=== PATIENT | female | born 1950 | race Caucasian/White ===

== ENCOUNTER → 2019-05-25 13:28 | Outpatient (CLI) | payer MEDICARE, OTHER, SELFPAY ==
[2019-05-25 14:42] LABS: Pathologist Comment May follow
[2019-05-25 15:11] LABS: Synovial Fld Mononuclear WBC % 76.2 %; Synovial Fld Polynuclear WBC # 0.223 10^3/uL; Synovial Fld Polynuclear WBC % 23.8 %
[2019-05-25 15:40] LABS: RBC /Synovial Fluid 0.006 10^6/uL (0)
[2019-05-25 16:14] LABS: Lymph 40 %; Monocyte /Synovial Fluid 17 %; Neutrophil 12 % (0-25); Other Cell /Synovial Fluid 31 %
[2019-05-25 16:19] LABS: AUTO B FLUID DILUENT BKGD CT WBC <0.1 RBC <0.01 (W<.1,R<.01); Source / Synovial Fluid LEFT KNEE; Source- Body Fluid SYNOVIAL
[2019-05-25 16:20] LABS: Appearance /Synovial Fluid Cloudy (CLEAR); Color / Synovial Fluid Yellow (Pale Yellow); Synovial Fld Mononuclear WBC # 0.716 10^3/ul
[2019-05-25 16:22] LABS: Body Fluid QC Type(s) BF3Q,BF4Q
[2019-05-26 10:39] LABS: Pathologist Review Reviewed
== END ==
PROVIDERS: Family Provider Internal Medicine; PCP Internal Medicine; Referring Provider Specialist; Visit Provider Specialist
DX: T84.033A Mechanical loosening of internal left knee prosthetic joint, initial encounter (principal); T84.84XA Pain due to internal orthopedic prosthetic devices, implants and grafts, initial encounter
CPT/HCPCS: 87015; 87070; 87075; 87101; 87116; 87205; 87206; 89050; 89051; 89060

== ENCOUNTER 2019-10-18 06:37 | Inpatient (IN) | payer MEDICARE, OTHER, SELFPAY ==
[2019-10-05 14:57] VITALS: BP 145/75; PULSE 63; RESP 16; TEMP 36.4; O2SAT 96; BMI 45.9
--- NOTE | 2019-10-05 15:04 | SDCEKG_ITS ---
Test Reason : Blood Pressure : / mmHG Vent. Rate : 060 BPM Atrial Rate : 060 BPM P-R Int : 170 ms QRS Dur : 080 ms QT Int : 422 ms P-R-T Axes : -16 -01 040 degrees QTc Int : 422 ms Normal sinus rhythm Normal ECG Confirmed by RYAN PAULINO, GUNNAR ([id number]), editorial director SHANNA ZAPATA ([id number]) on 10/06/2019 1:17:59 PM Referred By: Yan Noel Confirmed By:TIMOTHY DAVIS MD
[2019-10-05 17:31] LABS: Absolute Neutrophil Count 5.6 X10^3/uL (2.0-7.7); Basophil# 0.04 X10^3/uL; Basophil% 0.5 % (0-1); Eosinophil# 0.26 X10^3/uL; Eosinophils% 3.2 % (0-5); Hematocrit 41.2 % (37-47); Hemoglobin 12.9 g/dL (12.0-15.0); Lymphocyte % 17.1 % (19-41); Mean Corp Hgb Conc 31.3 g/dL (32-36); Mean Corpuscular Hgb 27.9 pg (27.0-32.0); Mean Corpuscular Volume 89.2 fL (81-99); Monocyte# 0.88 X10^3/uL; Monocyte% 10.7 % (0-10); NRBC Flagged by Analyzer 0 % (0-5); Neutrophil # 5.56 X10^3/uL (2.7-7.7); Neutrophil % 67.9 % (47-70); Platelet Count 304 K/mm3 (150-450); RBC Distribution Width CV 17.2 % (11.6-14.6); RBC Distribution Width SD 55.5 fl (35.1-43.9); Red Blood Count 4.62 M/mm3 (4.2-5.4); White Blood Count 8.2 K/mm3 (4.4-11.0)
[2019-10-05 18:00] LABS: Anion Gap 6 (5-15); BUN 16 mg/dL (7-18); Calcium,Total 8.7 mg/dL (8.5-10.1); Chloride 102 mmol/L (98-107); Creatinine, Serum 0.89 mg/dL (0.55-1.02); EST Glomerular Filtration Rate 67 mL/min (>60); Est Glom Filt Rate - Afr Amer 81 mL/min (>60); Estimated Creatinine Clearance 46.52 ml/min; Glucose 89 mg/dL (74-106); Potassium 3.9 mmol/L (3.5-5.1); Sodium Level 139 mmol/L (136-145)
--- NOTE | 2019-10-06 15:38 | PCM.HP.BLA ---
History and Physical History and Physical [facility] Patient Name: Chely Neff : 1950 From: LAMONT TIM PA-C DATE OF SURGERY: 10/18/2019 SCHEDULED PROCEDURE: left revision total knee arthroplasty HISTORY OF PRESENT ILLNESS: Preoperative history and physical exam was performed on October 05, 2019. This is a 69-year-old female who is been having ongoing pain in her left total knee for over 3 years. Pain has been intermittent and aching. Patient states the pain is increased with sitting, walking, and stairs. She has difficult time with activities of daily living including heavy housework, long shopping trips and long walks. She has stumbled secondary to the knee pain. She has difficult time and feels unsafe getting down on the floor and climbing on steps or ladders. Patient has had a previous left total knee arthroplasty by Dr. Dony Franklin on June 05, 2004. Patient denied any postoperative complications. Patient was worked up by Dr. Yan Noel in which elevated lab markers on April 20, 2019 involving CRP and ESR. Patient did have aspiration and synovasure which was negative for infection on May 25, 2019. Patient has been through physical therapy and home exercises with no relief in symptoms. She has tried oral medications including Tylenol without significant relief. Patient has tried rest, ice, heat, elevation with minimal relief. After failing conservative measures and discussing treatment options with Dr. Yan Noel the patient does wish to proceed with a revision left total knee arthroplasty. Patient currently denies any chest pain, shortness of breath, fevers chills, recent infections. Patient has medical history pertinent for hypertension. Denies any recent chest pain, shortness of breath, fevers chills. We have obtain surgical clearance from Dr. Friend. REVIEW OF SYSTEMS: ROS: Const: Denies anorexia, anxiety, change in appetite, fever and weight change,hard of hearing, and vision problems. CV: Denies chest pain, heart murmur, irregular heartbeat and peripheral vascular disease. Resp: Denies asthma, cough, pneumonia, sleep apnea, SOB, tuberculosis and wheezing. GI: Reports heartburn, but denies constipation, diarrhea, nausea, bloody stools and vomiting, and difficulty swallowing. : Urinary: denies incontinence. Musculo: Denies leg swelling, trouble walking and weakness and limp. Skin: Denies Raynaud's, history of shingles and tattoo. Neuro: Denies ambulatory dysfunction, dizziness, numbness/tingling and tremor. Psych: Denies anxiety, depression, insomnia, mental illness and stress. Dariel/Lymph: Denies anemia, bleeding/bruising tendency and past transfusion. Reviewed, no changes. PAST MEDICAL HISTORY: Advance Care Plan: Other Directive, LIVING WILL Effective Date: 01/28/2016 Other Directive, POA Effective Date: 01/28/2016 PMH: Medical Problems: Arthritis, High Blood Pressure Accidents: None Surgical Hx: Tonsillectomy - 1955 [place] Tubal Ligation - 1975 [facility] Knee Replacement - 2003 [facility] Dr. Franklin BILBETTIE KNEES Appendectomy - 1975 [facility] LT Foot - (2012) DR BUSTILLOS Anesthesia Complications: None Assistive Devices: Glasses Reviewed, no changes. 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 Personal Habits: Smoking: Patient has never smoked.Cigarette Use: Former - 1 pack/day.Alcohol: Occasionally.Drug Use: Denies Use.Enjoy Exercising: Exercises 1-3 X/Week. Reviewed and updated. VITALS: Ht: 62 Wt: 252lb Wt k.307 BMI: 46.1 BP: 129/66 Pulse: 58 Resp: 32 T: 96.8 T: 36.0C ALLERGIES: Naprosyn Statin Drugs MEDICATIONS: Atenolol 25 mg 1 po qd, Multivitamins 1 PO qd, Methotrexate 2.5 mg 8 tab taken once A week, Folic Acid 1 mg 1 PO q day, Furosemide 20 mg 1 tab PO daily, Aspirin 81 mg 1 PO q day, Acetaminophen-Codeine #3 300-30 mg 1 or 2 by mouth q6hr as needed pain, Oxybutynin Chloride ER 10 mg 1 by mouth every day, Omeprazole 40 mg 1 by mouth every day, Crestor 5 mg 1 tab by mouth daily PRE-OP EXAM: General appearance:NORMAL Other: Eyes: Conjunctivae and lids: NORMAL Pupils: ERR Ears, Nose, Mouth, and Throat: NORMAL Other: Inspection of lips, teeth and gums: NORMAL Other: Neck: Examination of neck: no masses noted. Respiratory: Assessment of respiratory effort: NORMAL Other: Auscultation of lungs: clear to auscultation no wheezes, rhonchi or rales. Cardiovascular: Auscultation of heart: regular rate and rhythm, no murmurs, gallops or rubs. Exam of carotid arteries: NORMAL Other: Gastrointestinal: Exam of abdomen: soft, nontender, nondistended bowel sounds present. PHYSICAL EXAMINATION: Patient walks with an antalgic gait. Left knee is cool to touch without erythema. Previous incision is well-healed. Range of motion left knee: 0 of extension to 105 flexion. Patient has no laxity appreciated on lateral, medial, and anterior translation which reproduces pain and guarding. Sensation intact to light touch. IMAGING STUDIES: Previous x-rays of the left knee reveal lateral displacement of the patella and erosion of the patella on the distal femoral condyle. There is evidence of ostial lysis in the distal femur. Implants do not show signs of gross loosening. Previous lab work was obtained on April 20, 2019: ESR 75 and CRP 2.33 Previous aspiration and synovasure was performed on May 25, 2019 which was negative for infection IMPRESSION: 1. Painful left total knee arthroplasty 2. Hypertension PLAN: Dr. Yan Noel did discuss and review with the patient all treatment options including surgical versus nonsurgical options. Patient does wish to proceed with the above-stated procedure. Potential risks, benefits, and complications of the procedure were discussed in detail including but not limited to , infection, nerve and blood vessel damage, persistent pain, numbness, tingling, paresthesias, blood clot, pulmonary embolism, and requirement for possible further surgery. The patient expressed full understanding and has no further questions for the doctor. Patient does agree to proceed with the above-stated procedure and has signed the surgery consent form. This dictation was created using voice recognition software. Phonetic and/or grammatical errors may exist. ___ I have re-examined the patient. There are no clinical changes since date of exam. ___ See progress notes for changes. ___ Dictated on admission Date: Time: Signature:
[2019-10-18] VITALS (9 sets, daily range): BP systolic 96–147; BP diastolic 56–75; PULSE 63–75; RESP 16–71; TEMP 36.2–37.1; O2SAT 92–99; BMI 45.9
[2019-10-18] MEDS: Magnesium Sulfate 4gm/100mL 4 GM/100 ML IV.SOLN. IV (07:13)
[2019-10-18] MEDS: Scopolamine 1mg/72hr Patch 1 PATCH TRANSDERM. (07:14)
[2019-10-18] MEDS: Acetaminophen 500 MG Tablet 1000 MG PO ×3 (07:14→21:56)
[2019-10-18] MEDS: Celecoxib 200 MG Capsule 400 MG PO (07:14)
[2019-10-18 07:15] LABS: Bedside Glucose 134 mg/dL (70-110)
[2019-10-18] MEDS: Gabapentin 600 MG Tablet PO (07:22)
[2019-10-18] MEDS: Lactated Ringers 1,000 ML 100 ML IV ×2 (08:10→11:30)
--- NOTE | 2019-10-18 10:28 | RAD_ITS ---
STUDY: X-RAY - LEFT KNEE REASON FOR EXAM: Left total knee revision. TECHNIQUE: 2 view(s) of the knee. COMPARISON: None. FINDINGS: There is a left total knee revision arthroplasty without evidence of complication. There is postoperative gas in the soft tissues and overlying skin khai. RAD/Knee 1 or 2 Views IMPRESSION: Uncomplicated left total knee arthroplasty. Electronically Signed: Dung Cisneros MD at 16:02 EST Tel , Service support ,
[2019-10-18] MEDS: Cefazolin 2 GM in 0.9% Normal Saline 100 ML IV (10:58)
[2019-10-18] MEDS: dexAMETHasone 10 MG/ML Vial IV (11:05)
--- NOTE | 2019-10-18 12:55 | PCM.OPRPT ---
Report of Operation Date of Procedure: 10/18/19 Pre-Operative Diagnosis: Painful left total knee replacement, aseptic loosening Post-Operative Diagnosis: Painful left total knee replacement, aseptic loosening Surgery/Procedure Performed:: Revision left total knee replacement all 3 components Description of Surgical Findings:: Stable knee, good patella tracking melter assistant: Stanley Stephens Type of Anesthesia:: Spinal Anesthesiologist: Leroy Chi Special Medications: 2 g Ancef, 1 g TXA at incision, 1 g TXA closure, 10 mg Decadron, joint cocktail (5 mg Duramorph, 30 mL of 0.5% Ropivicaine, 1000 units of epinephrine, 30 mg of Toradol), vancomycin IV due to positive MRSA Specimen's removed: 3 separate specimens were sent to microbiology Estimated Blood Loss (mL): 75 mL Fluids Replaced: 1500 mL crystalloid Description of Procedure: Implants used: Femur: Rony triathlon size 4 TS distal femoral component for the left. Distal augments medially and laterally were 10 mm, posterior augments medially and laterally were 5 mm. 15 x 100 mm stem Tibia: Size 3 universal tibial baseplate with 50 x 15 mm stem with size C tibial cone Poly: 16mm TS Patella: 29 mm asymmetric Brief history operative indications: 69-year-old f with total knee replacement in 2003. Patient demonstrated evidence of aseptic loosening and patella maltracking. After ruling out infection we agreed to proceed with revision total knee replacement which had risks which include but not limited to blood loss, DVTs, PEs, nervous damage, infection, the risk of anesthesia. Patient demonstrate understanding was able to sign informed consent. Medical clearance was obtained. Procedure: On the date of procedure patient's L lower extremity was marked in the preoperative area. The patient was then taken back to the operating room where the patient was placed on the table in the supine position. All bony prominences were identified a well-padded. Anesthesia assumed control of the C-spine and airway and remained controlled throughout the remainder of the procedure. A tourniquet was placed on the L upper thigh and the leg was prepped in a sterile fashion. The surgeon then scrubbed at this time. Upon reentering the room L lower extremity was draped in a standard orthopedic fashion. A timeout was then called and everyone agreed upon the side, the site, the procedure to be performed, patient's identity and antibiotics given. An Esmarch bandage was used to exsanguinate the extremity and the tourniquet was placed up to 250 mmHg with the knee in flexion. A midline skin incision was made using the previous incision and extending it proximally and distally to identify normal tissue planes. Medial and lateral flaps were developed appropriate releases. The standard medial parapatellar arthrotomy was made and the patella was subluxed laterally. At this time an aggressive synovectomy was performed re-creating the medial gutter first, then the suprapatellar pouch than the lateral gutter. Once this was completed the knee was flexed up an osteotome was used to remove the tibial polyethylene. The remainder of the synovium was debrided. The standard deep MCL release was done and the patella scar pad was resected and lateral releases were performed. Next our attention was directed to the femur. Where flexible osteotomes and TPS saw were used to break up the implant cement interface. This was done both medially and laterally. After this a bone tamp was used to remove the femur component from the end of the bone. This was done with minimal bone loss. At this time attention was now directed towards the proximal tibia. Possible osteotome and TPS saw were then used to break up the proximal tibia implant interface and stacked osteotomes were used to remove the tibial implant. This was done with minimal bone loss. Our attention was then turned to the tibia where the intramedullary canal was reamed to 17 and a size C tibial cone was reamed. We then made a cleanup cut on the tibia, A drop mera was then used to verify the cut. A size 3 tibial base plate was selected. the knee was flexed and the tibial component was pinned into place and the boss reamer was used to ream the proximal medullary canal. The trial implant was impacted in its prepared position. Our attention was then turned back to the femur or the femur intramedullary canal was reamed to 17 mm using the previous implants a size 4 TCG cutting guide with a 17 x 100 mm mm stem was put into place. The medial epicondyle was used to set the joint line. With this TCG cutting guide we used a 16 mm polyethylene trial in order to help balance the gaps. Once the gaps were appropriately balanced the guide was firmly pinned into place. Distal cuts were made with 10 mm augments medially and 10 mm augment laterally. Posterior cuts were made with 5 mm augments medially and 5 mm augment laterally. Using the guide the box cut was made using a reciprocating saw. The appropriate trials were then placed on the femur and tibia. A trial polyethylene was trialed to ensure proper balancing and stability of the knee. Patella tracking, was then verified and corrected appropriately as needed. Our attention was then directed to the patella. The patella was grossly loose and removed. Patella was everted and a cleanup cut was made. Trial patella was placed. Patellar tracking was again checked and deemed appropriate. Final components were verified and opened, 6 liters of normal saline were irrigated throughout the joint under low-pressure lavage. Then the cement was mixed in a vacuum. Farman Simplex cement with tobramycin was used. The wound was copiously irrigated with normal saline. When the cement was ready cement plugs were placed in the tibial cone was placed the components were cemented into place starting with the tibia, femur. The trial poly component was placed and the knee was placed in full extension. All excess cement was removed in the process. Once the cement had cured the tracking, alignment and balance were verified and a size 16 mm TS polyethylene component was placed. Once the final components were placed a chlorhexidine lavage was used and the wound was copiously irrigated with normal saline solution and the remainder of the periarticular injection was given. The wound was closed in a layer cleaning fashion using #1 vicryl interrupted sutures for the arthrotomy, 2-0 interrupted Vicryl for the subcuticular layer and khai for final skin closure. A sterile compressive dressing was then placed. The patient was then awakened from anesthesia, transferred to the rreliance and transferred to the PACU for recovery. Post op plan DVT ppx: ASA 81mg BID, thigh high compression stockings Follow up: in office in 2 weeks for wound check PT: to start POD #0 at hospital, outpatient PT should be arranged. My physician assistant infant toddler teacher was a vital part of this case. He was important in appropriate retraction during the case, and protection of soft tissues during bony cuts. His intimate knowledge of the case and my steps aided in safe and expedient completion of the procedure as well as appropriate position of the leg during the case. He was also vital in assisting with closure under my direct supervision. - Complications No intraoperative complications - Admit VTE Documentation VTE Present on Admission: No VTE Mechan Device Prophylaxis: SCD's, Thigh High ALFONSO Hose VTE Pharm Prophylaxis ordered?: Yes
[2019-10-18] MEDS: Folic Acid 1 MG Tablet PO (15:27)
[2019-10-18] MEDS: Lactated Ringers 1,000 ML 125 ML IV (15:33)
[2019-10-18] MEDS: Ensure Surgery 237 ML LIQUID PO (17:27)
[2019-10-18] MEDS: Cefazolin 1 GM/50 ML BAG IV (18:57)
[2019-10-18] MEDS: Aspirin 81 MG TAB.CHEW PO (21:56)
[2019-10-18] MEDS: Rosuvastatin Calcium 5 MG Tablet PO (21:56)
[2019-10-18] MEDS: Senna/Docusate Sodium 1 Tablet 2 TABLET PO (21:56)
[2019-10-18] MEDS: Doxycycline 100 MG CAPSULE PO (21:56)
[2019-10-19 02:37] VITALS: BP 128/59; PULSE 67; RESP 16; TEMP 36.3; O2SAT 95
[2019-10-19] MEDS: Cefazolin 1 GM/50 ML BAG IV (02:39)
[2019-10-19] MEDS: 0.9% Saline Lock 10 ML Syringe IV ×2 (03:20→10:54)
[2019-10-19] MEDS: Acetaminophen 500 MG Tablet 1000 MG PO ×3 (05:26→21:11)
[2019-10-19 05:30] LABS: Hematocrit 35.2 % (37-47); Hemoglobin 11.1 g/dL (12.0-15.0); Mean Corp Hgb Conc 31.5 g/dL (32-36); Mean Corpuscular Hgb 28.8 pg (27.0-32.0); Mean Corpuscular Volume 91.4 fL (81-99); Mean Platelet Vol. 9.8 fl (6.2-12.0); Platelet Count 250 K/mm3 (150-450); RBC Distribution Width CV 16.4 % (11.6-14.6); RBC Distribution Width SD 54.1 fl (35.1-43.9); Red Blood Count 3.85 M/mm3 (4.2-5.4); White Blood Count 15.5 K/mm3 (4.4-11.0)
[2019-10-19 05:54] LABS: Anion Gap 5 (5-15); BUN 16 mg/dL (7-18); BUN/Creat Ratio 15.8 RATIO (10-20); Calcium,Total 8.5 mg/dL (8.5-10.1); Chloride 108 mmol/L (98-107); Creatinine, Serum 1.01 mg/dL (0.55-1.02); EST Glomerular Filtration Rate 58 mL/min (>60); Est Glom Filt Rate - Afr Amer 70 mL/min (>60); Estimated Creatinine Clearance 40.99 ml/min; Glucose 172 mg/dL (74-106); Potassium 4.8 mmol/L (3.5-5.1); Sodium Level 141 mmol/L (136-145)
[2019-10-19] MEDS: Folic Acid 1 MG Tablet PO (07:39)
[2019-10-19] MEDS: Multivitamins,Ther W-Minerals Tablet 1 TABLET PO (07:39)
[2019-10-19] MEDS: Ensure Surgery 237 ML LIQUID PO ×3 (07:43→16:54)
[2019-10-19] MEDS: Pantoprazole Sodium 20 MG Tablet PO (07:46)
[2019-10-19] MEDS: Doxycycline 100 MG CAPSULE PO ×2 (07:46→21:12)
[2019-10-19] MEDS: Senna/Docusate Sodium 1 Tablet 2 TABLET PO ×2 (07:47→21:11)
[2019-10-19] MEDS: Aspirin 81 MG TAB.CHEW PO ×2 (07:47→21:12)
[2019-10-19] MEDS: Tolterodine Tartrate 2 MG CAP.SA PO (07:47)
[2019-10-19] MEDS: Furosemide 20 MG Tablet PO (07:47)
[2019-10-19] MEDS: Famotidine 20 MG Tablet PO (07:47)
[2019-10-19] MEDS: Atenolol 25 MG Tablet PO (07:55)
--- NOTE | 2019-10-19 07:55 | NURSING ---
am meds all given at this time per pt request
[2019-10-19 10:00] VITALS: BP 137/63; PULSE 76; RESP 14; TEMP 36.7; O2SAT 94
--- NOTE | 2019-10-19 10:00 | CASEMGMT ---
YOEL ANTHONY Face to Face with patient for initial transition planning/care coordination assessment. RN RAJ introduced self and role at [facility]. Patient sitting in chair, alert and oriented. Patient willing to participate in assessment and is able to answer all questions appropriately. Care providers, pharmacy, and demographics verified. Patient wishes to discharge home and is setup with [facility] in [place] for outpatient therapy. Patient states she has no further needs or concerns at this time. CM to follow for discharge planning needs that may arise. PCP: Ronna Specialists: RA Stephen Preferred Pharmacy: [facility]. Patient wanting [facility] at discharge. Insurance: [facility], AARP Prescription Benefit: yes Living Will/HPOA: yes, sons Ousmane and Vasyl LNOK: sons Living Arrangements: Patient lives alone in 1 story home with 2 steps and railing to enter the home. Patient independent at home prior to surgery. Transportation: sons, family DME/HHC: Patient has shower chair, raised toilet, cane, walker at home. Patient is scheduled for outpatient therapy to begin Wednesday at [facility] in [place]. Disposition Plan: Patient to discharge home with outpatient therapy, family support, and follow-up plans in place. Lore RUIZ, RN, CM
--- NOTE | 2019-10-19 10:12 | CASEMGMT ---
As per preadmission assessment, pt has LW/POA and sons are POA, but she is not able to bring in the documents. EVA Artis
--- NOTE | 2019-10-19 10:53 | PCM.PN.ORT ---
Subjective: The patient was sitting in bedside chair upon examination. Patient denies any chest pain, shortness of breath, dizziness, lightheadedness, nausea or vomiting, or calf pain. Pain is controlled on medications. No adverse overnight events. Patient was requiring oxygen postoperatively. She currently denies any chest pain or shortness of breath. Patient does complain of pain in the postoperative revision left total knee. Medications seem to be helping at this point. She did undergo a postoperative block. Patient states that she has no one at home tonight and will have help tomorrow. Objective: Vital signs stable and afebrile. Patient is able to plantarflex and dorsiflex actively. Sensation is intact to light touch to saphenous, sural, superficial and deep peroneal, and tibial distribution. Dressing is clean dry and intact. Negative Homans bilaterally, negative signs and symptoms of DVT. - Physical Exam Vitals/I&O's: Vital Signs Temp Pulse Resp BP Pulse Ox 97.3 F L 67 16 128/59 H 95 10/19/19 02:37 10/19/19 02:37 10/19/19 02:37 10/19/19 02:37 10/19/19 02:37 Oxygen Flow Rate (L/min) 1 Oxygen Delivery Method Nasal Cannula Weight: 114 kg Body Mass Index (BMI) 45.9 Intake and Output for Last 24 Hours 10/17/19 10/18/19 10/19/19 23:59 23:59 23:59 Intake Total 3463.74 / 3463.74 985 / 985 Balance 3463.74 / 3463.74 985 / 985 General: Alert, Oriented x3, Cooperative, No apparent distress Laboratory Results 10/19/19 05:00: WBC 15.5 H, RBC 3.85 L, Hgb 11.1 L, Hct 35.2 L, MCV 91.4, MCH 28.8, MCHC 31.5 L, RDW Std Deviation 54.1 H, RDW Coeff of Shorty 16.4 H, Plt Count 250, MPV 9.8 10/19/19 05:00: Sodium 141, Potassium 4.8, Chloride 108 H, Carbon Dioxide 28.0, Anion Gap 5, BUN 16, Creatinine 1.01, Estim Creat Clear Calc 40.99, Est GFR (MDRD) Af Amer 70, Est GFR (MDRD) Non-Af 58 L, BUN/Creatinine Ratio 15.8, Glucose 172 H, Calcium 8.5 Current Medications Acetaminophen (Tylenol) 1,000 mg PO Q8 [facility] Last Admin: 10/19/19 05:26 Dose: 1,000 mg Documented by: Aspirin (Aspirin, Baby) 81 mg PO BID [facility] Last Admin: 10/19/19 07:47 Dose: 81 mg Documented by: Atenolol (Tenormin (Beta Andrew)) 25 mg PO DAILY [facility] Last Admin: 10/19/19 07:55 Dose: 25 mg Documented by: Doxycycline Monohydrate (Doxycycline) 100 mg PO BID [facility] Last Admin: 10/19/19 07:46 Dose: 100 mg Documented by: Enteral Nutritional Formula (Ensure Surgery) 237 ml PO TIDCM [facility] Last Admin: 10/19/19 07:43 Dose: 237 ml Documented by: Famotidine (Pepcid) 20 mg PO DAILY [facility] Last Admin: 10/19/19 07:47 Dose: 20 mg Documented by: Folic Acid (Folic Acid) 1 mg PO SuMoTuWeThSa@0800 [facility] Last Admin: 10/19/19 07:39 Dose: 1 mg Documented by: Furosemide (Lasix) 20 mg PO DAILY [facility] Last Admin: 10/19/19 07:47 Dose: 20 mg Documented by: Sodium Chloride () 250 mls @ 15 mls/hr IV .[id number] PRN PRN Reason: Saline Flush Insulin Human Lispro (Humalog Kwikpen (Bkc)) 1 - 6 unit SC Q4H PRN PRN; Protocol PRN Reason: BG>/= 180, SEE PROTOCOL Ketorolac Tromethamine (Toradol) 15 mg IV Q6H PRN PRN PRN Reason: Pain Score 1-5/10 Stop: 10/20/19 10:29 Meloxicam (Mobic) 7.5 mg PO BID [facility] Methotrexate (Methotrexate) 20 mg PO FR [facility] Morphine Sulfate () 2 - 4 mg IV Q2H PRN PRN PRN Reason: Pain Score 6-10/10 Morphine Sulfate () 2 - 4 mg IV Q2H PRN PRN PRN Reason: pain score 6-10/10 Multivitamins/Minerals (Multivitamin With Minerals) 1 tablet PO DAILY@0800 [facility] Last Admin: 10/19/19 07:39 Dose: 1 tablet Documented by: Ondansetron HCl (Zofran) 4 mg IV Q8H PRN PRN PRN Reason: NAUSEA Oxycodone HCl (Oxyir) 5 - 10 mg PO Q4H PRN PRN PRN Reason: Pain Score 4-10/10 Pantoprazole Sodium (Protonix) 20 mg PO DAILY [facility] Last Admin: 10/19/19 07:46 Dose: 20 mg Documented by: Promethazine HCl (Phenergan) 12.5 mg IM Q6H PRN PRN; Protocol PRN Reason: NAUSEA/VOMITING Rosuvastatin Calcium (Crestor) 5 mg PO QHS [facility] Last Admin: 10/18/19 21:56 Dose: 5 mg Documented by: Senna/Docusate Sodium (Senokot-S, Sabrina-Colace) 2 tablet PO BID [facility] Last Admin: 10/19/19 07:47 Dose: 2 tablet Documented by: Sodium Chloride () 10 - 40 ml IV UD PRN PRN Reason: SALINE FLUSH Last Admin: 10/19/19 03:20 Dose: 10 ml Documented by: Tolterodine Tartrate (Detrol La) 2 mg PO DAILY [facility] Last Admin: 10/19/19 07:47 Dose: 2 mg Documented by: Medical Necessity - Tobacco Use Smoking Status: Former smoker Tobacco Use: Non-smoker Assessment/Plan 1. S/P left revision total knee arthroplasty POD #1 2. Continue Pain Medications: Tylenol and OxyIR 3. DVT Prophylaxis: Aspirin 81 mg twice daily for 4 weeks postoperatively 4. PT/OT: Weightbearing as tolerated 5. H & H: 11.1/35.2, asymptomatic 6. Reactive leukocytosis: Currently 15.5, afebrile. Patient did receive Decadron intraoperatively. 7. Continue antibiotics while following cultures: Currently pending. Patient currently on doxycycline 1 week postoperatively 8. Encouraged Incentive Spirometry 9. Disposition: Plan will be for discharge home tomorrow. We will continue to monitor and make sure patient's pain is well controlled and she tolerates physical therapy after her revision total knee arthroplasty.
[2019-10-19] MEDS: Ketorolac 15 MG/ML Vial IV (10:54)
[2019-10-19 14:35] VITALS: BP 155/60; PULSE 72; RESP 18; TEMP 36.4; O2SAT 94
[2019-10-19 21:09] VITALS: BP 153/70; PULSE 75; RESP 18; TEMP 37.1; O2SAT 93
[2019-10-19] MEDS: Meloxicam 7.5 MG Tablet PO (21:12)
[2019-10-19] MEDS: Rosuvastatin Calcium 5 MG Tablet PO (21:12)
[2019-10-20 02:55] VITALS: BP 157/84; PULSE 77; RESP 20; TEMP 36.7; O2SAT 95
[2019-10-20 05:35] LABS: Hematocrit 33.9 % (37-47); Hemoglobin 10.6 g/dL (12.0-15.0); Mean Corp Hgb Conc 31.3 g/dL (32-36); Mean Corpuscular Volume 89.7 fL (81-99); Mean Platelet Vol. 9.6 fl (6.2-12.0); Platelet Count 220 K/mm3 (150-450); RBC Distribution Width CV 17.2 % (11.6-14.6); Red Blood Count 3.78 M/mm3 (4.2-5.4); White Blood Count 12.7 K/mm3 (4.4-11.0)
[2019-10-20] MEDS: Acetaminophen 500 MG Tablet 1000 MG PO (06:40)
--- NOTE | 2019-10-20 07:25 | PCM.PN.ORT ---
Subjective: The patient was sitting in bedside chair upon examination. Patient denies any chest pain, shortness of breath, dizziness, lightheadedness, nausea or vomiting, or calf pain. No adverse overnight events. Patient states she is having increased pain in the postoperative left knee. The ALFONSO hose are significantly causing discomfort. Patient is only tried to use Tylenol for pain control. She is not been taking any of the oxycodone. Objective: Vital signs stable and afebrile. Patient is able to plantarflex and dorsiflex actively. Sensation is intact to light touch to saphenous, sural, superficial and deep peroneal, and tibial distribution. Dressing is clean dry and intact. Negative Homans bilaterally, negative signs and symptoms of DVT. - Physical Exam Vitals/I&O's: Vital Signs Temp Pulse Resp BP Pulse Ox 98.1 F 77 20 H 157/84 H 95 10/20/19 02:55 10/20/19 02:55 10/20/19 02:55 10/20/19 02:55 10/20/19 02:55 Oxygen Flow Rate (L/min) 1 Oxygen Delivery Method Room Air Weight: 114 kg Body Mass Index (BMI) 45.9 Intake and Output for Last 24 Hours 10/18/19 10/19/19 10/20/19 23:59 23:59 23:59 Intake Total 3463.74 / 3463.74 2085 / 2385 800 / 800 Balance 3463.74 / 3463.74 2085 / 2385 800 / 800 General: Alert, Oriented x3, Cooperative, No apparent distress Microbiology Past 72 Hours 10/18/19 13:36 Tissue - Knee Gram Stain - Final 10/18/19 13:36 Tissue - Knee Wound Culture - Preliminary No growth-Final to follow 10/18/19 13:36 Tissue - Knee Gram Stain - Final 10/18/19 13:36 Tissue - Knee Wound Culture - Preliminary No growth-Final to follow 10/18/19 13:36 Tissue - Knee Gram Stain - Final 10/18/19 13:36 Tissue - Knee Wound Culture - Preliminary No growth-Final to follow Laboratory Results 10/20/19 05:05: WBC 12.7 H, RBC 3.78 L, Hgb 10.6 L, Hct 33.9 L, MCV 89.7, MCH 28.0, MCHC 31.3 L, RDW Std Deviation 56.0 H, RDW Coeff of Shorty 17.2 H, Plt Count 220, MPV 9.6 Current Medications Acetaminophen (Tylenol) 1,000 mg PO Q8 COUNTS INCLUDE 234 BEDS AT THE [facility] Last Admin: 10/20/19 06:40 Dose: 1,000 mg Documented by: Aspirin (Aspirin, Baby) 81 mg PO BID COUNTS INCLUDE 234 BEDS AT THE [facility] Last Admin: 10/19/19 21:12 Dose: 81 mg Documented by: Atenolol (Tenormin (Beta Andrew)) 25 mg PO DAILY COUNTS INCLUDE 234 BEDS AT THE [facility] Last Admin: 10/19/19 07:55 Dose: 25 mg Documented by: Doxycycline Monohydrate (Doxycycline) 100 mg PO BID COUNTS INCLUDE 234 BEDS AT THE [facility] Last Admin: 10/19/19 21:12 Dose: 100 mg Documented by: Enteral Nutritional Formula (Ensure Surgery) 237 ml PO TIDCM COUNTS INCLUDE 234 BEDS AT THE [facility] Last Admin: 10/19/19 16:54 Dose: 237 ml Documented by: Famotidine (Pepcid) 20 mg PO DAILY COUNTS INCLUDE 234 BEDS AT THE [facility] Last Admin: 10/19/19 07:47 Dose: 20 mg Documented by: Folic Acid (Folic Acid) 1 mg PO SuMoTuWeThSa@0800 COUNTS INCLUDE 234 BEDS AT THE [facility] Last Admin: 10/19/19 07:39 Dose: 1 mg Documented by: Furosemide (Lasix) 20 mg PO DAILY COUNTS INCLUDE 234 BEDS AT THE [facility] Last Admin: 10/19/19 07:47 Dose: 20 mg Documented by: Sodium Chloride () 250 mls @ 15 mls/hr IV .[id number] PRN PRN Reason: Saline Flush Insulin Human Lispro (Humalog Kwikpen (Bkc)) 1 - 6 unit SC Q4H PRN PRN; Protocol PRN Reason: BG>/= 180, SEE PROTOCOL Ketorolac Tromethamine (Toradol) 15 mg IV Q6H PRN PRN PRN Reason: Pain Score 1-5/10 Stop: 10/20/19 10:29 Last Admin: 10/19/19 10:54 Dose: 15 mg Documented by: Meloxicam (Mobic) 7.5 mg PO BID COUNTS INCLUDE 234 BEDS AT THE [facility] Last Admin: 10/19/19 21:12 Dose: 7.5 mg Documented by: Methotrexate (Methotrexate) 20 mg PO FR COUNTS INCLUDE 234 BEDS AT THE [facility] Morphine Sulfate () 2 - 4 mg IV Q2H PRN PRN PRN Reason: Pain Score 6-10/10 Morphine Sulfate () 2 - 4 mg IV Q2H PRN PRN PRN Reason: pain score 6-10/10 Multivitamins/Minerals (Multivitamin With Minerals) 1 tablet PO DAILY@0800 COUNTS INCLUDE 234 BEDS AT THE [facility] Last Admin: 10/19/19 07:39 Dose: 1 tablet Documented by: Ondansetron HCl (Zofran) 4 mg IV Q8H PRN PRN PRN Reason: NAUSEA Oxycodone HCl (Oxyir) 5 - 10 mg PO Q4H PRN PRN PRN Reason: Pain Score 4-10/10 Pantoprazole Sodium (Protonix) 20 mg PO DAILY COUNTS INCLUDE 234 BEDS AT THE [facility] Last Admin: 10/19/19 07:46 Dose: 20 mg Documented by: Promethazine HCl (Phenergan) 12.5 mg IM Q6H PRN PRN; Protocol PRN Reason: NAUSEA/VOMITING Rosuvastatin Calcium (Crestor) 5 mg PO QHS COUNTS INCLUDE 234 BEDS AT THE [facility] Last Admin: 10/19/19 21:12 Dose: 5 mg Documented by: Senna/Docusate Sodium (Senokot-S, Sabrina-Colace) 2 tablet PO BID COUNTS INCLUDE 234 BEDS AT THE [facility] Last Admin: 10/19/19 21:11 Dose: 2 tablet Documented by: Sodium Chloride () 10 - 40 ml IV UD PRN PRN Reason: SALINE FLUSH Last Admin: 10/19/19 10:54 Dose: 20 ml Documented by: Tolterodine Tartrate (Detrol La) 2 mg PO DAILY COUNTS INCLUDE 234 BEDS AT THE [facility] Last Admin: 10/19/19 07:47 Dose: 2 mg Documented by: Medical Necessity - Tobacco Use Smoking Status: Former smoker Tobacco Use: Non-smoker Assessment/Plan 1. S/P left revision total knee arthroplasty POD #2 2. Continue Pain Medications: Tylenol and OxyIR 2. I explained to the patient that I would like her to start taking the oxycodone. We discussed that her pain can actually limit her ability to recover and go through therapy appropriately. Patient will begin taking the oxycodone. 3. DVT Prophylaxis: Aspirin 81 mg twice daily for 4 weeks postoperatively 4. PT/OT: Weightbearing as tolerated 5. H & H: 10.6/33.9, asymptomatic 6. Reactive leukocytosis: Trending down, currently 12.7, afebrile. Patient did receive Decadron intraoperatively. 7. Continue antibiotics while following cultures: Currently no growth patient currently on doxycycline 1 week postoperatively 8. Encouraged Incentive Spirometry 9. Disposition: Plan will be for discharge home this afternoon. Prescriptions will be E scribed to [facility]. Patient will begin using the oxycodone for pain control. She will continue with Tylenol and meloxicam. I instructed patient at home not to use the Tylenol with codeine while using the extra strength Tylenol and oxycodone. She voiced understanding. We will discontinue the ALFONSO hose due to patient's body habitus. She is not tolerating these ALFONSO hose. Patient has outpatient physical therapy established. She will follow-up per postop instructions. I have reviewed the [place] Automated Rx Reporting System (OARRS) report for this patient for refill pattern and other prescriber involvement as part of the appropriate surveillance for the provision of acute and chronic controlled medications. The report was requested and reviewed on the date of this entry and was considered in the prescribing process.
[2019-10-20] MEDS: oxyCODONE 5 MG Tablet PO ×2 (07:27→12:24)
[2019-10-20] MEDS: Famotidine 20 MG Tablet PO (07:30)
[2019-10-20] MEDS: Atenolol 25 MG Tablet PO (07:30)
[2019-10-20] MEDS: Methotrexate 2.5 MG Tablet 20 MG PO (07:30)
[2019-10-20] MEDS: Aspirin 81 MG TAB.CHEW PO (07:30)
[2019-10-20] MEDS: Pantoprazole Sodium 20 MG Tablet PO (07:30)
[2019-10-20] MEDS: Multivitamins,Ther W-Minerals Tablet 1 TABLET PO (07:30)
[2019-10-20] MEDS: Tolterodine Tartrate 2 MG CAP.SA PO (07:31)
[2019-10-20] MEDS: Furosemide 20 MG Tablet PO (07:31)
[2019-10-20] MEDS: Meloxicam 7.5 MG Tablet PO (07:31)
[2019-10-20] MEDS: Doxycycline 100 MG CAPSULE PO (07:31)
--- NOTE | 2019-10-20 07:33 | DCINST_ITS ---
Discharge Diet: No Restrictions Discharge Activity: May Not Drive May shower in (days): 1 - Okay to get wet if dressing remains intact to skin. Turn dressing away from water Ice area for (Minutes): 20 - Every 1-2 hours while awake Weight Bearing Status: Weight bearing as tolerated Elevate: Operative Extremity Additional Activity Instructions:: Wear elastic stockings for 2 weeks after your surgery. Call your doctor if your incision/area has: Continuous Slow Oozing, Sudden Increased Bleeding, Increased Pain/ Swelling, Increased Redness, Foul Smelling Discharge Call your doctor if you observe: Fever of 101 or Higher, Coldness, Increased Pain, Numbness or Tingling, Change in Color, Calf discomfort, Uncontrolled pain Remove Dressing in (days):: 3 - Okay to remove dressing on October 23, 2019 Additional Instructions: Follow orthopedic postop instructions Allergies/Adverse Reactions: Allergies naproxen [From Naprosyn] Allergy (Verified 10/18/19 07:06) Hives [id number] Reductase Inhibitor Adverse Reaction (Verified 10/18/19 07:06) Pain in joints Medications to take at Discharge Atenolol [Tenormin (beta wade)] 25 mg PO DAILY 10/05/19 Folic Acid 1 mg PO SUMOTUWETHSA 10/05/19 Furosemide [Lasix] 20 mg PO DAILY 10/05/19 Methotrexate Sodium [Methotrexate] 20 mg PO FR 10/05/19 Multivitamin with Minerals [Multiple Vitamin] 1 ea PO DAILY 10/05/19 Omeprazole [Prilosec] 40 mg PO DAILY 10/05/19 Oxybutynin Chloride [Ditropan Xl] 5 mg PO DAILY 10/05/19 Rosuvastatin Calcium [Crestor] 5 mg PO QHS 10/05/19 Ubidecarenone [Coq-10] 200 mg PO DAILY 10/18/19 Acetaminophen [Tylenol] 1,000 mg PO Q8 #100 tab 10/20/19 Aspirin [Aspirin, Baby] 81 mg PO BID #60 tab 10/20/19 Doxycycline 100 mg PO BID #10 cap 10/20/19 Meloxicam [Mobic] 7.5 mg PO BID #60 tab 10/20/19 Oxycodone [Oxyir] 5 - 10 mg PO Q4H PRN PRN 4 Days #48 tablet 10/20/19 The following prescriptions were given: Aspirin [Aspirin, Baby] 81 mg PO BID #60 tab Transmission Status: Pending to [facility] Doxycycline 100 mg PO BID #10 cap Transmission Status: Pending to [facility] Meloxicam [Mobic] 7.5 mg PO BID #60 tab Transmission Status: Pending to [facility] Oxycodone [Oxyir] 5 - 10 mg PO Q4H PRN PRN 4 Days #48 tablet PRN Reason: Pain Score 4-10/10 Transmission Status: Sent to [facility] Acetaminophen [Tylenol] 1,000 mg PO Q8 #100 tab Transmission Status: Pending to [facility] Primary Care Physician: Madison Friend [Primary Care Provider] - Test Results: Test results from this visit will be discussed in further detail at your follow- up appointment, if applicable. Please Follow Up With: Physical Therapy @ [place] When: 10/23/19 @ 1:00 with Aurelia Please Follow Up With: Uri Stephens PA-C When: 11/01/19 @ 10:45 am
[2019-10-20] MEDS: Ensure Surgery 237 ML LIQUID PO ×2 (07:40→11:39)
--- NOTE | 2019-10-20 07:42 | NURSING ---
thigh high frank hose removed and carlito wrap applied to lt knee per orders
[2019-10-20 08:00] VITALS: BP 153/67; PULSE 82; RESP 16; TEMP 37.2; O2SAT 93
--- NOTE | 2019-10-20 08:01 | NURSING ---
am meds given at this time as pt takes at home
== END 2019-10-20 12:35 | disposition home or self-care (01) | DRG 468 ==
LOC: ACINP 06:38 → MS3 13:41
PROVIDERS: Admitting Provider Specialist; Family Provider Internal Medicine; PCP Internal Medicine; Referring Provider Specialist; Visit Provider Specialist
PROC: 0SPD0JZ Removal of Synthetic Substitute from Left Knee Joint, Open Approach (ICD-10-PCS; principal; 2019-10-18 09:30)
DX: T84.84XA Pain due to internal orthopedic prosthetic devices, implants and grafts, initial encounter (principal); T84.033A Mechanical loosening of internal left knee prosthetic joint, initial encounter; Y83.1 Surgical operation with implant of artificial internal device as the cause of abnormal reaction of the patient, or of later complication, without mention of misadventure at the time of the procedure; I10 Essential (primary) hypertension; Z87.891 Personal history of nicotine dependence; G25.81 Restless legs syndrome; K21.9 Gastro-esophageal reflux disease without esophagitis; E78.00 Pure hypercholesterolemia, unspecified; Z78.0 Asymptomatic menopausal state; M19.90 Unspecified osteoarthritis, unspecified site; Z79.52 Long term (current) use of systemic steroids; Z79.82 Long term (current) use of aspirin; Z79.899 Other long term (current) drug therapy; Z96.651 Presence of right artificial knee joint; Z23 Encounter for immunization
CPT/HCPCS: 36415; 73560; 80048; 82962; 85025; 85027; 87015; 87070; 87075; 87077; 87081; 87102; 87116; 87176; 87205; 87206; 93005; 97110; 97116; 97162; 97166; 97530; 97535; 99251; C1713; C1776; G0008; J7040; J7120; 90686; A4216; G0463; J2405; J8610

== ENCOUNTER → 2021-05-20 14:45 | Outpatient (CLI) | payer MEDICARE, OTHER, SELFPAY ==
[2021-05-23 20:08] LABS: Red Blood Cell Count Test/G6PD 4.45 x10E6/uL (3.77-5.28)
[2021-05-24 10:19] LABS: G6PD Quant Test 298 (127-427)
== END ==
PROVIDERS: PCP Internal Medicine; Referring Provider Internal Medicine Rheumatology; Visit Provider Internal Medicine Rheumatology
DX: M05.79 Rheumatoid arthritis with rheumatoid factor of multiple sites without organ or systems involvement (principal); L40.8 Other psoriasis; M17.0 Bilateral primary osteoarthritis of knee; M48.061 Spinal stenosis, lumbar region without neurogenic claudication; M21.41 Flat foot [pes planus] (acquired), right foot; K21.9 Gastro-esophageal reflux disease without esophagitis; E11.9 Type 2 diabetes mellitus without complications; I35.0 Nonrheumatic aortic (valve) stenosis; E78.5 Hyperlipidemia, unspecified; F32.9 Major depressive disorder, single episode, unspecified; R32 Unspecified urinary incontinence; K57.90 Diverticulosis of intestine, part unspecified, without perforation or abscess without bleeding; Z79.899 Other long term (current) drug therapy
CPT/HCPCS: 36415; 82955

== ENCOUNTER → 2022-09-23 | Outpatient (CLI) | payer MEDICARE, SELFPAY ==
[2022-09-23 15:09] LABS: Absolute Lymphocyte Count 1.27 X10^3/uL (0.83-4.51); Absolute Neutrophil Count 3.8 X10^3/uL (2.0-7.7); Basophil# 0.03 X10^3/uL; Basophil% 0.5 % (0-1); Eosinophil# 0.24 X10^3/uL; Eosinophils% 3.8 % (0-5); Hematocrit 38.9 % (37-47); Hemoglobin 12.1 g/dL (12.0-15.0); Lymphocyte # 1.27 X10^3/ul (0.83-4.51); Mean Corp Hgb Conc 31.1 g/dL (32-36); Mean Platelet Vol. 9.1 fl (6.2-12.0); Monocyte# 0.97 X10^3/uL; Monocyte% 15.3 % (0-10); NRBC Flagged by Analyzer 0.3 % (0-5); Neutrophil # 3.79 X10^3/uL (2.7-7.7); Neutrophil % 59.5 % (47-70); Platelet Count 340 K/mm3 (150-450); RBC Distribution Width CV 17.6 % (11.6-14.6); RBC Distribution Width SD 56.7 fl (35.1-43.9); Red Blood Count 4.32 M/mm3 (4.2-5.4); White Blood Count 6.4 K/mm3 (4.4-11.0)
== END | disposition home or self-care (01) ==
LOC: MTLAB 11:38
PROVIDERS: PCP Internal Medicine; Referring Provider Internal Medicine Rheumatology; Visit Provider Internal Medicine Rheumatology
DX: M05.70 Rheumatoid arthritis with rheumatoid factor of unspecified site without organ or systems involvement (principal); E11.9 Type 2 diabetes mellitus without complications; L40.8 Other psoriasis; M17.0 Bilateral primary osteoarthritis of knee; M48.061 Spinal stenosis, lumbar region without neurogenic claudication; M21.41 Flat foot [pes planus] (acquired), right foot; K21.9 Gastro-esophageal reflux disease without esophagitis; I35.0 Nonrheumatic aortic (valve) stenosis; E78.5 Hyperlipidemia, unspecified; R32 Unspecified urinary incontinence; K57.90 Diverticulosis of intestine, part unspecified, without perforation or abscess without bleeding; F32.A Depression, unspecified; Z79.899 Other long term (current) drug therapy
CPT/HCPCS: 36415; 85025

== ENCOUNTER → 2022-11-05 | Outpatient (CLI) | payer MEDICARE, SELFPAY ==
--- NOTE | 2022-11-05 12:16 | PFT ---
INTRODUCTION: The patient is a 72-year-old female that presents for pulmonary function studies secondary to a diagnosis of hypoxemia. Respiratory therapy reported good patient effort. Bronchodilators were used during testing. INTERPRETATION: Forced expiration spirometry demonstrates the presence of a moderate large airways obstructive ventilatory defect. There was no significant response to aerosolized bronchodilators. Spirograms are of good quality and plateau normally. Body plethysmography was performed and revealed an elevated RV to 143% of predicted, indicative of underlying air trapping. Diffusing capacity by single breath CO was reduced to 56% of predicted. IMPRESSION: Irreversible moderate large airways obstructive ventilatory defect with associated air trapping and symmetric reduction in diffusion capacity.
== END | disposition home or self-care (01) ==
LOC: PSN 10:14
PROVIDERS: PCP Internal Medicine; Referring Provider Internal Medicine Critical Care Medicine; Visit Provider Internal Medicine Critical Care Medicine
DX: R09.02 Hypoxemia (principal)
CPT/HCPCS: 94060; 94726; 94729

== ENCOUNTER → 2022-11-10 | Outpatient (CLI) | payer MEDICARE, SELFPAY | END | disposition home or self-care (01) | LOC: SL 20:27 | PROVIDERS: PCP Internal Medicine; Referring Provider Internal Medicine Critical Care Medicine; Visit Provider Internal Medicine Critical Care Medicine | DX: G47.10 Hypersomnia, unspecified (principal) | CPT/HCPCS: 95810 ==

== ENCOUNTER → 2022-11-19 | Outpatient (CLI) | payer MEDICARE, SELFPAY ==
--- NOTE | 2022-11-19 13:29 | ECHOD_ITS ---
Reason For Study: PHTN Procedure This was a 2D Doppler, Color Flow transthoracic echocardiogram. The study was technically difficult. Exam performed in department. Left Ventricle The left ventricular ejection fraction is 55 %. Diastolic function is indeterminate. Right Ventricle Normal right ventricle. Atria The left atrium is severely enlarged. The right atrium is mildly enlarged. Mitral Valve Mild mitral annular calcification. Trivial mitral valve insufficiency. Tricuspid Valve Trivial tricuspid valve insufficiency. Unable to estimate RV systolic pressure due to insufficient tricuspid regurgitant envelope. Aortic Valve Aortic sclerosis, no stenosis. Pulmonic Valve The pulmonic valve is not well visualized. Great Vessels Normal sized aortic root. Pericardium/Pleural No pericardial effusion. MMode/2D Measurements & Calculations RVDd: 3.1 cm LVOT diam: 2.0 cm Ao root diam: 2.4 cm LVOT area: 3.2 cm2 LAV(MOD-sp4): 94.4 ml SV(MOD-sp4): 50.0 ml LVAd ap4: 29.2 cm2 LVLd ap4: 8.4 cm EDV(MOD-sp4): 84.7 ml EDV(sp4-el): 86.9 ml LVAs ap4: 16.8 cm2 LVLs ap4: 6.6 cm ESV(MOD-sp4): 34.7 ml ESV(sp4-el): 36.1 ml EF(MOD-sp4): 59.0 % EF(sp4-el): 58.4 % SV(sp4-el): 50.8 ml LA A4 area: 28.9 cm2 LA dimension(2D): 5.1 cm RA A4 area: 17.5 cm2 Time Measurements MV dec time: 0.23 sec Doppler Measurements & Calculations MV E max willi: 98.0 cm/sec Lat Peak E' Willi: 11.4 cm/sec Med Peak E' Willi: 6.7 cm/sec MV A max willi: 104.8 cm/sec E/E' lat: 8.6 E/E' med: 14.6 MV E/A: 0.93 MV V2 max: 137.0 cm/sec MV dec slope: 574.6 cm/sec2 Ao V2 max: 200.2 cm/sec MV max P.5 mmHg Ao max P.0 mmHg MV V2 mean: 87.4 cm/sec Ao V2 mean: 131.8 cm/sec MV mean P.4 mmHg Ao mean P.0 mmHg MV V2 VTI: 43.0 cm Ao V2 VTI: 50.3 cm MVA(VTI): 2.5 cm2 AV (velocity ratio): 0.67 JUSTO(I,D): 2.1 cm2 JUSTO(V,D): 2.0 cm2 LV V1 max: 128.3 cm/sec SV(LVOT): 106.7 ml PA V2 max: 114.4 cm/sec LV V1 max P.6 mmHg PA V2 mean: 84.4 cm/sec LV V1 mean P.1 mmHg LV V1 mean: 95.6 cm/sec LV V1 VTI: 33.7 cm ECHO/Echo Complete Interpretation Summary The study was technically difficult. The left ventricular ejection fraction is 55 %. Diastolic function is indeterminate. The left atrium is severely enlarged. The right atrium is mildly enlarged. Mild mitral annular calcification. Unable to estimate RV systolic pressure due to insufficient tricuspid regurgita nt envelope. Aortic sclerosis, no stenosis. Ordering Physician: Irwin Dubois Referring Physician: Irwin Dubois Performed By: Kaci Miller RCS
== END | disposition home or self-care (01) ==
LOC: CVS 13:28
PROVIDERS: PCP Internal Medicine; Referring Provider Internal Medicine Critical Care Medicine; Visit Provider Internal Medicine Critical Care Medicine
DX: R06.02 Shortness of breath (principal)
CPT/HCPCS: 93306

== ENCOUNTER → 2023-10-18 | Outpatient (CLI) | payer MEDICARE, SELFPAY ==
[2023-10-18 10:17] LABS: Absolute Lymphocyte Count 1.15 X10^3/uL (0.83-4.51); Absolute Neutrophil Count 4.8 X10^3/uL (2.0-7.7); Basophil# 0.04 X10^3/uL; Basophil% 0.6 % (0-1); Eosinophil# 0.23 X10^3/uL; Eosinophils% 3.2 % (0-5); Hematocrit 37.5 % (37-47); Hemoglobin 11.4 g/dL (12.0-15.0); Lymphocyte # 1.15 X10^3/ul (0.83-4.51); Lymphocyte % 15.9 % (19-41); Mean Corp Hgb Conc 30.4 g/dL (32-36); Mean Corpuscular Volume 88.7 fL (81-99); Mean Platelet Vol. 9.3 fl (6.2-12.0); Monocyte# 0.95 X10^3/uL; Monocyte% 13.2 % (0-10); NRBC Flagged by Analyzer 0 % (0-5); Neutrophil # 4.82 X10^3/uL (2.7-7.7); Neutrophil % 66.7 % (47-70); Platelet Count 295 K/mm3 (150-450); RBC Distribution Width CV 18.4 % (11.6-14.6); RBC Distribution Width SD 59.2 fl (35.1-43.9); Red Blood Count 4.23 M/mm3 (4.2-5.4); White Blood Count 7.2 K/mm3 (4.4-11.0)
[2023-10-18 10:32] LABS: ALB/GLOB Ratio 0.7 RATIO (0.9-2.4); AST(SGOT) 16 U/L (15-37); Alanine Aminotransfer ALT/SGPT 19 U/L (13-56); Albumin, Serum 3.3 g/dL (3.2-5.0); Alkaline Phosphatase 88 U/L (45-117); Anion Gap 5 (5-15); BUN 15 mg/dL (7-18); BUN/Creat Ratio 17.5 RATIO (10-20); Calcium,Total 8.8 mg/dL (8.5-10.1); Chloride 105 mmol/L (98-107); Creatinine, Serum 0.86 mg/dL (0.55-1.02); EST Glomerular Filtration Rate 69 mL/min (>60); Est Glom Filt Rate - Afr Amer 84 mL/min (>60); Globulin 4.6 g/dL (2.2-4.2); Glucose 117 mg/dL (74-106); Potassium 4.2 mmol/L (3.5-5.1); Protein, Total 7.9 g/dL (6.4-8.2); Sodium Level 139 mmol/L (136-145)
== END | disposition home or self-care (01) ==
PROVIDERS: PCP Internal Medicine; Referring Provider Internal Medicine Rheumatology; Visit Provider Internal Medicine Rheumatology
DX: M05.70 Rheumatoid arthritis with rheumatoid factor of unspecified site without organ or systems involvement (principal); Z79.899 Other long term (current) drug therapy
CPT/HCPCS: 36415; 80053; 85025

== ENCOUNTER → 2024-12-19 | Outpatient (CLI) | payer MEDICARE, SELFPAY ==
--- NOTE | 2024-12-19 12:49 | ECHOCS_ITS ---
Reason For Study : SOB Procedure This was a 2D Doppler, Color Flow transthoracic echocardiogram. The study was technically difficult. Due to body habitus and SOB. Exam performed in department. Left Ventricle Normal LV size. Left ventricular systolic function is normal. The left ventricular ejection fraction is 60 %. No regional wall motion abnormalities noted. Right Ventricle Normal RV size. Normal systolic function. Atria Normal left atrium. Normal right atrium. Mitral Valve Normal mitral valve. Tricuspid Valve Normal tricuspid valve. Mild (1+) tricuspid valve insufficiency. Pulmonary artery systolic pressure is 43 mmHg. Aortic Valve Trisinus/trileaflet aortic valve. Mild focal aortic valve calcification. Peak aortic valve gradient 22 mmHg. Mean aortic valve gradient 13 mmHg. Mild aortic stenosis. Pulmonic Valve The pulmonic valve is not well visualized. Great Vessels Normal aortic root. The pulmonary artery is normal size. Normal inferior vena cava. Pericardium/Pleural No pericardial effusion. MMode/2D Measurements & Calculations LVIDd: 5.2 cm IVSd: 1.00 cm LVOT diam: 2.0 cm LVIDs: 3.6 cm LVPWd: 1.1 cm LVOT area: 3.1 cm2 RVDd: 3.5 cm FS: 31.3 % Ao root diam: 2.9 cm LAV(MOD-bp): 87.4 ml LVAd ap4: 35.8 cm2 LAV(MOD-bp) Indexed: 40.6 ml/m2 LVLd ap4: 8.2 cm LAV(MOD-sp2): 87.2 ml EDV(MOD-sp4): 132.5 ml LAV(MOD-sp4): 81.1 ml EDV(sp4-el): 131.9 ml LVAs ap4: 19.3 cm2 LVLs ap4: 6.1 cm ESV(MOD-sp4): 51.7 ml ESV(sp4-el): 51.7 ml EF(MOD-sp4): 61.0 % EF(sp4-el): 60.8 % LVAd ap2: 33.9 cm2 SV(MOD-sp4): 80.8 ml SV(MOD-sp2): 68.6 ml LVLd ap2: 8.5 cm SI(MOD-sp4): 37.5 ml/m2 SI(MOD-sp2): 31.8 ml/m2 EDV(MOD-sp2): 112.8 ml EDV(sp2-el): 114.4 ml LVAs ap2: 18.6 cm2 LVLs ap2: 6.6 cm ESV(MOD-sp2): 44.2 ml ESV(sp2-el): 44.6 ml EF(MOD-sp2): 60.8 % SV(sp4-el): 80.1 ml LA dimension(2D): 4.6 cm LA A4 area: 24.6 cm2 RA A4 area: 18.5 cm2 TAPSE: 2.2 cm Time Measurements MV dec time: 0.18 sec Doppler Measurements & Calculations MV E max willi: 153.0 cm/sec Lat Peak E' Willi: 13.1 cm/sec Med Peak E' Willi: 8.7 cm/sec MV A max willi: 60.4 cm/sec E/E' lat: 11.7 E/E' med: 17.6 MV E/A: 2.5 MV V2 max: 152.5 cm/sec MV P1/2t max willi: 167.6 cm/sec Ao V2 max: 234.4 cm/sec MV max P.3 mmHg MV P1/2t: 51.7 msec Ao max P.0 mmHg MV V2 mean: 69.9 cm/sec Ao V2 mean: 173.6 cm/sec MV mean P.4 mmHg MV dec slope: 950.3 cm/sec2 Ao mean P.0 mmHg MV V2 VTI: 38.6 cm MVA(P1/2t): 4.3 cm2 Ao V2 VTI: 55.9 cm AV (velocity ratio): 0.53 MVA(VTI): 2.4 cm2 JUSTO(I,D): 1.6 cm2 JUSTO(V,D): 1.6 cm2 LV V1 max: 119.4 cm/sec SV(LVOT): 92.2 ml PA V2 max: 127.3 cm/sec LV V1 max P.7 mmHg PA V2 mean: 92.1 cm/sec LV V1 mean P.6 mmHg LV V1 mean: 92.2 cm/sec LV V1 VTI: 29.9 cm TR max willi: 312.1 cm/sec TR max P.0 mmHg ECHO/Echo Complete W/ Contrast Interpretation Summary Normal LV size. Left ventricular systolic function is normal. The left ventricular ejection fraction is 60 %. Mean aortic valve gradient 13 mmHg. Mild focal aortic valve calcification. Mild aortic stenosis. Pulmonary artery systolic pressure is 43 mmHg. Ordering Physician: Florence Izaguirre Referring Physician: Madison Friend Performed By: Dina Bolaños, SOO, RVT
== END | disposition home or self-care (01) ==
LOC: PSN 12:49
PROVIDERS: PCP Internal Medicine; Referring Provider Nurse Practitioner Family; Visit Provider Nurse Practitioner Family
DX: R06.02 Shortness of breath (principal); J44.9 Chronic obstructive pulmonary disease, unspecified; R01.1 Cardiac murmur, unspecified
CPT/HCPCS: 93306; 94060; 94726; 94729; C8929

== ENCOUNTER → 2025-01-23 | Outpatient (CLI) | payer MEDICARE, SELFPAY ==
[2025-01-23] MEDS: Zaleplon 5 MG Capsule PO (21:50)
== END | disposition home or self-care (01) ==
LOC: SL 19:49
PROVIDERS: PCP Internal Medicine; Referring Provider Nurse Practitioner Family; Visit Provider Nurse Practitioner Family
DX: G47.10 Hypersomnia, unspecified (principal); I27.20 Pulmonary hypertension, unspecified; R09.02 Hypoxemia
CPT/HCPCS: 95810

== ENCOUNTER → 2025-04-11 | Outpatient (CLI) | payer MEDICARE, SELFPAY | END | disposition home or self-care (01) | LOC: SL 19:45 | PROVIDERS: PCP Internal Medicine; Referring Provider Nurse Practitioner Family; Visit Provider Nurse Practitioner Family | DX: G47.33 Obstructive sleep apnea (adult) (pediatric) (principal); J44.9 Chronic obstructive pulmonary disease, unspecified | CPT/HCPCS: 95811 ==

== ENCOUNTER → 2025-06-26 | Outpatient (CLI) | payer MEDICARE, SELFPAY ==
[2025-06-26 18:08] LABS: Hematocrit 33.2 % (37-47); Hemoglobin 10.5 g/dL (12.0-15.0); Mean Corp Hgb Conc 31.6 g/dL (32-36); Mean Corpuscular Volume 96.8 fL (81-99); Mean Platelet Vol. 9.8 fl (6.2-12.0); Platelet Count 254 K/mm3 (150-450); RBC Distribution Width CV 17.2 % (11.6-14.6); RBC Distribution Width SD 59.6 fl (35.1-43.9); Red Blood Count 3.43 M/mm3 (4.2-5.4); White Blood Count 7.4 K/mm3 (4.4-11.0)
[2025-06-26 18:57] LABS: AST(SGOT) 26 U/L (<=31); Alanine Aminotransfer ALT/SGPT 15 U/L (<=34); Albumin, Serum 4.1 g/dL (3.4-4.8); Alkaline Phosphatase 103 U/L (35-104); Anion Gap 15 (5-15); BUN 15 mg/dL (4-19); BUN/Creat Ratio 18.9 RATIO (10-20); Calcium,Total 9.2 mg/dL (7.6-11.0); Carbon Dioxide 24.1 mmol/L (21.0-32.0); Chloride 103 mmol/L (98-108); Cholesterol 141 mg/dL (<=200); Globulin 3.7 g/dL (2.2-4.2); Glucose 93 mg/dL (70-99); Low Density Lipoprotein Calc. 52 mg/dL; Potassium 3.7 mmol/L (3.3-5.1); Triglycerides 76 mg/dL; Very Low Density Lipoprotein 15 mg/dL (5-40); Vitamin D,25 Hydroxy 39.7 ng/mL (30-100); cholesterol:hdl ratio screen 1.91
== END | disposition home or self-care (01) ==
LOC: MTLAB 16:10
PROVIDERS: PCP Family Medicine; Referring Provider Family Medicine; Visit Provider Family Medicine
DX: E03.9 Hypothyroidism, unspecified (principal); M06.9 Rheumatoid arthritis, unspecified; E55.9 Vitamin D deficiency, unspecified; E78.5 Hyperlipidemia, unspecified
CPT/HCPCS: 80053; 80061; 82306; 84443; 85027

== ENCOUNTER → 2025-08-15 | Outpatient (CLI) | payer MEDICARE, SELFPAY ==
[2025-08-15 18:19] LABS: Anion Gap 14 (5-15); BUN 13 mg/dL (4-19); BUN/Creat Ratio 15.0 RATIO (10-20); Calcium,Total 8.6 mg/dL (7.6-11.0); Carbon Dioxide 26.3 mmol/L (21.0-32.0); Chloride 104 mmol/L (98-108); Glucose 104 mg/dL (70-99); Potassium 4.2 mmol/L (3.3-5.1); Pro- Brain NATRIURETIC PEPTIDE 1145 pg/mL (<=1800)
== END | disposition home or self-care (01) ==
LOC: MTLAB 14:12
PROVIDERS: PCP Family Medicine; Referring Provider Nurse Practitioner Family; Visit Provider Nurse Practitioner Family
DX: R60.9 Edema, unspecified (principal)
CPT/HCPCS: 36415; 80048; 83880

== ENCOUNTER → 2025-09-07 | Outpatient (CLI) | payer MEDICARE, SELFPAY ==
--- NOTE | 2025-09-07 15:45 | RAD_ITS ---
PROCEDURE: CHEST PA AND LATERAL 09/07/2025 REASON FOR EXAM: SOB ON EXERTION, PEDAL EDEMA TECHNIQUE: Procedure Code: RADCXR Modality: DX Procedure: CHEST PA AND LATERAL COMPARISON: None FINDINGS: There is cardiomegaly, pulmonary venous hypertension and pulmonary interstitial edema consistent with congestive heart failure. There are no significant pleural effusions. There is no lobar consolidation. The upper abdominal bowel gas pattern is normal. There are no bony abnormalities of the chest. RAD/Chest PA and Lateral IMPRESSION: Congestive heart failure. There are no significant pleural effusions. Reading Location: [place] [id number]
--- OUTSIDE RECORDS SUMMARY | 2025-09-07 15:50 | XMS RPT_ITS | CCD ---
Author Organization [facility] Care Team Providers Care Munitions Handler Name Role Phone Ronna, Butros Unavailable Molina Walker Unavailable Unavailable Bonanaeem Ramjosey RDalila Unavailable Unavailable DaneMichelle Unavailable Unavailable Dane, Michelle Tejeda Unavailable Unavailable Stadnick, Rusty S Unavailable Unavailable Stadnick, Rusty S Unavailable Unavailable Latmelany, Skylar Primary Care Provider RONNA, BUTROS Primary Care Unavailable ADALI WELLINGTON Attending Unavailable LATOUF, BUTROS Primary Care Unavailable MICHELLE CASTILLO Attending Unavailabl e CASTILLO, MICHELLE KENYON Admitting Unavailabl e STADNICK, RUSTY MOHR Attending Unavailab le LATOUCristino, BUTROS Primary Care Unavailable STADNICK, RUSTY FANI Attending Unavailab le LATOUF, BUTROS Primary Care Unavailable STADNICK, RUSTY FANI Attending Unavailab le LATOUF, BUTROS Primary Care Unavailable Ronna, Skylar Primary Care Provider Skylar Friend MD Primary Care Provider [phone] Dr. Skylar Friend Primary Care Provider [phone] Dr. Skylar Friend Referring Provider Dr. Irwin Dubois Attending Provider Dr. Irwin Dubois Referring Provider Dr. Irwin Dubois Other Provider Dr. Andres Dai Attending Provider [phone] Dr. Sharon Howell Attending Provider [phone] Skylar Friend MD Primary Care Provider Dr. Skylar Friend Primary Care Provider Dr. Skylar Friend Referring Provider Duncan HELICOPTER CREW CHIEF, HELICOPTER CREW CHIEF-C Shannan Attending Provider Ronna PAULINO, Skylar Primary Care Provider Ronna PAULINO, Dr. Wallace Primary Care Provider Ronna PAULINO, Dr. Wallace Referring Provider Zina HELICOPTER CREW CHIEF-CFlorence Attending Provider Zina HELICOPTER CREW CHIEF-C, Florence Billy Referring Provider Deirdre PAULINO, Dr. Salmeron Attending Provider Ronna PAULINO, Dr. Wallace Primary Care Provider Zina HELICOPTER CREW CHIEF-C, Florence Billy Attending Provider Suhas NEVES, Dr. Campos Attending Provider Ronna PAULINO, Dr. Wallace Referring Provider Ronna PAULINO, Dr. Wallace Primary Care Provider Ronna PAULINO, Dr. Wallace Referring Provider Zina HELICOPTER CREW CHIEF-CFlorence Attending Provider Zina HELICOPTER CREW CHIEF-CFlorence Referring Provider Dr. Skylar Friend MD Primary Care Physician Zina HELICOPTER CREW CHIEF-CFlorence Attending Physician Dr. Skylar Friend MD Referring Provider Brunilda PAULINO, Josefina Primary Care Physician [phone] Josefina Worley MD Attending Physician Josefina Worley MD Referring Provider CHRISTIAN PAGE MD Primary Care Unavailabl e CHRISTIAN PAGE MD Attending Unavailabl e SKYLAR FRIEND MD Consulting Unavailable CHRISTIAN PAGE MD Admitting Unavailabl e PROVIDER, UNKNOWN Consulting Unavailable PROVIDER, UNKNOWN Consulting Unavailable PROVIDER, UNKNOWN Consulting Unavailable YULISSA ANTUNEZ MD Admitting Unavailable YULISSA ANTUNEZ MD Primary Care Unavailable , DECEMBER MERCHANT POLICE Consulting Unavailable , DECEMBER MERCHANT POLICE Referring Unavailable YULISSA ANTUNEZ MD Attending Unavailable PROVIDER, UNKNOWN Consulting Unavailable PROVIDER, UNKNOWN Consulting Unavailable , DECEMBER MERCHANT POLICE Primary Care Unavailable , DECEMBER MERCHANT POLICE Consulting Unavailable , DECEMBER MERCHANT POLICE Attending Unavailable , DECEMBER MERCHANT POLICE Admitting Unavailable PROVIDER, UNKNOWN Consulting Unavailable PROVIDER, UNKNOWN Consulting Unavailable CONG, DECEMBER MERCHANT POLICE Admitting Unavailable , DECEMBER MERCHANT POLICE Primary Care Unavailable , DECEMBER MERCHANT POLICE Consulting Unavailable , DECEMBER MERCHANT POLICE Attending Unavailable PROVIDER, UNKNOWN Consulting Unavailable PROVIDER, UNKNOWN Consulting Unavailable YULISSA ANTUNEZ MD Admitting Unavailable YULISSA ANTUNEZ MD Primary Care Unavailable , DECEMBER MERCHANT POLICE Consulting Unavailable YULISSA ANTUNEZ MD Attending Unavailable PROVIDER, UNKNOWN Consulting Unavailable PROVIDER, UNKNOWN Consulting Unavailable YULISSA ANTUNEZ MD Referring Unavailable SKYLAR FRIEND MD Attending Unavailable SKYLAR FRIEND MD Admitting Unavailable SKYLAR FRIEND MD Primary Care Unavailable SKYLAR FRIEND MD Consulting Unavailable PROVIDER, UNKNOWN Consulting Unavailable PROVIDER, UNKNOWN Consulting Unavailable PROVIDER, UNKNOWN Consulting Unavailable SKYLAR FRIEND MD Attending Unavailable SKYLAR FRIEND MD Admitting Unavailable SKYLAR FRIEND MD Primary Care Unavailable SKYLAR FRIEND MD Consulting Unavailable YULISSA ANTUNEZ MD Referring Unavailable PROVIDER, UNKNOWN Consulting Unavailable PROVIDER, UNKNOWN Consulting Unavailable PROVIDER, UNKNOWN Consulting Unavailable Jaron Gilmore Attending Unavailable Latouf, Butros Primary Care Unavailable Fabiana Gaviria Attending Unavailable Yulissa Antunez Referring Unavailable Brunilda, Chalon Primary Care Unavailable Brunilda, Chalon Attending Unavailable Brunilda, Chalon Referring Unavailable Brunilda, Chalon Primary Care Unavailable Latouf, Butros Primary Care Unavailable Florence Izaguirre Attending Unavailable Florence Izaguirre Referring Unavailable Latouf, Butros Primary Care Unavailable Florence Izaguirre Referring Unavailable Florence Izaguirre Attending Unavailable Latouf, Butros Primary Care Unavailable Florence Izaguirre Referring Unavailable Florence Izaguirre Attending Unavailable Ronal Rollins Attending Unavailable Latouf, Butros Referring Unavailable Brunilda, Chalon Primary Care Unavailable Latouf, Butros Primary Care Unavailable Latouf, Butros Referring Unavailable Florence Izaguirre Attending Unavailable Latouf, Butros Referring Unavailable Latouf, Butros Primary Care Unavailable Florence Izaguirre Attending Unavailable Latouf, Butros Referring Unavailable Latouf, Butros Primary Care Unavailable Florence Izaguirre Attending Unavailable Latouf, Butros Referring Unavailable Latouf, Butros Primary Care Unavailable Florence Izaguirre Attending Unavailable Andres Dai Attending Unavailable Latouf, Butros Primary Care Unavailable Florence Izaguirre Referring Unavailable Kaitlynn Madrigal Attending Unavailable Brunilda, Chalon Primary Care Unavailable Orestes Madrigalvet Attending Physician Unavailable Tulio PAULINO, Dr. Duenas Referring Provider Khadra PAULINO, Dr. Jung Attending Physician Ria PAULINO, Dr. Villeda Attending Physician YULISSA ANTUNEZ Primary Care Unavailable STEFANY OTTO Referring Unavailglynn e STEFANY OTTO Attending Unavailabl e Allergies Allergy Classification Reported Allergen(s) Allergy Type Date of Onset Reaction(s) Facility (20 sources) naproxen; Translations: [Unknown] Propensity to adverse reactions to drug 5 [facility] Work Phone: (11 sources) Amgoghv-Xur-Fmm Reductase Inhibitor Propensity to adverse reactions 0 Pain in joints [facility] (1 source) Naproxen Drug Allergy [facility] Repository (1 source) Naproxen Drug Allergy [address] [place] [address] Repository (1 source) Pindxfj-Jdv-Qvq Reductase Inhibitor Drug allergy (disorder) 5 [facility] Repository Medications Current Medications Medication Drug Class(es) Dates Sig (Normalized) Sig (Original) acetaminophen 500 mg oral tablet (11 sources) Start: 10-20-2019 End: 07-20-2025 Acetaminophen 500 MG tablet Discontinued 1000 mg PO EVERY 8 HOURS 100 0 October 20, 2019 1:00am July 20, 2025 1:53pm Do not take more than 3000 mg Tylenol in a 24-hour period Start: 10-20-2019 take 3000 mg by mout h every eight hours Acetaminophen Active 1000 MG PO EVERY 8 HOURS 100 October 20, 2019 12:00am Do not take more than 3000 mg Tylenol in a 24-hour period acetaminophen 300 mg / codeine phosphate 30 mg oral tablet (20 sources) Opioid Agonist Start: 01-30-2020 take 1 tablet by mouth every six hours as needed for pain acetaminophen-codeine (TYLENOL #3) 300-30 mg per tablet Indications: Psoriatic arthritis (HCC) Take 1 (one) tablet by mouth every 6 (six) hours as needed for pain Up to 30 days. . 120 tablet 0 01/30/2020 Active Start: 10-05-2019 End: 10-20-2019 Acetaminophen-Codeine 1 TABL ET tablet Discontinued 1 - 2 {tbl} PO EVERY 6 HOURS NEEDED as needed for Pain Or Fever October 05, 2019 1:00am October 20, 2019 8:31am Start: 10-05-2019 End: 10-20-2019 take 1 tablet by mouth every six hours as needed Acetaminophen-Codeine Discontinued 1 - 2 TABLET PO EVERY 6 HOURS NEEDED October 05, 2019 12:00am October 20, 2019 7:31am Start: 03-31-2017 End: 03-28-2019 take 1 tablet by mouth every six hours as needed for pain acetaminophen-codeine (TYLENOL #3) 300-3 0 mg per tablet Indications: Psoriatic arthritis (HCC) Take 1 (one) tablet by mouth every 6 (six) hours as needed for pain Up to 30 days. . 120 tablet 0 03/28/2019 Active acetaminophen / traMADol (1 source) Opioid Agonist TRAMADOL HCL/CARLITO TAMINOPHEN (ULTRACET ORAL) Take by mouth When necessary pain Active ACETAMINOPHEN WITH CODEINE (ACETAMINOPHEN-CODEINE ORAL) (4 sources) ACETAMINOPHEN WI TH CODEINE (ACETAMINOPHEN-CODEINE ORAL) Take 300 mg by mouth as needed. Active ACETAMINOPHEN WI TH CODEINE (ACETAMINOPHEN-CODEINE ORAL) Take 300 mg by mouth as needed. 0 Active Comment on above: Take 300 mg by mouth as needed. [id number] 200 actuat albuterol 0.09 mg/actuat metered dose inhaler (16 sources) beta2-Adrenergic Agonist Start: 04-19-2024 End: 07-20-2025 Albuterol Sulfate 90 mcg/actuation HFA aerosol inhaler Discontinued 2 NMA INHALATION EVERY 6 HOURS as needed April 19, 2024 12:00am July 20, 2025 1:53pm Start: 10-29-2022 End: 12-13-2023 Albuterol Sulfate (Proair Re spiclick) 90 mcg/actuation aerosol powdr breath activated Discontinued 2 NMA INHALATION as needed October 29, 2022 1:00am December 13, 2023 1:59pm albuterol 0.833 mg/ml / ipratropium bromide 0.167 mg/ml inhalation solution (8 sources) Anticholinergic, beta2-Adrenergic Agonist Start: 02-20-2025 End: 03-02-2025 take 1 mL by inhalation every four to six hours as needed for wheezing amLODIPine 5 mg oral tablet (3 sources) Dihydropyridine Calcium Channel Andrew Start: 06-08-2025 take 1 tablet by mouth once daily Amlodipine 5 mg tablet Active 5 mg PO daily June 08, 2025 12:00am Complies with drug therapy apixaban 5 mg oral tablet (7 sources) Factor Xa Inhibitor Start: 07-13-2024 take 1 tablet by mouth every twelve hours ELIQUIS 5 mg tab(s) Take 1 tablet by mouth every 12 hours. 07/13/2024 Active Start: 12-13-2023 take 1 tablet by eleuterio th twice daily Apixaban (Eliquis) 5 mg tablet Active 5 mg PO TWICE A DAY December 13, 2023 12:00am Complies with drug therapy aspirin 81 mg chewable tablet (20 sources) Nonsteroidal Anti-inflammatory Drug Start: 12-13-2023 End: 07-20-2025 take 1 tablet by mouth once Aspirin 81 mg tablet,chewable Discontinued 81 mg PO ONCE December 13, 2023 1:59pm July 20, 2025 1:53pm Start: 10-20-2019 End: 12-13-2023 take 1 tablet by mouth twice daily Aspirin 81 MG tablet,chewable Discontinued 81 mg PO TWICE A DAY 60 0 October 20, 2019 1:00am December 13, 2023 2:01pm Take 81 mg aspirin twice daily for 4 weeks postoperatively for DVT prophylaxis Start: 10-05-2019 End: 10-20-2019 take 1 tablet by mouth once daily Aspirin 81 MG tablet,chewable Discontinued 81 mg PO DAILY@0800 October 05, 2019 1:00am October 20, 2019 8:31am supplement Start: 09-21-2019 End: 09-21-2019 aspirin chewable tablet 324 mg ASPIRIN ORAL Ralph e by mouth. Active ASPIRIN ORAL Ralph e by mouth. 0 Active take 1 tablet by eleuterio th once daily aspirin 81 MG EC tablet Take 81 mg by mouth daily. 0 Active Comment on above: Take by mouth. BIPAP -Bilevel Positive Airway Pressure ([facility] INFORMATIONAL USE ONLY) (1 source) Start: BIPAP -Bilevel Positive Airway Pressure ([facility] INFORMATIONAL USE ONLY) Active 0 .Route .MEDSUPPLY July 09, 2025 12:00am BIPAP 13/08 WITH O2 BLEED IN AT 4 [facility]- S-M F&P JAVIER FULL FACE MASK cholecalciferol 0.05 mg oral capsule (1 source) Vitamin D Start: take 1 capsule by mouth once daily Cholecalciferol (Vitamin D3) 50 mcg (2,000 unit) capsule Active 50 ug PO daily July 04, 2025 12:00am Complies with drug therapy cyclobenzaprine hydrochloride 10 mg oral tablet (2 sources) Muscle Relaxant Start: 019 End: take 1 tablet by mouth three times daily as needed for muscle spasms cyclobenzaprine (FLEXERIL) 10 MG tablet Take 1 (one) tablet (10 mg total) by mouth 3 (three) times a day as needed for muscle spasms . 30 tablet 0 09/21/2019 09/26/2019 Active 24 hr dilTIAZem hydrochloride 240 mg extended release oral capsule (7 sources) Calcium Channel Andrew Start: 024 take 1 capsule by mouth once daily Diltiazem Hcl 240 mg capsule,extended release 24hr Active 240 mg PO daily December 13, 2023 12:00am Complies with drug therapy estradiol 0.1 mg/ml vaginal cream (20 sources) Estrogen Start: 016 estradiol (ESTRACE) 0.01 % (0.1 mg/gram) vaginal cream Indications: Postmenopausal atrophic vaginitis Use small amount at vaginal opening 3 nights per week 1 Tube 1 07/14/2016 Active Comment on above: Use small amount at vaginal opening 3 nights per week ferrous sulfate 325 mg delayed release oral tablet (1 source) Start: 10-08-2 025 take 1 tablet by mouth once daily Ferrous Sulfate 325 mg (65 mg iron) tablet,delayed release (DR/EC) Active 325 mg PO daily July 04, 2025 12:00am Complies with drug therapy fluticasone propionate 0.05 mg/actuat metered dose nasal spray (17 sources) Corticosteroid Start: fluticasone (FLONASE) 50 mcg/actuation nasal spray Start: 08-31-2016 fluticasone (F LONASE) 50 mcg/actuation nasal spray 60 actuat fluticasone propionate 0.25 mg/actuat / salmeterol 0.05 mg/actuat dry powder inhaler (5 sources) Corticosteroid, beta2-Adrenergic Agonist Start: 01-09-2025 Fluticasone Propion-Salmeterol (Advair Diskus) 250-50 mcg/dose blister with device Active 1 NMA INHALATION TWICE A DAY 60 5 January 09, 2025 12:00am Complies with drug therapy folic acid 1 mg oral tablet (20 sources) Start: 10-05-2019 Folic Acid 1 M G tablet Active 1 [facility] October 05, 2019 1:00am supplement Complies with drug therapy Start: 07-06-2019 take 1 tablet by eleuterio th once daily folic acid (FOLVITE) 1 MG tablet Indications: Psoriatic arthritis (HCC) Take 1 (one) tablet (1,000 mcg total) by mouth daily EXCEPT WEDNESDAY . 30 tablet 5 07/06/2019 Active Start: 03-20-2019 take 1 tablet by eleuterio th once daily folic acid (FOLVITE) 1 MG tablet Indications: Psoriatic arthritis (HCC) TAKE 1 TABLET BY MOUTH ONCE DAILY EXCEPT WEDNESDAY 30 tablet 5 03/20/2019 Active Start: 08-02-2018 take 1 tablet by eleuterio th once daily, then take 1 tablet by mouth folic acid (FOLVITE) 1 MG tablet Indications: Psoriatic arthritis (HCC) TAKE 1 TABLET BY MOUTH ONCE DAILY EXCEPT WEDNESDAY 30 tablet 5 08/02/2018 Active Start: 03-16-2017 End: 03-16-2018 take 1 tablet by mouth once daily, then take 1 tablet by mouth folic acid (FOLVITE) 1 MG tablet Indications: Psoriatic arthritis (HCC) TAKE ONE TABLET (1 MG) BY MOUTH ONCE DAILY EXCEPT WEDNESDAY 30 tablet 5 12/31/2017 Active take 1 mg by mouth f our times daily FOLIC ACID ORAL Take 1 mg by mouth four times daily. Except Fridays, no dose Active Comment on above: Take 1 mg by mouth f our times daily. Except Fridays, no dose levothyroxine sodium 0.05 mg oral tablet (13 sources) l-Thyroxine Start: take 1 tablet by mouth once daily Levothyroxine 50 mcg tablet Active 50 ug PO daily November 03, 2024 1:00am Complies with drug therapy Start: 04-19-2024 End: 11-03-2024 take 1 tablet by mouth once daily Levothyroxine 25 mcg tablet Discontinued 25 ug PO daily April 19, 2024 12:00am November 03, 2024 3:05pm Start: 04-19-2024 End: 11-03-2024 take 1 tablet by mouth once daily Levothyroxine 25 mcg tablet Discontinued 25 ug PO daily April 19, 2024 12:00am November 03, 2024 3:05pm lidocaine 0.05 mg/mg medicated patch (2 sources) Antiarrhythmic, Amide Local Anesthetic Start: 09-21-2019 End: 10-21-2019 lidocaine (LIDODERM) 5 % patch Place 2 (two) patches on the skin daily Remove & Discard patch within 12 hours or as directed by . 60 patch 0 09/21/2019 10/21/2019 Active methotrexate 2.5 mg oral tablet (20 sources) Folate Analog Metabolic Inhibitor Start: 07-09-2025 Methotrexate Sodium 2.5 mg tablet Active 20 mg PO EVERY WEEK July 09, 2025 12:00am Complies with drug therapy Start: 01-30-2020 take 8 tablets by [facility] [place] every week methotrexate (TREXALL) 2.5 MG tablet Indications: Psoriasis arthropathica (HCC) TAKE 8 TABLETS BY MOUTH ONCE A WEEK ON WEDNESDAY . 32 tablet 2 01/30/2020 Active Start: 10-05-2019 End: 07-04-2025 Methotrexate Sodium 2.5 MG t ablet Discontinued 20 mg PO FR October 05, 2019 1:00am July 04, 2025 2:44pm ra Start: 10-05-2019 Methotrexate S odium Active 20 MG PO FR October 05, 2019 12:00am Start: 03-24-2019 End: 09-11-2019 take 8 tablets by mouth every week methotrexate (TREXALL) 2.5 MG tablet Indications: Psoriasis arthropathica (HCC) TAKE 8 TABLETS BY MOUTH ONCE A WEEK ON WEDNESDAY . 32 tablet 5 09/11/2019 Active Start: 04-20-2018 take 8 tablets by mo ut every week methotrexate (TREXALL) 2.5 MG tablet Indications: Psoriasis arthropathica (HCC) TAKE EIGHT TABLETS BY MOUTH ONCE A WEEK ON WEDNESDAY 32 tablet 5 04/20/2018 Active Start: 03-16-2017 End: 03-16-2018 take 8 tablets by mouth every week methotrexate 2.5 MG tablet Indications: Psoriasis arthropathica (HCC) TAKE EIGHT TABLETS BY MOUTH ONCE A WEEK ON WEDNESDAY 32 tablet 5 10/04/2017 Active take 1 tablet by mouth once meth otrexate 2.5 mg tablet Take 2.5 mg by mouth every Wednesday. Active End: 03-28-2019 take 8 doses by mouth once METHOTREXATE SODIUM (METHOT REXATE, ANTI-RHEUMATIC, ORAL) Take by mouth 8 pills every Wednesday 0 03/28/2019 Discontinued take 8 doses by mouth once METHO TREXATE SODIUM (METHOTREXATE, ANTI-RHEUMATIC, ORAL) Take by mouth 8 pills every Wednesday Active Comment on above: Take 2.5 mg by mouth every Wednesday. methylprednisoLONE (20 sources) Corticosteroid Start: 09-04-2019 methylPREDNISolone (MEDROL DOSEPACK) 4 mg tablet Indications: Pseudogout of hip, right follow package directions . 21 tablet 3 09/04/2019 Active Start: 08-29-2019 End: 08-29-2019 methylPREDNISolone sod suc(P F) (SOLU-medrol) Injection 125 mg Start: 09-22-2018 methylPREDNISo lone (MEDROL DOSEPACK) 4 mg tablet Indications: Pseudogout of hip, right follow package directions . 21 tablet 3 09/22/2018 Active Start: 05-12-2018 methylPREDNISo lone (MEDROL DOSEPACK) 4 mg tablet follow package directions. 21 tablet 0 05/12/2018 Active Start: 02-04-2018 methylPREDNISo lone (MEDROL DOSEPACK) 4 mg tablet Indications: Pseudogout of hip, right follow package directions. 21 tablet 3 02/04/2018 Active Start: 02-04-2018 methylPREDNISo lone (MEDROL DOSEPACK) 4 mg tablet Indications: Pseudogout of hip, right follow package directions. 21 tablet 3 02/04/2018 Active 24 hr metoprolol succinate 25 mg extended release oral tablet (8 sources) beta-Adrenergic Andrew Start: 07-09-2025 Metopr olol Succinate 25 mg tablet extended release 24 hr Active 37.5 mg PO TWICE A DAY July 09, 2025 12:47pm Complies with drug therapy Start: 07-13-2024 metoprolol suc cinate ER (TOPROL XL) 25 mg 24 hr tablet TAKE 1 AND 1/2 TABLETS TWICE DAILY 07/13/2024 Active Start: 12-13-2023 End: 07-09-2025 take 1 tablet by mouth twice daily, then take 0.5 tablet by mouth twice daily Metoprolol Succinate 25 mg tablet extended release 24 hr Discontinued 25 mg PO TWICE A DAY December 13, 2023 12:00am July 09, 2025 12:48pm one and a half tabs twice daily multivitamin (THERAGRAN) per tablet (13 sources) take 1 tablet by eleuterio th once daily multivitamin (THERAGRAN) per tablet Take 1 tablet by mouth daily. 0 Active take 1 tablet by mouth once cecile y multivitamin (THERAGRAN) per tablet Take 1 tablet by mouth daily. Active Multivitamin preparation (2 sources) multivitamin (MU LTIPLE VITAMIN ORAL) Take by mouth. Active multivitamin (MU LTIPLE VITAMIN ORAL) Take by mouth. 0 Active Comment on above: Take by mouth. Multivitamin Tablet (4 sources) take 1 tablet by mouth once daily multivitamin (THERAGRAN) per tablet Take 1 tablet by mouth daily. Active Multivitamin With Minerals (5 sources) Start: 10-05-2019 Multivitamin With Minerals Active 1 EACH PO DAILY October 05, 2019 12:00am Multivitamin With Minerals 1 EACH tablet (6 sources) Start: 10-05-2019 take 1 tablet by mouth once daily Multivitamin With Minerals 1 EACH tablet Active 1 NMA PO DAILY October 05, 2019 1:00am supplement Complies with drug therapy Start: 10-05-2019 take 1 tablet by eleuterio th once daily Start: 10-05-2019 take 1 tablet by eleuterio th once daily Multivitamin With Minerals 1 EACH tablet Active 1 NMA PO DAILY October 05, 2019 1:00am supplement Start: 10-05-2019 take 1 tablet by eleuterio th once daily Multivitamin With Minerals 1 EACH tablet Active 1 NMA PO DAILY October 05, 2019 1:00am nabumetone 500 mg oral tablet (1 source) Nonsteroidal Anti-inflammatory Drug Start: 09-21-2019 End: 09-26-2019 take 1 tablet by mouth twice daily nabumetone (RELAFEN) 500 MG tablet Take 1 (one) tablet (500 mg total) by mouth 2 (two) times a day for 5 days . 10 tablet 0 09/21/2019 09/26/2019 Active nebulizer kits (4 sources) Start: 02-20-2025 nebulizer kits Active 0 .ROUTE .MEDSUPPLY 1 February 20, 2025 12:00am As directed neublizer machine (4 sources) Start: 02-20-2025 neublizer machine Active 0 .ROUTE .MEDSUPPLY 1 February 20, 2025 12:00am Stage 3 severe COPD by GOLD classification Chronic obstructive pulmonary disease, unspecified As directed omeprazole 40 mg delayed release oral capsule (20 sources) Proton Pump Inhibitor Start: 11-03-2024 take 1 capsule by mouth once daily Omeprazole 40 mg capsule,delayed release(DR/EC) Active 40 mg PO daily November 03, 2024 1:00am Complies with drug therapy Start: 10-05-2019 End: 11-03-2024 take 2 capsules by mouth once daily Omeprazole 20 MG capsule Discontinued 40 mg PO DAILY October 05, 2019 1:00am November 03, 2024 3:06pm gerd Start: 10-05-2019 take 40 mg by mouth once daily Omeprazole Active 40 MG PO DAILY October 05, 2019 12:00am Start: 08-31-2016 Omeprazole 40 mg capsule 11/13/2019 Active OTC NUTRITIONAL SUPPLEMENT (4 sources) Start: 12-08-2005 OTC NUTRITIONA L SUPPLEMENT Multi-vitamin, Take one(1) tablet daily. 0 12/08/2005 Active Comment on above: Multi-vitamin, Take one(1) tablet daily. 24 hr oxybutynin chloride 10 mg extended release oral tablet (20 sources) Cholinergic Muscarinic Antagonist Start: 07-09-2025 take 1 tablet by mouth once daily Oxybutynin Chloride 10 mg tablet extended release 24hr Active 10 mg PO daily July 09, 2025 12:00am Complies with drug therapy Start: 11-03-2024 End: 07-09-2025 take 1 tablet by mouth once daily Oxybutynin Chloride 5 mg tablet extended release 24hr Discontinued 5 mg PO daily November 03, 2024 1:00am July 09, 2025 12:45pm Start: 10-05-2019 take 5 mg by mouth once daily Oxybutynin Chloride Active 5 MG PO DAILY October 05, 2019 12:00am Start: 05-17-2018 End: 11-03-2024 take 1 tablet by mouth once daily Oxybutynin Chloride 10 MG tablet extended release 24hr Discontinued 5 mg PO DAILY October 05, 2019 1:00am November 03, 2024 3:06pm bladder Start: 08-26-2016 take 1 tablet by eleuterio th once daily oxybutynin XL (DITROPAN XL) 5 mg 24 hr tablet Take 1 tablet by mouth once daily. 90 tablet 3 08/26/2016 Active Start: 08-26-2016 take 1 tablet by eleuterio th every twenty-four hours oxybutynin (DITROPAN-XL) 5 MG 24 hr tablet Take 5 mg by mouth. 0 08/26/2016 Active Comment on above: Take 1 tablet by eleuterio th once daily. predniSONE 10 mg oral tablet (12 sources) Start: 06-18-2023 predniSONE (DELTASONE) 10 mg tablet 06/18/2023 Active Start: 10-29-2022 Prednisone 20 mg tablet Active 20 mg PO as needed October 29, 2022 1:00am Complies with drug therapy rosuvastatin calcium 5 mg oral tablet (18 sources) HMG-CoA Reductase Inhibitor Start: 10-05-2019 take 1 tablet by mouth at bedtime Rosuvastatin 5 MG tablet Active 5 mg PO AT BEDTIME October 05, 2019 1:00am cholesterol Complies with drug therapy Comment on above: Take 5 mg by mouth. sulfaSALAzine 500 mg oral tablet (12 sources) Aminosalicylate Start: 07-20-2025 take 1 tablet by mouth twice daily at mealtime Sulfasalazine 500 mg tablet Active 1000 mg PO TWICE A DAY July 20, 2025 1:50pm give with food (meal/snack) Complies with drug therapy Start: 07-04-2025 End: 07-20-2025 take 1 tablet by mouth once daily at mealtime Sulfasalazine 500 mg tablet Discontinued 500 mg PO daily July 04, 2025 12:00am July 20, 2025 1:53pm give with food (meal/snack) Start: 06-21-2021 End: 07-04-2025 take 1 tablet by mouth twice daily Sulfasalazine 500 mg tablet Discontinued 1000 mg PO TWICE A DAY December 13, 2023 12:00am July 04, 2025 2:44pm tiZANidine 2 mg oral tablet (12 sources) Central alpha-2 Adrenergic Agonist Start: 10-29-2022 Tizanidine 2 mg tablet Active 2 mg PO as needed October 29, 2022 1:00am Complies with drug therapy TRAMADOL HCL/ACETAMINOPHEN (ULTRACET ORAL) (16 sources) TRAMADOL HCL/ACETAMINOPHEN (ULTRACET ORAL) Take by mouth When necessary pain 0 Active TRAMADOL HCL/CARLITO TAMINOPHEN (ULTRACET ORAL) Take by mouth When necessary pain Active Umeclidinium (10 sources) Anticholinergic Start: 01-10-2025 take 62.5 ug by inhalation every twenty-four hours Umeclidinium (Incruse Ellipta) 62.5 mcg/actuation blister with device Active 1 NMA INHALATION Q24H 3 January 10, 2025 11:40am Complies with drug therapy Start: 01-10-2025 take 62.5 ug by inha lation every twenty-four hours Start: 01-10-2025 take 62.5 ug by inha lation every twenty-four hours Umeclidinium (Incruse Ellipta) 62.5 mcg/actuation blister with device Active 1 NMA INHALATION Q24H 3 January 10, 2025 11:40am Start: 01-10-2025 take 62.5 ug by inha lation every twenty-four hours Umeclidinium (Incruse Ellipta) 62.5 mcg/actuation blister with device Active 1 NMA INHALATION Q24H January 10, 2025 11:40am Start: 01-09-2025 End: 01-10-2025 take 62.5 ug by inhalation every twenty-four hours Umeclidinium (Incruse Ellipta) 62.5 mcg/actuation blister with device Discontinued 1 NMA INHALATION Q24H 3 January 09, 2025 12:00am January 10, 2025 11:40am Completed/Discontinued Medications Medication Drug Class(es) Dates Sig (Normalized) Sig (Original) atenolol 25 mg oral tablet (20 sources) beta-Adrenergic Andrew Start: 10-05-2019 End: 12-13-2023 take 1 tablet by mouth once daily Atenolol 25 MG tablet Discontinued 25 mg PO DAILY October 05, 2019 1:00am December 13, 2023 1:59pm bp atenolol (TENORM IN) 50 MG tablet Take 25 mg by mouth daily 0 Active Comment on above: Take 25 mg by mouth once daily. Gjuurpdsqk-Wxmsyexs-Nr rmoterol (5 sources) Corticosteroid, beta2-Adrenergic Agonist Start: 01-04-2025 End: 01-09-2025 Fkpcabylig-Zioaiocb-Znfnjv ochoa (Breztri Aerosphere) 160-9-4.8 mcg/actuation HFA aerosol inhaler Discontinued 2 NMA INHALATION TWICE A DAY 10.7 2 January 04, 2025 12:00am January 09, 2025 7:20am Start: 01-04-2025 End: 01-09-2025 Ymkaybrtnu-Rplxfbrz-Xhgvdrxh ol (Breztri Aerosphere) 160-9-4.8 mcg/actuation HFA aerosol inhaler Discontinued 2 NMA INHALATION TWICE A DAY 10.7 January 04, 2025 12:00am January 09, 2025 7:20am calcium chloride 0.0014 meq/ml / potassium chloride 0.004 meq/ml / sodium chloride 0.103 meq/ml / sodium lactate 0.028 meq/ml injectable solution (1 source) Start: 09-21-2019 End: 09-21-2019 lactated Ringers infusion doxycycline monohydrate 100 mg oral capsule (11 sources) Tetracycline-c lass Drug Start: 10-20-2019 End: 10-29-2022 take 1 capsule by mouth twice daily Doxycycline Monohydrate 100 MG capsule Discontinued 100 mg PO TWICE A DAY 10 0 October 20, 2019 1:00am October 29, 2022 12:04pm Finish antibiotics 1 week postoperatively 20 ml fentaNYL 0.05 mg/ml injection (1 source) Opioid Agonist Start: 09-21-2019 End: 09-21-2019 fentaNYL (SUBLIMAZE) injection 50 mcg Fluticasone-Umecli din-Vilanter (5 sources) Anticholinergi c, Corticosteroid , beta2-Adrenerg ic Agonist Start: 01-02-2025 End: 01-04-2025 Fluticasone-Umeclidin- Vilanter (Trelegy Ellipta) 100-62.5-25 mcg blister with device Discontinued 1 NMA INHALATION Q24H 3 3 January 02, 2025 12:00am January 04, 2025 3:09pm Hypersomnia Hypersomnia, unspecified Start: 01-02-2025 End: 01-04-2025 Iwmtukqpvsf-Xtzlhsmhf-Cjoong er (Trelegy Ellipta) 100-62.5-25 mcg blister with device Discontinued 1 NMA INHALATION Q24H 3 January 02, 2025 12:00am January 04, 2025 3:09pm furosemide 20 mg oral tablet (20 sources) Loop Diuretic Start: 02-11-2016 End: 12-13-2023 take 1 tablet by mouth once daily Furosemide 20 mg tablet Discontinued 20 mg PO DAILY September 08, 2023 2:52pm December 13, 2023 2:01pm bp 5 days/week take 1 tablet by mouth twice beatriz ly furosemide (LASIX) 20 mg tablet Take 20 mg by mouth twice daily. Active Comment on above: Take 20 mg by mouth twice daily. hydroxychloroquine sulfate 200 mg oral tablet (20 sources) Antirheumatic Agent Start: 05-20-20 End: 12-13-19 Hydroxychloroquine 200 mg tablet Discontinued 200 mg PO October 29, 2022 1:00am December 13, 2023 2:01pm Start: 03-18-2017 End: 06-15-2017 hydroxychloroquine (PLAQUENI L) 200 mg tablet Take 1 pill twice a day.. 60 tablet 3 03/18/2017 06/15/2017 Discontinued Comment on above: Take 200 mg by mouth twice daily. 1 ml ketorolac tromethamine 30 mg/ml injection (1 source) Nonsteroidal Anti-inflammatory Drug, Cyclooxygenase Inhibitor Start: 09-21-20 End: 09-21-20 ketorolac (TORADOL) injection 9.9 mg meloxicam 7.5 mg oral tablet (11 sources) Nonsteroidal Anti-inflammatory Drug Start: 10-20-19 End: 10-29-19 take 1 tablet by mouth twice daily Meloxicam 7.5 MG tablet Discontinued 7.5 mg PO TWICE A DAY 60 0 October 20, 2019 1:00am October 29, 2022 12:04pm Do not take any other nonsteroidal anti-inflammatories while using meloxicam/Mobic 1 ml morphine sulfate 2 mg/ml prefilled syringe (1 source) Opioid Agonist Start: 08-29-20 End: 08-29-20 morphine injection 4 mg nitroglycerin 0.02 mg/mg topical ointment (1 source) Nitrate Vasodilator Start: 09-21-20 End: 09-21-20 nitroGLYCERIN (NITRO-BID) 2 % ointment 1 inch 2 ml ondansetron 2 mg/ml injection (2 sources) Serotonin-3 Receptor Antagonist Start: 09-21-20 End: 09-21-20 ondansetron (ZOFRAN) injection 4 mg Start: 08-29-2019 End: 08-29-2019 ondansetron (ZOFRAN) injecti on 4 mg 2 ml orphenadrine citrate 30 mg/ml injection (1 source) Muscle Relaxant Start: 09-21-2019 End: 09-21-2019 orphenadrine (NORFLEX) injection 60 mg oxyCODONE hydrochloride 5 mg oral tablet (11 sources) Opioid Agonist Start: 10-20-2019 End: 10-24-2019 take 5-10 mg by mouth every four hours as needed for pain Oxycodone 5 MG tablet Discontinued 5 - 10 mg PO EVERY 4 HOURS NEEDED as needed for Pain Score 4-10/10 48 4 0 October 20, 2019 October 23, 2019 1:00am October 24, 2019 1:07am Presence of left artificial knee joint phenylephrine hydrochloride 25 mg/ml ophthalmic solution (3 sources) alpha-1 Adrenergic Agonist Start: 07-24-2024 End: 07-24-2024 PHENYLephrine 2.5 % 1 Drop (AK-DILATE, SANTIAGO-SYNEPHRINE) Start: 07-24-2024 End: 07-24-2024 1 Drop, BOTH EYES, ONCE, 1 d ose, On Wed07/24/24 at 1500, FOR OPHTHALMIC USE ONLY PROTECT FROM LIGHT Start: 06-30-2022 End: 07-01-2022 PHENYLephrine 2.5 % 1 Drop ( AK-DILATE, SANTIAGO-SYNEPHRINE) proparacaine hydrochloride 5 mg/ml ophthalmic solution (2 sources) Local Anesthetic Start: 07-24-2024 End: 07-24-2024 proparacaine 0.5 % 1 Drop (ALCAINE) Start: 07-24-2024 End: 07-24-2024 1 Drop, BOTH EYES, ONCE, 1 d ose, On Wed07/24/24 at 1500, FOR THE EYE Sodium Chloride (1 source) Start: 08-29-2019 End: 08-29-2019 sodium chloride (PF) (NS) flush 5 mL traMADol hydrochloride 50 mg oral tablet (10 sources) Opioid Agonist Start: 10-29-2022 End: 2025 Tramadol 50 mg tablet Discontinued 50 mg PO as needed October 29, 2022 1:00am 2025 9:54am tropicamide 10 mg/ml ophthalmic solution (4 sources) Anticholinergic Start: 07-24-2024 End: 07-24-2024 tropicamide 1 % 1 Drop (MYDRIACYL) Start: 07-24-2024 End: 07-24-2024 1 Drop, BOTH EYES, ONCE, 1 d ose, On Wed07/24/24 at 1500, FOR THE EYE Start: 07-26-2023 End: 07-26-2023 tropicamide 1 % 1 Drop (MYDR IACYL) Start: 06-30-2022 End: 07-01-2022 tropicamide 1 % 1 Drop (MYDR IACYL) ubidecarenone 100 mg oral capsule (11 sources) Start: 10-18-2019 End: 10-29-2022 take 10 capsules by mouth once daily Coenzyme Q10 100 MG capsule Discontinued 200 mg PO DAILY October 18, 2019 1:00am October 29, 2022 12:03pm cholesterol zaleplon 5 mg oral capsule (12 sources) gamma-Aminobuty venus Acid A Receptor Agonist Start: 10-29-2022 End: 2025 Zaleplon 5 mg capsule Discontinued 5 mg PO as needed October 29, 2022 1:00am 2025 9:54am Comment on above: Take by mouth. Problems Active Problems Problem Classification Problem Date Documented Date Episodic/Chronic Abdominal pain (1 source) Flank pain; Translations: [Flank pain] Episodic Blindness and vision defects (12 sources) Bilateral hyperopia of eyes; Translations: [Hypermetropia, bilateral] Onset: 07-30-2025 Episodic Cardiac dysrhythmias (4 sources) Unspecified atrial flutter; Translations: [Paroxysmal atrial fibrillation] Onset: 07-20-2025 07-20-2025 Chronic Cataract (8 sources) Nuclear sclerotic cataract; Translations: [Age-related nuclear cataract, bilateral] Onset: 11-20-2019 Chronic Chronic obstructive pulmonary disease and bronchiectasis (18 sources) Moderate chronic obstructive pulmonary disease; Translations: [Chronic obstructive pulmonary disease, unspecified] 11-26-2022 Chronic Comment on above: FEV1 68% FEV1 66% Deficiency and other anemia (2 sources) Chronic anemia; Translations: [Anemia, unspecified] 07-09-2025 Episodic Diabetes mellitus with complications (1 source) Type 2 diabetes mellitus with diabetic chronic kidney disease; Translations: [Type 2 diabetes mellitus with diabetic chronic kidney disease] Onset: 09-26-2024 Chronic Diabetes mellitus without complication (2 sources) Diabetes mellitus type 2 without retinopathy; Translations: [Type 2 diabetes mellitus without complications] Onset: 07-30-2025 07-24-2024 Chronic Disorders of lipid metabolism (3 sources) Pure hypercholesterolemia, unspecified; Translations: [Hyperlipidemia] Onset: 09-26-2024 07-20-2025 Chronic Esophageal disorders (1 source) Gastroesophageal reflux disease; Translations: [Gastro-esophageal reflux disease without esophagitis] 07-09-2025 Chronic Essential hypertension (20 sources) Hypertensive disorder; Translations: [Malignant essential hypertension] Onset: 07-14-2016 07-24-2015 Chronic Heart valve disorders (2 sources) Nonrheumatic aortic (valve) stenosis; Translations: [Mild aortic valve stenosis] 07-09-2025 Chronic Heart valve disorders (9 sources) Heart murmur; Translations: [Cardiac murmur, unspecified] 03-09-2023 Episodic Neoplasms of unspecified nature or uncertain behavior (3 sources) Monoclonal gammopathy; Translations: [Monoclonal gammopathy of uncertain significance] Onset: 2025 2025 Chronic Nonspecific chest pain (1 source) Chest wall pain; Translations: [Chest wall pain] Episodic Osteoarthritis (17 sources) Osteoarthritis; Translations: [Osteoarthritis] 07-24-2015 Chronic Other aftercare (2 sources) Patient encounter status; Translations: [Other fdc (current) drug therapy] Episodic Other aftercare (1 source) Long-term current use of drug therapy; Translations: [Other fdc (current) drug therapy] 07-24-2024 Episodic Other aftercare (2 sources) Other ocean transportation intermediary (current) drug therapy; Translations: [Other ocean transportation intermediary (current) drug therapy] Onset: 09-26-2024 Episodic Other connective tissue disease (5 sources) Trigger thumb of left hand; Translations: [Trigger thumb of left hand] Onset: 07-31-2015 07-31-2015 Other eye disorders (7 sources) Bilateral vitreous floaters; Translations: [Other vitreous opacities, bilateral] Onset: 11-20-2019 Chronic Other eye disorders (1 source) Other vitreous opacities, bilateral; Translations: [Floaters, bilateral] Onset: 11-20-2019 Chronic Other eye disorders (1 source) Excess skin of eyelid; Translations: [Dermatochalasis of right upper eyelid] Episodic Other inflammatory condition of skin (20 sources) Arthropathic psoriasis, unspecified; Translations: [Psoriatic arthritis] 07-24-2015 Chronic Other inflammatory condition of skin (1 source) Psoriasis with arthropathy; Translations: [Psoriasis arthropathica (HCC)] Chronic Other lower respiratory disease (20 sources) Hypoxia; Translations: [Hypoxemia] 10-29-2022 Episodic Comment on above: 2.5 lpm Other lower respiratory disease (4 sources) Hypoxemia; Translations: [Hypoxemia] 10-29-2022 Episodic Other lower respiratory disease (2 sources) Dyspnea on exertion; Translations: [Other forms of dyspnea] 07-20-2025 Episodic Other non-traumatic joint disorders (1 source) Ankle joint effusion Episodic Other non-traumatic joint disorders (1 source) Pain of left shoulder joint; Translations: [Pain in joint of left shoulder] Other nutritional; endocrine; and metabolic disorders (7 sources) Body mass index 40+ - severely obese; Translations: [Body mass index (BMI) 45.0-49.9, adult] 11-26-2022 Chronic Other nutritional; endocrine; and metabolic disorders (17 sources) Obesity; Translations: [Obesity, unspecified] 09-08-2023 Chronic Other nutritional; endocrine; and metabolic disorders (1 source) Obesity, unspecified; Translations: [Obesity, unspecified] 09-08-2023 Chronic Pulmonary heart disease (13 sources) Pulmonary hypertension; Translations: [Pulmonary hypertension, unspecified] 01-02-2025 Chronic Residual codes; unclassified (10 sources) Hypersomnia; Translations: [Hypersomnia, unspecified] 10-29-2022 Chronic Residual codes; unclassified (4 sources) Hypersomnia, unspecified; Translations: [Hypersomnia, unspecified] Onset: 01-29-2025 10-29-2022 Chronic Residual codes; unclassified (12 sources) Obstructive sleep apnea syndrome; Translations: [Obstructive sleep apnea (adult) (pediatric)] 02-20-2025 Chronic Comment on above: AHI 5.6 using 4% rul e/ AHI 19.3 using 3% rule Residual codes; unclassified (7 sources) Daytime hypersomnia; Translations: [Hypersomnia, unspecified] 01-02-2025 Chronic Comment on above: STOPBANG 6 Residual codes; unclassified (1 source) Obstructive sleep apnea (adult) (pediatric); Translations: [Obstructive sleep apnea (adult) (pediatric)] Onset: 04-16-2025 Chronic Residual codes; unclassified (1 source) Edema; Translations: [Edema, unspecified] 07-09-2025 Episodic Retinal detachments; defects; vascular occlusion; and retinopathy (1 source) 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; Translations: [Unspecified peripheral retinal degeneration] Chronic Rheumatoid arthritis and related disease (20 sources) Rheumatoid arthritis; Translations: [Rheumatoid arthritis of multiple joints] Onset: 07-14-2016 07-24-2015 Chronic Thyroid disorders (4 sources) Hypothyroidism, unspecified; Translations: [Hypothyroidism] Onset: 09-26-2024 07-09-2025 Chronic Unclassified (1 source) Pain Episodic Unclassified (2 sources) R01.1 - Cardiac murmur, unspecified Past or Other Problems Problem Classification Problem Date Documented Da te Episodic/Chronic Deficiency and other anemia (3 sources) Iron deficiency anemia, unspecified; Translations: [Iron deficiency anemia, unspecified] Onset: 09-26-2024 Episodic Nutritional deficiencies (1 source) Iron deficiency; Translations: [Iron deficiency] Onset: 06-22-2012 Resolved: 07-14-2016 07-14-2016 Episodic Other connective tissue disease (12 sources) Trigger thumb, left thumb; Translations: [Snapping thumb syndrome] Onset: 07-31-2015 07-31-2015 Episodic Other lower respiratory disease (4 sources) Shortness of breath; Translations: [Shortness of breath] Onset: 03-15-2025 10-29-2022 Episodic Unclassified (1 source) Psoriatic arthritis (HCC) Unclassified (1 source) Calcific Achilles tendinitis of left lower extremity Results Test Name Value Interpretation Reference Range Facility Cardiology Visit Reporton Cardiology Visit Report [facility] [address] [place] [address] OFFICE VISIT Date of Service: 07/20/25 MR#: [id number] Acct: [id number] Name: CHELY PATTERSON Rep #: [id number] : 1950 Provider: Dr. Ronal arnold MD Age/Sex: 75/F [place] [facility] [place] Status: Signed HPI HPI History of Present Illness Details: Patient is 75-year-old white female that comes in today with her daughter for a new patient visit. The patient is transitioning from the [facility] cardiology department to [facility] due to the group home of her physician surgeon at [facility]. Patient carries a history of valvular heart disease, COPD on home oxygen therapy atrial fibs/flutter, intermittent lower extremity edema status post multiple knee surgeries on the left and a surgery on the right. Hypertension, rheumatoid arthritis for 25 years, anemia associated with monoclonal gammopathy, obstructive sleep apnea treated with BiPAP. Patient also had a left heart catheterization in 2015 which showed minimal coronary artery disease. She quit smoking in 1982. The patient had a echocardiogram December 19, 2024 which showed normal LV size and function EF of 60% she had normal atria, a mean aortic valve gradient of 13 mmHg was focal aortic valve calcification and a pulmonary artery systolic pressure estimated 43 with normal RV size and function. ECG in the office today shows the patient to be in atrial flutter with variable AV conduction heart rate of 82 bpm nonspecific T wave changes. The patient was last evaluated at [facility] in February 2025 her ECG was reported to be in normal sinus rhythm but I do not have a copy of that strip. The patient is not aware that she is in atrial fibrillation she feels no different than she did in February. She does remain on Eliquis 5 mg twice daily. She is 75 years old with normal renal function and a weight of 270 pounds. The patient denying any chest pain. She reports that she does her actives of daily living she cleans the house with light housework she does the dishes without any significant shortness of breath. However with activity walking outside and trying to get back and forth and transitions through the house she does sometimes get short of breath and almost always when she is walking outside. She is monitored by the pulmonary team. 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 Required: No Accompanied by: Niece Is patient in pain?: No Allergies naproxen (From Naprosyn) Allergy (Verified 07/20/25 13:49) Hives Swcoywo-PTO-EpR Reductase Inhibitor (Xzixqvl-Ulu-Xhm Reductase Inhibitor) Adverse Reaction (Verified 07/20/25 13:49) Pain in joints Medications ???Medication ???Instructions ???Recorded ???Confirmed ???Type folic acid 1 mg tablet 1 mg PO SUMOTUWETHSA supplement 07/20/25 History multivitamin with minerals 1 ea PO DAILY supplement 10/05/19 07/20/25 History rosuvastatin 5 mg tablet 5 mg PO QHS cholesterol 10/05/19 1 History prednisone 20 mg tablet 20 mg PO PRN 10/29/22 07/20/25 His tory tizanidine 2 mg tablet 2 mg PO PRN 10/29/22 07/20/25 Hist ory apixaban 5 mg tablet (Eliquis) 5 mg PO BID 12/13/23 07/20/25 Hist ory diltiazem HCl 240 mg 240 mg PO QDAY 12/13/23 07/20/25 H istory capsule,extended release 24 hr furosemide 20 mg tablet 20 mg PO DAILY bp 12/13/23 5 History hydroxychloroquine 200 mg tablet 200 mg PO BID 12/13/23 07/20/25 Hi story levothyroxine 50 mcg tablet 50 mcg PO QDAY 11/03/24 07/20/25 H istory omeprazole 40 mg capsule,delayed 40 mg PO QDAY 11/03/24 07/20/25 Hi story release fluticasone 250 mcg-salmeterol 50 1 inh inhalation BID #60 ea 01/0907/20/25 Rx mcg/dose blistr powdr for inhalation (Advair Diskus) umeclidinium 62.5 mcg/actuation 1 inh inhalation Q24H #3 ea 07/20/25 Rx blister powder for inhalation (Incruse Ellipta) nebulizer kits #1 ea 02/20/25 07/04/25 Rx neublizer machine #1 02/20/25 07/04/25 Rx ipratropium 0.5 mg-albuterol 3 mg 3 ml inhalation Q4-6H PRN 03/02/ 5 07/04/25 Rx (2.5 mg base)/3 mL nebulization shortness of breath or wheezing soln #180 mL amlodipine 5 mg tablet 5 mg PO QDAY 06/08/25 07/20/25 His tory cholecalciferol (vitamin D3) 50 50 mcg PO QDAY 07/04/25 07/20/25 H istory mcg (2,000 unit) capsule ferrous sulfate 325 mg (65 mg 325 mg PO QDAY 07/04/25 07/20/25 H istory iron) tablet,delayed release BI (more content not included)... Normal [facility] Oncology Visit Reporton 06-27 Oncology Visit Report [facility] [address] [place] [address] OFFICE VISIT Date of Service: 07/10/25 0944 MR#: [id number] Acct: [id number] Name: CHELY PATTERSON Rep #: [id number] : 1950 From: Fabiana Gaviria MD Age/Sex: 75/F [place] [facility] [place] Status: Signed HPI Subjective Date of Service 07/10/25 Chief Complaint Abnormal protein in blood History of Present Illness 75-year-old female medical history notable for longstanding rheumatoid disease on methotrexate and periotic short courses of oral prednisone (every few weeks), severe oxygen dependent COPD due to previous smoking, atrial flutter on longstanding anticoagulation, dyslipidemia, hypertension, chronic anemia, obstructive sleep apnea, chronic GERD, obesity, Patient was noted in June 2025 to have a low level IgA kappa M protein of 0.73 g per DL and a second smaller M spike of kappa light chains of 0.1 g per DL. COUNT INCLUDES THE [facility] Medical History (Updated 07/10/25 @ 10:[address] Fabiana Gaviria MD) MGUS (monoclonal gammopathy of unknown significance) Edema Hypothyroidism History of left heart catheterization Atrial flutter Chronic anemia History of cardioversion Requires oxygen therapy Urinary incontinence Mild aortic stenosis Diverticulosis Depression GERD (gastroesophageal reflux disease) Hyperlipidemia Hypertension Chronic osteoarthritis Monoclonal gammopathy present on serum protein electrophoresis Anemia Rheumatoid arthritis Positive anti-CCP test Psoriasis Spinal stenosis Diabetes type 2 Arthralgia Surgical History History of appendectomy H/O cardiac radiofrequency ablation History of bilateral knee replacement Family History Sister Cancer Brother Cancer Father Cancer COPD (chronic obstructive pulmonary disease) Social History household members: none housing: house Smoking Status: Former smoker Tobacco: How many years used: 20 second hand exposure: Yes quit status: quit date established alcohol intake: current alcohol intake frequency: holidays/special occasions only substance use type: does not use ROS Constitutional Constitutional: Reports systems reviewed and no addt'l complaints, except as documented and fatigue; Denies anorexia, fever(s), night sweats or weight loss Eyes Eyes: Reports systems reviewed and no addt'l complaints, except as documented; Denies change in vision ENT HEENT: Reports systems reviewed and no addt'l complaints, except as documented; Denies mouth lesions Cardiovascular Cardiovascular: Reports systems reviewed and no addt'l complaints, except as documented; Denies chest pain with activity or edema Respiratory/Chest Respiratory/Chest: Reports systems reviewed and no addt'l complaints, except as documented, as per HPI and dyspnea on exertion; Denies cough or hemoptysis Gastrointestinal Gastrointestinal: Reports systems reviewed and no addt'l complaints, except as documented; Denies change in bowel habits, dysphagia, hematochezia or melena Genitourinary Genitourinary: Reports systems reviewed and no addt'l complaints, except as documented; Denies hematuria Musculoskeletal Musculoskeletal: Reports systems reviewed and no addt'l complaints, except as documented, arthralgias, joint pain and joint stiffness Integumentary Integumentary: Reports systems reviewed and no addt'l complaints, except as documented; Denies new lesions Neurologic Neurologic: Reports systems reviewed and no addt'l complaints, except as documented; Denies frequent falls or paresthesias Psychiatric Psychiatric: Reports systems reviewed and no addt'l complaints, except as documented Endocrine Endocrinology: Reports systems reviewed and no addt'l complaints, except as documented Hematologic/Lymphatic Hematologic/Lymphatic: Reports systems reviewed and no addt'l complaints, except as documented, anemia and easy bruising; Denies easy bleeding or lymphadenopathy Allergic/Immunologic Allergic/Immunologic: Reports systems reviewed and no addt'l complaints, except as documented Intake Vital Signs 06/08/25 08:08 07/10/25 09:45 07/10/25 09:56 Height 5 ft 2 in 5 ft 2 in 5 ft 2 in Weight: 120.656 kg 123.377 kg BMI 48.6 49.7 BP 143/64 H 145/70 H Blood Pressure Location Lt brachial Lt brachial Position Sitting Sitting Respiration 18 18 Pulse 68 67 Pulse Source Monitor Monitor Temp 97.6 F L 98.2 F Temperature Source Temporal Artery Temporal Artery Pulse Oximetry (%) 91 93 Oxygen Delivery Method nasal canula nasal canula Oxygen Flow Rate (L/min) 3 Intake Is patient in pain?: Yes (RA pain ) Allergies naproxen (From Naprosyn) Allergy (Verified 07/10/25 09:50) (more content not included)... Normal [facility] PROTEIN ELECTRO WITH RICHARD [CC L]on 07-02-2025 Albumin [Mass/Vol] 3.82 g/dL Normal 3.43-5.41 [facility] Comment on above: Performed By: #### 2 94792 #### [facility],[address] [place] [address] Alpha 1 Globulin 0.29 g/dL Normal 0.18-0.43 [facility] Comment on above: Performed By: #### 2 42017 #### [facility],[address] [place], [place] [id number] Alpha 2 Globulin 0.72 g/dL Normal 0.42-0.98 [facility] Comment on above: Performed By: #### 2 30810 #### [facility],[address] [place], [place] [id number] Beta Globulin 1.65 g/dL High 0.61-1.17 [facility] Comment on above: Performed By: #### 2 93608 #### [facility],[address] [place] [address] Comment A reflex test for Monoclonal Protein analysis (immunofixation) has been ordered. Normal [facility] Comment on above: Performed By: #### 2 21667 #### [facility],[address] [place] [address] Gamma Globulin 0.71 g/dL Normal 0.53-1.51 [facility] Comment on above: Performed By: #### 2 88659 #### [facility],[address] [place] [address] Interpretation An M protein is identified on protein electrophoresis. Abnormal No definitive M protein i [facility] Comment on above: Performed By: #### 2 33851 #### [facility],[address] [place], [place] [id number] M Protein Location Beta Fraction 1 Normal [facility] Comment on above: Performed By: #### 2 26355 #### [facility],[address] [place], [place] [id number] M-Protein Concentration 0.73 g/dL High <=0.00 [facility] Comment on above: Performed By: #### 2 06224 #### [facility],[address] [place] [address] SPE Staff Review Reviewed by Claus Vargas M.D. Normal [facility] Comment on above: Performed By: #### 2 04555 #### [facility],[address] [place] [address]953 Anion gap in Serum or Plasma Ordered By: Josefina Worley on 06-26-2025 Anion gap [Moles/Vol] 15 mmol/L 5- [facility] BUN/creatinine ratioOrdered By: Josefina Worley on 06-26-2025 Urea nitrogen/Creatinine [Mass ratio] 18.9 mg/mg 10- [facility] Bilirubin, totalOrdered By: Josefina Worley on 06-26-2025 Bilirubin [Mass/Vol] 0.43 mg/dL 0.00-1.30 [facility] CBC + DIFFon 06-26-2025 Baso # 0.02 x10EE3/UL Normal 0.00 - 0.10 [facility] Comment on above: Performed By: #### 2 26618 #### [facility],[address] [place] [address] Basophils/100 WBC (Bld) 0.2 % Normal 0.0 - 2.0 [facility] Comment on above: Performed By: #### 2 28784 #### [facility],[address] [place] [address] 36629 CBC + DIFF Normal [facility] Comment on above: Result Comment: CBC- COMPLETE BLOOD COUNT Performed By: #### 2 62022 #### [facility],[address] [place] [address]204 EO # 0.17 x10EE3/UL Normal 0.00 - 0.50 [facility] Comment on above: Performed By: #### 2 31519 #### [facility],[address] [place] [address] 73862 Eosinophils/100 WBC (Bld) 2.4 % Normal 0.0 - 7.0 [facility] Comment on above: Performed By: #### 2 99279 #### [facility],[address] [place] [address] 44045 Erythrocyte distribution width (RBC) [Ratio] 16.0 % High 12.0 - 15.6 [facility] Comment on above: Performed By: #### 2 28444 #### [facility],[address] [place] [address] Hematocrit (Bld) [Volume fraction] 32.4 % Low 34.0 - 46.0 [facility] Comment on above: Performed By: #### 2 32093 #### [facility],[address] [place] [address] Hemoglobin (Bld) [Mass/Vol] 10.8 g/dL Low 12.0 - 16.0 [facility] Comment on above: Performed By: #### 2 81474 #### [facility],[address] [place] [address] Lymph # 0.91 x10EE3/UL Normal 0.80 - 2.80 [facility] Comment on above: Performed By: #### 2 14052 #### [facility],[address] [place] [address] Lymphocytes/100 WBC (Bld) 12.6 % Low 20.0 - 45.0 [facility] Comment on above: Performed By: #### 2 21064 #### [facility],[address] [place] [address] MANUAL DIFF N/A Normal [facility] Comment on above: Performed By: #### 2 33014 #### [facility],[address] [place] [address] MCH (RBC) [Entitic mass] 31 pg Normal 27 - 33 [facility] Comment on above: Performed By: #### 2 46368 #### [facility],[address] [place], [place] [id number] MCHC 33 X10 3 Normal 32 - 36 [facility] Comment on above: Performed By: #### 2 07465 #### [facility],[address] [place], [place] [id number] MCV (RBC) [Entitic vol] 94 fL Normal 80 - 99 [facility] Comment on above: Performed By: #### 2 63699 #### [facility],[address] [place] [address] 16266 Ector # 0.87 x10EE3/UL Normal 0.20 - 1.00 [facility] Comment on above: Performed By: #### 2 67017 #### [facility],[address] [place] [address] 27789 MONOS % 12.0 % High 0.0 - 10.0 [facility] Comment on above: Performed By: #### 2 97714 #### [facility],[address] [place] [address] 03031 Morphology Estuardo (Bld) [Interp] N/A Normal [facility] Comment on above: Performed By: #### 2 01392 #### [facility],[address] [place] [address] 01758 Neut # 5.26 x10EE3/UL Normal 1.50 - 7.10 [facility] Comment on above: Performed By: #### 2 51326 #### [facility],[address] [place] [address] 55625 Neutrophils/100 WBC (Bld) 72.7 % Normal 46.0 - 76.0 [facility] Comment on above: Performed By: #### 2 16889 #### [facility],[address] [place] [address] 66418 PLATELET 283 x10EE3/UL Normal 150 - 450 [facility] Comment on above: Performed By: #### 2 38432 #### [facility],[address] [place] [address] 42724 Platelet mean volume (Bld) [Entitic vol] 7.4 fL Normal 6.6 - 10.5 [facility] Comment on above: Result Comment: AUTO MATED DIFFERENTIAL Performed By: #### 2 20729 #### [facility],[address] [place] [address] 47016 RBC 3.45 x 10EE6/UL Low 4.10 - 5.30 [facility] Comment on above: Performed By: #### 2 26536 #### [facility],[address] [place] [address] 49057 WBC 7.2 x 10EE3/UL Normal 4.5 - 10.8 [facility] Comment on above: Performed By: #### 2 80444 #### [facility],[address] [place] [address] 47788 CBC-Complete Blood Cnt No Di ffon 06-26-2025 Erythrocyte distribution width (RBC) [Ratio] 17.2 % High 11.6-14.6 [facility] Comment on above: Order Comment: Order Date: 06/26/25 Order Info: [id number] - CBC Performed By: #### L 500.4050, L501.9520, L500.4100, L100.0500 #### [facility] [address] [place], [address] Hematocrit (Bld) [Volume fraction] 33.2 % Low 37-47 [facility] Comment on above: Order Comment: Order Date: 06/26/25 Order Info: [id number] - CBC Performed By: #### L 500.4050, L501.9520, L500.4100, L100.0500 #### [facility] [address] [place], [address] Hemoglobin (Bld) [Mass/Vol] 10.5 g/dL Low 12.0-15.0 [facility] Comment on above: Order Comment: Order Date: 06/26/25 Order Info: [id number] - CBC Performed By: #### L 500.4050, L501.9520, L500.4100, L100.0500 #### [facility] [address] [place], [address] MCH (RBC) [Entitic mass] 30.6 pg Normal 27.0-32.0 [facility] Comment on above: Order Comment: Order Date: 06/26/25 Order Info: [id number] - CBC Performed By: #### L 500.4050, L501.9520, L500.4100, L100.0500 #### [facility] [address] [place], [address] MCHC (RBC) [Mass/Vol] 31.6 g/dL Low 32-36 [facility] Comment on above: Order Comment: Order Date: 06/26/25 Order Info: [id number] - CBC Performed By: #### L 500.4050, L501.9520, L500.4100, L100.0500 #### [facility] [address] [place], [address] MCV (RBC) [Entitic vol] 96.8 fL Normal 81-99 [facility] Comment on above: Order Comment: Order Date: 06/26/25 Order Info: [id number] - CBC Performed By: #### L 500.4050, L501.9520, L500.4100, L100.0500 #### [facility] [address] [place], [address] Platelet mean volume (Bld) [Entitic vol] 9.8 fL Normal 6.2-12.0 [facility] Comment on above: Order Comment: Order Date: 06/26/25 Order Info: [id number] - CBC Performed By: #### L 500.4050, L501.9520, L500.4100, L100.0500 #### [facility] [address] [place], [address] Platelets (Bld) [#/Vol] 254 10*3/uL Normal 150-450 [facility] Comment on above: Order Comment: Order Date: 06/26/25 Order Info: [id number] - CBC Performed By: #### L 500.4050, L501.9520, L500.4100, L100.0500 #### [facility] [address] [place], [address] RBC (Bld) [#/Vol] 3.43 10*6/uL Low 4.2-5.4 [facility] Comment on above: Order Comment: Order Date: 06/26/25 Order Info: [id number] - CBC Performed By: #### L 500.4050, L501.9520, L500.4100, L100.0500 #### [facility] [address] [place], [address] RDW SD 59.6 fl High 35.1-43.9 [facility] Comment on above: Order Comment: Order Date: 06/26/25 Order Info: [id number] - CBC Performed By: #### L 500.4050, L501.9520, L500.4100, L100.0500 #### [facility] [address] [place], [address] WBC (Bld) [#/Vol] 7.4 10*3/uL Normal 4.4-11.0 [facility] Comment on above: Order Comment: Order Date: 06/26/25 Order Info: [id number] - CBC Performed By: #### L 500.4050, L501.9520, L500.4100, L100.0500 #### [facility] [address] [place], [address] CMP with eGFRon 06-26-2025 AGE 74 years Normal [facility] Comment on above: Performed By: #### 2 39334 #### [facility],[address] [facility] [address] Albumin [Mass/Vol] 3.4 g/dL Normal 3.4 - 5.0 [facility] Comment on above: Performed By: #### 2 16066 #### [facility],[address] [facility] [address] Albumin/Globulin [Mass ratio] 0.9 {ratio} Normal 0.9 - 1.6 [facility] Comment on above: Performed By: #### 2 43285 #### [facility],[address] [place] [address]116 ALK PHOS 100 U/L Normal 46 - 116 [facility] Comment on above: Performed By: #### 2 03877 #### [facility],[address] [place] [address] 79922 ALT [Catalytic activity/Vol] 21 U/L Normal 16 - 63 [facility] Comment on above: Performed By: #### 2 47793 #### [facility],[address] [place] [address] 85857 Anion gap [Moles/Vol] 11 mmol/L Normal 10 - 20 [facility] Comment on above: Performed By: #### 2 07487 #### [facility],[address] [place] [address] 97900 AST [Catalytic activity/Vol] 19 U/L Normal 13 - 39 [facility] Comment on above: Performed By: #### 2 78486 #### [facility],[address] [place] [address] 31545 B/C RATIO 14 ratio Normal 0 - 30 [facility] Comment on above: Performed By: #### 2 55928 #### [facility],[address] [place] [address] 29[address] Bilirubin [Mass/Vol] 0.5 mg/dL Normal 0.2 - 1.0 [facility] Comment on above: Performed By: #### 2 91087 #### [facility],[address] [place] [address] 75557 Calcium [Mass/Vol] 8.6 mg/dL Normal 8.5 - 10.1 [facility] Comment on above: Performed By: #### 2 53296 #### [facility],[address] [place] [address] 62092 Chloride [Moles/Vol] 104 mmol/L Normal 98 - 107 [facility] Comment on above: Performed By: #### 2 76708 #### [facility],[address] [place] [address] 22312 CMP with eGFR Normal [facility] Comment on above: Result Comment: COMP REHENSIVE METABOLIC PANEL Performed By: #### 2 55111 #### [facility],[address] [place] [address] 25890 CO2 [Moles/Vol] 31.3 mmol/L Normal 21.0 - 32.0 [facility] Comment on above: Performed By: #### 2 76688 #### [facility],[address] [place] [address] 25937 Creatinine [Mass/Vol] 0.91 mg/dL Normal 0.55 - 1.02 [facility] Comment on above: Performed By: #### 2 05055 #### [facility],[address] [place] [address] 92924 eGFR 60 ML/MINUTE Normal 60 - 999 [facility] Comment on above: Performed By: #### 2 27654 #### [facility],[address] [place] [address] 77736 GFR/1.73 sq M.predicted among non-blacks MDRD (S/P/Bld) [Vol rate/Area] mL/min/{1.73_m2} Normal 60 - 999 [facility] Comment on above: Result Comment: ACCO RDING TO THE NATIONAL KIDNEY DISEASE EDUCATION PROGRAM(NKDE), A NORMAL eGFR IS A VALUE GREATER THAN OR EQUAL TO 60 ML/MIN/1.73 SQ METERS. CHRONIC KIDNEY DISEASE: <60mL/MIN/1.73 SQ METERS KIDNEY FAILURE: <15mL/MIN/1.73 SQ METERS THIS TEST SHOULD ONLY BE USED FOR PATIENTS 18 YEARS OF AGE AND OLDER. Performed By: #### 2 03337 #### [facility],[address] [place] [address]52 Globulin (S) [Mass/Vol] 4.0 g/dL High 1.5 - 3.8 [facility] Comment on above: Performed By: #### 2 29304 #### [facility],[address] [place] [address] 48235 Glucose [Mass/Vol] 101 mg/dL Normal 74 - 106 [facility] Comment on above: Performed By: #### 2 56004 #### [facility],[address] [place] [address] 52522 Potassium [Moles/Vol] 4.0 mmol/L Normal 3.5 - 5.1 [facility] Comment on above: Performed By: #### 2 63423 #### [facility],[address] [place] [address] 45644 Protein [Mass/Vol] 7.4 g/dL Normal 6.4 - 8.2 [facility] Comment on above: Performed By: #### 2 86115 #### [facility],[address] [place] [address] 32257 Sodium [Moles/Vol] 142 mmol/L Normal 136 - 145 [facility] Comment on above: Performed By: #### 2 35730 #### [facility],[address] [place] [address] 29299 Urea nitrogen [Mass/Vol] 13 mg/dL Normal 7 - 18 [facility] Comment on above: Performed By: #### 2 77534 #### [facility],[address] [place] [address] 39400 Calculated very low density lipoprotein (VLDL) cholesterol measurementOrdered By: Josefina Worley on 06-26-2025 Calculated very low density lipoprotein (VLDL) cholesterol measurement 15 mg/dL 5-40 [facility] Carbon dioxide, total [Moles /volume] in Central venous bloodOrdered By: Josefina Worley on 06-26-2025 CO2 [Moles/Vol] 24.1 mmol/L 21.0-32.0 [facility] Chloride assayOrdered By: Collin Worley on 06-26-2025 Chloride [Moles/Vol] 103 mmol/L 98-108 [facility] Comprehensive Metabolic Prof ilon 06-26-2025 Albumin [Mass/Vol] 4.1 g/dL Normal 3.4-4.8 [facility] Comment on above: Order Comment: Order Date: 06/26/25 Order Info: [id number] - CMP Order Info: - LIPID Order Info: [id number] - TSH Performed By: #### L 500.4050, L501.9520, L500.4100, L100.0500 #### [facility] [address] [place], [address] Albumin/Globulin [Mass ratio] 1.1 {ratio} Normal 0.9-2.4 [facility] Comment on above: Order Comment: Order Date: 06/26/25 Order Info: [id number] - CMP Order Info: - LIPID Order Info: [id number] - TSH Performed By: #### L 500.4050, L501.9520, L500.4100, L100.0500 #### [facility] [address] [place], [address] ALK PHOS 103 U/L Normal 35-104 [facility] Comment on above: Order Comment: Order Date: 06/26/25 Order Info: [id number] - CMP Order Info: - LIPID Order Info: [id number] - TSH Performed By: #### L 500.4050, L501.9520, L500.4100, L100.0500 #### [facility] [address] [place], [address] ALT [Catalytic activity/Vol] 15 U/L Normal <=34 [facility] Comment on above: Order Comment: Order Date: 06/26/25 Order Info: [id number] - CMP Order Info: - LIPID Order Info: 3 - TSH Performed By: #### L 500.4050, L501.9520, L500.4100, L100.0500 #### [facility] [address] [place], [address] AST [Catalytic activity/Vol] 26 U/L Normal <=31 [facility] Comment on above: Order Comment: Order Date: 06/26/25 Order Info: [id number] - CMP Order Info: [id number] - LIPID Order Info: [id number] - TSH Performed By: #### L 500.4050, L501.9520, L500.4100, L100.0500 #### [facility] [address] [place], [address] Bilirubin [Mass/Vol] 0.43 mg/dL Normal 0.00-1.30 [facility] Comment on above: Order Comment: Order Date: 06/26/25 Order Info: [id number] - CMP Order Info: [id number] - LIPID Order Info: [id number] - TSH Performed By: #### L 500.4050, L501.9520, L500.4100, L100.0500 #### [facility] [address] [place], [address] BUN/CRE 18.9 RATIO Normal 10-20 [facility] Comment on above: Order Comment: Order Date: 06/26/25 Order Info: [id number] - CMP Order Info: [id number] - LIPID Order Info: [id number] - TSH Performed By: #### L 500.4050, L501.9520, L500.4100, L100.0500 #### [facility] [address] [place], [address] Calcium [Mass/Vol] 9.2 mg/dL Normal 7.6-11.0 [facility] Comment on above: Order Comment: Order Date: 06/26/25 Order Info: [id number] - CMP Order Info: [id number] - LIPID Order Info: [id number] - TSH Performed By: #### L 500.4050, L501.9520, L500.4100, L100.0500 #### [facility] [address] [place], [address] Chloride [Moles/Vol] 103 mmol/L Normal 98-108 [facility] Comment on above: Order Comment: Order Date: 06/26/25 Order Info: [id number] - CMP Order Info: [id number] - LIPID Order Info: 3 - TSH Performed By: #### L 500.4050, L501.9520, L500.4100, L100.0500 #### [facility] [address] [place], [address] CO2 [Moles/Vol] 24.1 mmol/L Normal 21.0-32.0 [facility] Comment on above: Order Comment: Order Date: 06/26/25 Order Info: [id number] - CMP Order Info: - LIPID Order Info: 3 - TSH Performed By: #### L 500.4050, L501.9520, L500.4100, L100.0500 #### [facility] [address] [place], [address] Creatinine [Mass/Vol] 0.81 mg/dL Normal 0.70-1.20 [facility] Comment on above: Order Comment: Order Date: 06/26/25 Order Info: [id number] - CMP Order Info: [id number] - LIPID Order Info: [id number] - TSH Performed By: #### L 500.4050, L501.9520, L500.4100, L100.0500 #### [facility] [address] [place], [address] GAP 15 Normal 5-15 [facility] Comment on above: Order Comment: Order Date: 06/26/25 Order Info: [id number] - CMP Order Info: - LIPID Order Info: 3 - TSH Performed By: #### L 500.4050, L501.9520, L500.4100, L100.0500 #### [facility] [address] [place], [address] GFR/1.73 sq M.predicted among non-blacks MDRD (S/P/Bld) [Vol rate/Area] 76 mL/min/{1.73_m2} Normal >60 [facility] Comment on above: Order Comment: Order Date: 06/26/25 Order Info: [id number] - CMP Order Info: - LIPID Order Info: [id number] - TSH Result Comment: mL/m in/1.73m2 CKD-EPI Creatinine Equation (2020) Performed By: #### L 500.4050, L501.9520, L500.4100, L100.0500 #### [facility] [address] [place], [address] Globulin (S) [Mass/Vol] 3.7 g/dL Normal 2.2-4.2 [facility] Comment on above: Order Comment: Order Date: 06/26/25 Order Info: [id number] - CMP Order Info: - LIPID Order Info: [id number] - TSH Performed By: #### L 500.4050, L501.9520, L500.4100, L100.0500 #### [facility] [address] [place], [address] Glucose [Mass/Vol] 93 mg/dL Normal 70-99 [facility] Comment on above: Order Comment: Order Date: 06/26/25 Order Info: [id number] - CMP Order Info: - LIPID Order Info: [id number] - TSH Performed By: #### L 500.4050, L501.9520, L500.4100, L100.0500 #### [facility] [address] [place], [address] Potassium [Moles/Vol] 3.7 mmol/L Normal 3.3-5.1 [facility] Comment on above: Order Comment: Order Date: 06/26/25 Order Info: [id number] - CMP Order Info: - LIPID Order Info: [id number] - TSH Performed By: #### L 500.4050, L501.9520, L500.4100, L100.0500 #### [facility] [address] [place], [address] Sodium [Moles/Vol] 143 mmol/L Normal 133-145 [facility] Comment on above: Order Comment: Order Date: 06/26/25 Order Info: [id number] - CMP Order Info: [id number] - LIPID Order Info: [id number] - TSH Performed By: #### L 500.4050, L501.9520, L500.4100, L100.0500 #### [facility] [address] [place], [address] T PROT 7.8 g/dL Normal 5.9-8.4 [facility] Comment on above: Order Comment: Order Date: 06/26/25 Order Info: [id number] - CMP Order Info: [id number] - LIPID Order Info: [id number] - TSH Performed By: #### L 500.4050, L501.9520, L500.4100, L100.0500 #### [facility] [address] [place], [address] Urea nitrogen [Mass/Vol] 15 mg/dL Normal 4-19 [facility] Comment on above: Order Comment: Order Date: 06/26/25 Order Info: [id number] - CMP Order Info: [id number] - LIPID Order Info: [id number] - TSH Performed By: #### L 500.4050, L501.9520, L500.4100, L100.0500 #### [facility] [address] [place], [address] Erythrocyte distribution wid th ratioOrdered By: Josefina Worley on 06-26-2025 Erythrocyte distribution width (RBC) [Ratio] 17.2 % High 11.6-14.6 [facility] Erythrocyte distribution wid th standard deviationOrdered By: Josefina Worley on 06-26-2025 Erythrocyte distribution width (RBC) [Ratio] 59.6 fl High 35.1-43.9 [facility] Glomerular filtration rate ( GFR) estimation/1.73 sq m using serum, plasma, or whole bOrdered By: Josefina Worley on 06-26-2025 GFR/1.73 sq M.predicted among non-blacks MDRD (S/P/Bld) [Vol rate/Area] 76 mL/min/{1.73_m2} >60 [facility] Comment on above: mL/min/1.73m2 CKD-EP I Creatinine Equation (2020) Hematocrit Auto (Bld) [Volum e fraction]Ordered By: Josefina Worley on 06-26-2025 Hematocrit (Bld) [Volume fraction] 33.2 % Low 37-47 [facility] Hemoglobin measurementOrdere d By: Josefina Worley on 06-26-2025 Hemoglobin (Bld) [Mass/Vol] 10.5 g/dL Low 12.0-15.0 [facility] IMMUNOFIXATION SCREEN, SERUM on 06-26-2025 INTERPRETATION (MPA) Normal [facility] Comment on above: Order Comment: Palomo vargas Type: BLOOD SPECIMEN Ordering Facility: [facility] Address: [address], [place] [id number] Result Comment: Atyp ical restricted bands are present in the IgA and kappa regions, with an additional atypical band in the kappa region. 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 Atypical restricted bands are present in the IgG and kappa regions. Consistent with IgG kappa monoclonal gammopathy. Performed By: #### I GIANFRANCO, [id number] #### [facility] CLIA [id number] [facility] [address] MPA RESULT M protein is present. Abnormal No M p rotein is identified. [facility] Comment on above: Order Comment: Palomo vargas Type: BLOOD SPECIMEN Ordering Facility: [facility] Address: [address] [facility], [place] [address] Performed By: #### I [facility], [id number] #### [facility] CLIA [id number] [address] STAFF REVIEW (MPA) Reviewed by Yara Powell MD Normal [facility] Comment on above: Order Comment: Palomo vargas Type: BLOOD SPECIMEN Ordering Facility: [facility] Address: [address] [place] [address] Performed By: #### I [facility], [id number] #### [facility] CLIA [id number] [address] [place] [address] [place] LDL calc ser/plasOrdered By: Josefina Worley on 06-26-2025 Cholesterol in LDL [Mass/Vol] 52 mg/dL [facility] Comment on above: Uoaiwvlrrn=320-523 m g/dL & Higher Lofb=164 mg/dL or greaterFriedwald Equation for LDL-C Laboratory - Chemistry and C hemistry - challengeOrdered By: Josefina Worley on 06-26-2025 AST [Catalytic activity/Vol] 26 U/L <32 [facility] Lipid Profileon 06-26-2025 CHOL:HDL 1.91 Normal [facility] Comment on above: Order Comment: Order Date: 06/26/25 Order Info: [id number] - CMP Order Info: [id number] - LIPID Order Info: [id number] - TSH Performed By: #### L 500.4050, L501.9520, L500.4100, L100.0500 #### [facility] [address] [place], [address] Cholesterol [Mass/Vol] 141 mg/dL Normal <=200 [facility] Comment on above: Order Comment: Order Date: 06/26/25 Order Info: [id number] - CMP Order Info: [id number] - LIPID Order Info: [id number] - TSH Result Comment: Chol esterol level, Desirable <200 mg/dL Borderline high cholesterol 200-239 mg/dL High cholesterol >=240 mg/dL Recommendations of the NCEP Adult Treatment Panel for the following risk-cutoff thresholds for the [place] population. Performed By: #### L 500.4050, L501.9520, L500.4100, L100.0500 #### [facility] [address] [place], [address] Cholesterol in HDL [Mass/Vol] 74 mg/dL Normal [facility] Comment on above: Order Comment: Order Date: 06/26/25 Order Info: [id number] - CMP Order Info: - LIPID Order Info: [id number] - TSH Result Comment: Gabi onal Cholesterol Education Program (NCEP) guidelines: <40 mg/dL: Low HDL-cholesterol (major risk factor for CHD) >= 60 mg/dL: High HDL-cholesterol (negative risk factor for CHD) HDL-cholesterol is affected by a number of factors, e.g. smoking, exercise, hormones, sex and age. Performed By: #### L 500.4050, L501.9520, L500.4100, L100.0500 #### [facility] [address] [place], [address] Cholesterol in LDL [Mass/Vol] 52 mg/dL Normal [facility] Comment on above: Order Comment: Order Date: 06/26/25 Order Info: [id number] - CMP Order Info: - LIPID Order Info: [id number] - TSH Result Comment: Bord vnfzkd=171-073 mg/dL Higher Hrdw=833 mg/dL or greater Friedwald Equation for LDL-C Performed By: #### L 500.4050, L501.9520, L500.4100, L100.0500 #### [facility] [address] [place], [address] Cholesterol in VLDL [Mass/Vol] 15 mg/dL Normal 5-40 [facility] Comment on above: Order Comment: Order Date: 06/26/25 Order Info: [id number] - CMP Order Info: - LIPID Order Info: [id number] - TSH Performed By: #### L 500.4050, L501.9520, L500.4100, L100.0500 #### [facility] [address] [place], [address] Triglyceride [Mass/Vol] 76 mg/dL Normal [facility] Comment on above: Order Comment: Order Date: 06/26/25 Order Info: 07 - CMP Order Info: - LIPID Order Info: [id number] - TSH Result Comment: The drugs N-Acetylcysteine and Metamizole may falsely depress this assay. Normal range: <150 mg/dL Borderline High: 150-199 mg/dL High: 200-499 mg/dL Very High: >500 mg/dL Performed By: #### L 500.4050, L501.9520, L500.4100, L100.0500 #### [facility] [address] [place], [address] MCV (mean corpuscular volume ) determinationOrdered By: Josefina Worley on 06-26-2025 MCV (RBC) [Entitic vol] 96.8 fL 81-99 [facility] Mean corpuscular hemoglobin (MCH) determinationOrdered By: [facility] on 06-26-2025 MCH (RBC) [Entitic mass] 30.6 pg 27.0-32.0 [facility] Mean corpuscular hemoglobin concentration (MCHC) determinationOrdered By: Josefina Brunilda on 06-26-2025 MCHC (RBC) [Mass/Vol] 31.6 g/dL Low 32-36 [facility] Mean platelet volume determi nationOrdered By: Josefina Brunilda on 06-26-2025 Platelet mean volume (Bld) [Entitic vol] 9.8 fL 6.2-12.0 [facility] PROTEIN ELECTRO WITH RICHARD [CC L]on 06-26-2025 PROTEIN ELECTRO WITH RICHARD [CCL] Normal [facility] Comment on above: Result Comment: APPENDED REPORT Performed By: #### 2 [id number] #### [facility],[address] [facility] [address] PROTEIN ELECTROPHORESIS SERU M WITH RICHARD (P)on 06-26-2025 Albumin [Mass/Vol] 3.82 g/dL Normal 3.43-5.41 [facility] Comment on above: Order Comment: Speci men Type: BLOOD SPECIMEN Ordering Facility: [facility] Address: [address] [place] [address] Performed By: #### Josey MAHARAJ, [id number] #### [facility] CLIA [id number] [address] [place] [address] [place] Alpha 1 globulin Elph [Mass/Vol] 0.29 g/dL Normal 0.18-0.43 [facility] Comment on above: Order Comment: Speci men Type: BLOOD SPECIMEN Ordering Facility: [facility] Address: [address] [place] [address] Performed By: #### I CAROL ANN, [id number] #### [facility] CLIA [id number] [address] [place] [address] [place] Alpha 2 globulin Elph [Mass/Vol] 0.72 g/dL Normal 0.42-0.98 [facility] Comment on above: Order Comment: Speci men Type: BLOOD SPECIMEN Ordering Facility: [facility] Address: [address] [place] [address] Performed By: #### Josey MAHARAJ, [id number] #### [facility] CLIA [id number] [address] [place] [address] [place] Beta globulin Elph [Mass/Vol] 1.65 g/dL High 0.61-1.17 [facility] Comment on above: Order Comment: Speci men Type: BLOOD SPECIMEN Ordering Facility: [facility] Address: [address] [place] [address] Performed By: #### Josey MAHARAJ, [id number] #### [facility] CLIA [id number] [address] [place], [place] [id number] [place] COMMENT (SERUM PROT ELECTRO) A reflex test for Monoclonal Protein analysis (immunofixation) has been ordered. Normal [facility] Comment on above: Order Comment: Speci men Type: BLOOD SPECIMEN Ordering Facility: [facility] Address: [address] [place] [address] Performed By: #### I CAROL ANN, [id number] #### [facility] CLIA [id number] [address] [place] [address] [place] Gamma globulin Elph [Mass/Vol] 0.71 g/dL Normal 0.53-1.51 [facility] Comment on above: Order Comment: Palomo vargas Type: BLOOD SPECIMEN Ordering Facility: [facility] Address: [address] [place] [address] Performed By: #### I CAROL ANN, [id number] #### [facility] CLIA [id number] [address] [place] INTERPRETATION COMMENT FOR PROTEIN ELECTROPHORESIS See separate immunofixation report for characterization of monoclonal gammopathy. Normal [facility] Comment on above: Order Comment: Palomo vargas Type: BLOOD SPECIMEN Ordering Facility: [facility] Address: [address] [place] [address] Performed By: #### I CAROL ANN, [id number] #### [facility] CLIA [id number] [address] [place] [address] [place] M SPIKE CONCENTRATION 2 0.11 g/dL High <=0.00 [facility] Comment on above: Order Comment: Palomo vargas Type: BLOOD SPECIMEN Ordering Facility: [facility] Address: [address] [place] [address] Performed By: #### I CAROL ANN, [id number] #### [facility] CLIA [id number] [address] [place] [id number] [place] M-PROTEIN LOCATION Beta Fraction 1 Normal [facility] Comment on above: Order Comment: Palomo vargas Type: BLOOD SPECIMEN Ordering Facility: [facility] Address: [address] [place] [address] Performed By: #### I CAROL ANN, [id number] #### [facility] CLIA [id number] [address] [place] [id number] [place] M-PROTEIN LOCATION 2 Gamma Fraction 1 Normal [facility] Comment on above: Order Comment: Speci men Type: BLOOD SPECIMEN Ordering Facility: [facility] Address: [address] [place] [address] Performed By: #### I CAROL ANN, [id number] #### [facility] CLIA [id number] [address] [place] [address] [place] Protein Fractions [Interp] An M protein is identified on protein electrophoresis. Abnormal No definitive M protein is identified on protein electrophore sis. [facility] Comment on above: Order Comment: Specjosey vargas Type: BLOOD SPECIMEN Ordering Facility: [facility] Address: [address] [place] [address] Performed By: #### Josey MAHARAJ, [id number] #### [facility] CLIA [id number] [address] [place] [address] [place] Protein.monoclonal Elph [Mass/Vol] 0.73 g/dL High <=0.00 [facility] Comment on above: Order Comment: Speci men Type: BLOOD SPECIMEN Ordering Facility: [facility] Address: [address] [place] [address] Performed By: #### Josey MAHARAJ, [id number] #### [facility] CLIA [id number] [address] [place] [address] [place] SPE STAFF REVIEW Reviewed by Claus Vargas M.D. Normal [facility] Comment on above: Order Comment: Palomo vargas Type: BLOOD SPECIMEN Ordering Facility: [facility] Address: [address] [place] [address] Performed By: #### I CAROL ANN, [id number] #### [facility] CLIA [id number] [address] [place] [address] [place] Platelet countOrdered By: Collin Worley on 06-26-2025 Platelets (Bld) [#/Vol] 254 10*3/uL 150-450 [facility] Potassium measurement (mass/ volume)Ordered By: Josefina Worley on 06-26-2025 Potassium (Unsp spec) [Mass/Vol] 3.7 mmol/L 3.3-5.1 [facility] Prot SerPl-mCncon 06-26-2025 Protein [Mass/Vol] 7.2 g/dL Normal 6.3-8.0 [facility] Comment on above: Order Comment: Speci men Type: BLOOD SPECIMEN Ordering Facility: [facility] Address: [address] [place] [address] Performed By: #### 2 885-2 #### [facility] CLIA [id number] [address] [place] [address] [place] RBC Auto (Bld) [#/Vol]Ordere d By: Josefina Worley on 06-26-2025 RBC (Bld) [#/Vol] 3.43 10*6/uL Low 4.2-5.4 [facility] Screening total cholesterol/ high density lipoprotein (HDL) cholesterol ratioOrdered By: Josefina Worley on 06-26-2025 Cholesterol.total/Chol esterol in HDL [Mass ratio] 1.91 {ratio} [facility] Serum creatinine measurement (mass/volume)Ordered By: Josefina Worley on 06-26-2025 Creatinine [Mass/Vol] 0.81 mg/dL 0.70-1.20 [facility] Serum globulin measurementOr dered By: Josefina Worley on 06-26-2025 Globulin (S) [Mass/Vol] 3.7 g/dL 2.2-4.2 [facility] Serum glucose measurement (m ass/volume)Ordered By: Josefina Worley on 06-26-2025 Glucose [Mass/Vol] 93 mg/dL 70-99 [facility] Serum or plasma alanine juan otransferase (ALT) measurementOrdered By: Josefina Worley on 06-26-2025 ALT [Catalytic activity/Vol] 15 U/L <35 [facility] Serum or plasma albumin gerard urement (mass/volume)Ordered By: Josefina Worley on 06-26-2025 Albumin [Mass/Vol] 4.1 g/dL 3.4-4.8 [facility] Serum or plasma albumin/glob ulin mass ratioOrdered By: Josefina Worley on 06-26-2025 Albumin/Globulin [Mass ratio] 1.1 {ratio} 0.9-2.4 [facility] Serum or plasma alkaline masoud sphatase measurementOrdered By: Josefina Worley on 06-26-2025 ALP [Catalytic activity/Vol] 103 U/L 35-104 [facility] Serum or plasma calcium gerard urement (mass/volume)Ordered By: Josefina Worley on 06-26-2025 Calcium [Mass/Vol] 9.2 mg/dL 7.6-11.0 [facility] Serum or plasma cholesterol in HDL measurement (mass/volume)Ordered By: Josefina Worley on 06-26-2025 Cholesterol in HDL [Mass/Vol] 74 mg/dL >40 [facility] Comment on above: National Cholesterol Education Program (NCEP) guidelines:<40 mg/dL: Low HDL-cholesterol (major risk factor for CHD)>= 60 mg/dL: High HDL-cholesterol (negative risk factor for CHD)HDL-cholesterol is affected by a number of factors, e.g. smoking, exercise, hormones, sex and age. Serum or plasma cholesterol measurement (mass/volume)Ordered By: Josefina Worley on 06-26-2025 Cholesterol [Mass/Vol] 141 mg/dL <201 [facility] Comment on above: Cholesterol level, D esirable <200 mg/dLBorderline high cholesterol 200-239 mg/dLHigh cholesterol >=240 mg/dLRecommendations of the NCEP Adult Treatment Panel for the following risk-cutoff thresholds for the [place] population. Serum or plasma urea nitroge n measurement (mass/volume)Ordered By: Josefina Worley on 06-26-2025 Urea nitrogen [Mass/Vol] 15 mg/dL 4-19 [facility] Sodium levelOrdered By: Miriam Worley on 06-26-2025 Sodium [Moles/Vol] 143 mmol/L 133-145 [facility] TSH DL <= 0.005 mIU/L QnOrde red By: Josefina Worley on 06-26-2025 TSH Qn 2.710 uIU/mL 0.300-4.200 [facility] Thyroid Stim Hormone (TSH)on 06-26-2025 TSH 2.710 uIU/mL Normal 0.300-4.200 [facility] Comment on above: Order Comment: Order Date: 06/26/25 Order Info: [id number] - CMP Order Info: [id number] - LIPID Order Info: [id number] - TSH Performed By: #### L 500.4050, L501.9520, L500.4100, L100.0500 #### [facility] [address] [place], [address] Total proteinOrdered By: Candace Worley on 06-26-2025 Protein [Mass/Vol] 7.8 g/dL 5.9-8.4 [facility] Triglycerides measurementOrd ered By: Josefina Worley on 06-26-2025 Triglyceride [Mass/Vol] 76 mg/dL <199 [facility] Comment on above: The drugs N-Acetylcy steine and Metamizole may falsely depress this assay. Normal range: <150 mg/dLBorderline High: 150-199 mg/dLHigh: 200-499 mg/dLVery High: >500 mg/dL Vitamin D,25 Hydroxyon 06-26 Vitamin D 25-OH 39.7 ng/mL Normal 30-100 [facility] Comment on above: Order Comment: Order Date: 06/26/25 Order Info: [id number] - CMP Order Info: [id number] - LIPID Order Info: [id number] - TSH Result Comment: Emily min D Status Deficiency: <20 ng/mL (50nmol/L) Insufficiency: 20-30 ng/mL (50-75 nmol/L) Sufficiency: 30-100 ng/mL (75-250 nmol/L) Toxicity: >100 ng/mL (>250 nmol/L) Performed By: #### L 506.1001 #### [facility] [address] [place], [address] White blood cell (WBC) count Ordered By: Josefina Worley on 06-26-2025 WBC (Bld) [#/Vol] 7.4 10*3/uL 4.4-11.0 [facility] Pulmonary Visit Reporton Pulmonary Visit Report [facility] [address] [place] [address] OFFICE VISIT Date of Service: 06/08/25 MR#: [id number] Acct: [id number] Name: CHELY PATTERSON Rep #: [id number] : 1950 Provider: Florence Izaguirre NP Age/Sex: 74/F Location: [facility] Status: Signed Assessment and Plan Assessment and Plan (1) Obstructive sleep apnea: Status: Acute Comment: AHI 5.6 using 4% rule/ AHI 19.3 using 3% rule Plan: Patient is now receiving the correct therapy for sleep apnea. The patient had previously used a CPAP device and is now using BiPAP therapy with 4 L/min of supplemental oxygen blended into it. Her apnea is well-controlled. I believe that she is likely oxygenating well but would like for a nocturnal oximetry to be performed on BiPAP and supplemental oxygen to confirm this. 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 I believe that her shortness of breath is multifactorial and related to her anemia, murmur, COPD, pulmonary hypertension, sleep apnea, deconditioning, obesity. Treating sleep apnea has improved her shortness of breath. Continue with use of Advair discus and Incruse along with DuoNebs as needed and albuterol HFA as needed. The patient understands the importance of optimizing her oxygenation in regards to shortness of breath. Notify this practice if there are worsening respiratory symptoms. (3) Hypoxia: Status: Chronic Plan: Await nocturnal oximetry on BiPAP and 4 L/min of supplemental oxygen blended into the device. (4) Obesity: Status: Chronic Qualifiers: Body mass index: BMI 45.0-49.9 Obesity classification: adult class 3 (BMI gt;= 40) Obesity type: due to excess calories Serious obesity comorbidity presence: with serious comorbidity Qualified Code(s): E66.01 - Morbid (severe) obesity due to excess calories; Z68.42 - Body mass index [BMI] 45.0-49.9, adult Plan: Complicates exam, plan, care, prognosis. Weight loss is warranted through prudent dieting and daily exercise. (5) Pulmonary hypertension: Status: Acute Plan: Likely secondary due to the severity of hypoxemia seen on the titration study. I have discussed at length the pathophysiology of pulmonary hypertension and the relationship between this disease process and sleep apnea. Await response to treating sleep apnea. The previous heart catheterization with records were obtained but no right heart catheterization was completed. At this time there is no plan for further testing. The patient is encouraged to establish with cardiology as she reports her current physician surgeon is no longer able to see her. Cardiac murmur is identified on today's exam. Orders: Referrals Cardiology R01.1 - Cardiac murmur, unspecified Plan This note was generated with [employer] dictation software. It may contain incorrect words, spelling, and punctuation that were not noted in checking the note before signing. Plan Details Follow Up: 3 Months (LMR) HPI HPI Comments Details: Patient is a 74-year-old female who presents to the office today for follow-up of her moderate COPD. She is ambulatory and currently on supplemental oxygen. Since last follow-up the patient has not been to the ER or urgent care for respiratory illness. She has not required oral prednisone or antibiotics for respiratory symptoms. She continues to have shortness of breath on exertion. She does have anemia and the patient indicates that she is being treated for iron deficiency with ferrous gluconate, taking this daily. She does report struggling with shortness of breath in the hot humid temperatures. She has not required the use of her rescue inhaler. She does cough on occasion and reports that her cough is dry. She denies chest pain and chest tightness. She denies wheeze. She denies fever, chills, body aches. The patient does have Advair and Incruse available. She has not utilized these inhalers in a routine manner. She has not received significant benefit from using them in a as needed way. She does use nebulized treatment in the morning or at night every other day with some benefit. She has not had side effects such as hoarseness or sore throat. She is compliant with prescribed medications for her rheumatoid arthritis, she is utilizing methotrexate. She was recently transition from a CPAP to a BiPAP device due to the results of the titration PSG. The patient has a BiPAP at 17 over 11 cm which she reports compliance to. She reports that she has noticed an improvement in the quality of her sleep since using this device. She feels rested upon awakening. She denies mask leak. There is occasi (more content not included)... Normal [facility] CHEST 2 VIEWSon 04-30-2025 CHEST [address] [address] Patient: CHELY PATTERSON Phone#: : 1950 Age: 74 Gender: F Pt. Type: Out Account: [id number] Location: 062 Ordering: DecemberDalila CHERRYER Exam Date: 04/30/2025/15:12 Family Phys: Charge Code: [id number] Physician: Cedar Order #: [id number] Dose#: PROCEDURE: X-RAY CHEST 2 VIEWS COMPARISON: [facility], XR, CHEST 2 VIEWS, 09/22/2022, 15:34. INDICATIONS: Cough. FINDINGS: LUNGS: Normal. No significant pulmonary parenchymal abnormalities. VASCULATURE: Normal. Unremarkable pulmonary vasculature. CARDIAC: There is mild cardiomegaly. MEDIASTINUM: Normal. No visible mass or adenopathy. PLEURA: Normal. No effusion or pleural thickening. BONES: Normal. No fracture or visible bony lesion. OTHER: Negative. CONCLUSION: No acute disease. There is mild increase in heart size since prior exam. Dictated by: Katlin Pierre MD on 04/30/2025 at 16:39 Approved by: Katlin Pierre MD on 04/30/2025 at 16:40 Normal [facility] 3D MAMM BILAT SCREENon 04-25 3D MAMM BILAT SCREEN [address] [address] Patient: CHELY PATTERSON Phone#: : 1950 Age: 74 Gender: F Pt. Type: Account: [id number] Location: 062 Ordering: DecemberDalila GAR Exam Date: 04/25/2025/14:08 Family Phys: Charge Code: [id number] Physician: Cedar Order #: [id number] Dose#: PROCEDURE: BILATERAL SCREENING BREAST TOMOSYNTHESIS MAMMOGRAM WITH CAD COMPARISON: [facility], 3D BILAT SCREEN, 11/09/2022, 16:50. [facility], 3D BILAT SCREEN, 01/25/2024, 14:04. INDICATIONS: Screening. BREAST COMPOSITION: The breasts are almost entirely fatty FINDINGS: DIAGNOSTIC CATEGORY 1--NEGATIVE: RIGHT BREAST: No significant suspicious finding. No significant change has occurred. LEFT BREAST: No significant suspicious finding. No significant change has occurred. RECOMMENDATIONS: ROUTINE MAMMOGRAM AND CLINICAL EVALUATION IN 12 MONTHS. PLEASE NOTE: A NORMAL MAMMOGRAM DOES NOT EXCLUDE THE POSSIBILITY OF BREAST CANCER. A CLINICALLY SUSPICIOUS PALPABLE LUMP SHOULD BE BIOPSIED. THIS FACILITY UTILIZES A REMINDER SYSTEM TO ENSURE THAT ALL PATIENTS RECEIVE REMINDER LETTERS FOR APPOINTMENTS. THIS INCLUDES REMINDERS FOR ROUTINE MAMMOGRAMS, DIAGNOSITC MAMMOGRAMS, OR OTHER BREAST IMAGING INTERVENTIONS WHEN APPROPRIATE. THIS PATIENT WILL BE PLACED IN THE APPROPRIATE REMINDER SYSTEM. Dictated by: Rozina Rodrigues MD on 04/26/2025 at 18:26 Approved by: Rozina Rodrigues MD on 04/26/2025 at 18:33 Normal [facility] CBC + DIFFon 04-02-2025 Baso # 0.02 x10EE3/UL Normal 0.00 - 0.10 [facility] Comment on above: Performed By: #### 2 [id number] #### [facility],[address] [place] [address] Basophils/100 WBC (Bld) 0.3 % Normal 0.0 - 2.0 [facility] Comment on above: Performed By: #### 2 [id number] #### [facility],[address] [place] [address] CBC + DIFF Normal [facility] Comment on above: Result Comment: CBC- COMPLETE BLOOD COUNT Performed By: #### 2 [id number] #### [facility],[address] [place], [place] [id number] EO # 0.12 x10EE3/UL Normal 0.00 - 0.50 [facility] Comment on above: Performed By: #### 2 96734 #### [facility],[address] [place], [place] [id number] Eosinophils/100 WBC (Bld) 1.9 % Normal 0.0 - 7.0 [facility] Comment on above: Performed By: #### 2 [id number] #### [facility],[address] [place] [address] Erythrocyte distribution width (RBC) [Ratio] 15.2 % Normal 12.0 - 15.6 [facility] Comment on above: Performed By: #### 2 70122 #### [facility],[address] [place] [address] Hematocrit (Bld) [Volume fraction] 33.9 % Low 34.0 - 46.0 [facility] Comment on above: Performed By: #### 2 [address]4816 #### [place] [address] Hemoglobin (Bld) [Mass/Vol] 11.5 g/dL Low 12.0 - 16.0 [facility] Comment on above: Performed By: #### 2 88926 #### [facility],[address] [place], [place] [id number] Lymph # 0.73 x10EE3/UL Low 0.80 - 2.80 [facility] Comment on above: Performed By: #### 2 27977 #### [facility],[address] [place], [place] [id number] Lymphocytes/100 WBC (Bld) 11.8 % Low 20.0 - 45.0 [facility] Comment on above: Performed By: #### 2 14106 #### [place] [id number] MANUAL DIFF N/A Normal [facility] Comment on above: Performed By: #### 2 96376 #### [place] [id number] MCH (RBC) [Entitic mass] 32 pg Normal 27 - 33 [facility] Comment on above: Performed By: #### 2 31629 #### [place] [address] MCHC 34 X10 3 Normal 32 - 36 [facility] Comment on above: Performed By: #### 2 69178 #### [facility],[address] [place] [address] MCV (RBC) [Entitic vol] 94 fL Normal 80 - 99 [facility] Comment on above: Performed By: #### 2 40194 #### [place] [address] Ector # 0.86 x10EE3/UL Normal 0.20 - 1.00 [facility] Comment on above: Performed By: #### 2 74043 #### [place] [address] MONOS % 13.9 % High 0.0 - 10.0 [facility] Comment on above: Performed By: #### 2 26322 #### [place] [address] Morphology Estuardo (Bld) [Interp] N/A Normal [facility] Comment on above: Performed By: #### 2 46643 #### [place] [address] Neut # 4.49 x10EE3/UL Normal 1.50 - 7.10 [facility] Comment on above: Performed By: #### 2 27841 #### [place] [address] Neutrophils/100 WBC (Bld) 72.2 % Normal 46.0 - 76.0 [facility] Comment on above: Performed By: #### 2 15342 #### [place] [address] PLATELET 271 x10EE3/UL Normal 150 - 450 [facility] Comment on above: Performed By: #### 2 67328 #### [facility],[address] [place] [address] Platelet mean volume (Bld) [Entitic vol] 7.4 fL Normal 6.6 - 10.5 [facility] Comment on above: Result Comment: AUTO MATED DIFFERENTIAL Performed By: #### 2 24551 #### [facility],[address] [place] [address] RBC 3.60 x 10EE6/UL Low 4.10 - 5.30 [facility] Comment on above: Performed By: #### 2 33062 #### [facility],[address] [place] [address] WBC 6.2 x 10EE3/UL Normal 4.5 - 10.8 [facility] Comment on above: Performed By: #### 2 04334 #### [facility],[address] [place], [place] [phone] CMP with eGFRon 04-02-2025 AGE 74 years Normal [facility] Comment on above: Performed By: #### 2 39520 #### [facility],[address] [place], [place] [phone] Albumin [Mass/Vol] 3.2 g/dL Low 3.4 - 5.0 [facility] Comment on above: Performed By: #### 2 61034 #### [facility],[address] [place], [place] [phone] Albumin/Globulin [Mass ratio] 0.7 {ratio} Low 0.9 - 1.6 [facility] Comment on above: Performed By: #### 2 00612 #### [facility],[address] [place] [address] ALK PHOS 96 U/L Normal 46 - 116 [facility] Comment on above: Performed By: #### 2 16005 #### [facility],[address] [place] [address] ALT [Catalytic activity/Vol] 33 U/L Normal 16 - 63 [facility] Comment on above: Performed By: #### 2 90332 #### [facility],[address] [place] [address] Anion gap [Moles/Vol] 8 mmol/L Low 10 - 20 [facility] Comment on above: Performed By: #### 2 93389 #### [facility],[address] [place] [address] AST [Catalytic activity/Vol] 27 U/L Normal 13 - 39 [facility] Comment on above: Performed By: #### 2 79534 #### [facility],[address] [place], [place] [phone] B/C RATIO 15 ratio Normal 0 - 30 [facility] Comment on above: Performed By: #### 2 15264 #### [facility],[address] [place] [address] Bilirubin [Mass/Vol] 0.3 mg/dL Normal 0.2 - 1.0 [facility] Comment on above: Performed By: #### 2 95482 #### [facility],[address] [place] [address] Calcium [Mass/Vol] 8.6 mg/dL Normal 8.5 - 10.1 [facility] Comment on above: Performed By: #### 2 49544 #### [facility],[address] [place] [address]39 Chloride [Moles/Vol] 102 mmol/L Normal 98 - 107 [facility] Comment on above: Performed By: #### 2 77232 #### [facility],[address] [place] [address] 77451 CMP with eGFR Normal [facility] Comment on above: Result Comment: COMP REHENSIVE METABOLIC PANEL Performed By: #### 2 43373 #### [facility],[address] [place], [place] [phone] CO2 [Moles/Vol] 34.6 mmol/L High 21.0 - 32.0 [facility] Comment on above: Performed By: #### 2 72319 #### [facility],[address] [place], [place] [phone] Creatinine [Mass/Vol] 0.84 mg/dL Normal 0.55 - 1.02 [facility] Comment on above: Performed By: #### 2 93881 #### [facility],[address] [place] [address] GFR/1.73 sq M.predicted among non-blacks MDRD (S/P/Bld) [Vol rate/Area] mL/min/{1.73_m2} Normal 60 - 999 [facility] Comment on above: Performed By: #### 2 38880 #### [facility],[address] [place] [address] Result Comment: ACCO RDING TO THE NATIONAL KIDNEY DISEASE EDUCATION PROGRAM(NKDE), A NORMAL eGFR IS A VALUE GREATER THAN OR EQUAL TO 60 ML/MIN/1.73 SQ METERS. CHRONIC KIDNEY DISEASE: <60mL/MIN/1.73 SQ METERS KIDNEY FAILURE: <15mL/MIN/1.73 SQ METERS THIS TEST SHOULD ONLY BE USED FOR PATIENTS 18 YEARS OF AGE AND OLDER. Globulin (S) [Mass/Vol] 4.7 g/dL High 1.5 - 3.8 [facility] Comment on above: Performed By: #### 2 06417 #### [facility],[address] [place] [address]346 Glucose [Mass/Vol] 113 mg/dL High 74 - 106 [facility] Comment on above: Performed By: #### 2 65080 #### [facility],[address] [place] [address]70 Potassium [Moles/Vol] 3.7 mmol/L Normal 3.5 - 5.1 [facility] Comment on above: Performed By: #### 2 82581 #### [facility],[address] [place] [address]344 Protein [Mass/Vol] 7.9 g/dL Normal 6.4 - 8.2 [facility] Comment on above: Performed By: #### 2 06137 #### [facility],[address] [place] [address] Sodium [Moles/Vol] 141 mmol/L Normal 136 - 145 [facility] Comment on above: Performed By: #### 2 85868 #### [facility],[address] [place] [address]4783 Urea nitrogen [Mass/Vol] 13 mg/dL Normal 7 - 18 [facility] Comment on above: Performed By: #### 2 17798 #### [facility],[address] [place] [address] NT-proBNPon 03-01-2025 Natriuretic peptide B (Bld) [Mass/Vol] 974 pg/mL High 0 - 450 [facility] Comment on above: Performed By: #### 2 10675 #### [facility],[address] [place] [address]77 Pulmonary Visit Reporton Pulmonary Visit Report [facility] [place] [address] [place] [address]. [address] [place] [id number] OFFICE VISIT Date of Service: 02/20/25 MR#: [id number] Acct: [id number] Name: LEONARDOCHELY IDRIS Rep #: [id number] : 1950 Provider: Florence Izaguirre NP Age/Sex: 74/F [place] [facility] [place] Status: Signed Assessment and Plan Assessment and Plan (1) Obstructive sleep apnea: Status: Acute Comment: AHI 5.6 using 4% rule/ AHI 19.3 using 3% rule Plan: By her insurance criteria mild obstructive sleep apnea has been identified on the PSG with use of supplemental oxygen. I have recommended that the patient proceed with titration study to determine the pressure that is needed to control both the nocturnal hypoxemia and apnea that has been identified. After lengthy discussion describing the pathophysiology of obstructive sleep apnea and the potential comorbid conditions that contribute to untreated disease the patient with shared decision making has agreed to proceed with titration study. I have recommended that the patient utilize Ambien 5 mg for the night of the sleep study due to patient reporting little benefit from Sonata used for the previous sleep study. 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 She continues with shortness of breath however which could be due to suboptimal control but she is currently on triple therapy. I have recommended that she utilize DuoNeb solution through nebulizer and kit prior to exertional activity. These are prescribed for patient today. No evidence of restriction so rheumatoid lung is less likely. The current PFT is consistent with previous PFT from November 05, 2022 which showed moderate obstructive ventilatory defect with symmetric reduction in diffusion capacity at that time. I believe that her shortness of breath is multifactorial and related to her anemia, murmur, COPD, pulmonary hypertension, and newly diagnosed sleep apnea, deconditioning, obesity. I would like her to follow-up with cardiology for anemia management and cardiology for management of her murmur and await response for treatment of sleep apnea and as needed DuoNebs for COPD. The patient should advance her follow-up if she has worsening respiratory symptoms. (3) Hypoxia: Status: Chronic Comment: 2.5 lpm Plan: The patient has suboptimal nocturnal oxygenation seen on PSG. I have recommended that she undergo a titration study to optimize her nocturnal oxygenation and she is agreeable to proceed. (4) Obesity: Status: Chronic Qualifiers: Body mass index: BMI 45.0-49.9 Obesity classification: adult class 3 (BMI gt;= 40) Obesity type: due to excess calories Serious obesity comorbidity presence: with serious comorbidity Qualified Code(s): E66.01 - Morbid (severe) obesity due to excess calories; Z68.42 - Body mass index [BMI] 45.0-49.9, adult Plan: Complicates exam, plan, care, prognosis. (5) Pulmonary hypertension: Status: Acute Plan: Likely secondary due to sleep apnea/COPD and likely contributing to shortness of breath. I have discussed at length the pathophysiology of pulmonary hypertension and the relationship between this disease process and sleep apnea. Await response to treating sleep apnea. The previous heart catheterization with records were obtained but no right heart catheterization was completed. Orders: Orders Polysomnography with PAP Today G47.33 - Obstructive sleep apnea (adult) (pediatric) Medications: New [neublizer machine] As directed 1 ea 0RF J44.9 - Chronic obstructive pulmonary disease, unspecified [nebulizer kits] As directed 1 ea 11RF ipratropium-albuterol 0.5 mg-3 mg(2.5 mg base)/3 mL 3 mL inhalation Q4-6H PRN 180 mL 6RF shortness of breath or wheezing Plan Details Follow Up: 3 Months (LMR) HPI HPI Comments Details: Patient is a 74-year-old female who presents to the office today for follow-up of her moderate COPD. She is ambulatory and currently on supplemental oxygen. Since last follow-up the patient has not been to the ER or urgent care for respiratory illness. She has not required oral prednisone or antibiotics for respiratory symptoms. She continues to have shortness of breath on exertion. She does have anemia and the patient indicates that she is being treated for iron deficiency with ferrous gluconate, taking this daily. Along with shortness of breath and fatigue she has noticed wheezing in the morning or late in the evenings with weather changes. Her inhaler does help with the wheeze. She has not required the use of her rescue inhaler. She does cough on occasion and reports that her cough is dry. She denies chest pain and chest tightness. She denies fever, chills, body aches. The patient is currently using the rest of her B (more content not included)... Normal [facility] Pulmonary Visit Reporton Pulmonary Visit Report [facility] 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 The DLCO will need to be corrected for anemia, patient she sign consent for recent CBC results to be obtained along with ferritin level. No evidence of restriction so rheumatoid lung is less likely. The differential for this worsening shortness of breath would include anemia, pulmonary hypertension, deconditioning. Use Trelegy 100, 1 inhalation on a continuous daily basis. The patient should utilize good oral hygiene after inhaler use. The current PFT is consistent with previous PFT from November 05, 2022 which showed moderate obstructive ventilatory defect with symmetric reduction in diffusion capacity at that time. She has asked about pulmonary rehab but does not qualify due to FEV1. (2) Hypoxia: Status: Chronic Comment: 2.5 lpm Plan: I am concerned that she does have sleep apnea present and it was just not found on last PSG, await further testing. For now, continue to utilize supplemental oxygen to maintain a saturation of 89- 92%. (3) Obesity: Status: Chronic Qualifiers: Body mass index: BMI 45.0-49.9 Obesity classification: adult class 3 (BMI gt;= 40) Obesity type: due to excess calories Serious obesity comorbidity presence: with serious comorbidity Qualified Code(s): E66.01 - Morbid (severe) obesity due to excess calories; Z68.42 - Body mass index [BMI] 45.0-49.9, adult Plan: Complicates exam, plan, care, prognosis. (4) Pulmonary hypertension: Status: Acute Plan: Suspecting this is secondary due to sleep apnea and likely contributing to shortness of breath. I have discussed at length the pathophysology of pulmonary hypertension and the relationship between this disease process and sleep apnea. (5) Daytime hypersomnia: Status: Acute Comment: MONTY 6 Plan: I recommend repeating PSG as I'm concerned that sleep apnea is present, thus elevating the pulmonary artery pressure. I recommend using Sonata 5 mg to help with potential insomnia and to obtain supine sleep. I recommend that the study be preformed on room air so that events can be identified. The qc lab technician should preform a mini neuro evaluation prior to releasing the patient in the morning. Orders: Orders Polysomnography Today G47.10 - Hypersomnia, unspecified Medications: New hfdnduycztd-cmayzfpjf-oit anter 100-62.5-25 mcg (Trelegy Ellipta) 1 inh inhalation Q24H 3 ea 3RF G47.10 - Hypersomnia, unspecified Plan Details Follow Up: 6 Weeks (LMR) HPI HPI Comments Details: Patient is a 74-year-old female who presents to the office today for follow-up of her moderate COPD. She is ambulatory and currently on supplemental oxygen. The patient reports that she was recently hospitalized in [place] for COVID pneumonia. She reports that she has been on supplemental oxygen for the past few months. She has not been sick since this hospitalization. She continues to have shortness of breath on exertion. After chart review I noted that she does have anemia and the patient indicates that she is being treated for iron deficiency with ferrous gluconate but does not take this daily, more every other day. Along with shortness of breath and fatigue she has noticed wheezing on occasion. She has a productive cough with clear sputum. She denies chest pain and chest tightness. She denies fever, chills, body aches. The patient reports that she has been on inhalers in the past but they did not do anything for her, she was trialed on Stiolto in the past. Recently, she was given a trial of Trelegy 100 which she used on an as needed basis despite recommendations of using it consistently. She did received some benefit in regards to cough and congestion in the morning. She is unable to quantify a percentage of improvement with use of inhaler as needed. She does have an albuterol rescue inhaler, she does not use it often. She is compliant with prescribed medications for her rheumatoid arthritis, she is utilizing methotrexate. She is currently using supplemental oxygen at 2 L/min, at home she uses 2.5L/min. She is a former smoker and quit 1982. She has had a PSG in the past on 11/10/22 which showed a REM AHI of 15 but overall AHI was 3.6. She only had 59 minutes of supine sleep and supplement oxygen was added due to nocturnal hypoxemia so the test indicated that this may have impacted scoring of desaturation on study. Alpha 1 antitrypsin (more content not included)... Normal [facility] Echo Complete W/ Contraston 12-19-2024 Echo Complete W/ Contrast [facility] [place] [address] Echo Complete W/ Contrast 12/19/24 1403 MR#: [id number] Acct: [id number] Name: CHELY PATTERSON Rep #: [id number] : 1950 74 From: Jaron Gilmore MD Attending Dr: Florence Izaguirre, [employer] Status: REG CL I Ordering Dr: Florence Izaguirre [employer]-C Date: 12/19/24 Location: [facility] Sex: F C Admitted: Reason For Study : SOB Procedure This was a 2D Doppler, Color Flow transthoracic echocardiogram. The study was technically difficult. Due to body habitus and SOB. Exam performed in department. Left Ventricle Normal LV size. Left ventricular systolic function is normal. The left ventricular ejection fraction is 60 %. No regional wall motion abnormalities noted. Right Ventricle Normal RV size. Normal systolic function. Atria Normal left atrium. Normal right atrium. Mitral Valve Normal mitral valve. Tricuspid Valve Normal tricuspid valve. Mild (1+) tricuspid valve insufficiency. Pulmonary artery systolic pressure is 43 mmHg. Aortic Valve Trisinus/trileaflet aortic valve. Mild focal aortic valve calcification. Peak aortic valve gradient 22 mmHg. Mean aortic valve gradient 13 mmHg. Mild aortic stenosis. Pulmonic Valve The pulmonic valve is not well visualized. Great Vessels Normal aortic root. The pulmonary artery is normal size. Normal inferior vena cava. Pericardium/Pleural No pericardial effusion. MMode/2D Measurements Calculations LVIDd: 5.2 cm IVSd: 1.00 cm LVOT diam: 2.0 cm LVIDs: 3.6 cm LVPWd: 1.1 cm LVOT area: 3.1 cm2 RVDd: 3.5 cm FS: 31.3 % Ao root diam: 2.9 cm LAV(MOD-bp): 87.4 ml LVAd ap4: 35.8 cm2 LAV(MOD-bp) Indexed: 40.6 ml/m2 LVLd ap4: 8.2 cm LAV(MOD-sp2): 87.2 ml EDV(MOD-sp4): 132.5 ml LAV(MOD-sp4): 81.1 ml EDV(sp4-el): 131.9 ml LVAs ap4: 19.3 cm2 LVLs ap4: 6.1 cm ESV(MOD-sp4): 51.7 ml ESV(sp4-el): 51.7 ml EF(MOD-sp4): 61.0 % EF(sp4-el): 60.8 % LVAd ap2: 33.9 cm2 SV(MOD-sp4): 80.8 ml SV(MOD-sp2): 68.6 ml LVLd ap2: 8.5 cm SI(MOD-sp4): 37.5 ml/m2 SI(MOD-sp2): 31.8 ml/m2 EDV(MOD-sp2): 112.8 ml EDV(sp2-el): 114.4 ml LVAs ap2: 18.6 cm2 LVLs ap2: 6.6 cm ESV(MOD-sp2): 44.2 ml ESV(sp2-el): 44.6 ml EF(MOD-sp2): 60.8 % SV(sp4-el): 80.1 ml LA dimension(2D): 4.6 cm LA A4 area: 24.6 cm2 RA A4 area: 18.5 cm2 TAPSE: 2.2 cm Time Measurements MV dec time: 0.18 sec Doppler Measurements Calculations MV E max orestes: 153.0 cm/sec Lat Peak E' Orestes: 13.1 cm/sec Med Peak E' Orestes: 8.7 cm/sec MV A max orestes: 60.4 cm/sec E/E' lat: 11.7 E/E' med: 17.6 MV E/A: 2.5 MV V2 max: 152.5 cm/sec MV P1/2t max orestes: 167.6 cm/sec Ao V2 max: 234.4 cm/sec MV max P.3 mmHg MV P1/2t: 51.7 msec Ao max P.0 mmHg MV V2 mean: 69.9 cm/sec Ao V2 mean: 173.6 cm/sec MV mean P.4 mmHg MV dec slope: 950.3 cm/sec2 Ao mean P.0 mmHg MV V2 VTI: 38.6 cm MVA(P1/2t): 4.3 cm2 Ao V2 VTI: 55.9 cm AV (velocity ratio): 0.53 MVA(VTI): 2.4 cm2 JUSTO(I,D): 1.6 cm2 JUSTO(V,D): 1.6 cm2 LV V1 max: 119.4 cm/sec SV(LVOT): 92.2 ml PA V2 max: 127.3 cm/sec LV V1 max P.7 mmHg PA V2 mean: 92.1 cm/sec LV V1 mean P.6 mmHg LV V1 mean: 92.2 cm/sec LV V1 VTI: 29.9 cm TR max orestes: 312.1 cm/sec TR max P.0 mmHg ECHO/Echo Complete W/ Contrast Interpretation Summary Normal LV size. Left ventricular systolic function is normal. The left ventricular ejection fraction is 60 %. Mean aortic valve gradient 13 mmHg. Mild focal aortic valve calcification. Mild aortic stenosis. Pulmonary artery systolic pressure is 43 mmHg. ___ Ordering Physician: Florence Izaguirre Referring Physician: Skylar Friend Performed By: Dina Bolaños, SOO, RVT 12/19/24 1636 Date Jaron Gilmore MD CC: Dr. Skylar Friend MD; Florence Izaguirre NP Date Dictated: 12/19/24 1403 Date Transcribed: 12/19/[address] Justice: Signed Normal [facility] Echocardiogram study reportO rdered By: Jaron Gilmore on 12-19-2024 Study report [facility] [place] [address] Echo Complete W/ Contrast 12/19/24 1403 MR#: [id number] Acct: [id number] Name: CHELY PATTERSON IDRIS Rep #:[id number] : 1950 74 From: Jaron Borrego Attending Dr: Florence Izaguirre NP atus: REG CLI Ordering Dr: Florence Izaguirre NP-C Daron e: 12/19/24 Location: [facility] Sex: F C Admitted: Reason For Study : SOB Procedure This was a 2D Doppler, Color Flow transthoracic echocardiogram. The study was technically difficult. Due to body habitus and SOB. Exam performed in department. Left Ventricle Normal LV size. Left ventricular systolic function is normal. The left ventricular ejection fraction is 60 %. No regional wall motion abnormalities noted. Right Ventricle Normal RV size. Normal systolic function. Atria Normal left atrium. Normal right atrium. Mitral Valve Normal mitral valve. Tricuspid Valve Normal tricuspid valve. Mild (1+) tricuspid valve insufficiency. Pulmonary artery systolic pressure is 43 mmHg. Aortic Valve Trisinus/trileaflet aortic valve. Mild focal aortic valve calcification. Peak aortic valve gradient 22 mmHg. Mean aortic valve gradient 13 mmHg. Mild aortic stenosis. Pulmonic Valve The pulmonic valve is not well visualized. Great Vessels Normal aortic root. The pulmonary artery is normal size. Normal inferior vena cava. Pericardium/Pleural No pericardial effusion. MMode/2D Measurements & Calculations LVIDd: 5.2 cm IVSd: 1.00 cm LVOT diam: 2.0 cm LVIDs: 3.6 cm LVPWd: 1.1 cm LVOT area: 3.1 cm2 RVDd: 3.5 cm FS: 31.3 % Ao root diam: 2.9 cm LAV(MOD-bp): 87.4 ml LVAd ap4: 35.8 cm2 LAV(MOD-bp) Indexed: 40.6 ml/m2 LVLd ap4: 8.2 cm LAV(MOD-sp2): 87.2 ml EDV(MOD-sp4): 132.5 ml LAV(MOD-sp4): 81.1 ml EDV(sp4-el): 131.9 ml LVAs ap4: 19.3 cm2 LVLs ap4: 6.1 cm ESV(MOD-sp4): 51.7 ml ESV(sp4-el): 51.7 ml EF(MOD-sp4): 61.0 % EF(sp4-el): 60.8 % LVAd ap2: 33.9 cm2 SV(MOD-sp4): 80.8 ml SV(MOD-sp2): 68.6 ml LVLd ap2: 8.5 cm SI(MOD-sp4): 37.5 ml/m2 SI(MOD-sp2): 31.8 ml/m2 EDV(MOD-sp2): 112.8 ml EDV(sp2-el): 114.4 ml LVAs ap2: 18.6 cm2 LVLs ap2: 6.6 cm ESV(MOD-sp2): 44.2 ml ESV(sp2-el): 44.6 ml EF(MOD-sp2): 60.8 % SV(sp4-el): 80.1 ml LA dimension(2D): 4.6 cm LA A4 area: 24.6 cm2 RA A4 area: 18.5 cm2 TAPSE: 2.2 cm Time Measurements MV dec time: 0.18 sec Doppler Measurements & Calculations MV E max orestes: 153.0 cm/sec Lat Peak E' Orestes: 13.1 cm/sec Med Peak E' Orestes: 8.7 cm/sec MV A max orestes: 60.4 cm/sec E/E' lat: 11.7 E/E' med: 17.6 MV E/A: 2.5 MV V2 max: 152.5 cm/sec MV P1/2t max orestes: 167.6 cm/sec Ao V2 max: 234.4 cm/sec MV max P.3 mmHg MV P1/2t: 51.7 msec Ao max P.0 mmHg MV V2 mean: 69.9 cm/sec Ao V2 mean: 173.6 cm/sec MV mean P.4 mmHg MV dec slope: 950.3 cm/sec2 Ao mean P.0 mmHg MV V2 VTI: 38.6 cm MVA(P1/2t): 4.3 cm2 Ao V2 VTI: 55.9 cm AV (velocity ratio): 0.53 MVA(VTI): 2.4 cm2 JUSTO(I,D): 1.6 cm2 JUSTO(V,D): 1.6 cm2 LV V1 max: 119.4 cm/sec SV(LVOT): 92.2 ml PA V2 max: 127.3 cm/sec LV V1 max P.7 mmHg PA V2 mean: 92.1 cm/sec LV V1 mean P.6 mmHg LV V1 mean: 92.2 cm/sec LV V1 VTI: 29.9 cm TR max orestes: 312.1 cm/sec TR max P.0 mmHg ECHO/Echo Complete W/ Contrast Interpretation Summary Normal LV size. Left ventricular systolic function is normal. The left ventricular ejection fraction is 60 %. Mean aortic valve gradient 13 mmHg. Mild focal aortic valve calcification. Mild aortic stenosis. Pulmonary artery systolic pressure is 43 mmHg. ___ Ordering Physician: Rufener, Florence M Referring Physician: Skylar Friend Performed By: Dina Bolaños, SOO, RVT 12/19/24 1636 Date _ Jaron Gilmore MD CC: Dr. Skylar Friend MD; Florence Izaguirre NP ~ Date Dictated: 12/19/24 1403 Date Transcribed: 12/19/241634 [address] Justice: Signed [facility] Work Phone: CBC + DIFFon 12-13-2024 Baso # 0.01 x10EE3/UL Normal 0.00 - 0.10 [facility] Comment on above: Performed By: #### 2 65392 #### [facility],[address] [place], [place] [id number] Basophils/100 WBC (Bld) 0.2 % Normal 0.0 - 2.0 [facility] Comment on above: Performed By: #### 2 45756 #### [facility],[address] [place] [address] 53092 CBC + DIFF Normal [facility] Comment on above: Result Comment: CBC- COMPLETE BLOOD COUNT Performed By: #### 2 24594 #### [facility],[address] [place] [address] 29039 EO # 0.21 x10EE3/UL Normal 0.00 - 0.50 [facility] Comment on above: Performed By: #### 2 24283 #### [facility],[address] [place] [address] 21631 Eosinophils/100 WBC (Bld) 3.5 % Normal 0.0 - 7.0 [facility] Comment on above: Performed By: #### 2 63082 #### [facility],[address] [place], [place] [id number] Erythrocyte distribution width (RBC) [Ratio] 15.7 % High 12.0 - 15.6 [facility] Comment on above: Performed By: #### 2 01422 #### [facility],[address] [place] [address] Hematocrit (Bld) [Volume fraction] 33.9 % Low 34.0 - 46.0 [facility] Comment on above: Performed By: #### 2 25394 #### [facility],[address] [place] [address] Hemoglobin (Bld) [Mass/Vol] 11.2 g/dL Low 12.0 - 16.0 [facility] Comment on above: Performed By: #### 2 94454 #### [facility],[address] [place] [address] Lymph # 0.60 x10EE3/UL Low 0.80 - 2.80 [facility] Comment on above: Performed By: #### 2 23803 #### [place] [address] Lymphocytes/100 WBC (Bld) 10.1 % Low 20.0 - 45.0 [facility] Comment on above: Performed By: #### 2 74937 #### [facility],[address] [place] [address] MANUAL DIFF N/A Normal [facility] Comment on above: Performed By: #### 2 85565 #### [facility],[address] [place] [address] MCH (RBC) [Entitic mass] 30 pg Normal 27 - 33 [facility] Comment on above: Performed By: #### 2 67544 #### [place] [address] MCHC 33 X10 3 Normal 32 - 36 [facility] Comment on above: Performed By: #### 2 15974 #### [place] [address] MCV (RBC) [Entitic vol] 93 fL Normal 80 - 99 [facility] Comment on above: Performed By: #### 2 38610 #### [place] [address] Ector # 0.76 x10EE3/UL Normal 0.20 - 1.00 [facility] Comment on above: Performed By: #### 2 54209 #### [facility],[address] [place] [address] 61255 MONOS % 12.8 % High 0.0 - 10.0 [facility] Comment on above: Performed By: #### 2 89515 #### [place] [address] Morphology Estuardo (Bld) [Interp] N/A Normal [facility] Comment on above: Performed By: #### 2 56035 #### [place] [address] Neut # 4.36 x10EE3/UL Normal 1.50 - 7.10 [facility] Comment on above: Performed By: #### 2 22693 #### [place] [address] Neutrophils/100 WBC (Bld) 73.3 % Normal 46.0 - 76.0 [facility] Comment on above: Performed By: #### 2 23606 #### [place] [address] PLATELET 279 x10EE3/UL Normal 150 - 450 [facility] Comment on above: Performed By: #### 2 43237 #### [place] [id number] Platelet mean volume (Bld) [Entitic vol] 7.7 fL Normal 6.6 - 10.5 [facility] Comment on above: Result Comment: AUTO MATED DIFFERENTIAL Performed By: #### 2 27450 #### [facility],[address] [place] [address] 60517 RBC 3.67 x 10EE6/UL Low 4.10 - 5.30 [facility] Comment on above: Performed By: #### 2 84557 #### [facility],[address] [place] [address] 14657 WBC 5.9 x 10EE3/UL Normal 4.5 - 10.8 [facility] Comment on above: Performed By: #### 2 95443 #### [facility],[address] [place] [address] 58658 CMP with eGFRon 12-13-2024 AGE 74 years Normal [facility] Comment on above: Performed By: #### 2 40737 #### [facility],[address] [place] [address] 91746 Albumin [Mass/Vol] 3.2 g/dL Low 3.4 - 5.0 [facility] Comment on above: Performed By: #### 2 99997 #### [facility],[address] [place] [address] 53946 Albumin/Globulin [Mass ratio] 0.7 {ratio} Low 0.9 - 1.6 [facility] Comment on above: Performed By: #### 2 16482 #### [facility],[address] [place] [address] 61614 ALK PHOS 112 U/L Normal 46 - 116 [facility] Comment on above: Performed By: #### 2 89123 #### [facility],[address] [place] [address] 72398 ALT [Catalytic activity/Vol] 37 U/L Normal 16 - 63 [facility] Comment on above: Performed By: #### 2 57865 #### [facility],[address] [place] [address] 93454 Anion gap [Moles/Vol] 10 mmol/L Normal 10 - 20 [facility] Comment on above: Performed By: #### 2 17796 #### [facility],[address] [place] [address] 67772 AST [Catalytic activity/Vol] 24 U/L Normal 13 - 39 [facility] Comment on above: Performed By: #### 2 92452 #### [facility],[address] [place] [address] 38471 B/C RATIO 19 ratio Normal 0 - 30 [facility] Comment on above: Performed By: #### 2 90308 #### [facility],[address] [place] [address] 76361 Bilirubin [Mass/Vol] 0.3 mg/dL Normal 0.2 - 1.0 [facility] Comment on above: Performed By: #### 2 81163 #### [facility],[address] [place], [place] [id number] Calcium [Mass/Vol] 8.3 mg/dL Low 8.5 - 10.1 [facility] Comment on above: Performed By: #### 2 58163 #### [facility],[address] [place] [address] 53743 Chloride [Moles/Vol] 102 mmol/L Normal 98 - 107 [facility] Comment on above: Performed By: #### 2 57745 #### [facility],[address] [place] [address] 06484 CMP with eGFR Normal [facility] Comment on above: Result Comment: COMP REHENSIVE METABOLIC PANEL Performed By: #### 2 06999 #### [facility],[address] [place] [address] 90547 CO2 [Moles/Vol] 31.6 mmol/L Normal 21.0 - 32.0 [facility] Comment on above: Performed By: #### 2 06132 #### [facility],[address] [place] [address] 53851 Creatinine [Mass/Vol] 0.85 mg/dL Normal 0.55 - 1.02 [facility] Comment on above: Performed By: #### 2 01538 #### [place] [address] [address] GFR/1.73 sq M.predicted among non-blacks MDRD (S/P/Bld) [Vol rate/Area] mL/min/{1.73_m2} Normal 60 - 999 [facility] Comment on above: Performed By: #### 2 75289 #### [facility],[address] [place] [address] 30736 Result Comment: ACCO RDING TO THE NATIONAL KIDNEY DISEASE EDUCATION PROGRAM(NKDE), A NORMAL eGFR IS A VALUE GREATER THAN OR EQUAL TO 60 ML/MIN/1.73 SQ METERS. CHRONIC KIDNEY DISEASE: <60mL/MIN/1.73 SQ METERS KIDNEY FAILURE: <15mL/MIN/1.73 SQ METERS THIS TEST SHOULD ONLY BE USED FOR PATIENTS 18 YEARS OF AGE AND OLDER. Globulin (S) [Mass/Vol] 4.6 g/dL High 1.5 - 3.8 [facility] Comment on above: Performed By: #### 2 56357 #### [facility],[address] [place] [address] 85694 Glucose [Mass/Vol] 105 mg/dL Normal 74 - 106 [facility] Comment on above: Performed By: #### 2 81355 #### [facility],[address] [place] [address] 65866 Potassium [Moles/Vol] 4.2 mmol/L Normal 3.5 - 5.1 [facility] Comment on above: Performed By: #### 2 05267 #### [facility],[address] [place] [address] 63002 Protein [Mass/Vol] 7.8 g/dL Normal 6.4 - 8.2 [facility] Comment on above: Performed By: #### 2 28973 #### [address] [address] Sodium [Moles/Vol] 139 mmol/L Normal 136 - 145 [facility] Comment on above: Performed By: #### 2 24846 #### [facility],[address] [place] [address] 10268 Urea nitrogen [Mass/Vol] 16 mg/dL Normal 7 - 18 [facility] Comment on above: Performed By: #### 2 22670 #### [facility],[address] [place] [address] 75339 TSHon 12-13-2024 TSH Qn 4.55 m[IU]/L High 0.35 - 3.74 [facility] Comment on above: Performed By: #### 2 74604 #### [facility],[address] [place] [address] 48761 Pulmonary Visit Reporton Pulmonary Visit Report [facility] of [address] [place] [address] OFFICE VISIT Date of Service: 11/03/24 MR#: [id number] Acct: [id number] Name: LEONARDOCHELY IDRIS Rep #: [id number] : 1950 Provider: Florence Izaguirre NP Age/Sex: 74/F [place] [facility] [place] Status: Signed Assessment and Plan Assessment and Plan (1) Moderate COPD (chronic obstructive pulmonary disease): Status: Chronic Comment: FEV1 68% Plan: I am not convinced that the worsening shortness of breath is due to deterioration of COPD due to lung exam today. However, there has been no recent testing and I have recommended a PFT be performed at this time. The DLCO will need to be corrected for anemia. I will be looking for restriction which may indicate rheumatoid lung. If the PFT has worsened since previous PFT then I will consider a CT of her chest. The differential for this worsening shortness of breath would include anemia, rheumatoid lung, pulmonary hypertension, and valvular disease as there is an impressionable murmur on today's exam. I have also recommended that the echocardiogram be repeated at this time. I have given her a trial of Trelegy 100, 1 inhalation daily and have given her instruction on use of this inhaler and potential side effects associated with this inhaler. The patient should utilize good oral hygiene after inhaler use. She is to notify this practice if this is beneficial so a prescription can be sent to her local pharmacy. (2) Hypoxia: Status: Chronic Comment: 2.5 lpm Plan: I have recommended a nocturnal oximetry be performed at this time. Due to patient's exam and the enamel wear noted I am concerned that she does have sleep apnea present and it was just not found on last PSG. I will be looking for clusters of desaturations on this nocturnal oximetry. If they are present then I would recommend repeating the sleep study. The patient is using and benefiting from oxygen. Continue to utilize to maintain a saturation of 89-92%. (3) Obesity: Status: Chronic Qualifiers: Body mass index: BMI 45.0-49.9 Obesity classification: adult class 3 (BMI gt;= 40) Obesity type: due to excess calories Serious obesity comorbidity presence: with serious comorbidity Qualified Code(s): E66.01 - Morbid (severe) obesity due to excess calories; Z68.42 - Body mass index [BMI] 45.0-49.9, adult Plan: Complicates exam, plan, care, prognosis. Orders: Orders PFT Complete - DLCO, Spirometry b/a bronchodilators, lung volumes 12/19/ J44.9 - Chronic obstructive pulmonary disease, unspecified Echo Complete W/ Contrast Today J44.9 - Chronic obstructive pulmonary disease, unspecified, R06.02 - Shortness of breath Plan Details Follow Up: 6-8 week (LMR) HPI HPI Comments Details: Patient is a 74-year-old female who presents to the office today for follow-up of her moderate COPD. She is ambulatory and currently on supplemental oxygen. The patient reports that she was recently hospitalized in [place] for COVID pneumonia. She reports that she has been on supplemental oxygen for the past few months. Hospital records not available for review. For the last month she has had an increase in shortness of breath, cough, tiredness. She reports that she has not had respiratory illness. After chart review I noted that she does have anemia and the patient indicates that she is being treated for iron deficiency with ferrous gluconate. The patient reports that she is utilizing this every other day due to side effects. Along with shortness of breath and fatigue she has noticed wheezing in the mornings and a morning productive cough with clear sputum. She denies chest pain and chest tightness. She reports that throat clearing is present in the morning. She is utilizing 2.5 L supplemental oxygen at night. She also notices that the shortness of breath will occur with only the slightest little thing I do . She denies fever, chills, body aches. The patient reports that she has been on inhalers in the past but they did not do anything for her, she was trialed on Stiolto. She does have an albuterol rescue inhaler, she does not use it often. She is compliant with prescribed medications for her rheumatoid arthritis, she is utilizing methotrexate. She is currently using supplemental oxygen at 2.5 to 3 L/min. She is a former smoker and quit 1982. She has had a PSG in the past on 11/10/22 which showed a REM AHI of 15 but overall AHI was 3.6. She has not had her nocturnal oxygenation evaluated recently. Documentation reviewed with patient today includes: Alpha 1 antitrypsin genotype is MM from April 19, 2024. Intake Vital Signs 08/16/24 07:38 11/03/24 08:05 Height 5 ft 2 in 5 ft 2 in Weight: 276 lb BMI 50.5 BP 150/73 H Blood Pressure Location Lt radial Position Sitting Respirat (more content not included)... Normal [facility] CBC + DIFFon 09-26-2024 Baso # 0.01 x10EE3/UL Normal 0.00 - 0.10 [facility] Comment on above: Performed By: #### 2 17255 #### [facility],[address] [place] [address] Basophils/100 WBC (Bld) 0.2 % Normal 0.0 - 2.0 [facility] Comment on above: Performed By: #### 2 62876 #### [facility],[address] [place] [address] CBC + DIFF Normal [facility] Comment on above: Result Comment: CBC- COMPLETE BLOOD COUNT Performed By: #### 2 64733 #### [facility],[address] [place] [address] EO # 0.13 x10EE3/UL Normal 0.00 - 0.50 [facility] Comment on above: Performed By: #### 2 57200 #### [facility],[address] [place] [address] 98902 Eosinophils/100 WBC (Bld) 2.5 % Normal 0.0 - 7.0 [facility] Comment on above: Performed By: #### 2 54898 #### [facility],[address] [place] [address] Erythrocyte distribution width (RBC) [Ratio] 15.9 % High 12.0 - 15.6 [facility] Comment on above: Performed By: #### 2 95574 #### [facility],[address] [place] [address] Hematocrit (Bld) [Volume fraction] 35.1 % Normal 34.0 - 46.0 [facility] Comment on above: Performed By: #### 2 84057 #### [facility],[address] [place] [address] Hemoglobin (Bld) [Mass/Vol] 11.6 g/dL Low 12.0 - 16.0 [facility] Comment on above: Performed By: #### 2 35823 #### [facility],[address] [place] [address] 75478 Lymph # 0.68 x10EE3/UL Low 0.80 - 2.80 [facility] Comment on above: Performed By: #### 2 54944 #### [facility],[address] [place] [address] 90592 Lymphocytes/100 WBC (Bld) 13.2 % Low 20.0 - 45.0 [facility] Comment on above: Performed By: #### 2 07924 #### [facility],[address] [place] [address] 78347 MANUAL DIFF N/A Normal [facility] Comment on above: Performed By: #### 2 07666 #### [facility],[address] [place] [address] 33486 MCH (RBC) [Entitic mass] 30 pg Normal 27 - 33 [facility] Comment on above: Performed By: #### 2 74446 #### [facility],[address] [place] [address] 82650 MCHC 33 X10 3 Normal 32 - 36 [facility] Comment on above: Performed By: #### 2 60195 #### [facility],[address] [place] [address] 30682 MCV (RBC) [Entitic vol] 91 fL Normal 80 - 99 [facility] Comment on above: Performed By: #### 2 83549 #### [facility],[address] [place] [address] 38224 Ector # 0.68 x10EE3/UL Normal 0.20 - 1.00 [facility] Comment on above: Performed By: #### 2 88096 #### [facility],[address] [place] [address] 00342 MONOS % 13.1 % High 0.0 - 10.0 [facility] Comment on above: Performed By: #### 2 38975 #### [facility],[address] [place] [address] 37376 Morphology Estuardo (Bld) [Interp] N/A Normal [facility] Comment on above: Performed By: #### 2 01445 #### [facility],[address] [place] [address] 79515 Neut # 3.65 x10EE3/UL Normal 1.50 - 7.10 [facility] Comment on above: Performed By: #### 2 60324 #### [facility],[address] [place] [address] 48261 Neutrophils/100 WBC (Bld) 70.9 % Normal 46.0 - 76.0 [facility] Comment on above: Performed By: #### 2 36907 #### [facility],[address] [place] [address] 24419 PLATELET 302 x10EE3/UL Normal 150 - 450 [facility] Comment on above: Performed By: #### 2 15168 #### [facility],[address] [place] [address] 76438 Platelet mean volume (Bld) [Entitic vol] 7.5 fL Normal 6.6 - 10.5 [facility] Comment on above: Result Comment: AUTO MATED DIFFERENTIAL Performed By: #### 2 46722 #### [facility],[address] [place] [address] 42101 RBC 3.87 x 10EE6/UL Low 4.10 - 5.30 [facility] Comment on above: Performed By: #### 2 15102 #### [facility],[address] [place] [address] 68334 WBC 5.2 x 10EE3/UL Normal 4.5 - 10.8 [facility] Comment on above: Performed By: #### 2 17851 #### [facility],[address] [place], [place] [id number] CMP with eGFRon 09-26-2024 AGE 74 years Normal [facility] Comment on above: Performed By: #### 2 91998 #### [facility],[address] [place] [address] 09582 Albumin [Mass/Vol] 3.4 g/dL Normal 3.4 - 5.0 [facility] Comment on above: Performed By: #### 2 25452 #### [facility],[address] [place] [address] 71090 Albumin/Globulin [Mass ratio] 0.8 {ratio} Low 0.9 - 1.6 [facility] Comment on above: Performed By: #### 2 53177 #### [facility],[address] [place] [address] 19607 ALK PHOS 99 U/L Normal 46 - 116 [facility] Comment on above: Performed By: #### 2 72321 #### [facility],[address] [place] [address] 32908 ALT [Catalytic activity/Vol] 22 U/L Normal 16 - 63 [facility] Comment on above: Performed By: #### 2 38174 #### [facility],[address] [place] [address] 59242 Anion gap [Moles/Vol] 14 mmol/L Normal 10 - 20 [facility] Comment on above: Performed By: #### 2 32435 #### [facility],[address] [place] [address] 82160 AST [Catalytic activity/Vol] 22 U/L Normal 13 - 39 [facility] Comment on above: Performed By: #### 2 62183 #### [facility],[address] [place] [address] 29064 B/C RATIO 21 ratio Normal 0 - 30 [facility] Comment on above: Performed By: #### 2 65463 #### [facility],[address] [place] [address] 37306 Bilirubin [Mass/Vol] 0.4 mg/dL Normal 0.2 - 1.0 [facility] Comment on above: Performed By: #### 2 46262 #### [facility],[address] [place] [address] 49442 Calcium [Mass/Vol] 8.5 mg/dL Normal 8.5 - 10.1 [facility] Comment on above: Performed By: #### 2 48062 #### [facility],[address] [place] [address] 56373 Chloride [Moles/Vol] 105 mmol/L Normal 98 - 107 [facility] Comment on above: Performed By: #### 2 54446 #### [facility],[address] [place] [address] 88409 CMP with eGFR Normal [facility] Comment on above: Result Comment: COMP REHENSIVE METABOLIC PANEL Performed By: #### 2 25732 #### [facility],[address] [place] [address] 43805 CO2 [Moles/Vol] 31.2 mmol/L Normal 21.0 - 32.0 [facility] Comment on above: Performed By: #### 2 19402 #### [facility],[address] [place] [address] 50775 Creatinine [Mass/Vol] 0.82 mg/dL Normal 0.55 - 1.02 [facility] Comment on above: Performed By: #### 2 76409 #### [facility],[address] [place] [address] 68968 GFR/1.73 sq M.predicted among non-blacks MDRD (S/P/Bld) [Vol rate/Area] mL/min/{1.73_m2} Normal 60 - 999 [facility] Comment on above: Performed By: #### 2 40317 #### [facility],[address] [place] [address] 22519 Result Comment: ACCO RDING TO THE NATIONAL KIDNEY DISEASE EDUCATION PROGRAM(NKDE), A NORMAL eGFR IS A VALUE GREATER THAN OR EQUAL TO 60 ML/MIN/1.73 SQ METERS. CHRONIC KIDNEY DISEASE: <60mL/MIN/1.73 SQ METERS KIDNEY FAILURE: <15mL/MIN/1.73 SQ METERS THIS TEST SHOULD ONLY BE USED FOR PATIENTS 18 YEARS OF AGE AND OLDER. Globulin (S) [Mass/Vol] 4.2 g/dL High 1.5 - 3.8 [facility] Comment on above: Performed By: #### 2 06356 #### [facility],[address] [place] [address] 14646 Glucose [Mass/Vol] 109 mg/dL High 74 - 106 [facility] Comment on above: Performed By: #### 2 06871 #### [facility],[address] [place] [address] 35037 Potassium [Moles/Vol] 4.1 mmol/L Normal 3.5 - 5.1 [facility] Comment on above: Performed By: #### 2 81895 #### [facility],[address] [place] [address] 23517 Protein [Mass/Vol] 7.6 g/dL Normal 6.4 - 8.2 [facility] Comment on above: Performed By: #### 2 80746 #### [facility],[address] [place] [address] 59310 Sodium [Moles/Vol] 146 mmol/L High 136 - 145 [facility] Comment on above: Performed By: #### 2 12663 #### [facility],[address] [place] [address] 31057 Urea nitrogen [Mass/Vol] 17 mg/dL Normal 7 - 18 [facility] Comment on above: Performed By: #### 2 04245 #### [facility],[address] [place] [address] 89286 FERRITINon 09-26-2024 Ferritin [Mass/Vol] 106 ng/mL Normal 8 - 388 [facility] Comment on above: Performed By: #### 2 48461 #### [facility],[address] [place], [place] [address] HEMOGLOBIN A1C (POM)on 09-26 Glucose [Mass/Vol] 137.0 mg/dL High 0.0 - 0.0 [facility] Comment on above: Result Comment: BLDo HEMOGLOBIN A1C REFERENCE RANGESBLDo Suggested Diagnosis HbA1c(%) HbA1C (mmol/mol Diabetic >/=6.5 >/=48 Prediabetes 5.7 - 6.4 39 - 47 Normal <5.7 <39 Performed By: #### 2 89939 #### [facility],[address] [place] [address] 25097 HbA1c (Bld) [Mass fraction] 6.4 % Normal 0.0 - 6.5 [facility] Comment on above: Performed By: #### 2 43557 #### [facility],[address] [place] [address] 86983 IRON AND TIBCon 09-26-2024 %SATURATION 22 % Normal [facility] Comment on above: Performed By: #### 2 02956 #### [facility],[address] [place] [address] 20490 Iron [Mass/Vol] 56 ug/dL Normal 50 - 170 [facility] Comment on above: Performed By: #### 2 79396 #### [facility],[address] [place] [address] 11930 TIBC 260 ug/dl Normal 250 - 450 [facility] Comment on above: Performed By: #### 2 99717 #### [facility],[address] [place] [address] 12031 UIBC 204 ug/dL Normal 155 - 355 [facility] Comment on above: Performed By: #### 2 84836 #### [facility],[address] [place] [address] 45431 LIPID PROFILEon 09-26-2024 Cholesterol [Mass/Vol] 148 mg/dL Normal 0 - 240 [facility] Comment on above: Performed By: #### 2 18424 #### [facility],[address] [place] [address] 81692 Cholesterol in HDL [Mass/Vol] 70 mg/dL High 40 - 60 [facility] Comment on above: Performed By: #### 2 65351 #### [facility],[address] [place] [address] 36869 Cholesterol in LDL [Mass/Vol] 70 mg/dL Normal 0 - 129 [facility] Comment on above: Performed By: #### 2 33812 #### [facility],[address] [place] [address] 37720 Cholesterol.total/Chol esterol in HDL [Mass ratio] 2.1 {ratio} Normal 0.0 - 5.0 [facility] Comment on above: Performed By: #### 2 54657 #### [facility] [place],[address] [place] [id number] Lipid 1996 panel Normal [facility] Comment on above: Result Comment: LIPI D PROFILE Performed By: #### 2 [id number] #### [facility] [place],[address] [place] [id number] Triglyceride [Mass/Vol] 41 mg/dL Normal 0 - 150 [facility] [place] Comment on above: Performed By: #### 2 [id number] #### [facility] [place],[address] [place] [address] T4-FREE (FREE THYROXINE)on 1 Free T4 [Mass/Vol] 0.93 ng/dL Normal 0.76 - 1.46 [facility] [place] Comment on above: Result Comment: P otential of falsely elevated results when biotin concentrations are > 10 ng/mL. Performed By: #### 2 [id number] #### [facility] [place],[address] [place] [address] TSHon 09-26-2024 TSH Qn 5.01 m[IU]/L High 0.35 - 3.74 [facility] [place] Comment on above: Performed By: #### 2 [id number] #### [facility] [place],[address] [place] [address] URINE MICROALBUMIN W/CREATIN INE, RANDOMon 09-26-2024 CREATININE UR <13.00 Normal [facility] [place] Comment on above: Performed By: #### 2 [id number] #### [facility] [place],[address] [place], [place] [id number] MICROALBUMIN UR 0.5 mg/dL Normal 0.1 - 11.6 [facility] [place] Comment on above: Performed By: #### 2 [id number] #### [facility] [place],[address] [place] [address] UACR 49 mg/g Normal [facility] [place] Comment on above: Performed By: #### 2 [id number] #### [facility] [place],[address] [place], [place] [id number] OCT MACULA CIRRUS OU (BOTH E YES)on 07-24-2024 [facility] Radiology Study observation (narrative) [facility] VISUAL FIELD 10-2 OU (BOTH E YES)on 07-24-2024 [facility] Radiology Study observation (narrative) [facility] Absolute lymphocyte countOrd ered By: Yulissa Antunez on 01-22-2024 Lymphocytes Auto (Unsp spec) [#/Vol] 1.15 10*3/uL 0.83-4.51 [facility] Automated lymphocyte count a s percentage of total leukocytesOrdered By: Yulissa Antunez on 10-18-2023 Lymphocytes/100 WBC Auto (Unsp spec) 15.9 % 19-41 [facility] Basophil percentageOrdered B y: Yulissa Antunez on 10-18-2023 Basophils/100 WBC (Bld) 0.6 % 0-1 [facility] Bilirubin [Mass/Vol] 0.40 mg/dL 0.20-1.00 [facility] Comment on above: For patients on eltr ombopag therapy, use of Dimension [place] TBIL is not recommended. Chloride [Moles/Vol] 105 mmol/L 98-107 [facility] Eosinophils/100 WBC (Bld) 3.2 % 0-5 [facility] Glucose [Mass/Vol] 117 mg/dL 74-106 [facility] Comment on above: Fasting Glucose resu lt from 100 to 125 mg/dL suggests IMPAIRED HOMEOSTASIS per A.D.A. criteria. Hemoglobin (Bld) [Mass/Vol] 11.4 g/dL 12.0-15.0 [facility] Monocytes/100 WBC (Bld) 13.2 % 0-10 [facility] Neutrophils (Bld) [#/Vol] 4.8 10*3/uL 2.0-7.7 [facility] Neutrophils/100 WBC (Bld) 66.7 % 47-70 [facility] Potassium [Moles/Vol] 4.2 mmol/L 3.5-5.1 [facility] Protein [Mass/Vol] 7.9 g/dL 6.4-8.2 [facility] Sodium [Moles/Vol] 139 mmol/L 136-145 [facility] WBC (Bld) [#/Vol] 7.2 10*3/uL 4.4-11.0 [facility] Determination of erythrocyte mean corpuscular volume (MCV)Ordered By: Yulissa Antunez on 10-18-2023 MCV (RBC) [Entitic vol] 88.7 fL 81-99 [facility] Erythrocyte distribution wid th ratioOrdered By: Yulissa Antunez on 10-18-2023 Erythrocyte distribution width (RBC) [Ratio] 18.4 % 11.6-14.6 [facility] Erythrocyte distribution wid th standard deviationOrdered By: Yulissa Antunez on 10-18-2023 Erythrocyte distribution width (RBC) [Entitic vol] 59.2 fL 35.1-43.9 [facility] Hematocrit Auto (Bld) [Volum e fraction]Ordered By: Yulissa Antunez on 10-18-2023 Hematocrit (Bld) [Volume fraction] 37.5 % 37-47 [facility] Immature granulocytes/100 WB C Auto (Bld)Ordered By: Yulissa Antunez on 10-18-2023 Immature granulocytes/100 WBC (Bld) 0.400 % 0.0-0.9 [facility] Comment on above: IG% - Immature Granu locytes (promyelocytes, myelocytes and metamyelocytes) > 1% indicates that a LEFT SHIFT is Present. Laboratory - Chemistry and C hemistry - challengeOrdered By: Yulissa Antunez on 10-18-2023 Albumin/Globulin [Mass ratio] 0.7 {ratio} 0.9-2.4 [facility] ALP [Catalytic activity/Vol] 88 U/L 45-117 [facility] ALT [Catalytic activity/Vol] 19 U/L 13-56 [facility] CO2 [Moles/Vol] 29.0 mmol/L 21.0-32.0 [facility] Globulin (S) [Mass/Vol] 4.6 g/dL 2.2-4.2 [facility] Urea nitrogen/Creatinine [Mass ratio] 17.5 mg/mg 10-20 [facility] Laboratory - Hematology and Cell countsOrdered By: Yulissa Antunez on 10-18-2023 MCH (RBC) [Entitic mass] 27.0 pg 27.0-32.0 [facility] MCHC (RBC) [Mass/Vol] 30.4 g/dL 32-36 [facility] Nucleated RBC/100 WBC (Bld) [Ratio] 0 % 0-5 [facility] Platelets (Bld) [#/Vol] 295 10*3/uL 150-450 [facility] No Panel InformationOrdered By: Yulissa Antunez on 10-18-2023 Estimated GFR (MDRD) Amer 84 mL/min >60 [facility] Comment on above: GFR Calc Estimated GFR (MDRD) Non-Af Amer 69 mL/min >60 [facility] Comment on above: Non- GFR Calc Platelet mean volume Iggy-Ec ker (Bld) [Entitic vol]Ordered By: Yulissa Atnunez on 10-18-2023 Platelet mean volume (Bld) [Entitic vol] 9.3 fL 6.2-12.0 [facility] RBC Auto (Bld) [#/Vol]Ordere d By: Yulissa Antunez on 10-18-2023 RBC (Bld) [#/Vol] 4.23 10*6/uL 4.2-5.4 [facility] Serum or plasma calcium gerard urement (mass/volume)Ordered By: Yulissa Antunez on 10-18-2023 Calcium [Mass/Vol] 8.8 mg/dL 8.5-10.1 [facility] Serum or plasma creatinine m easurement (mass/volume)Ordered By: Yulissa Antunez on 10-18-2023 Creatinine [Mass/Vol] 0.86 mg/dL 0.55-1.02 [facility] Comment on above: The validity of the calculated GFR & GFRAA in patients over 70 years has not been determined. Clinical correlation is essential. Serum or plasma urea nitroge n measurement (mass/volume)Ordered By: Yulissa Antunez on 10-18-2023 Urea nitrogen [Mass/Vol] 15 mg/dL 7-18 [facility] Thin prep Papanicolaou smear with manual screeningOrdered By: Yulissa Antunez on 10-18-2023 Thin prep Papanicolaou smear with manual screening 3.3 g/dL 3.2-5.0 [facility] Thin prep Papanicolaou smear with manual screening 16 U/L 15-37 [facility] Thin prep Papanicolaou smear with manual screening 5 5-15 [facility] Absolute lymphocyte countOrd ered By: Dr. Antunez on 09-23-2022 Lymphocytes Auto (Unsp spec) [#/Vol] 1.27 10*3/uL 0.83-4.51 [facility] Basophil percentageOrdered B y: Dr. Antunez on 09-23-2022 Basophils/100 WBC (Bld) 0.5 % 0-1 [facility] Eosinophils/100 WBC (Bld) 3.8 % 0-5 [facility] Neutrophils (Bld) [#/Vol] 3.8 10*3/uL 2.0-7.7 [facility] Neutrophils/100 WBC (Bld) 59.5 % 47-70 [facility] WBC (Bld) [#/Vol] 6.4 10*3/uL 4.4-11.0 [facility] Blood erythrocytes count (nu mber/volume)Ordered By: Dr. Antunez on 09-23-2022 RBC (Bld) [#/Vol] 4.32 10*6/uL 4.2-5.4 [facility] Blood hemoglobin measurement (mass/volume)Ordered By: Dr. Antunez on 09-23-2022 Hemoglobin (Bld) [Mass/Vol] 12.1 g/dL 12.0-15.0 [facility] Blood lymphocytes/100 leukoc ytesOrdered By: Dr. Antunez on 09-23-2022 Lymphocytes/100 WBC (Bld) 20.0 % 19-41 [facility] Blood monocytes/100 leukocyt esOrdered By: Dr. Antunez on 09-23-2022 Monocytes/100 WBC (Bld) 15.3 % 0-10 [facility] Blood platelet mean volumeOr dered By: Dr. Antunez on 09-23-2022 Platelet mean volume (Bld) [Entitic vol] 9.1 fL 6.2-12.0 [facility] Determination of erythrocyte mean corpuscular volume (MCV)Ordered By: Dr. Antunez on 09-23-2022 MCV (RBC) [Entitic vol] 90.0 fL 81-99 [facility] Hematocrit Auto (Bld) [Volum e fraction]Ordered By: Dr. Antunez on 09-23-2022 Hematocrit (Bld) [Volume fraction] 38.9 % 37-47 [facility] Laboratory - Hematology and Cell countsOrdered By: Dr. Antunez on 09-23-2022 Erythrocyte distribution width (RBC) [Entitic vol] 56.7 fL 35.1-43.9 [facility] Erythrocyte distribution width (RBC) [Ratio] 17.6 % 11.6-14.6 [facility] Immature granulocytes/100 WBC (Bld) 0.900 % 0.0-0.9 [facility] Comment on above: IG% - Immature Granu locytes (promyelocytes, myelocytes and metamyelocytes) > 1% indicates that a LEFT SHIFT is Present. MCH (RBC) [Entitic mass] 28.0 pg 27.0-32.0 [facility] Nucleated RBC/100 WBC (Bld) [Ratio] 0.3 % 0-5 [facility] MCHC Auto (RBC) [Mass/Vol]Or dered By: Dr. Antunez on 09-23-2022 MCHC (RBC) [Mass/Vol] 31.1 g/dL 32-36 [facility] Platelets bldOrdered By: Dr. Antunez on 09-23-2022 Platelets (Bld) [#/Vol] 340 10*3/uL 150-450 [facility] CBC AND DIFFERENTIALon 03-13 Basophils (Bld) [#/Vol] 0.00 10*3/uL Normal 0.00 - 0.10 [facility] Comment on above: Performed By: #### C BCDF #### [address] [address] Basophils/100 WBC (Bld) 0.3 % Normal 0.0 - 2.0 [facility] Comment on above: Performed By: #### C BCDF #### [address] [address] Eosinophils (Bld) [#/Vol] 0.20 10*3/uL Normal 0.00 - 0.40 [facility] Comment on above: Performed By: #### C BCDF #### [address] [address] Eosinophils/100 WBC (Bld) 2.0 % Normal 0.0 - 6.0 [facility] Comment on above: Performed By: #### C BCDF #### [address] [address] Erythrocyte distribution width (RBC) [Ratio] 17.4 % High 11.5 - 14.5 [facility] Comment on above: Performed By: #### C BCDF #### [address] [address] Hematocrit (Bld) [Volume fraction] 35.4 % Low 36.0 - 46.0 [facility] Comment on above: Performed By: #### C BCDF #### [address] [address] Hemoglobin (Bld) [Mass/Vol] 11.5 g/dL Low 12.0 - 16.0 [facility] Comment on above: Performed By: #### C BCDF #### [address] [address] Lymphocytes (Bld) [#/Vol] 1.10 10*3/uL Normal 0.80 - 3.00 [facility] Comment on above: Performed By: #### C BCDF #### [address] [address] Lymphocytes/100 WBC (Bld) 12.6 % Normal 13.0 - 44.0 [facility] Comment on above: Performed By: #### C BCDF #### [address] [address] MCHC (RBC) [Mass/Vol] 32.6 g/dL Normal 32.0 - 36.0 [facility] Comment on above: Performed By: #### C BCDF #### [address] [address] MCV (RBC) [Entitic vol] 90 fL Normal 80 - 100 [facility] Comment on above: Performed By: #### C BCDF #### [address] [address] Monocytes (Bld) [#/Vol] 0.80 10*3/uL Normal 0.05 - 0.80 [facility] Comment on above: Performed By: #### C BCDF #### [address] [address] Monocytes/100 WBC (Bld) 9.6 % Normal 2.0 - 10.0 [facility] Comment on above: Performed By: #### C BCDF #### [address] [address] Neutrophils (Bld) [#/Vol] 6.40 10*3/uL High 1.60 - 5.50 [facility] Comment on above: Result Comment: Perc ent differential counts (%) should be interpreted in the context of the absolute cell counts (cells/L). Performed By: #### C BCDF #### [address] [address] Neutrophils/100 WBC (Bld) 75.5 % Normal 40.0 - 80.0 [facility] Comment on above: Performed By: #### C BCDF #### [address] [address] Platelets (Bld) [#/Vol] 271 10*3/uL Normal 150 - 450 [facility] Comment on above: Performed By: #### C BCDF #### [address] [address] RBC 3.95 x10E12/L Low 4.00 - 5.20 [facility] Comment on above: Performed By: #### C BCDF #### [address] [address] WBC (Bld) [#/Vol] 8.4 10*3/uL Normal 4.4 - 11.3 [facility] Comment on above: Performed By: #### C BCDF #### [address] [address] COMPREHENSIVE PANELon 2021 Albumin [Mass/Vol] 3.8 g/dL Normal 3.4 - 5.0 [facility] Comment on above: Performed By: #### C MP #### [address] [address] ALP [Catalytic activity/Vol] 76 U/L Normal 33 - 136 [facility] Comment on above: Performed By: #### C MP #### [address] [address] ALT [Catalytic activity/Vol] 15 U/L Normal 7 - 45 [facility] Comment on above: Result Comment: Lucinda ents treated with Sulfasalazine may generate falsely decreased results for ALT. Performed By: #### C MP #### [address] [address] Anion gap [Moles/Vol] 12 mmol/L Normal 10 - 20 [facility] Comment on above: Performed By: #### C MP #### [address] [address] AST [Catalytic activity/Vol] 16 U/L Normal 9 - 39 [facility] Comment on above: Performed By: #### C MP #### [address] [address] Bilirubin [Mass/Vol] 0.4 mg/dL Normal 0.0 - 1.2 [facility] Comment on above: Performed By: #### C MP #### [address] [address] Calcium [Mass/Vol] 8.6 mg/dL Normal 8.6 - 10.3 [facility] Comment on above: Performed By: #### C MP #### [address] [address] Chloride [Moles/Vol] 104 mmol/L Normal 98 - 107 [facility] Comment on above: Performed By: #### C MP #### [address] [address] Creatinine [Mass/Vol] 0.84 mg/dL Normal 0.50 - 1.05 [facility] Comment on above: Performed By: #### C MP #### [address] [address] GFR/1.73 sq M.predicted among non-blacks MDRD (S/P/Bld) [Vol rate/Area] 73 mL/min/{1.73_m2} Normal >90 [facility] Comment on above: Result Comment: CALC ULATIONS OF ESTIMATED GFR ARE PERFORMED USING THE 2020 CKD-EPI STUDY REFIT EQUATION WITHOUT THE RACE VARIABLE FOR THE IDMS-TRACEABLE CREATININE METHODS. https://jasn.asnjournals.org/content/early//ASN.84081 13864 Performed By: #### C MP #### [address] [address] Glucose [Mass/Vol] 123 mg/dL High 74 - 99 [facility] Comment on above: Performed By: #### C MP #### [address] [address] HCO3 (Bld) [Moles/Vol] 30 mmol/L Normal 21 - 32 [facility] Comment on above: Performed By: #### C MP #### [address] [address] Potassium [Moles/Vol] 3.9 mmol/L Normal 3.5 - 5.3 [facility] Comment on above: Performed By: #### C MP #### [address] [address] Protein [Mass/Vol] 7.5 g/dL Normal 6.4 - 8.2 [facility] Comment on above: Performed By: #### C MP #### [address] [address] Sodium [Moles/Vol] 142 mmol/L Normal 136 - 145 [facility] Comment on above: Performed By: #### C MP #### [address] [address] Urea nitrogen [Mass/Vol] 20 mg/dL Normal 6 - 23 [facility] Comment on above: Performed By: #### C MP #### [address] [address] CBC AND DIFFERENTIALon 12-30 Basophils (Bld) [#/Vol] 0.00 10*3/uL Normal 0.00 - 0.10 [facility] Comment on above: Performed By: #### C BCDF #### [address] [address] Basophils/100 WBC (Bld) 0.6 % Normal 0.0 - 2.0 [facility] Comment on above: Performed By: #### C BCDF #### [address] [address] Eosinophils (Bld) [#/Vol] 0.20 10*3/uL Normal 0.00 - 0.40 [facility] Comment on above: Performed By: #### C BCDF #### [address] [address] Eosinophils/100 WBC (Bld) 2.6 % Normal 0.0 - 6.0 [facility] Comment on above: Performed By: #### C BCDF #### [address] [address] Erythrocyte distribution width (RBC) [Ratio] 16.7 % High 11.5 - 14.5 [facility] Comment on above: Performed By: #### C BCDF #### [address] [address] Hematocrit (Bld) [Volume fraction] 35.9 % Low 36.0 - 46.0 [facility] Comment on above: Performed By: #### C BCDF #### [address] [address] Hemoglobin (Bld) [Mass/Vol] 11.7 g/dL Low 12.0 - 16.0 [facility] Comment on above: Performed By: #### C BCDF #### [address] [address] Lymphocytes (Bld) [#/Vol] 1.20 10*3/uL Normal 0.80 - 3.00 [facility] Comment on above: Performed By: #### C BCDF #### [address] [address] Lymphocytes/100 WBC (Bld) 15.4 % Normal 13.0 - 44.0 [facility] Comment on above: Performed By: #### C BCDF #### [address] [address] MCHC (RBC) [Mass/Vol] 32.6 g/dL Normal 32.0 - 36.0 [facility] Comment on above: Performed By: #### C BCDF #### [address] [address] MCV (RBC) [Entitic vol] 88 fL Normal 80 - 100 [facility] Comment on above: Performed By: #### C BCDF #### [address] [address] Monocytes (Bld) [#/Vol] 0.70 10*3/uL Normal 0.05 - 0.80 [facility] Comment on above: Performed By: #### C BCDF #### [address] [address] Monocytes/100 WBC (Bld) 8.9 % Normal 2.0 - 10.0 [facility] Comment on above: Performed By: #### C BCDF #### [address] [address] Neutrophils (Bld) [#/Vol] 5.50 10*3/uL Normal 1.60 - 5.50 [facility] Comment on above: Result Comment: Perc ent differential counts (%) should be interpreted in the context of the absolute cell counts (cells/L). Performed By: #### C BCDF #### [address] [address] Neutrophils/100 WBC (Bld) 72.5 % Normal 40.0 - 80.0 [facility] Comment on above: Performed By: #### C BCDF #### [address] [address] Platelets (Bld) [#/Vol] 277 10*3/uL Normal 150 - 450 [facility] Comment on above: Performed By: #### C BCDF #### [address] [address] RBC 4.10 x10E12/L Normal 4.00 - 5.20 [facility] Comment on above: Performed By: #### C BCDF #### [address] [address] WBC (Bld) [#/Vol] 7.6 10*3/uL Normal 4.4 - 11.3 [facility] Comment on above: Performed By: #### C BCDF #### [address] [address] COMPREHENSIVE PANELon 2021 Albumin [Mass/Vol] 3.7 g/dL Normal 3.4 - 5.0 [facility] Comment on above: Performed By: #### C MP #### [address] [address] ALP [Catalytic activity/Vol] 77 U/L Normal 33 - 136 [facility] Comment on above: Performed By: #### C MP #### [address] [address] ALT [Catalytic activity/Vol] 18 U/L Normal 7 - 45 [facility] Comment on above: Result Comment: Lucinda ents treated with Sulfasalazine may generate falsely decreased results for ALT. Performed By: #### C MP #### [address] [address] Anion gap [Moles/Vol] 11 mmol/L Normal 10 - 20 [facility] Comment on above: Performed By: #### C MP #### [address] [address] AST [Catalytic activity/Vol] 16 U/L Normal 9 - 39 [facility] Comment on above: Performed By: #### C MP #### [address] [address] Bilirubin [Mass/Vol] 0.5 mg/dL Normal 0.0 - 1.2 [facility] Comment on above: Performed By: #### C MP #### [address] [address] Calcium [Mass/Vol] 8.7 mg/dL Normal 8.6 - 10.3 [facility] Comment on above: Performed By: #### C MP #### [address] [address] Chloride [Moles/Vol] 103 mmol/L Normal 98 - 107 [facility] Comment on above: Performed By: #### C MP #### [address] [address] Creatinine [Mass/Vol] 0.84 mg/dL Normal 0.50 - 1.05 [facility] Comment on above: Performed By: #### C MP #### [address] [address] GFR/1.73 sq M.predicted among non-blacks MDRD (S/P/Bld) [Vol rate/Area] 74 mL/min/{1.73_m2} Normal >90 [facility] Comment on above: Result Comment: CALC ULATIONS OF ESTIMATED GFR ARE PERFORMED USING THE 2020 CKD-EPI STUDY REFIT EQUATION WITHOUT THE RACE VARIABLE FOR THE IDMS-TRACEABLE CREATININE METHODS. https://jasn.asnjournals.org/content//ASN.89555 98350 Performed By: #### C MP #### [address] [address] Glucose [Mass/Vol] 100 mg/dL High 74 - 99 [facility] Comment on above: Performed By: #### C MP #### [address] [address] HCO3 (Bld) [Moles/Vol] 31 mmol/L Normal 21 - 32 [facility] Comment on above: Performed By: #### C MP #### [address] [address] Potassium [Moles/Vol] 4.1 mmol/L Normal 3.5 - 5.3 [facility] Comment on above: Performed By: #### C MP #### [address] [address] Protein [Mass/Vol] 7.7 g/dL Normal 6.4 - 8.2 [facility] Comment on above: Performed By: #### C MP #### [address] [address] Sodium [Moles/Vol] 141 mmol/L Normal 136 - 145 [facility] Comment on above: Performed By: #### C MP #### [address] [address] Urea nitrogen [Mass/Vol] 18 mg/dL Normal 6 - 23 [facility] Comment on above: Performed By: #### C MP #### [address] [address] CBC AND DIFFERENTIALon 10-24 Basophils (Bld) [#/Vol] 0.20 10*3/uL High 0.00 - 0.10 [facility] Comment on above: Performed By: #### C BCDF #### [address] [address] Basophils/100 WBC (Bld) 2.3 % Normal 0.0 - 2.0 [facility] Comment on above: Performed By: #### C BCDF #### [address] [address] Eosinophils (Bld) [#/Vol] 0.20 10*3/uL Normal 0.00 - 0.40 [facility] Comment on above: Performed By: #### C BCDF #### [address] [address] Eosinophils/100 WBC (Bld) 2.5 % Normal 0.0 - 6.0 [facility] Comment on above: Performed By: #### C BCDF #### [address] [address] Erythrocyte distribution width (RBC) [Ratio] 18.0 % High 11.5 - 14.5 [facility] Comment on above: Performed By: #### C BCDF #### [address] [address] Hematocrit (Bld) [Volume fraction] 36.8 % Normal 36.0 - 46.0 [facility] Comment on above: Performed By: #### C BCDF #### [address] [address] Hemoglobin (Bld) [Mass/Vol] 12.0 g/dL Normal 12.0 - 16.0 [facility] Comment on above: Performed By: #### C BCDF #### [address] [address] Lymphocytes (Bld) [#/Vol] 1.00 10*3/uL Normal 0.80 - 3.00 [facility] Comment on above: Performed By: #### C BCDF #### [address] [address] Lymphocytes/100 WBC (Bld) 14.6 % Normal 13.0 - 44.0 [facility] Comment on above: Performed By: #### C BCDF #### [address] [address] MCHC (RBC) [Mass/Vol] 32.5 g/dL Normal 32.0 - 36.0 [facility] Comment on above: Performed By: #### C BCDF #### [address] [address] MCV (RBC) [Entitic vol] 88 fL Normal 80 - 100 [facility] Comment on above: Performed By: #### C BCDF #### [address] [address] Monocytes (Bld) [#/Vol] 0.80 10*3/uL Normal 0.05 - 0.80 [facility] Comment on above: Performed By: #### C BCDF #### [address] [address] Monocytes/100 WBC (Bld) 10.8 % Normal 2.0 - 10.0 [facility] Comment on above: Performed By: #### C BCDF #### [address] [address] Neutrophils (Bld) [#/Vol] 5.00 10*3/uL Normal 1.60 - 5.50 [facility] Comment on above: Result Comment: Perc ent differential counts (%) should be interpreted in the context of the absolute cell counts (cells/L). Performed By: #### C BCDF #### [address] [address] Neutrophils/100 WBC (Bld) 69.8 % Normal 40.0 - 80.0 [facility] Comment on above: Performed By: #### C BCDF #### [address] [address] Platelets (Bld) [#/Vol] 293 10*3/uL Normal 150 - 450 [facility] Comment on above: Performed By: #### C BCDF #### [address] [address] RBC 4.17 x10E12/L Normal 4.00 - 5.20 [facility] Comment on above: Performed By: #### C BCDF #### [address] [address] WBC (Bld) [#/Vol] 7.1 10*3/uL Normal 4.4 - 11.3 [facility] Comment on above: Performed By: #### C BCDF #### [address] [address] COMPREHENSIVE PANELon 2021 Albumin [Mass/Vol] 3.7 g/dL Normal 3.4 - 5.0 [facility] Comment on above: Performed By: #### C MP #### [address] [address] ALP [Catalytic activity/Vol] 65 U/L Normal 33 - 136 [facility] Comment on above: Performed By: #### C MP #### [address] [address] ALT [Catalytic activity/Vol] 13 U/L Normal 7 - 45 [facility] Comment on above: Result Comment: Lucinda ents treated with Sulfasalazine may generate falsely decreased results for ALT. Performed By: #### C MP #### [address] [address] Anion gap [Moles/Vol] 12 mmol/L Normal 10 - 20 [facility] Comment on above: Performed By: #### C MP #### [address] [address] [address] AST [Catalytic activity/Vol] 17 U/L Normal 9 - 39 [facility] Comment on above: Performed By: #### C MP #### [address] [address] Bilirubin [Mass/Vol] 0.4 mg/dL Normal 0.0 - 1.2 [facility] Comment on above: Performed By: #### C MP #### [address] [address] Calcium [Mass/Vol] 8.8 mg/dL Normal 8.6 - 10.3 [facility] Comment on above: Performed By: #### C MP #### [address] [address] Chloride [Moles/Vol] 103 mmol/L Normal 98 - 107 [facility] Comment on above: Performed By: #### C MP #### [address] [address] Creatinine [Mass/Vol] 0.82 mg/dL Normal 0.50 - 1.05 [facility] Comment on above: Performed By: #### C MP #### [address] [address] GFR/1.73 sq M.predicted among non-blacks MDRD (S/P/Bld) [Vol rate/Area] 76 mL/min/{1.73_m2} Normal >90 [facility] Comment on above: Result Comment: CALC ULATIONS OF ESTIMATED GFR ARE PERFORMED USING THE 2020 CKD-EPI STUDY REFIT EQUATION WITHOUT THE RACE VARIABLE FOR THE IDMS-TRACEABLE CREATININE METHODS. https://jasn.asnjournals.org/content/early//ASN.09189 24438 Performed By: #### C MP #### [address] [address] Glucose [Mass/Vol] 103 mg/dL High 74 - 99 [facility] Comment on above: Performed By: #### C MP #### [address] [address] HCO3 (Bld) [Moles/Vol] 29 mmol/L Normal 21 - 32 [facility] Comment on above: Performed By: #### C MP #### [address] [address] Potassium [Moles/Vol] 4.2 mmol/L Normal 3.5 - 5.3 [facility] Comment on above: Performed By: #### C MP #### [address] [address] Protein [Mass/Vol] 7.7 g/dL Normal 6.4 - 8.2 [facility] Comment on above: Performed By: #### C MP #### [address] [address] Sodium [Moles/Vol] 140 mmol/L Normal 136 - 145 [facility] Comment on above: Performed By: #### C MP #### [address] [address] Urea nitrogen [Mass/Vol] 15 mg/dL Normal 6 - 23 [facility] Comment on above: Performed By: #### C MP #### [address] [address] RED CELL MORPHOLOGYon 2021 RBC morphology finding Nom (Bld) NORMAL Normal [facility] Comment on above: Performed By: #### M ORP2 #### [address] [address] CBC AND DIFFERENTIALon 07-29 Basophils (Bld) [#/Vol] 0.00 10*3/uL Normal 0.00 - 0.10 [facility] Comment on above: Performed By: #### C BCDF #### [address] [address] Basophils/100 WBC (Bld) 0.6 % Normal 0.0 - 2.0 [facility] Comment on above: Performed By: #### C BCDF #### [address] [address] Eosinophils (Bld) [#/Vol] 0.20 10*3/uL Normal 0.00 - 0.40 [facility] Comment on above: Performed By: #### C BCDF #### [address] [address] Eosinophils/100 WBC (Bld) 3.6 % Normal 0.0 - 6.0 [facility] Comment on above: Performed By: #### C BCDF #### [address] [address] Erythrocyte distribution width (RBC) [Ratio] 18.8 % High 11.5 - 14.5 [facility] Comment on above: Performed By: #### C BCDF #### [address] [address] Hematocrit (Bld) [Volume fraction] 36.7 % Normal 36.0 - 46.0 [facility] Comment on above: Performed By: #### C BCDF #### [address] [address] Hemoglobin (Bld) [Mass/Vol] 11.7 g/dL Low 12.0 - 16.0 [facility] Comment on above: Performed By: #### C BCDF #### [address] [address] Lymphocytes (Bld) [#/Vol] 1.20 10*3/uL Normal 0.80 - 3.00 [facility] Comment on above: Performed By: #### C BCDF #### [address] [address] Lymphocytes/100 WBC (Bld) 20.2 % Normal 13.0 - 44.0 [facility] Comment on above: Performed By: #### C BCDF #### [address] [address] MCHC (RBC) [Mass/Vol] 31.9 g/dL Low 32.0 - 36.0 [facility] Comment on above: Performed By: #### C BCDF #### [address] [address] MCV (RBC) [Entitic vol] 88 fL Normal 80 - 100 [facility] Comment on above: Performed By: #### C BCDF #### [address] [address] Monocytes (Bld) [#/Vol] 0.70 10*3/uL Normal 0.05 - 0.80 [facility] Comment on above: Performed By: #### C BCDF #### [address] [address] Monocytes/100 WBC (Bld) 12.2 % Normal 2.0 - 10.0 [facility] Comment on above: Performed By: #### C BCDF #### [address] [address] Neutrophils (Bld) [#/Vol] 3.80 10*3/uL Normal 1.60 - 5.50 [facility] Comment on above: Result Comment: Perc ent differential counts (%) should be interpreted in the context of the absolute cell counts (cells/L). Performed By: #### C BCDF #### [address] [address] Neutrophils/100 WBC (Bld) 63.4 % Normal 40.0 - 80.0 [facility] Comment on above: Performed By: #### C BCDF #### [address] [address] NUCLEATED RBC 0.3 /100 WBC Normal [facility] Comment on above: Performed By: #### C BCDF #### [address] [address] Platelets (Bld) [#/Vol] 273 10*3/uL Normal 150 - 450 [facility] Comment on above: Performed By: #### C BCDF #### [address] [address] RBC 4.18 x10E12/L Normal 4.00 - 5.20 [facility] Comment on above: Performed By: #### C BCDF #### [address] [address] WBC (Bld) [#/Vol] 6.0 10*3/uL Normal 4.4 - 11.3 [facility] Comment on above: Performed By: #### C BCDF #### [address] [address] COMPREHENSIVE PANELon 2020 Albumin [Mass/Vol] 3.7 g/dL Normal 3.4 - 5.0 [facility] Comment on above: Performed By: #### C MP #### [address] [address] ALP [Catalytic activity/Vol] 71 U/L Normal 33 - 136 [facility] Comment on above: Performed By: #### C MP #### [address] [address] ALT [Catalytic activity/Vol] 15 U/L Normal 7 - 45 [facility] Comment on above: Result Comment: Lucinda ents treated with Sulfasalazine may generate falsely decreased results for ALT. Performed By: #### C MP #### [address] [address] Anion gap [Moles/Vol] 11 mmol/L Normal 10 - 20 [facility] Comment on above: Performed By: #### C MP #### [address] [address] AST [Catalytic activity/Vol] 18 U/L Normal 9 - 39 [facility] Comment on above: Performed By: #### C MP #### [address] [address] Bilirubin [Mass/Vol] 0.4 mg/dL Normal 0.0 - 1.2 [facility] Comment on above: Performed By: #### C MP #### [address] [address] Calcium [Mass/Vol] 8.3 mg/dL Low 8.6 - 10.3 [facility] Comment on above: Performed By: #### C MP #### [address] [address] Chloride [Moles/Vol] 103 mmol/L Normal 98 - 107 [facility] Comment on above: Performed By: #### C MP #### [address] [address] Creatinine [Mass/Vol] 0.90 mg/dL Normal 0.50 - 1.05 [facility] Comment on above: Performed By: #### C MP #### [address] [address] GFR- AM. >60 Normal >60 [facility] Comment on above: Result Comment: CALC ULATIONS OF ESTIMATED GFR ARE PERFORMED USING THE MDRD STUDY EQUATION FOR THE IDMS-TRACEABLE CREATININE METHODS. CLIN CHEM 2007;53:766-72 Performed By: #### C MP #### [address] [address] GFR-NON AM. >60 Normal >60 [facility] Comment on above: Performed By: #### C MP #### [address] [address] Glucose [Mass/Vol] 106 mg/dL High 74 - 99 [facility] Comment on above: Performed By: #### C MP #### [address] [address] HCO3 (Bld) [Moles/Vol] 29 mmol/L Normal 21 - 32 [facility] Comment on above: Performed By: #### C MP #### [address] [address] Potassium [Moles/Vol] 4.3 mmol/L Normal 3.5 - 5.3 [facility] Comment on above: Performed By: #### C MP #### [address] [address] Protein [Mass/Vol] 7.4 g/dL Normal 6.4 - 8.2 [facility] Comment on above: Performed By: #### C MP #### [address] [address] Sodium [Moles/Vol] 139 mmol/L Normal 136 - 145 [facility] Comment on above: Performed By: #### C MP #### [address] [address] Urea nitrogen [Mass/Vol] 20 mg/dL Normal 6 - 23 [facility] Comment on above: Performed By: #### C MP #### [address] [address] RED CELL MORPHOLOGYon 2020 RBC morphology finding Nom (Bld) NORMAL Normal [facility] Comment on above: Performed By: #### M ORP2 #### [address] [address] ALBUMIN, URINE SPOTon 2020 ALBUMIN,URINE <7.0 Normal Not Established [facility] Comment on above: Result Comment: @rec hecked same analyzer Performed By: #### C MP #### [address] [address] ALBUMIN/CREAT RATIO SEE COMMENT Normal 0.0 - 30.[address] [facility] Comment on above: Result Comment: One or more analytes used in this calculation is outside of the analytical measurement range. Calculation cannot be performed. Performed By: #### C MP #### [place] [address] CREATININE,URINE 15.0 mg/dL Low 20.0 - 320.0 [facility] Comment on above: Performed By: #### C MP #### [place] [address] CBCon 05-28-2021 Erythrocyte distribution width (RBC) [Ratio] 18.0 % High 11.5 - 14.5 [facility] Comment on above: Performed By: #### C BC #### [place] [address] Hematocrit (Bld) [Volume fraction] 38.8 % Normal 36.0 - 46.0 [facility] Comment on above: Performed By: #### C BC #### [place] [address] Hemoglobin (Bld) [Mass/Vol] 12.4 g/dL Normal 12.0 - 16.0 [facility] Comment on above: Performed By: #### C BC #### [place] [address] MCHC (RBC) [Mass/Vol] 32.0 g/dL Normal 32.0 - 36.0 [facility] Comment on above: Performed By: #### C BC #### [address] [address] MCV (RBC) [Entitic vol] 88 fL Normal 80 - 100 [facility] Comment on above: Performed By: #### C BC #### [address] [address] Platelets (Bld) [#/Vol] 297 10*3/uL Normal 150 - 450 [facility] Comment on above: Performed By: #### C BC #### [address] [address] RBC 4.39 x10E12/L Normal 4.00 - 5.20 [facility] Comment on above: Performed By: #### C BC #### [address] [address] WBC (Bld) [#/Vol] 6.7 10*3/uL Normal 4.4 - 11.3 [facility] Comment on above: Performed By: #### C BC #### [address] [address] COMPREHENSIVE PANELon 2020 Albumin [Mass/Vol] 3.9 g/dL Normal 3.4 - 5.0 [facility] Comment on above: Performed By: #### C BC #### [address] [address] ALP [Catalytic activity/Vol] 76 U/L Normal 33 - 136 [facility] Comment on above: Performed By: #### C BC #### [address] [address] ALT [Catalytic activity/Vol] 19 U/L Normal 7 - 45 [facility] Comment on above: Result Comment: Lucinda ents treated with Sulfasalazine may generate falsely decreased results for ALT. Performed By: #### C BC #### [address] [address] Anion gap [Moles/Vol] 12 mmol/L Normal 10 - 20 [facility] Comment on above: Performed By: #### C BC #### [address] [address] AST [Catalytic activity/Vol] 19 U/L Normal 9 - 39 [facility] Comment on above: Performed By: #### C BC #### [address] [address] Bilirubin [Mass/Vol] 0.5 mg/dL Normal 0.0 - 1.[address] [facility] Comment on above: Performed By: #### C BC #### [address] [address] Calcium [Mass/Vol] 8.7 mg/dL Normal 8.6 - 10.3 [facility] Comment on above: Performed By: #### C BC #### [address] [address] Chloride [Moles/Vol] 103 mmol/L Normal 98 - [address] [facility] Comment on above: Performed By: #### C BC #### [address] [address] Creatinine [Mass/Vol] 0.93 mg/dL Normal 0.50 - 1.05 [facility] Comment on above: Performed By: #### C BC #### [address] [address] GFR- AM. 71 mL/min/1.73m2 Normal >60 [facility] Comment on above: Result Comment: CALC ULATIONS OF ESTIMATED GFR ARE PERFORMED USING THE MDRD STUDY EQUATION FOR THE IDMS-TRACEABLE CREATININE METHODS. CLIN CHEM 2007;53:766-72 Performed By: #### C BC #### [address] [address] GFR-NON AM. 59 mL/min/1.73m2 Abnormal >60 [facility] Comment on above: Performed By: #### C BC #### [address] [address] Glucose [Mass/Vol] 97 mg/dL Normal 74 - 99 [facility] Comment on above: Performed By: #### C BC #### [address] [address] HCO3 (Bld) [Moles/Vol] 30 mmol/L Normal 21 - 32 [facility] Comment on above: Performed By: #### C BC #### [address] [address] Potassium [Moles/Vol] 4.1 mmol/L Normal 3.5 - 5.3 [facility] Comment on above: Performed By: #### C BC #### [address] [address] Protein [Mass/Vol] 7.9 g/dL Normal 6.4 - 8.2 [facility] Comment on above: Performed By: #### C BC #### [address] [address] Sodium [Moles/Vol] 141 mmol/L Normal 136 - 145 [facility] Comment on above: Performed By: #### C BC #### [address] [address] Urea nitrogen [Mass/Vol] 15 mg/dL Normal 6 - 23 [facility] Comment on above: Performed By: #### C BC #### [place] [address] FERRITINon 05-28-2021 FERRITIN 117 ug/L Normal 8 - 150 [facility] Comment on above: Performed By: #### C BC #### [address] [address] HEMOGLOBIN A1Con 05-28-2021 Glucose [Mass/Vol] 131 mg/dL Normal [facility] Comment on above: Performed By: #### C BC #### [place] [address] HbA1c (Bld) [Mass fraction] 6.2 % Abnormal [facility] Comment on above: Result Comment: Diag nosis of Diabetes-Adults Non-Diabetic: < or = 5.6% Increased risk for developing diabetes: 5.7-6.4% Diagnostic of diabetes: > or = 6.5% . Monitoring of Diabetes Age (y) Therapeutic Goal (%) Adults: >18 <7.0 Pediatrics: 13-18 <7.5 7-12 <8.0 0- 6 7.5-8.5 [place] [employer] Association. Diabetes Care 33(S1), Sep 2009. Performed By: #### C BC #### [address] [address] IRONon 05-28-2021 Iron [Mass/Vol] 53 ug/dL Normal 35 - 150 [facility] Comment on above: Performed By: #### I MILLIE #### [address] [address] Performed By: #### C MP #### [address] [address] IRON + TIBCon 05-28-2021 % SATURATION 17 % Low 25 - 45 [facility] Comment on above: Performed By: #### C MP #### [address] [address] TIBC 309 ug/dL Normal 240 - 445 [facility] Comment on above: Performed By: #### C MP #### [address] [address] LIPID PANEL (CORONARY RISK 2 )on 05-28-2021 Cholesterol [Mass/Vol] 136 mg/dL Normal 0 - 199 [facility] Comment on above: Result Comment: . AGE DESIRABLE BORDERLINE HIGH HIGH 0-19 Y 0 - 169 170 - 199 >/= 200 20-24 Y 0 - 189 190 - 224 >/= 225 >24 Y 0 - 199 200 - 239 >/= 240 All ranges are based on fasting samples. Specific therapeutic targets will vary based on patient-specific cardiac risk. . Pediatric guidelines reference:Pediatrics 2011, 128(S5). Adult guidelines reference: NCEP ATPIII Guidelines, TARIQ 2001, 258:2486-97 . Venipuncture immediately after or during the administration of Metamizole may lead to falsely low results. Testing should be performed immediately prior to Metamizole dosing. Performed By: #### C BC #### [address] [address] Cholesterol in HDL [Mass/Vol] 57.0 mg/dL Normal [facility] Comment on above: Result Comment: . AGE VERY LOW LOW NORMAL HIGH 0-19 Y < 35 < 40 40-45 ---- 20-24 Y ---- < 40 >45 ---- >24 Y ---- < 40 40-60 >60 . Performed By: #### C BC #### [address] [address] Cholesterol in LDL [Mass/Vol] 57 mg/dL Normal 0 - 99 [facility] Comment on above: Result Comment: . NEAR BORD AGE DESIRABLE OPTIMAL HIGH HIGH VERY HIGH 0-19 Y 0 - 109 --- 110-129 >/= 130 ---- 20-24 Y 0 - 119 --- 120-159 >/= 160 ---- >24 Y 0 - 99 100-129 130-159 160-189 >/=190 . Performed By: #### C BC #### [address] [address] Cholesterol in VLDL [Mass/Vol] 22 mg/dL Normal 0 - 40 [facility] Comment on above: Performed By: #### C BC #### [address] [address] Cholesterol.total/Chol esterol in HDL [Mass ratio] 2.4 {ratio} Normal [facility] Comment on above: Result Comment: REF VALUES DESIRABLE < 3.4 HIGH RISK > 5.0 Performed By: #### C BC #### [address] [address] Triglyceride [Mass/Vol] 108 mg/dL Normal 0 - 149 [facility] Comment on above: Result Comment: . AGE DESIRABLE BORDERLINE HIGH HIGH VERY HIGH 0 D-90 D 19 - 174 ---- ---- ---- 91 D- 9 Y 0 - 74 75 - 99 >/= 100 ---- 10-19 Y 0 - 89 90 - 129 >/= 130 ---- 20-24 Y 0 - 114 115 - 149 >/= 150 ---- >24 Y 0 - 149 150 - 199 200- 499 >/= 500 . Venipuncture immediately after or during the administration of Metamizole may lead to falsely low results. Testing should be performed immediately prior to Metamizole dosing. Performed By: #### C BC #### [address] [address] CBC AND DIFFERENTIALon 05-13 Basophils (Bld) [#/Vol] 0.10 10*3/uL Normal 0.00 - 0.10 [facility] Comment on above: Performed By: #### C BCDF #### [address] [address] Basophils/100 WBC (Bld) 0.8 % Normal 0.0 - 2.0 [facility] Comment on above: Performed By: #### C BCDF #### [address] [address] Eosinophils (Bld) [#/Vol] 0.30 10*3/uL Normal 0.00 - 0.40 [facility] Comment on above: Performed By: #### C BCDF #### [address] [address] Eosinophils/100 WBC (Bld) 3.8 % Normal 0.0 - 6.0 [facility] Comment on above: Performed By: #### C BCDF #### [address] [address] Erythrocyte distribution width (RBC) [Ratio] 18.0 % High 11.5 - 14.5 [facility] Comment on above: Performed By: #### C BCDF #### [address] [address] Hematocrit (Bld) [Volume fraction] 38.5 % Normal 36.0 - 46.0 [facility] Comment on above: Performed By: #### C BCDF #### [address] [address] Hemoglobin (Bld) [Mass/Vol] 12.5 g/dL Normal 12.0 - 16.0 [facility] Comment on above: Performed By: #### C BCDF #### [address] [address] Lymphocytes (Bld) [#/Vol] 1.20 10*3/uL Normal 0.80 - 3.00 [facility] Comment on above: Performed By: #### C BCDF #### [address] [address] Lymphocytes/100 WBC (Bld) 16.1 % Normal 13.0 - 44.0 [facility] Comment on above: Performed By: #### C BCDF #### [address] [address] MCHC (RBC) [Mass/Vol] 32.3 g/dL Normal 32.0 - 36.0 [facility] Comment on above: Performed By: #### C BCDF #### [address] [address] MCV (RBC) [Entitic vol] 87 fL Normal 80 - 100 [facility] Comment on above: Performed By: #### C BCDF #### [address] [address] Monocytes (Bld) [#/Vol] 0.70 10*3/uL Normal 0.05 - 0.80 [facility] Comment on above: Performed By: #### C BCDF #### [address] [address] Monocytes/100 WBC (Bld) 9.6 % Normal 2.0 - 10.0 [facility] Comment on above: Performed By: #### C BCDF #### [address] [address] Neutrophils (Bld) [#/Vol] 5.20 10*3/uL Normal 1.60 - 5.50 [facility] Comment on above: Result Comment: Perc ent differential counts (%) should be interpreted in the context of the absolute cell counts (cells/L). Performed By: #### C BCDF #### [address] [address] Neutrophils/100 WBC (Bld) 69.7 % Normal 40.0 - 80.0 [facility] Comment on above: Performed By: #### C BCDF #### [address] [address] Platelets (Bld) [#/Vol] 317 10*3/uL Normal 150 - 450 [facility] Comment on above: Performed By: #### C BCDF #### [address] [address] RBC 4.44 x10E12/L Normal 4.00 - 5.20 [facility] Comment on above: Performed By: #### C BCDF #### [address] [address] WBC (Bld) [#/Vol] 7.4 10*3/uL Normal 4.4 - 11.3 [facility] Comment on above: Performed By: #### C BCDF #### [address] [address] COMPREHENSIVE PANELon 2020 Albumin [Mass/Vol] 3.6 g/dL Normal 3.4 - 5.0 [facility] Comment on above: Performed By: #### C BC #### [address] [address] ALP [Catalytic activity/Vol] 77 U/L Normal 33 - 136 [facility] Comment on above: Performed By: #### C BC #### [address] [address] ALT [Catalytic activity/Vol] 18 U/L Normal 7 - 45 [facility] Comment on above: Result Comment: Lucinda ents treated with Sulfasalazine may generate falsely decreased results for ALT. Performed By: #### C BC #### [address] [address] Anion gap [Moles/Vol] 11 mmol/L Normal 10 - 20 [facility] Comment on above: Performed By: #### C BC #### [address] [address] AST [Catalytic activity/Vol] 17 U/L Normal 9 - 39 [facility] Comment on above: Performed By: #### C BC #### [address] [address] Bilirubin [Mass/Vol] 0.5 mg/dL Normal 0.0 - 1.[address] [facility] Comment on above: Performed By: #### C BC #### [address] [address] Calcium [Mass/Vol] 8.5 mg/dL Low 8.6 - 10.3 [facility] Comment on above: Performed By: #### C BC #### [address] [address] Chloride [Moles/Vol] 103 mmol/L Normal 98 - [address] [facility] Comment on above: Performed By: #### C BC #### [address] [address] Creatinine [Mass/Vol] 0.91 mg/dL Normal 0.50 - 1.05 [facility] Comment on above: Performed By: #### C BC #### [address] [address] GFR- AM. >60 Normal >60 [facility] Comment on above: Result Comment: CALC ULATIONS OF ESTIMATED GFR ARE PERFORMED USING THE MDRD STUDY EQUATION FOR THE IDMS-TRACEABLE CREATININE METHODS. CLIN CHEM 2007;53:766-72 Performed By: #### C BC #### [address] [address] GFR-NON AM. >60 Normal >60 [facility] Comment on above: Performed By: #### C BC #### [address] [address] Glucose [Mass/Vol] 101 mg/dL High 74 - 99 [facility] Comment on above: Performed By: #### C BC #### [address] [address] HCO3 (Bld) [Moles/Vol] 31 mmol/L Normal 21 - 32 [facility] Comment on above: Performed By: #### C BC #### [address] [address] Potassium [Moles/Vol] 4.3 mmol/L Normal 3.5 - 5.3 [facility] Comment on above: Performed By: #### C BC #### [address] [address] Protein [Mass/Vol] 7.3 g/dL Normal 6.4 - 8.2 [facility] Comment on above: Performed By: #### C BC #### [address] [address] Sodium [Moles/Vol] 141 mmol/L Normal 136 - 145 [facility] Comment on above: Performed By: #### C BC #### [address] [address] Urea nitrogen [Mass/Vol] 19 mg/dL Normal 6 - 23 [facility] Comment on above: Performed By: #### C BC #### [address] [address] RED CELL MORPHOLOGYon 2020 RBC morphology finding Nom (Bld) NORMAL Normal [facility] Comment on above: Performed By: #### M ORP2 #### [address] [address] CBC AND DIFFERENTIALon 02-12 Basophils (Bld) [#/Vol] 0.00 10*3/uL Normal 0.00 - 0.10 [facility] Comment on above: Performed By: #### C BCDF #### [address] [address] Basophils/100 WBC (Bld) 0.4 % Normal 0.0 - 2.0 [facility] Comment on above: Performed By: #### C BCDF #### [address] [address] Eosinophils (Bld) [#/Vol] 0.20 10*3/uL Normal 0.00 - 0.40 [facility] Comment on above: Performed By: #### C BCDF #### [address] [address] Eosinophils/100 WBC (Bld) 3.4 % Normal 0.0 - 6.0 [facility] Comment on above: Performed By: #### C BCDF #### [address] [address] Erythrocyte distribution width (RBC) [Ratio] 18.0 % High 11.5 - 14.5 [facility] Comment on above: Performed By: #### C BCDF #### [address] [address] Hematocrit (Bld) [Volume fraction] 37.1 % Normal 36.0 - 46.0 [facility] Comment on above: Performed By: #### C BCDF #### [address] [address] Hemoglobin (Bld) [Mass/Vol] 11.8 g/dL Low 12.0 - 16.0 [facility] Comment on above: Performed By: #### C BCDF #### [address] [address] Lymphocytes (Bld) [#/Vol] 1.20 10*3/uL Normal 0.80 - 3.00 [facility] Comment on above: Performed By: #### C BCDF #### [address] [address] Lymphocytes/100 WBC (Bld) 17.4 % Normal 13.0 - 44.0 [facility] Comment on above: Performed By: #### C BCDF #### [address] [address] MCHC (RBC) [Mass/Vol] 31.9 g/dL Low 32.0 - 36.0 [facility] Comment on above: Performed By: #### C BCDF #### [address] [address] MCV (RBC) [Entitic vol] 87 fL Normal 80 - 100 [facility] Comment on above: Performed By: #### C BCDF #### [address] [address] Monocytes (Bld) [#/Vol] 0.70 10*3/uL Normal 0.05 - 0.80 [facility] Comment on above: Performed By: #### C BCDF #### [address] [address] Monocytes/100 WBC (Bld) 9.8 % Normal 2.0 - 10.0 [facility] Comment on above: Performed By: #### C BCDF #### [address] [address] Neutrophils (Bld) [#/Vol] 4.90 10*3/uL Normal 1.60 - 5.50 [facility] Comment on above: Result Comment: Perc ent differential counts (%) should be interpreted in the context of the absolute cell counts (cells/L). Performed By: #### C BCDF #### [address] [address] Neutrophils/100 WBC (Bld) 69.0 % Normal 40.0 - 80.0 [facility] Comment on above: Performed By: #### C BCDF #### [address] [address] NUCLEATED RBC 0.3 /100 WBC Normal [facility] Comment on above: Performed By: #### C BCDF #### [address] [address] Platelets (Bld) [#/Vol] 268 10*3/uL Normal 150 - 450 [facility] Comment on above: Performed By: #### C BCDF #### [address] [address] RBC 4.24 x10E12/L Normal 4.00 - 5.20 [facility] Comment on above: Performed By: #### C BCDF #### [address] [address] WBC (Bld) [#/Vol] 7.1 10*3/uL Normal 4.4 - 11.3 [facility] Comment on above: Performed By: #### C BCDF #### [place] [address] COMPREHENSIVE PANELon 2020 Albumin [Mass/Vol] 3.5 g/dL Normal 3.4 - 5.0 [facility] Comment on above: Performed By: #### C MP #### [address] [address] ALP [Catalytic activity/Vol] 74 U/L Normal 33 - 136 [facility] Comment on above: Performed By: #### C MP #### [address] [address] ALT [Catalytic activity/Vol] 16 U/L Normal 7 - 45 [facility] Comment on above: Result Comment: Lucinda ents treated with Sulfasalazine may generate falsely decreased results for ALT. Performed By: #### C MP #### [address] [address] Anion gap [Moles/Vol] 12 mmol/L Normal 10 - 20 [facility] Comment on above: Performed By: #### C MP #### [address] [address] AST [Catalytic activity/Vol] 17 U/L Normal 9 - 39 [facility] Comment on above: Performed By: #### C MP #### [address] [address] Bilirubin [Mass/Vol] 0.5 mg/dL Normal 0.0 - 1.[address] [facility] Comment on above: Performed By: #### C MP #### [address] [address] Calcium [Mass/Vol] 8.3 mg/dL Low 8.6 - 10.3 [facility] Comment on above: Performed By: #### C MP #### [place] [address] Chloride [Moles/Vol] 104 mmol/L Normal 98 - [address] [facility] Comment on above: Performed By: #### C MP #### [place] [address] Creatinine [Mass/Vol] 0.91 mg/dL Normal 0.50 - 1.05 [facility] Comment on above: Performed By: #### C MP #### [address] [address] GFR- AM. >60 Normal >60 [facility] Comment on above: Result Comment: CALC ULATIONS OF ESTIMATED GFR ARE PERFORMED USING THE MDRD STUDY EQUATION FOR THE IDMS-TRACEABLE CREATININE METHODS. CLIN CHEM 2007;53:766-72 Performed By: #### C MP #### [address] [address] GFR-NON AM. >60 Normal >60 [facility] Comment on above: Performed By: #### C MP #### [address] [address] Glucose [Mass/Vol] 93 mg/dL Normal 74 - 99 [facility] Comment on above: Performed By: #### C MP #### [address] [address] HCO3 (Bld) [Moles/Vol] 29 mmol/L Normal 21 - 32 [facility] Comment on above: Performed By: #### C MP #### [address] [address] Potassium [Moles/Vol] 4.2 mmol/L Normal 3.5 - 5.3 [facility] Comment on above: Performed By: #### C MP #### [address] [address] Protein [Mass/Vol] 7.4 g/dL Normal 6.4 - 8.2 [facility] Comment on above: Performed By: #### C MP #### [address] [address] Sodium [Moles/Vol] 141 mmol/L Normal 136 - 145 [facility] Comment on above: Performed By: #### C MP #### [address] [address] Urea nitrogen [Mass/Vol] 17 mg/dL Normal 6 - 23 [facility] Comment on above: Performed By: #### C MP #### [address] [address] RED CELL MORPHOLOGYon 2020 RBC morphology finding Nom (Bld) NORMAL Normal [facility] Comment on above: Performed By: #### M ORP2 #### [address] [address] ALBUMIN, URINE SPOTon 2020 ALBUMIN,URINE <7.0 Normal Not Established [facility] Comment on above: Order Comment: Karlie FRIEND MD Phys Address Phone #[phone] Fax #[phone] Performed By: #### A LBSP #### [address] [address] ALBUMIN/CREAT RATIO SEE COMMENT Normal 0.0 - 30.[address] [facility] Comment on above: Order Comment: Karlie FRIEND MD Phys Address Phone #[phone] Fax #[phone] Result Comment: One or more analytes used in this calculation is outside of the analytical measurement range. Calculation cannot be performed. Performed By: #### A LBSP #### [address] [address] CREATININE,URINE 36.0 mg/dL Normal 20.0 - 320.0 [facility] Comment on above: Order Comment: Karlie FRIEND MD Phys Address Phone #[phone] Fax #[phone] Performed By: #### A LBSP #### [place] [address] COMPREHENSIVE PANELon 2020 Albumin [Mass/Vol] 3.5 g/dL Normal 3.4 - 5.0 [facility] Comment on above: Order Comment: PHANI Mcallisters AddressPhone #[phone] #[phone] Performed By: #### C BC #### [place] [address] ALP [Catalytic activity/Vol] 74 U/L Normal 33 - 136 [facility] Comment on above: Order Comment: PHANI Mcallisters AddressPhone #[phone] #[phone] Performed By: #### C BC #### [address] [address] ALT [Catalytic activity/Vol] 14 U/L Normal 7 - 45 [facility] Comment on above: Order Comment: PHANI Mcallisters AddressPhone #[phone] #[phone] Result Comment: Lucinda ents treated with Sulfasalazine may generate falsely decreased results for ALT. Performed By: #### C BC #### [address] [address] Anion gap [Moles/Vol] 12 mmol/L Normal 10 - 20 [facility] Comment on above: Order Comment: PHANI Mcallisters AddressPhone #[phone] #[phone] Performed By: #### C BC #### [address] [address] AST [Catalytic activity/Vol] 14 U/L Normal 9 - 39 [facility] Comment on above: Order Comment: Karlie FROSTMELANYPHANIhys AddressPhone #[phone] #[phone] Performed By: #### C BC #### [address] [address] Bilirubin [Mass/Vol] 0.4 mg/dL Normal 0.0 - 1.[address] [facility] Comment on above: Order Comment: Phys [facility] AddressPhone #[phone] #[phone] Performed By: #### C BC #### [address] [address] Calcium [Mass/Vol] 8.5 mg/dL Low 8.6 - 10.3 [facility] Comment on above: Order Comment: PHANI Mcallistermarino AddressPhone #[phone] #[phone] Performed By: #### C BC #### [address] [address] Chloride [Moles/Vol] 104 mmol/L Normal 98 - [address] [facility] Comment on above: Order Comment: Phys PHANI Merinomarino AddressPhone #[phone] #[phone] Performed By: #### C BC #### [address] [address] Creatinine [Mass/Vol] 0.79 mg/dL Normal 0.50 - 1.05 [facility] Comment on above: Order Comment: Phys PHANI Merinomarino AddressPhone #[phone] #[phone] Performed By: #### C BC #### [address] [address] GFR- AM. >60 Normal >60 [facility] Comment on above: Order Comment: PHANI Mcallistermarino AddressPhone #[phone] #[phone] Result Comment: CALC ULATIONS OF ESTIMATED GFR ARE PERFORMED USING THE MDRD STUDY EQUATION FOR THE IDMS-TRACEABLE CREATININE METHODS. CLIN CHEM 2007;53:766-72 Performed By: #### C BC #### [place] [address] GFR-NON AM. >60 Normal >60 [facility] Comment on above: Order Comment: Phys Wally Merino AddressPhone #[phone] #[phone] Performed By: #### C BC #### [address] [address] Glucose [Mass/Vol] 107 mg/dL High 74 - 99 [facility] Comment on above: Order Comment: Phys Wally Merino AddressPhone #[phone] #[phone] Performed By: #### C BC #### [address] [address] HCO3 (Bld) [Moles/Vol] 29 mmol/L Normal 21 - 32 [facility] Comment on above: Order Comment: Phys PHANI Merinos AddressPhone #[phone] #[phone] Performed By: #### C BC #### [address] [address] Potassium [Moles/Vol] 4.1 mmol/L Normal 3.5 - 5.3 [facility] Comment on above: Order Comment: Phys Wally Merino AddressPhone #[phone] #[phone] Performed By: #### C BC #### [address] [address] Protein [Mass/Vol] 7.1 g/dL Normal 6.4 - 8.2 [facility] Comment on above: Order Comment: Phys PHANI Merinos AddressPhone #[phone] #[phone] Performed By: #### C BC #### [address] [address] Sodium [Moles/Vol] 141 mmol/L Normal 136 - 145 [facility] Comment on above: Order Comment: Phys PHANI Merinos AddressPhone #[phone] #[phone] Performed By: #### C BC #### [address] [place] [address] Urea nitrogen [Mass/Vol] 13 mg/dL Normal 6 - 23 [facility] Comment on above: Order Comment: Wally Mcallister AddressPhone #[phone] #[phone] Performed By: #### C BC #### [address] [address] CREATINE KINASEon 11-26-2020 CK [Catalytic activity/Vol] 51 U/L Normal 0 - 215 [facility] Comment on above: Order Comment: PHANI Mcallistermarino AddressPhone #[phone] #[phone] Performed By: #### C MP #### [address] [address] HEMOGLOBIN A1Con 11-26-2020 Glucose [Mass/Vol] 137 mg/dL Normal [facility] Comment on above: Order Comment: PHANI Mcallistermarino AddressPhone #[phone] #[phone] Performed By: #### C BC #### [address] [address] HbA1c (Bld) [Mass fraction] 6.4 % Normal [facility] Comment on above: Order Comment: Wally Mcallister AddressPhone #[phone] #[phone] Result Comment: Diag nosis of Diabetes-Adults Non-Diabetic: < or = 5.6% Increased risk for developing diabetes: 5.7-6.4% Diagnostic of diabetes: > or = 6.5% . Monitoring of Diabetes Age (y) Therapeutic Goal (%) Adults: >18 <7.0 Pediatrics: 13-18 <7.5 7-12 <8.0 0- 6 7.5-8.5 [place] [employer] Association. Diabetes Care 33(S1), Sep 2009. Performed By: #### C BC #### [address] [address] LIPID PANEL (CORONARY RISK 2 )on 11-26-2020 Cholesterol [Mass/Vol] 131 mg/dL Normal 0 - 199 [facility] Comment on above: Order Comment: Karlie FRIEND MD Phys Address Phone #[phone] Fax #[phone] Result Comment: . AGE DESIRABLE BORDERLINE HIGH HIGH 0-19 Y 0 - 169 170 - 199 >/= 200 20-24 Y 0 - 189 190 - 224 >/= 225 >24 Y 0 - 199 200 - 239 >/= 240 All ranges are based on fasting samples. Specific therapeutic targets will vary based on patient-specific cardiac risk. . Pediatric guidelines reference:Pediatrics 2011, 128(S5). Adult guidelines reference: NCEP ATPIII Guidelines, TARIQ 2001, 258:2486-97 . Venipuncture immediately after or during the administration of Metamizole may lead to falsely low results. Testing should be performed immediately prior to Metamizole dosing. Performed By: #### L IPID #### [address] [address] Cholesterol in HDL [Mass/Vol] 48.0 mg/dL Normal [facility] Comment on above: Order Comment: Karlie FRIEND MD Phys Address Phone #[phone] Fax #[phone] Result Comment: . AGE VERY LOW LOW NORMAL HIGH 0-19 Y < 35 < 40 40-45 ---- 20-24 Y ---- < 40 >45 ---- >24 Y ---- < 40 40-60 >60 . Performed By: #### L IPID #### [address] [address] Cholesterol in LDL [Mass/Vol] 53 mg/dL Normal 0 - 99 [facility] Comment on above: Order Comment: Karlie FRIEND MD Phys Address Phone #[phone] Fax #[phone] Result Comment: . NEAR BORD AGE DESIRABLE OPTIMAL HIGH HIGH VERY HIGH 0-19 Y 0 - 109 --- 110-129 >/= 130 ---- 20-24 Y 0 - 119 --- 120-159 >/= 160 ---- >24 Y 0 - 99 100-129 130-159 160-189 >/=190 . Performed By: #### L IPID #### [address] [address] Cholesterol in VLDL [Mass/Vol] 30 mg/dL Normal 0 - 40 [facility] Comment on above: Order Comment: Karlie FRIEND MD Phys Address Phone #[phone] Fax #[phone] Performed By: #### L IPID #### [address] [address] Cholesterol.total/Chol esterol in HDL [Mass ratio] 2.7 {ratio} Normal [facility] Comment on above: Order Comment: Karlie FRIEND MD Phys Address Phone #[phone] Fax #[phone] Result Comment: REF VALUES DESIRABLE < 3.4 HIGH RISK > 5.0 Performed By: #### L IPID #### [address] [address] Triglyceride [Mass/Vol] 148 mg/dL Normal 0 - 149 [facility] Comment on above: Order Comment: Karlie FRIEND MD Phys Address Phone #[phone] Fax #[phone] Result Comment: . AGE DESIRABLE BORDERLINE HIGH HIGH VERY HIGH 0 D-90 D 19 - 174 ---- ---- ---- 91 D- 9 Y 0 - 74 75 - 99 >/= 100 ---- 10-19 Y 0 - 89 90 - 129 >/= 130 ---- 20-24 Y 0 - 114 115 - 149 >/= 150 ---- >24 Y 0 - 149 150 - 199 200- 499 >/= 500 . Venipuncture immediately after or during the administration of Metamizole may lead to falsely low results. Testing should be performed immediately prior to Metamizole dosing. Performed By: #### L IPID #### [address] [address] TSHon 11-26-2020 TSH Qn 3.09 m[IU]/L Normal 0.44 - 3.98 [facility] Comment on above: Order Comment: PHANI Mcallisters AddressPhone #[phone] #[phone] Result Comment: TSH testing is performed using different testing methodology at [facility] than at other [facility]. Direct result comparisons should only be made within the same method. Performed By: #### C BC #### [address] [address] CBC AND DIFFERENTIALon 11-12 Basophils (Bld) [#/Vol] 0.00 10*3/uL Normal 0.00 - 0.10 [facility] Comment on above: Performed By: #### C MP #### [address] [address] Basophils/100 WBC (Bld) 0.6 % Normal 0.0 - 2.0 [facility] Comment on above: Performed By: #### C MP #### [address] [address] Eosinophils (Bld) [#/Vol] 0.20 10*3/uL Normal 0.00 - 0.40 [facility] Comment on above: Performed By: #### C MP #### [address] [address] Eosinophils/100 WBC (Bld) 3.4 % Normal 0.0 - 6.0 [facility] Comment on above: Performed By: #### C MP #### [address] [address] Erythrocyte distribution width (RBC) [Ratio] 19.1 % High 11.5 - 14.5 [facility] Comment on above: Performed By: #### C MP #### [address] [address] Hematocrit (Bld) [Volume fraction] 35.2 % Low 36.0 - 46.0 [facility] Comment on above: Performed By: #### C MP #### [address] [address] Hemoglobin (Bld) [Mass/Vol] 11.2 g/dL Low 12.0 - 16.0 [facility] Comment on above: Performed By: #### C MP #### [address] [address] Lymphocytes (Bld) [#/Vol] 1.20 10*3/uL Normal 0.80 - 3.00 [facility] Comment on above: Performed By: #### C MP #### [address] [address] Lymphocytes/100 WBC (Bld) 18.0 % Normal 13.0 - 44.0 [facility] Comment on above: Performed By: #### C MP #### [address] [address] MCHC (RBC) [Mass/Vol] 31.8 g/dL Low 32.0 - 36.0 [facility] Comment on above: Performed By: #### C MP #### [address] [address] MCV (RBC) [Entitic vol] 86 fL Normal 80 - 100 [facility] Comment on above: Performed By: #### C MP #### [address] [address] Monocytes (Bld) [#/Vol] 0.50 10*3/uL Normal 0.05 - 0.80 [facility] Comment on above: Performed By: #### C MP #### [address] [address] Monocytes/100 WBC (Bld) 8.3 % Normal 2.0 - 10.0 [facility] Comment on above: Performed By: #### C MP #### [address] [address] Neutrophils (Bld) [#/Vol] 4.50 10*3/uL Normal 1.60 - 5.50 [facility] Comment on above: Result Comment: Perc ent differential counts (%) should be interpreted in the context of the absolute cell counts (cells/L). Performed By: #### C MP #### [address] [address] Neutrophils/100 WBC (Bld) 69.7 % Normal 40.0 - 80.0 [facility] Comment on above: Performed By: #### C MP #### [address] [address] NUCLEATED RBC 0.2 /100 WBC Normal [facility] Comment on above: Performed By: #### C MP #### [address] [address] Platelets (Bld) [#/Vol] 282 10*3/uL Normal 150 - 450 [facility] Comment on above: Performed By: #### C MP #### [address] [address] RBC 4.11 x10E12/L Normal 4.00 - 5.20 [facility] Comment on above: Performed By: #### C MP #### [address] [address] WBC (Bld) [#/Vol] 6.5 10*3/uL Normal 4.4 - 11.3 [facility] Comment on above: Performed By: #### C MP #### [place] [address] COMPREHENSIVE PANELon 2020 Albumin [Mass/Vol] 3.4 g/dL Normal 3.4 - 5.0 [facility] Comment on above: Performed By: #### C MP #### [address] [address] ALP [Catalytic activity/Vol] 73 U/L Normal 33 - 136 [facility] Comment on above: Performed By: #### C MP #### [address] [address] ALT [Catalytic activity/Vol] 15 U/L Normal 7 - 45 [facility] Comment on above: Result Comment: Lucinda ents treated with Sulfasalazine may generate falsely decreased results for ALT. Performed By: #### C MP #### [address] [address] Anion gap [Moles/Vol] 12 mmol/L Normal 10 - 20 [facility] Comment on above: Performed By: #### C MP #### [address] [address] AST [Catalytic activity/Vol] 16 U/L Normal 9 - 39 [facility] Comment on above: Performed By: #### C MP #### [address] [address] Bilirubin [Mass/Vol] 0.4 mg/dL Normal 0.0 - 1.[address] [facility] Comment on above: Performed By: #### C MP #### [address] [address] Calcium [Mass/Vol] 8.5 mg/dL Low 8.6 - 10.3 [facility] Comment on above: Performed By: #### C MP #### [address] [address] Chloride [Moles/Vol] 107 mmol/L Normal 98 - [address] [facility] Comment on above: Performed By: #### C MP #### [address] [address] Creatinine [Mass/Vol] 0.94 mg/dL Normal 0.50 - 1.05 [facility] Comment on above: Performed By: #### C MP #### [address] [address] GFR- AM. 71 mL/min/1.73m2 Normal >60 [facility] Comment on above: Result Comment: CALC ULATIONS OF ESTIMATED GFR ARE PERFORMED USING THE MDRD STUDY EQUATION FOR THE IDMS-TRACEABLE CREATININE METHODS. CLIN CHEM 2007;53:766-72 Performed By: #### C MP #### [address] [address] GFR-NON AM. 59 mL/min/1.73m2 Abnormal >60 [facility] Comment on above: Performed By: #### C MP #### [address] [address] Glucose [Mass/Vol] 137 mg/dL High 74 - 99 [facility] Comment on above: Performed By: #### C MP #### [address] [address] HCO3 (Bld) [Moles/Vol] 28 mmol/L Normal 21 - 32 [facility] Comment on above: Performed By: #### C MP #### [address] [address] Potassium [Moles/Vol] 3.9 mmol/L Normal 3.5 - 5.3 [facility] Comment on above: Performed By: #### C MP #### [address] [address] Protein [Mass/Vol] 6.9 g/dL Normal 6.4 - 8.2 [facility] Comment on above: Performed By: #### C MP #### [address] [address] Sodium [Moles/Vol] 143 mmol/L Normal 136 - 145 [facility] Comment on above: Performed By: #### C MP #### [address] [address] Urea nitrogen [Mass/Vol] 16 mg/dL Normal 6 - 23 [facility] Comment on above: Performed By: #### C MP #### [address] [address] RED CELL MORPHOLOGYon 2020 HYPOCHROMASIA MILD Normal [facility] Comment on above: Performed By: #### C MP #### [address] [address] RBC morphology finding Nom (Bld) SEE BELOW Normal [facility] Comment on above: Performed By: #### C MP #### [address] [address] CBC AND DIFFERENTIALon 08-21 Basophils (Bld) [#/Vol] 0.10 10*3/uL Normal 0.00 - 0.10 [facility] Comment on above: Performed By: #### C BC #### [address] [address] Basophils/100 WBC (Bld) 1.1 % Normal 0.0 - 2.0 [facility] Comment on above: Performed By: #### C BC #### [address] [address] Eosinophils (Bld) [#/Vol] 0.20 10*3/uL Normal 0.00 - 0.40 [facility] Comment on above: Performed By: #### C BC #### [address] [address] Eosinophils/100 WBC (Bld) 2.6 % Normal 0.0 - 6.0 [facility] Comment on above: Performed By: #### C BC #### [address] [address] Erythrocyte distribution width (RBC) [Ratio] 17.1 % High 11.5 - 14.5 [facility] Comment on above: Performed By: #### C BC #### [address] [address] Hematocrit (Bld) [Volume fraction] 35.6 % Low 36.0 - 46.0 [facility] Comment on above: Performed By: #### C BC #### [address] [address] Hemoglobin (Bld) [Mass/Vol] 11.7 g/dL Low 12.0 - 16.0 [facility] Comment on above: Performed By: #### C BC #### [address] [address] Lymphocytes (Bld) [#/Vol] 1.20 10*3/uL Normal 0.80 - 3.00 [facility] Comment on above: Performed By: #### C BC #### [address] [address] Lymphocytes/100 WBC (Bld) 15.6 % Normal 13.0 - 44.0 [facility] Comment on above: Performed By: #### C BC #### [address] [address] MCHC (RBC) [Mass/Vol] 32.9 g/dL Normal 32.0 - 36.0 [facility] Comment on above: Performed By: #### C BC #### [address] [address] MCV (RBC) [Entitic vol] 87 fL Normal 80 - 100 [facility] Comment on above: Performed By: #### C BC #### [address] [address] Monocytes (Bld) [#/Vol] 0.60 10*3/uL Normal 0.05 - 0.80 [facility] Comment on above: Performed By: #### C BC #### [address] [address] Monocytes/100 WBC (Bld) 7.9 % Normal 2.0 - 10.0 [facility] Comment on above: Performed By: #### C BC #### [address] [address] Neutrophils (Bld) [#/Vol] 5.70 10*3/uL High 1.60 - 5.50 [facility] Comment on above: Result Comment: Perc ent differential counts (%) should be interpreted in the context of the absolute cell counts (cells/L). Performed By: #### C BC #### [address] [address] Neutrophils/100 WBC (Bld) 72.8 % Normal 40.0 - 80.0 [facility] Comment on above: Performed By: #### C BC #### [address] [address] NUCLEATED RBC 0.3 /100 WBC Normal [facility] Comment on above: Performed By: #### C BC #### [address] [address] Platelets (Bld) [#/Vol] 288 10*3/uL Normal 150 - 450 [facility] Comment on above: Performed By: #### C BC #### [address] [address] RBC 4.08 x10E12/L Normal 4.00 - 5.20 [facility] Comment on above: Performed By: #### C BC #### [address] [address] WBC (Bld) [#/Vol] 7.8 10*3/uL Normal 4.4 - 11.3 [facility] Comment on above: Performed By: #### C BC #### [address] [address] COMPREHENSIVE PANELon 2019 Albumin [Mass/Vol] 3.6 g/dL Normal 3.4 - 5.0 [facility] Comment on above: Performed By: #### C BC #### [address] [address] ALP [Catalytic activity/Vol] 70 U/L Normal 33 - 136 [facility] Comment on above: Performed By: #### C BC #### [address] [address] ALT [Catalytic activity/Vol] 16 U/L Normal 7 - 45 [facility] Comment on above: Result Comment: Lucinda ents treated with Sulfasalazine may generate falsely decreased results for ALT. Performed By: #### C BC #### [address] [address] Anion gap [Moles/Vol] 14 mmol/L Normal 10 - 20 [facility] Comment on above: Performed By: #### C BC #### [address] [address] AST [Catalytic activity/Vol] 19 U/L Normal 9 - 39 [facility] Comment on above: Performed By: #### C BC #### [address] [address] Bilirubin [Mass/Vol] 0.5 mg/dL Normal 0.0 - 1.[address] [facility] Comment on above: Performed By: #### C BC #### [address] [address] Calcium [Mass/Vol] 8.5 mg/dL Low 8.6 - 10.3 [facility] Comment on above: Performed By: #### C BC #### [address] [address] Chloride [Moles/Vol] 105 mmol/L Normal 98 - [address] [facility] Comment on above: Performed By: #### C BC #### [address] [address] Creatinine [Mass/Vol] 0.83 mg/dL Normal 0.50 - 1.05 [facility] Comment on above: Performed By: #### C BC #### [address] [address] GFR- AM. >60 Normal >60 [facility] Comment on above: Result Comment: CALC ULATIONS OF ESTIMATED GFR ARE PERFORMED USING THE MDRD STUDY EQUATION FOR THE IDMS-TRACEABLE CREATININE METHODS. CLIN CHEM 2007;53:766-72 Performed By: #### C BC #### [address] [address] GFR-NON AM. >60 Normal >60 [facility] Comment on above: Performed By: #### C BC #### [address] [address] Glucose [Mass/Vol] 119 mg/dL High 74 - 99 [facility] Comment on above: Performed By: #### C BC #### [address] [address] HCO3 (Bld) [Moles/Vol] 25 mmol/L Normal 21 - 32 [facility] Comment on above: Performed By: #### C BC #### [address] [address] Potassium [Moles/Vol] 4.2 mmol/L Normal 3.5 - 5.3 [facility] Comment on above: Performed By: #### C BC #### [address] [address] Protein [Mass/Vol] 7.1 g/dL Normal 6.4 - 8.2 [facility] Comment on above: Performed By: #### C BC #### [address] [address] Sodium [Moles/Vol] 140 mmol/L Normal 136 - 145 [facility] Comment on above: Performed By: #### C BC #### [address] [address] Urea nitrogen [Mass/Vol] 17 mg/dL Normal 6 - 23 [facility] Comment on above: Performed By: #### C BC #### [address] [address] PT Progress Noteon 0 PT Progress Note Therapy Diagnosis Assessed Swelling of left knee joint (719.06) (M25.462) Acute pain of left knee (719.46) (M25.562) Stiffness of left knee (719.56) (M25.662) Insurance Insurance reviewed Visit number: 12 Authorization not required after evaluation POC: 09/07 Medicare/AARP Supervising PT: Aurelia Randle PT, DPT, Cert DN . Subjective Patient reports: Pt notes she has been trying to do everything in the morning and at night. Pt she has been able to go to the gym a few times since last session. Pt notes when she had her last F/U with MD he was pleased with everything but just wanted her to continue to work on the bending of her knee. Pt doesn't have another F/U for 6 more weeks. Pt notes she went down the basement stairs by herself for the first time last week. Patient rates current pain /10. Home program performing as directed: Yes. Precautions: Fall Risk: low RA; OA; Htn; B/L TKR. Objective Ortho LEFS:41/80-->50-->64/80 R Knee AROM: Flex: 123 Ext: 0 L Knee AROM: Flex: 88-->113-->116 Flex Ext: 7 HYPO-->PROM 0 AND 2 HYPO AROM-->0 Ext MMT: (RLE/LLE) Hip Flex: 4+/3+-->5/4+ -->5/5 Hip Ext: 4-/3+-> 4/4- -->4/4 Hip ABD: 4/4- -->4+/4+ -->4+/4+ Knee Flex: 4+/3+-->4+/4+ -->5/5 Knee Ext: 4+/3 P! -->4+/4 -->5/5 Ankle DF: 4+/4 -->4+/4+ -->5/5 Ankle PF: 4+/4 -->4+/4+ -->5/5 Quad Activation: fair Gait Mechanics: antalgic, decreased stance time LLE, decreased heel strike and TKE, decreased toan--> mild antalgic gait still, mild decrease heel strike and TKE but improved compared to IE-->improved . Treatment Time in clinic started at 0230 pm Time in clinic ended at 0255 pm Total time in clinic is 25 minutes. Total timed code time is 23 minutes. Therapeutic exercise (19249): timed minutes 15, units 1 . Pt re-evaluated for updated POC, updated and reviewed HEP x 15' Not Performed 12/04/19: Rec Bike full rotation 5' Slant board 2 x 1 Step ups 2 x 15 L LE - fwd - lateral Heel raises 2 x 15 Airex (P) Heel slides w/ strap 10x10 holds Airex (P) Standing mini squats 2 x 10 Airex (P) SLR 2 x 10 HS stretch 10x10 holds Seated GS stretch w/ strap 10 x10 holds LAQ 2 x10 1# SAQ 2 x 10 1# (P) Supine QS 2 x 10x5 holds w/ towel Standing hip sinks airex (P) -ABD 2 x 10 - Ext 2 x 10 - Flex 2 x 10 SLS 3 x 30 Not performed Seated QS 10x 10 holds L L(X) Lyrical knee flexion stretch (X) Gait sequence with SPC (X). Manual Therapy (55892): timed minutes 8, units 1 . patellar mobs all directions grades II-III x 2' Passive ext (X) gentle stm to medial/distal Quad, HS, ADD x 6' . Provided today: education . Access Code: [email or web address] URL: [email or web address] Date: 12/04/2019 Prepared by: Aurelia Stafford Exercises Standing Terminal Knee Extension with Resistance- 10 reps- 2 sets- 5 hold- 1x daily- 7x weekly Standing Hip Abduction with Resistance at Ankles- 10 reps- 2 sets- 1x daily- 7x weekly Hip Extension with Resistance Loop- 10 reps- 2 sets- 1x daily- 7x weekly Standing Hip Flexion with Resistance Loop- 10 reps- 2 sets- 1x daily- 7x weekly Seated Hamstring Curls with Resistance- 10 reps- 2 sets- 1x daily- 7x weekly Sitting Knee Extension with Resistance- 10 reps- 2 sets- 1x daily- 7x weekly . Assessment Pt has progressed well with HEP and has demonstrated improvements in L knee flex and ext compared to last re-evaluation from this PT. SHe understands updated HEP and is going to continue to address any remaining impairments and progress towards full PLOF. Response to treatment: decreased pain, improved endurance, improved gait and improved knowledge and understanding of condition. Patient was able to complete today's treatment with some difficulty. Plan Planned interventions include: aquatic therapy, cryotherapy, dry needling, edema control, education/instruction, electrical stimulation, gait training, home program, hot pack, kinesiotaping, manual therapy, neuromuscular re-education, self care/home management, therapeutic activities, therapeutic exercises and ultrasound. Goals: Goals set and discussed today. Pt will demo and report compliance with HEP in order to augment POC goals and progression toward independence with symptom management. Pt will demo improved AROM in L knee >/= 100 FLEX and Gait/Locomotion: Pt will demo improved gait mechanics with even step length, stance time, proper heel strike and push off, and min-no evidence of instability or antalgic gait for return to PLOF., by week 4, goal met Range of Motion/Joint Mobility: Pt will demo improved AROM in L knee >/= 120 FLEX and 12/04/19: knee Flex 116 Knee Ext 0, by week 4, goal partially met Strength: Pt will demo improved MMT by >/= 1 point on 0-5 point scale in BLE for improved strength and stability, and improved ease with transfers, lifting/carrying, and proper mechanics with ADLs AND IADLs., by week 4, goal met LEFS, Pt will report subjective improvement with score on LEFS improved by >/= 5 points for return to PLOF, improved QOL, and improved ease with ADLs AND IADLs., by week 4, goal met Frequency and duration: No further visits planned. Potential to achieve rehab goals is good Monitor home program. Discharge patient:. Signatures Electronically signed by : Aurelia Randle, PT; Dec 04 2019 3:00PM EST (Author) Normal nap- Naturally Attached Parents PT Progress Noteon 0 PT Progress Note Therapy Diagnosis Assessed Acute pain of left knee (719.46) (M25.562) Stiffness of left knee (719.56) (M25.662) Swelling of left knee joint (719.06) (M25.462) Insurance Insurance reviewed Visit number: 11 Authorization not required after evaluation POC: 08/08 Medicare/AARP Supervising PT: Aurelia Randle PT, DPT, Cert DN . Subjective Patient reports: Patient reports that she has not tried to go down the stairs to her basement yet, that is the only place that she has stairs in her home. Patient reports that her pain level is 2/10 currently. States that she has been starting to sleep better over the last few days. Patient rates current pain 2/10. Home program performing as directed: Yes. Precautions: Fall Risk: low RA; OA; Htn; B/L TKR. Objective Ortho AAROM 112 degrees AROM 108 degrees. Treatment Time in clinic started at 3:55 pm Time in clinic ended at 4:38 pm Total time in clinic is 45=3 minutes. Total timed code time is 41 minutes. Therapeutic exercise (34792): timed minutes 33, units 2 . Rec Bike full rotation 5' Slant board 2 x 1 Step ups 2 x 15 L LE - fwd - lateral Heel raises 2 x 15 Airex (P) Heel slides w/ strap 10x10 holds Airex (P) Standing mini squats 2 x 10 Airex (P) SLR 2 x 10 HS stretch 10x10 holds Seated GS stretch w/ strap 10 x10 holds LAQ 2 x10 1# SAQ 2 x 10 1# (P) Supine QS 2 x 10x5 holds w/ towel Standing hip sinks airex (P) -ABD 2 x 10 - Ext 2 x 10 - Flex 2 x 10 SLS 3 x 30 Not performed Seated QS 10x 10 holds L L(X) Lyrical knee flexion stretch (X) Gait sequence with SPC (X). Manual Therapy (91122): timed minutes 8, units 1 . patellar mobs all directions grades II-III x 2' Passive ext x 3' gentle stm to medial/distal Quad, HS, ADD x 5' (X) . Provided today: education . Review. Assessment Improved toan with gait this date in the clinic w/out AD.Good patellar mobility this date in the clinic. Fatigues quickly with SLR. PLANNED GIVING OFFICER made sure patient has all updated HEP. Response to treatment: decreased pain, improved endurance, improved gait and improved knowledge and understanding of condition. Patient was able to complete today's treatment with some difficulty. Plan Planned interventions include: aquatic therapy, cryotherapy, dry needling, edema control, education/instruction, electrical stimulation, gait training, home program, hot pack, kinesiotaping, manual therapy, neuromuscular re-education, self care/home management, therapeutic activities, therapeutic exercises and ultrasound. Goals: Goals set and discussed today. Pt will demo and report compliance with HEP in order to augment POC goals and progression toward independence with symptom management. Pt will demo improved AROM in L knee >/= 100 FLEX and Gait/Locomotion: Pt will demo improved gait mechanics with even step length, stance time, proper heel strike and push off, and min-no evidence of instability or antalgic gait for return to PLOF., by week 4, goal partially met Range of Motion/Joint Mobility: Pt will demo improved AROM in L knee >/= 120 FLEX and Strength: Pt will demo improved MMT by >/= 1 point on 0-5 point scale in BLE for improved strength and stability, and improved ease with transfers, lifting/carrying, and proper mechanics with ADLs AND IADLs., by week 4, goal partially met LEFS, Pt will report subjective improvement with score on LEFS improved by >/= 5 points for return to PLOF, improved QOL, and improved ease with ADLs AND IADLs., by week 4, goal met Frequency and duration: 2 time(s) a week, for 4 weeks, for 8 visits . Pt going to attempt independence after next session but may return for additional 2xweek x 4weeks if pt/MD elects necessary. Potential to achieve rehab goals is good Continue with HEP until next recheck. Progress with POC, as tolerated. Signatures Electronically signed by : Shaunna Moore PTA; Nov 22 2019 4:43PM EST (Author) Normal Touchworks PT Progress Note Therapy Diagnosis Assessed Acute pain of left knee (719.46) (M25.562) Stiffness of left knee (719.56) (M25.662) Swelling of left knee joint (719.06) (M25.462) Insurance Insurance reviewed Visit number: 9 Authorization not required after evaluation POC: 01/06 Medicare/AARP Supervising PT: Aurelia Randle PT, DPT, Tiesha DN . Subjective Patient reports: Patient reports that she is at a 2/10 pain current. Woke up in the middle of the night with pain in the knee and took Tylenol. States that she had the stomach flu and is why she had to miss her last appointment. Patient rates current pain 2/10. Precautions: Fall Risk: low RA; OA; Htn; B/L TKR. Objective Ortho 114 degrees aarom w/ strap. Treatment Time in clinic started at 3:16 pm Time in clinic ended at 4:00 pm Total time in clinic is 45 minutes. Total timed code time is 44 minutes. Therapeutic exercise (93178): timed minutes 44, units 3 . Rec Bike full rotation 5' Slant board 2 x 1 Step ups 2 x 15 L LE - fwd - lateral Heel raises 2 x 15 Standing mini squats 2 x 10 SLR 2 x 10 HS stretch 10x10 holds Seated GS stretch w/ strap 10 x10 holds LAQ 2 x10 1# SAQ 2 x 10 1# (P) Supine QS 2 x 10x5 holds w/ towel Heel slides w/ strap 10x10 holds Standing hip sinks: -ABD 2 x 10 - Ext 2 x 10 - Flex 2 x 10 SLS 3 x 30 (N) Not performed Seated QS 10x 10 holds L L(X) Lyrical knee flexion stretch (X) Gait sequence with SPC (X). Manual Therapy (14910):. patellar mobs all directions x 10 REPS grades I-II Passive ext x 10 reps (N) gentle stm to quad, IT band, HS, Add AND GS (X) . Provided today: education. Assessment Improved ROM this date in the clinic. Observed patient carrying her cane in the clinic with ambulation completed during treatment w/out the AD. Patient questioned if she could go w/out the AD at home and was instructed to do so only if she felt stable and safe doing so. Fatigues quickly with step ups this date in the clinic. Response to treatment: decreased pain, improved endurance, improved gait and improved knowledge and understanding of condition. Patient was able to complete today's treatment with some difficulty. Plan Planned interventions include: aquatic therapy, cryotherapy, dry needling, edema control, education/instruction, electrical stimulation, gait training, home program, hot pack, kinesiotaping, manual therapy, neuromuscular re-education, self care/home management, therapeutic activities, therapeutic exercises and ultrasound. Goals: Goals set and discussed today. Pt will demo and report compliance with HEP in order to augment POC goals and progression toward independence with symptom management. Pt will demo improved AROM in L knee >/= 100 FLEX and Gait/Locomotion: Pt will demo improved gait mechanics with even step length, stance time, proper heel strike and push off, and min-no evidence of instability or antalgic gait for return to PLOF., by week 4 Range of Motion/Joint Mobility: Pt will demo improved AROM in L knee >/= 120 FLEX and Strength: Pt will demo improved MMT by >/= 1 point on 0-5 point scale in BLE for improved strength and stability, and improved ease with transfers, lifting/carrying, and proper mechanics with ADLs AND IADLs., by week 4 LEFS, Pt will report subjective improvement with score on LEFS improved by >/= 5 points for return to PLOF, improved QOL, and improved ease with ADLs AND IADLs., by week 4 Frequency and duration: 3 time(s) a week, for 4 weeks, for 12 visits. Potential to achieve rehab goals is good Continue with proprioception progression next visit. Progress with POC, as tolerated. Signatures Electronically signed by : Shaunna Moore PLANNED GIVING OFFICER; Nov 17 2019 4:01PM EST (Author) Electronically signed by : Aurelia Randle PT; Nov 22 2019 4:50PM EST Normal nap- Naturally Attached Parents PT Progress Noteon 0 PT Progress Note Therapy Diagnosis Assessed Acute pain of left knee (719.46) (M25.562) Stiffness of left knee (719.56) (M25.662) Swelling of left knee joint (719.06) (M25.462) Insurance Insurance reviewed Visit number: 11 Authorization not required after evaluation POC: 08/08 Medicare/AARP Supervising PT: Aurelia Randle PT, DPT, Cert DN . Subjective Patient reports: Pt notes overall her pain has mostly just been around a 2/10 and notes sometimes it will just throb a little bit. Pt notes she has been performing HEP. Notes she is still having difficulty with sleeping and notes she has a hard time getting to sleep still. Still has not had F/U with MD yet. Pt notes she would like to try and continue to work on things at home after her next session. Pt notes she is trying to stay moving but I'm probably not bending it as often or as much as I should. Patient rates current pain 2/10. Home program performing as directed: Yes. Precautions: Fall Risk: low RA; OA; Htn; B/L TKR. Objective Ortho LEFS:41/80-->50 R Knee AROM: Flex: 123 Ext: 0 L Knee AROM: Flex: 88-->113 Ext: 7 HYPO-->PROM 0 AND 2 HYPO AROM MMT: (RLE/LLE) Hip Flex: 4+/3+-->5/4+ Hip Ext: 4-/3+-> 4/4- Hip ABD: 4/4- -->4+/4+ Knee Flex: 4+/3+-->4+/4+ Knee Ext: 4+/3 P! -->4+/4 Ankle DF: 4+/4 -->4+/4+ Ankle PF: 4+/4 -->4+/4+ Quad Activation: fair Gait Mechanics: antalgic, decreased stance time LLE, decreased heel strike and TKE, decreased toan--> mild antalgic gait still, mild decrease heel strike and TKE but improved compared to IE . Treatment Time in clinic started at 0300 pm Time in clinic ended at 0345 pm Total time in clinic is 45 minutes. Total timed code time is 40 minutes. Therapeutic exercise (69877): timed minutes 30, units 2 . Rec Bike full rotation 5' Slant board 2 x 1 Step ups 2 x 15 L LE - fwd - lateral Heel raises 2 x 15 Heel slides w/ strap 10x10 holds Pt re-assessed for updated PN, POC, and discussed HEP x 15' Not Performed 11/20/19: Standing mini squats 2 x 10 SLR 2 x 10 HS stretch 10x10 holds Seated GS stretch w/ strap 10 x10 holds LAQ 2 x10 1# SAQ 2 x 10 1# (P) Supine QS 2 x 10x5 holds w/ towel Standing hip sinks: -ABD 2 x 10 - Ext 2 x 10 - Flex 2 x 10 SLS 3 x 30 (N) Not performed Seated QS 10x 10 holds L L(X) Lyrical knee flexion stretch (X) Gait sequence with SPC (X). Manual Therapy (80349): timed minutes 10, units 1 . patellar mobs all directions grades II-III x 2' Passive ext x 3' gentle stm to medial/distal Quad, HS, ADD x 5' . Provided today: education. Assessment Pt has demonstrated improvements in knee AROM compared to IE, as well as improvements in gait mechanics, strength and overall mobility compared to IE. Pt is still mostly restricted into knee flexion but continues to gradually progress with therapy and with HEP. She would like to attempt independence with HEP after one additional visit to solidify/update HEP, then she will return in 3 weeks unless pt and MD elect it is necessary for her to return to 2xweek x 4 weeks total. Anaya Moore PLANNED GIVING OFFICER started pt from 03:00-03:15 and then Aurelia Randle PT, DPT took over from 03:15-03:45. Response to treatment: decreased pain, improved endurance, improved gait and improved knowledge and understanding of condition. Patient was able to complete today's treatment with some difficulty. Plan Planned interventions include: aquatic therapy, cryotherapy, dry needling, edema control, education/instruction, electrical stimulation, gait training, home program, hot pack, kinesiotaping, manual therapy, neuromuscular re-education, self care/home management, therapeutic activities, therapeutic exercises and ultrasound. Goals: Goals set and discussed today. Pt will demo and report compliance with HEP in order to augment POC goals and progression toward independence with symptom management. Pt will demo improved AROM in L knee >/= 100 FLEX and Gait/Locomotion: Pt will demo improved gait mechanics with even step length, stance time, proper heel strike and push off, and min-no evidence of instability or antalgic gait for return to PLOF., by week 4, goal partially met Range of Motion/Joint Mobility: Pt will demo improved AROM in L knee >/= 120 FLEX and Strength: Pt will demo improved MMT by >/= 1 point on 0-5 point scale in BLE for improved strength and stability, and improved ease with transfers, lifting/carrying, and proper mechanics with ADLs AND IADLs., by week 4, goal partially met LEFS, Pt will report subjective improvement with score on LEFS improved by >/= 5 points for return to PLOF, improved QOL, and improved ease with ADLs AND IADLs., by week 4, goal met Frequency and duration: 2 time(s) a week, for 4 weeks, for 8 visits . Pt going to attempt independence after next session but may return for additional 2xweek x 4weeks if pt/MD elects necessary. Potential to achieve rehab goals is good Plan to updated/finalize HEP next visit and progress ROM and then pt will attempt independence with HEP for 3 weeks before next F/U per pt request . Progress with POC, as tolerated. Signatures Electronically signed by : Aurelia Randle, PT; Nov 20 2019 3:58PM EST (Author) Normal [facility] Therapy Re-eval Noteon 11-20 Therapy Re-eval Note Therapy Diagnosis Assessed 1. Acute pain of left knee (719.46) (M25.562) 2. Stiffness of left knee (719.56) (M25.662) 3. Swelling of left knee joint (719.06) (M25.462) Insurance Insurance reviewed Visit number: 11 Authorization not required after evaluation POC: 08/08 Medicare/AARP Supervising PT: Aurelia Randle PT, DPT, Cert DN . Subjective Patient reports: Pt notes overall her pain has mostly just been around a 2/10 and notes sometimes it will just throb a little bit. Pt notes she has been performing HEP. Notes she is still having difficulty with sleeping and notes she has a hard time getting to sleep still. Still has not had F/U with MD yet. Pt notes she would like to try and continue to work on things at home after her next session. Pt notes she is trying to stay moving but I'm probably not bending it as often or as much as I should. Patient rates current pain 2/10. Home program performing as directed: Yes. Precautions: Fall Risk: low RA; OA; Htn; B/L TKR. Objective Ortho LEFS:41/80-->50 R Knee AROM: Flex: 123 Ext: 0 L Knee AROM: Flex: 88-->113 Ext: 7 HYPO-->PROM 0 AND 2 HYPO AROM MMT: (RLE/LLE) Hip Flex: 4+/3+-->5/4+ Hip Ext: 4-/3+-> 4/4- Hip ABD: 4/4- -->4+/4+ Knee Flex: 4+/3+-->4+/4+ Knee Ext: 4+/3 P! -->4+/4 Ankle DF: 4+/4 -->4+/4+ Ankle PF: 4+/4 -->4+/4+ Quad Activation: fair Gait Mechanics: antalgic, decreased stance time LLE, decreased heel strike and TKE, decreased toan--> mild antalgic gait still, mild decrease heel strike and TKE but improved compared to IE . Assessment Pt has demonstrated improvements in knee AROM compared to IE, as well as improvements in gait mechanics, strength and overall mobility compared to IE. Pt is still mostly restricted into knee flexion but continues to gradually progress with therapy and with HEP. She would like to attempt independence with HEP after one additional visit to solidify/update HEP, then she will return in 3 weeks unless pt and MD elect it is necessary for her to return to 2xweek x 4 weeks total. Anaya Moore PLANNED GIVING OFFICER started pt from 03:00-03:15 and then Aurelia Randle PT, DPT took over from 03:15-03:45. Response to treatment: decreased pain, improved endurance, improved gait and improved knowledge and understanding of condition. Patient was able to complete today's treatment with some difficulty. Treatment Time in clinic started at 0300 pm Time in clinic ended at 0345 pm Total time in clinic is 45 minutes. Total timed code time is 40 minutes. Therapeutic exercise (72174): timed minutes 30, units 2 . Rec Bike full rotation 5' Slant board 2 x 1 Step ups 2 x 15 L LE - fwd - lateral Heel raises 2 x 15 Heel slides w/ strap 10x10 holds Pt re-assessed for updated PN, POC, and discussed HEP x 15' Not Performed 11/20/19: Standing mini squats 2 x 10 SLR 2 x 10 HS stretch 10x10 holds Seated GS stretch w/ strap 10 x10 holds LAQ 2 x10 1# SAQ 2 x 10 1# (P) Supine QS 2 x 10x5 holds w/ towel Standing hip sinks: -ABD 2 x 10 - Ext 2 x 10 - Flex 2 x 10 SLS 3 x 30 (N) Not performed Seated QS 10x 10 holds L L(X) Lyrical knee flexion stretch (X) Gait sequence with SPC (X). Manual Therapy (28120): timed minutes 10, units 1 . patellar mobs all directions grades II-III x 2' Passive ext x 3' gentle stm to medial/distal Quad, HS, ADD x 5' . Provided today: education. Plan Planned interventions include: aquatic therapy, cryotherapy, dry needling, edema control, education/instruction, electrical stimulation, gait training, home program, hot pack, kinesiotaping, manual therapy, neuromuscular re-education, self care/home management, therapeutic activities, therapeutic exercises and ultrasound. Goals: Goals set and discussed today. Pt will demo and report compliance with HEP in order to augment POC goals and progression toward independence with symptom management. Pt will demo improved AROM in L knee >/= 100 FLEX and Gait/Locomotion: Pt will demo improved gait mechanics with even step length, stance time, proper heel strike and push off, and min-no evidence of instability or antalgic gait for return to PLOF., by week 4, goal partially met Range of Motion/Joint Mobility: Pt will demo improved AROM in L knee >/= 120 FLEX and Strength: Pt will demo improved MMT by >/= 1 point on 0-5 point scale in BLE for improved strength and stability, and improved ease with transfers, lifting/carrying, and proper mechanics with ADLs AND IADLs., by week 4, goal partially met LEFS, Pt will report subjective improvement with score on LEFS improved by >/= 5 points for return to PLOF, improved QOL, and improved ease with ADLs AND IADLs., by week 4, goal met Frequency and duration: 2 time(s) a week, for 4 weeks, for 8 visits . Pt going to attempt independence after next session but may return for additional 2xweek x 4weeks if pt/MD elects necessary. Potential to achieve rehab goals is good Plan to updated/finalize HEP next visit and progress ROM and then pt will attempt independence with HEP for 3 weeks before next F/U per pt request . Progress with POC, as tolerated. Signatures Electronically signed by : Aurelia Randle, PT; Nov 20 2019 3:58PM EST (Author) Normal nap- [facility] Therapy Communicationon 10-28 Therapy Communication Message DEISY LEONARDO no showed today . Signatures Electronically signed by : Shaunna Moore PLANNED GIVING OFFICER; Nov 15 2019 4:18PM EST (Author) Normal nap- [facility] PT Progress Noteon 0 PT Progress Note Therapy Diagnosis Assessed Acute pain of left knee (719.46) (M25.562) Stiffness of left knee (719.56) (M25.662) Swelling of left knee joint (719.06) (M25.462) Insurance Insurance reviewed Visit number: 8 Authorization not required after evaluation POC: 01/06 Medicare/AARP Supervising PT: Aurelia Randle PT, DPT, Tiesha DN . Subjective Patient reports: Patient reports that she is feeling out of sorts today. Current pain level 3/10. States that she is still having a lot of difficulty sleeping and ended back in the recliner last night. States that she started driving yesterday. Patient rates current pain 3/10. Precautions: Fall Risk: low RA; OA; Htn; B/L TKR. Objective Ortho 110 degrees aarom w/ strap. Treatment Time in clinic started at 3:01 pm Time in clinic ended at 3:45 pm Total time in clinic is 46 minutes. Total timed code time is 44 minutes. Therapeutic exercise (15133): timed minutes 44, units 3 . Rec Bike full rotation 5' Slant board 2 x 1 Step ups 2 x 15 L LE - fwd - lateral Heel raises 2 x 15 Standing mini squats 2 x 10 SLR 2 x 10 HS stretch 10x10 holds Seated GS stretch w/ strap 10 x10 holds LAQ 2 x10 1# (P) SAQ 2 x 10 1# (P) Supine QS 2 x 10x5 holds w/ towel Heel slides w/ strap 10x10 holds Standing hip sinks: (N) -ABD 2 x 10 - Ext 2 x 10 - Flex 2 x 10 SLS 3 x 30 (N) Not performed Seated QS 10x 10 holds L L(X) Lyrical knee flexion stretch (X) Gait sequence with SPC (X). Manual Therapy (54581):. patellar mobs all directions x 10 REPS grades I-II Passive ext x 10 reps (N) gentle stm to quad, IT band, HS, Add AND GS (X) . Provided today: education . SLS, Hip ext, Hip abd, Hip flex, hip squats. Assessment Patient seems more fatigued today upon arrival. Added standing exercises this date for further progression of strength. Able to complete with minimal exacerbation of pain. Progressed HEP this date with new handout. Improved eccentric control with SLR. Needs intermittent touch support with SLS. Response to treatment: decreased pain, improved endurance, improved gait and improved knowledge and understanding of condition. Patient was able to complete today's treatment with some difficulty. Plan Planned interventions include: aquatic therapy, cryotherapy, dry needling, edema control, education/instruction, electrical stimulation, gait training, home program, hot pack, kinesiotaping, manual therapy, neuromuscular re-education, self care/home management, therapeutic activities, therapeutic exercises and ultrasound. Goals: Goals set and discussed today. Pt will demo and report compliance with HEP in order to augment POC goals and progression toward independence with symptom management. Pt will demo improved AROM in L knee >/= 100 FLEX and Gait/Locomotion: Pt will demo improved gait mechanics with even step length, stance time, proper heel strike and push off, and min-no evidence of instability or antalgic gait for return to PLOF., by week 4 Range of Motion/Joint Mobility: Pt will demo improved AROM in L knee >/= 120 FLEX and Strength: Pt will demo improved MMT by >/= 1 point on 0-5 point scale in BLE for improved strength and stability, and improved ease with transfers, lifting/carrying, and proper mechanics with ADLs AND IADLs., by week 4 LEFS, Pt will report subjective improvement with score on LEFS improved by >/= 5 points for return to PLOF, improved QOL, and improved ease with ADLs AND IADLs., by week 4 Frequency and duration: 3 time(s) a week, for 4 weeks, for 12 visits. Potential to achieve rehab goals is good Will continue with ROM and strength progression for improved daily function. Signatures Electronically signed by : Shaunna Moore PLANNED GIVING OFFICER; Nov 13 2019 3:47PM EST (Author) Electronically signed by : Aurelia Randle PT; Nov 13 2019 4:07PM EST Normal [facility] PT Progress Note Therapy Diagnosis Assessed Swelling of left knee joint (719.06) (M25.462) Stiffness of left knee (719.56) (M25.662) Insurance Insurance reviewed Visit number: 7 Authorization not required after evaluation POC: 01/06 Medicare/AARP Supervising PT: Aurelia Randle PT, DPT, Cert DN . Subjective Patient reports: Patient reports that she is at about a 3/10 pain currently. States that she slept a little better last night. States that she will get up and take a tylenol to take the edge off. States that she went out to eat yesterday and had her knee bent when sitting. States that she was sore afterward and went home and used ice. Patient rates current pain 3/10. Precautions: Fall Risk: low RA; OA; Htn; B/L TKR. Objective Ortho 106 degrees aarom - 7 degrees ext at rest -3 degrees after PROM. Treatment Time in clinic started at 4:01 pm Time in clinic ended at 4:44 pm Total time in clinic is 43 minutes. Total timed code time is 40 minutes. Therapeutic exercise (48199): timed minutes 40, units 3 . Rec Bike was able to get full rotation 6' Slant board 2 x 1 Step ups 2 x 15 L LE - fwd - lateral Heel raises 2 x15 Standing mini squats 2 x 10 SLR 2 x 10 HS stretch 10x10 holds Seated GS stretch w/ strap 10x10 holds LAQ 2 x10 (I) SAQ 2 x 10 Supine QS 2 x 10x5 holds w/ towel Heel slides w/ strap 10x10 holds Standing hip Not performed Seated QS 10x 10 holds L L(X) Lyrical knee flexion stretch (X) Gait sequence with SPC (X). Manual Therapy (26809):. patellar mobs all directions x 10 REPS grades I-II Passive ext x 10 reps (N) gentle stm to quad, IT band, HS, Add AND GS (X) . Provided today: education . LAQ/SAQ/seated SLR with handout issued. Assessment Improved gait observed this date in the clinic w/out AD. Mild antalgic gait observed. HS tightness in supine. PLANNED GIVING OFFICER completed passive extension with obtaining 0 degrees with only using mild pressure. Improved patellar mobility this date. Response to treatment: decreased pain, improved endurance, improved gait and improved knowledge and understanding of condition. Patient was able to complete today's treatment with some difficulty. Plan Planned interventions include: aquatic therapy, cryotherapy, dry needling, edema control, education/instruction, electrical stimulation, gait training, home program, hot pack, kinesiotaping, manual therapy, neuromuscular re-education, self care/home management, therapeutic activities, therapeutic exercises and ultrasound. Goals: Goals set and discussed today. Pt will demo and report compliance with HEP in order to augment POC goals and progression toward independence with symptom management. Pt will demo improved AROM in L knee >/= 100 FLEX and Gait/Locomotion: Pt will demo improved gait mechanics with even step length, stance time, proper heel strike and push off, and min-no evidence of instability or antalgic gait for return to PLOF., by week 4 Range of Motion/Joint Mobility: Pt will demo improved AROM in L knee >/= 120 FLEX and Strength: Pt will demo improved MMT by >/= 1 point on 0-5 point scale in BLE for improved strength and stability, and improved ease with transfers, lifting/carrying, and proper mechanics with ADLs AND IADLs., by week 4 LEFS, Pt will report subjective improvement with score on LEFS improved by >/= 5 points for return to PLOF, improved QOL, and improved ease with ADLs AND IADLs., by week 4 Frequency and duration: 3 time(s) a week, for 4 weeks, for 12 visits. Potential to achieve rehab goals is good Plan to continue with progression to standing PRE's next date. Signatures Electronically signed by : Shaunna Moore, PLANNED GIVING OFFICER; Nov 10 2019 4:48PM EST (Author) Electronically signed by : Aurelia Randle, PT; Nov 13 2019 12:58PM EST Normal [facility] PT Progress Noteon 0 PT Progress Note Therapy Diagnosis Assessed Swelling of left knee joint (719.06) (M25.462) Stiffness of left knee (719.56) (M25.662) Acute pain of left knee (719.46) (M25.562) Insurance Insurance reviewed Visit number: 6 Authorization not required after evaluation POC: 01/06 Medicare/AARP Supervising PT: Aurelia Randle PT, DPT, Cert DN . Subjective Patient reports: Patient reports that she is at about a 4/10 pain currently. States that she was very sore yesterday. States that she was stretching more the other day. Patient rates current pain 4/10. Precautions: Fall Risk: low RA; OA; Htn; B/L TKR. Objective Ortho 104 degrees. Treatment Time in clinic started at 4:00 pm Time in clinic ended at 4:45 pm Total time in clinic is 42 minutes. Total timed code time is 42 minutes. Therapeutic exercise (72187): timed minutes 42, units 3 . Rec Bike was able to get full rotation 6' Slant board 2 x 1 Step ups 2 x 15 L LE - fwd - lateral Heel raises 2 x15 Standing mini squats 2 x 10 SLR 2 x 10 HS stretch 10x10 holds Seated GS stretch w/ strap 10x10 holds LAQ 2 x10 SAQ 2 x 10 Supine QS 2 x 10x5 holds w/ towel Heel slides w/ strap 10x10 holds Not performed Seated QS 10x 10 holds L L(X) Lyrical knee flexion stretch (X) Gait sequence with SPC (X). Manual Therapy (68570):. patellar mobs all directions x 3' grades I-II; gentle stm to quad, IT band, HS, Add AND GS (X) . Provided today: education . LAQ/SAQ/seated SLR with handout issued. Assessment Improved gait this date date with larger strides. Continues to use standard cane. Improved concentric quad contraction with LAQ. Fair patellar mobility. Pain with AAROM with strap. Plan Planned interventions include: aquatic therapy, cryotherapy, dry needling, edema control, education/instruction, electrical stimulation, gait training, home program, hot pack, kinesiotaping, manual therapy, neuromuscular re-education, self care/home management, therapeutic activities, therapeutic exercises and ultrasound. Goals: Goals set and discussed today. Pt will demo and report compliance with HEP in order to augment POC goals and progression toward independence with symptom management. Pt will demo improved AROM in L knee >/= 100 FLEX and Gait/Locomotion: Pt will demo improved gait mechanics with even step length, stance time, proper heel strike and push off, and min-no evidence of instability or antalgic gait for return to PLOF., by week 4 Range of Motion/Joint Mobility: Pt will demo improved AROM in L knee >/= 120 FLEX and Strength: Pt will demo improved MMT by >/= 1 point on 0-5 point scale in BLE for improved strength and stability, and improved ease with transfers, lifting/carrying, and proper mechanics with ADLs AND IADLs., by week 4 LEFS, Pt will report subjective improvement with score on LEFS improved by >/= 5 points for return to PLOF, improved QOL, and improved ease with ADLs AND IADLs., by week 4 Frequency and duration: 3 time(s) a week, for 4 weeks, for 12 visits. Potential to achieve rehab goals is good Plan to continue with strength and ROM progression as able. Signatures Electronically signed by : Shaunna Moore, PLANNED GIVING OFFICER; Nov 08 2019 4:46PM EST (Author) Electronically signed by : Aurelia Randle, PT; Nov 09 2019 1:41PM EST [facility] PT Progress Note Therapy Diagnosis Assessed Acute pain of left knee (719.46) (M25.562) Stiffness of left knee (719.56) (M25.662) Swelling of left knee joint (719.06) (M25.462) Insurance Insurance reviewed Visit number: 5 Authorization not required after evaluation POC: 01/06 Medicare/AARP Supervising PT: Aurelia Randle PT, DPT, Cert DN . Subjective Patient reports: Reports tightness and L knee pain 01/04. Notes that she is still having soreness in the knee. States that she has started sleeping in her bed instead of the recliner. Notes that she still has trouble sleeping d/t throbbing and has tried a pillow between the knees. Patient rates current pain 01/04. Precautions: Fall Risk: low RA; OA; Htn; B/L TKR. Objective Ortho 104 degrees. Treatment Time in clinic started at 4:00 pm Time in clinic ended at 4:42 pm Total time in clinic is 42 minutes. Total timed code time is 39 minutes. Therapeutic exercise (85020): timed minutes 39, units 3 . Rec Bike was able to get full rotation 6' Slant board 2 x 1 Step ups 2 x15 L LE - fwd - lateral (N) Heel raises 2 x15 Standing mini squats 2 x 10 (N) SLR 2 x 10 HS stretch 10x10 holds Seated GS stretch w/ strap 10x10 holds LAQ 2 x10 SAQ 2 x 10 Supine QS 2 x 10x5 holds w/ towel (P reps) Heel slides w/ strap 10x10 holds Lyrical knee flexion stretch (X) Gait sequence with SPC Not performed Seated QS 10x 10 holds L L(X). Manual Therapy (58211):. patellar mobs all directions x 3' grades I-II; gentle stm to quad, IT band, HS, Add AND GS (X) . Provided today: education . LAQ/SAQ/seated SLR with handout issued. Assessment Slow guarded gait observed this date in the clinic with use of standard cane. Improved ROM with AAROM flexion this date. Mild patellar tightness during palpation. Plan Planned interventions include: aquatic therapy, cryotherapy, dry needling, edema control, education/instruction, electrical stimulation, gait training, home program, hot pack, kinesiotaping, manual therapy, neuromuscular re-education, self care/home management, therapeutic activities, therapeutic exercises and ultrasound. Goals: Goals set and discussed today. Pt will demo and report compliance with HEP in order to augment POC goals and progression toward independence with symptom management. Pt will demo improved AROM in L knee >/= 100 FLEX and Gait/Locomotion: Pt will demo improved gait mechanics with even step length, stance time, proper heel strike and push off, and min-no evidence of instability or antalgic gait for return to PLOF., by week 4 Range of Motion/Joint Mobility: Pt will demo improved AROM in L knee >/= 120 FLEX and Strength: Pt will demo improved MMT by >/= 1 point on 0-5 point scale in BLE for improved strength and stability, and improved ease with transfers, lifting/carrying, and proper mechanics with ADLs AND IADLs., by week 4 LEFS, Pt will report subjective improvement with score on LEFS improved by >/= 5 points for return to PLOF, improved QOL, and improved ease with ADLs AND IADLs., by week 4 Frequency and duration: 3 time(s) a week, for 4 weeks, for 12 visits. Potential to achieve rehab goals is good Plan to continue with strength and ROM progression as able. Signatures Electronically signed by : Shaunna Moore PTA; Nov 06 2019 4:42PM EST (Author) Normal nap- [facility] PT Progress Note Therapy Diagnosis Assessed Acute pain of left knee (719.46) (M25.562) Stiffness of left knee (719.56) (M25.662) Swelling of left knee joint (719.06) (M25.462) Insurance Insurance reviewed Visit number: 4 Authorization not required after evaluation POC: 01/06 Medicare/AARP Supervising PT: Aurelia Randle PT, DPT, Tiesha DN . Subjective Patient reports: Reports tightness and L knee pain /. States sleeping in bed last night and only up once. Precautions: Fall Risk: low RA; OA; Htn; B/L TKR. Treatment Time in clinic started at 2:20 pm Time in clinic ended at 3:13 pm Total time in clinic is 53 minutes. Total timed code time is 47 minutes. Therapeutic exercise (28142): timed minutes 35, units 2 . Rec Bike was able to get full rotation 6' Slant board 2 x 1 Step ups x15 L LE (P) Heel raises x15 (P) Seated QS 10x 10 holds L L(X) SLR 2 x 10 HS stretch 10x10 holds Seated GS stretch w/ strap 10x10 holds LAQ 2 x10 SAQ 2 x 10 Supine QS 10x5 holds w/ pillow Heel slides w/ strap 10x10 holds Lyrical knee flexion stretch (X) Gait sequence with SPC . Manual Therapy (23598): timed minutes 12, units 1 . patellar mobs all directions x 3' grades I-II; gentle stm to quad, IT band, HS, Add AND GS 5'. Provided today: education . LAQ/SAQ/seated SLR with handout issued. Assessment Tactile and verbal cues to correct compensation of gluts during Q sets at end range. Able to complete full rotations on Bike. Completed increased reps with CKC exercises without c/o. Instructed in proper sequence for utilizing SPC and she was able to reduplicate. Plan Planned interventions include: aquatic therapy, cryotherapy, dry needling, edema control, education/instruction, electrical stimulation, gait training, home program, hot pack, kinesiotaping, manual therapy, neuromuscular re-education, self care/home management, therapeutic activities, therapeutic exercises and ultrasound. Goals: Goals set and discussed today. Pt will demo and report compliance with HEP in order to augment POC goals and progression toward independence with symptom management. Pt will demo improved AROM in L knee >/= 100 FLEX and Gait/Locomotion: Pt will demo improved gait mechanics with even step length, stance time, proper heel strike and push off, and min-no evidence of instability or antalgic gait for return to PLOF., by week 4 Range of Motion/Joint Mobility: Pt will demo improved AROM in L knee >/= 120 FLEX and Strength: Pt will demo improved MMT by >/= 1 point on 0-5 point scale in BLE for improved strength and stability, and improved ease with transfers, lifting/carrying, and proper mechanics with ADLs AND IADLs., by week 4 LEFS, Pt will report subjective improvement with score on LEFS improved by >/= 5 points for return to PLOF, improved QOL, and improved ease with ADLs AND IADLs., by week 4 Frequency and duration: 3 time(s) a week, for 4 weeks, for 12 visits. Potential to achieve rehab goals is good Cont. with strengthening and ROM to allow improved endurance and goat kinematics with community ambulation. Signatures Electronically signed by : Annel Brock, PLANNED GIVING OFFICER; Nov 03 2019 3:22PM EST (Author) Electronically signed by : Aurelia Randle, PT; Nov 09 2019 1:40PM EST Normal nap- [facility] PT Progress Note Therapy Diagnosis Assessed Acute pain of left knee (719.46) (M25.562) Stiffness of left knee (719.56) (M25.662) Swelling of left knee joint (719.06) (M25.462) Insurance Insurance Visit number: 2 Authorization not required after evaluation POC: 10/08 Medicare/AARP Supervising PT: Aurelia Randle PT, DPT, Cert DN . Subjective Patient reports: Patient reports that she uses the walker mainly in the community. Current pain level 7/10. States that she took pain meds at 6 this morning and around 1:15 pm today. Patient reports that she was sore after the evaluation. Patient rates current pain 7/10. Precautions: Fall Risk: low RA; OA; Htn; B/L TKR. Objective Ortho 92 degrees AAROM flexion with strap. Treatment Time in clinic started at 2:25 pm Time in clinic ended at 3:10 pm Total time in clinic is 45 minutes. Total timed code time is 40 minutes. Therapeutic exercise (51657): timed minutes 40, units 3 . Heel slides w/ strap 10x10 holds Supine QS 10x5 holds w/ pillow under knee Seated QS 10x5 holds Seated HS stretch 10x10 holds Seated GS stretch w/ strap 10x10 holds Rec Bike pedal rocks 5' (N) SAQ 2 x 10 (N) LAQ 2 x10 (N) Seated SLR 2 x 10 (N) . Manual Therapy (16435):. patellar mobs all directions x 3' grades I-II; gentle stm to quad, IT band, HS, Add AND GS 5'. Provided today: education . LAQ/SAQ/seated SLR with handout issued. Assessment Arrived to PT using FWW this date but ambulated around the clinic w/out it. Verbal cues and demo for correct technique with all PRE's. Reviewed current HEP and issued new exercises for completion. Plan Planned interventions include: aquatic therapy, cryotherapy, dry needling, edema control, education/instruction, electrical stimulation, gait training, home program, hot pack, kinesiotaping, manual therapy, neuromuscular re-education, self care/home management, therapeutic activities, therapeutic exercises and ultrasound. Goals: Goals set and discussed today. Pt will demo and report compliance with HEP in order to augment POC goals and progression toward independence with symptom management. Pt will demo improved AROM in L knee >/= 100 FLEX and Gait/Locomotion: Pt will demo improved gait mechanics with even step length, stance time, proper heel strike and push off, and min-no evidence of instability or antalgic gait for return to PLOF., by week 4 Range of Motion/Joint Mobility: Pt will demo improved AROM in L knee >/= 120 FLEX and Strength: Pt will demo improved MMT by >/= 1 point on 0-5 point scale in BLE for improved strength and stability, and improved ease with transfers, lifting/carrying, and proper mechanics with ADLs AND IADLs., by week 4 LEFS, Pt will report subjective improvement with score on LEFS improved by >/= 5 points for return to PLOF, improved QOL, and improved ease with ADLs AND IADLs., by week 4 Frequency and duration: 3 time(s) a week, for 4 weeks, for 12 visits. Potential to achieve rehab goals is good Plan to continue with strength and ROM progression. Progress with POC, as tolerated. Signatures Electronically signed by : Shaunna Moore PLANNED GIVING OFFICER; Oct 27 2019 3:10PM EST (Author) Electronically signed by : Aurelia Randle PT; Nov 09 2019 1:40PM EST [facility] PT Initial Evaluationon 09-28 PT Initial Evaluation Reason For Visit Initial Evaluation . Left Knee Prosthetic. Referred by: Stanley Stephens Subjective Current Episode of Functional Impairment and/or Pain Date of onset: 10/18/19 Mechanism of Injury:. Pt is a 69 year female presenting today post-op L knee revision on 10/18/19 and was told it was kind of a mess in there and pt notes she was continuing to put it off as long as she could. Pt notes she just got home on Wednesday and notes she has her next F/U on November 01. Pt notes sleeping pretty good and is sleeping in recliner. Pt notes she is by herself and notes she only has the two steps to get in the house. Pt notes she has been trying to try and do her heel slides and SLR. Pt notes she has been using a piece of clothing to help lift LLE. Pt is icing often on and off all day. Pt notes initial L knee replacement in 2003 and R knee replacement in 2004. Pain: Patient rates pain 4/10 . Least severe: 4/10. Most Severe: /10. Patient reports aching, discomfort and loss of motion. Location: L knee. Denies any N/T or sharp/stabbing pains. Her pain is constant and improving. Exacerbating Factors: time of day: AM, sitting, squatting, standing, stairs, walking. Relieving Factors: rest, elevation, ice. Medical Screening: No signs of domestic/child or elder abuse . Fall risk low. Medical screening assessed. Functional Assessment and Medical Management Prior level of function: independent with ADL's and IADLs. Functional limitations: standing , sitting , walking and stairs . Work Status: retired. Current Status: improving. Patient Awareness: Patient is aware of her diagnosis and prognosis. Current Medical Management: previous therapy: . Prior L TKR in 2003. Patient stated goal(s) for treatment include: relieving pain , increasing strength , increasing mobility and walking with a normal gait . Living Environment: reviewed and no concern. Precautions: Fall Risk: low RA; OA; Htn; B/L TKR. Objective Ortho LEFS:41/80 R Knee AROM: Flex: 123 Ext: 0 L Knee AROM: Flex: 88 Ext: 7 HYPO MMT: (RLE/LLE) Hip Flex: 4+/3+ Hip Ext: 4-/3+ Hip ABD: 4/4- Knee Flex: 4+/3+ Knee Ext: 4+/3 P! Ankle DF: 4+/4- Ankle PF: 4+/4 Quad Activation: fair Incision: covered with waterproof bandage and carlito wrap without any signs of infection or delayed healing. Palpation: restriction and tenderness throughout IT band, HS, Quad, GS, and ADD Joint Mobility Patella:1-2/6 all directions Posture/Body Mechanics: guarded and BUE A with all transfers; weight bearing through RLE more than LLE with kicking LLE out with sitting; Significant difficulty with lifting LLE onto mat table Gait Mechanics: antalgic, decreased stance time LLE, decreased heel strike and TKE, decreased toan, . Assessment Ms. PATTERSON presents with signs and symptoms consistent with L total knee revision and demonstrates impairments/limitations in L knee ROM, decreased quad activation/motor control. altered gait mechanics and difficulty with all transfers, weakness in LLE, and increased swelling, as well as myofascial and joint restriction throughout LLE. They would benefit from skilled Physical Therapy with combination of manual therapy techniques to decrease myofascial and joint restrictions, as well as progression of exercises for ROM, flexibility, strength, core stabilization, and glute retraining, and body mechanics education throughout POC to progress towards independence with ADLs/IADLs and return to PLOF. Clinical Presentation: Stable and/or uncomplicated characteristics. Level of Complexity: low Problem List: activity limitations, ADLs/IADLs/self care skills, balance, decreased functional level, fall risk, flexibility, gait/locomotion, motor function/control/tone, pain, participation restrictions, posture, range of motion/joint mobility and strength. Therapy Diagnosis Assessed Acute pain of left knee (719.46) (M25.562) Stiffness of left knee (719.56) (M25.662) Swelling of left knee joint (719.06) (M25.462) Treatment Time in clinic started at 0105 pm Time in clinic ended at 0200 pm Total time in clinic is 53 minutes. Total timed code time is 38 minutes. Treatment Performed Today:. TE: Heel slides w/ strap 10x10 holds; Supine QS 10x5 holds w/ pillow under knee; Seated QS 10x5 holds; Seated HS stretch 10x10 holds; Seated GS stretch w/ strap 10x10 holds; Rec Bike (A); SAQ (A); LAQ (A); Seated SLR (A); Manual: patellar mobs all directions x 3' grades I-II; gentle stm to quad, IT band, HS, Add AND GS 5'. Response to treatment: increased pain and improved knowledge and understanding of condition. Patient was able to complete today's treatment with much difficulty. Evaluation Code: 28266 PT Eval: Low Complexity, 15 min(s). Timed: 06764 Therapeutic Exercises, 30 min(s), 2 unit(s), 96802 Manual Therapy, 8 min(s), 1 unit(s). Resources provided today: education Pt edu on POC, HEP, symptom management, posture/body mechanics, sleeping position, and activity modification. Access Code: [email or web address] URL: [email or web address] Date: 10/23/2019 Prepared by: Aurelia Stafford Exercises Seated Heel Slide- 10 reps- 2 sets- 10 hold- 3x daily- 7x weekly Supine Heel Slide with Strap- 10 reps- 2 sets- 10 hold- 3x daily- 7x weekly Seated Gastroc Stretch with Strap- 10 reps- 3 sets- 10 hold- 3x daily- 7x weekly Seated Hamstring Stretch- 10 reps- 3 sets- 10 hold- 3x daily- 7x weekly Seated Quad Set- 10 reps- 2 sets- 5 hold- 3x daily- 7x weekly Supine Quad Set- 10 reps- 3 sets- 5 hold- 3x daily- 7x weekly . Plan of Care Planned interventions include: aquatic therapy, cryotherapy, dry needling, edema control, education/instruction, electrical stimulation, gait training, home program, hot pack, kinesiotaping, manual therapy, neuromuscular re-education, self care/home management, therapeutic activities, therapeutic exercises and ultrasound. Goals: Goals set and discussed today. Pt will demo and report compliance with HEP in order to augment POC goals and progression toward independence with symptom management. Pt will demo improved AROM in L knee >/= 100 FLEX and Gait/Locomotion: Pt will demo improved gait mechanics with even step length, stance time, proper heel strike and push off, and min-no evidence of instability or antalgic gait for return to PLOF., by week 4 Range of Motion/Joint Mobility: Pt will demo improved AROM in L knee >/= 120 FLEX and Strength: Pt will demo improved MMT by >/= 1 point on 0-5 point scale in BLE for improved strength and stability, and improved ease with transfers, lifting/carrying, and proper mechanics with ADLs AND IADLs., by week 4 LEFS, Pt will report subjective improvement with score on LEFS improved by >/= 5 points for return to PLOF, improved QOL, and improved ease with ADLs AND IADLs., by week 4 Frequency and duration: 3 time(s) a week, for 4 weeks, for 12 visits. Potential to achieve rehab goals is good Plan of care was developed with input and agreement by the patient. Insurance Insurance reviewed Visit number: 1 Authorization not required after evaluation POC: 10/08 Medicare/[employer] Supervising PT: Aurelia Randle PT, DPT, Cert DN . Contacts for Physician Signature First attempt date: 10/23/19. Referring Provider Signature: I am in agreement with the above plan of care. Referring Provider Signature , Date/Time Normal [facility] CBC WITH AUTO DIFFERENTIALon 09-21-2019 Basophils (Bld) [#/Vol] 0.06 10*3/uL [facility] Basophils/100 WBC (Bld) 0.5 % [facility] Eosinophils (Bld) [#/Vol] 0.17 10*3/uL [facility] Eosinophils/100 WBC (Bld) 1.4 % [facility] Erythrocyte distribution width (RBC) [Entitic vol] 16.7 % High 11.6 - 14.8 % [facility] Hematocrit (Bld) [Volume fraction] 38.2 % 36 - 46 % [facility] Hemoglobin (Bld) [Mass/Vol] 12.5 g/dL 12 - 16 g/dL [facility] Immature granulocytes (Bld) [#/Vol] 0.07 10*3/uL [facility] Immature granulocytes/100 WBC (Bld) 0.60 % [facility] Comment on above: The IG parameter is the percentage of metamyelocytes, myelocytes, and promyelocytes. Interpretation and review of laboratory results Abnormal [facility] Lymphocytes (Bld) [#/Vol] 1.15 10*3/uL [facility] Lymphocytes/100 WBC (Bld) 9.7 % [facility] MCH (RBC) [Entitic mass] 28.5 pg 26 - 34 pg [facility] MCHC (RBC) [Mass/Vol] 32.7 g/dL 31 - 37 g/dL [facility] MCV (RBC) [Entitic vol] 87.2 fL 80 - 100 fL [facility] Monocytes (Bld) [#/Vol] 0.89 10*3/uL [facility] Monocytes/100 WBC (Bld) 7.5 % [facility] Neutrophils (Bld) [#/Vol] 9.54 10*3/uL [facility] Neutrophils/100 WBC (Bld) 80.3 % [facility] Nucleated RBC (Bld) [#/Vol] 0.00 10*3/uL [facility] Nucleated RBC/100 WBC (Bld) [Ratio] 0.0 % [facility] Platelet mean volume (Bld) [Entitic vol] 9.5 fL 9 - 15.5 fL [facility] Platelets (Bld) [#/Vol] 286 10*3/uL [facility] RBC (Bld) [#/Vol] 4.38 10*6/uL [facility] eah WBC (Bld) [#/Vol] 11.88 10*3/uL [facility] CTA PULM ART AND CT ABD PELV IS WITH IV CONTRASTon 09-21-[address] ABD PELVIS WITH IV CONTRAST EXAMINATION: CTA PULMONARY ARTERIES, CT ABDOMEN WITH CONTRAST, AND CT PELVIS WITH CONTRAST, 09/21/2019 HISTORY: D-dimer; POSITIVE D-DIMER COMPARISON: Chest radiograph, 09/21/2019. TECHNIQUE: IV contrast-enhanced axial CTA imaging of the chest was performed using 75 mL of Isovue-370 intravenous contrast. MIP and MPR images are provided. The same contrast bolus was then utilized for IV contrast-enhanced axial CT imaging of the abdomen and pelvis with sagittal and coronal reconstructions. Dose reduction techniques were achieved by using automated exposure control and/or adjustment of mA and/or kV according to patient size and/or use of iterative reconstruction technique. FINDINGS: CTA CHEST: No pulmonary embolism is seen through the segmental level. Cardiac size is normal. There is no pericardial effusion. The ascending aorta is mildly degraded by pulsation artifact. Allowing for this, the aorta and arch vessels are unremarkable with no dissection or aneurysm. Calcified granulomatous mediastinal lymph nodes are noted. The thyroid gland is unremarkable. There is passive atelectasis in the posterior lower lobes with linear lingular and posterior right upper lobe atelectasis. No edema, focal infiltrate, pleural effusion or pneumothorax is seen. CT ABDOMEN: There are moderate aortic and iliac calcifications without dissection or aneurysm. The celiac axis, superior mesenteric artery, bilateral renal arteries, and inferior mesenteric artery are patent and unremarkable. There is mild hepatic steatosis. The gallbladder, pancreas, spleen, adrenal glands, kidneys, and stomach are unremarkable. There is a 2.5 cm diverticulum in the proximal 3rd portion of the duodenum on image 58 of series 11. The small bowel is otherwise unremarkable. CT PELVIS: The patient is status post appendectomy. The pelvic small bowel loops, uterus, ovaries and urinary bladder are unremarkable. There is mild distal descending and sigmoid colon diverticulosis with a normal volume of colonic stool and gas. Small fat-containing bilateral inguinal hernias are noted. No inflammatory fat stranding, free fluid, loculated fluid or free air is seen in the abdomen or pelvis. The imaged axial skeleton appears intact. IMPRESSION: 1. No pulmonary arterial embolism, aortic dissection, or other acute thoracic findings. 2. No acute findings in the abdomen or pelvis. 3. Hepatic steatosis. 4. Duodenal diverticulum. 5. Status post appendectomy. 6. Left colon diverticulosis. 7. Small fat-containing bilateral inguinal hernias. [email or web address] Workstation ID: [id number] Dictated by: SAM SIMPSON on WedSep 21, 2019 3:18:24 AM EST Transcribed by: JASMIN JADE on WedSep 21, 2019 3:29:32 AM EST Finalized by: SAM SIMPSON on WedSep 21, 2019 5:57:08 AM EST Normal [facility] Comment on above: Order Comment: Injur y/Trauma or Illness?:Illness/Other How long have you had these symptoms (acute/chronic)?:Acute Reason for exam?:MID BACK PAIN, ELEVATED D-DIMER Type of Exam?:Unknown Additional signs and symptoms?:UNKNOWN CTA Pulm Art and CT Abd Pelv is with IV contraston 09-21-2019 Interface, Rad In [facility] Speechq - 09/21/2019 5:59 AM EST EXAMINATION: CTA PULMONARY ARTERIES, CT ABDOMEN WITH CONTRAST, AND CT PELVIS WITH CONTRAST, 09/21/2019 HISTORY: D-dimer; POSITIVE D-DIMER COMPARISON: Chest radiograph, 09/21/2019. TECHNIQUE: IV contrast-enhanced axial CTA imaging of the chest was performed using 75 mL of Isovue-370 intravenous contrast. MIP and MPR images are provided. The same contrast bolus was then utilized for IV contrast-enhanced axial CT imaging of the abdomen and pelvis with sagittal and coronal reconstructions. Dose reduction techniques were achieved by using automated exposure control and/or adjustment of mA and/or kV according to patient size and/or use of iterative reconstruction technique. FINDINGS: CTA CHEST: No pulmonary embolism is seen through the segmental level. Cardiac size is normal. There is no pericardial effusion. The ascending aorta is mildly degraded by pulsation artifact. Allowing for this, the aorta and arch vessels are unremarkable with no dissection or aneurysm. Calcified granulomatous mediastinal lymph nodes are noted. The thyroid gland is unremarkable. There is passive atelectasis in the posterior lower lobes with linear lingular and posterior right upper lobe atelectasis. No edema, focal infiltrate, pleural effusion or pneumothorax is seen. CT ABDOMEN: There are moderate aortic and iliac calcifications without dissection or aneurysm. The celiac axis, superior mesenteric artery, bilateral renal arteries, and inferior mesenteric artery are patent and unremarkable. There is mild hepatic steatosis. The gallbladder, pancreas, spleen, adrenal glands, kidneys, and stomach are unremarkable. There is a 2.5 cm diverticulum in the proximal 3rd portion of the duodenum on image 58 of series 11. The small bowel is otherwise unremarkable. CT PELVIS: The patient is status post appendectomy. The pelvic small bowel loops, uterus, ovaries and urinary bladder are unremarkable. There is mild distal descending and sigmoid colon diverticulosis with a normal volume of colonic stool and gas. Small fat-containing bilateral inguinal hernias are noted. No inflammatory fat stranding, free fluid, loculated fluid or free air is seen in the abdomen or pelvis. The imaged axial skeleton appears intact. IMPRESSION: 1. No pulmonary arterial embolism, aortic dissection, or other acute thoracic findings. 2. No acute findings in the abdomen or pelvis. 3. Hepatic steatosis. 4. Duodenal diverticulum. 5. Status post appendectomy. 6. Left colon diverticulosis. 7. Small fat-containing bilateral inguinal hernias. [email or web address] Workstation ID: [id number] [facility] EXAMINATION: CTA PULMONARY ARTERIES, CT ABDOMEN WITH CONTRAST, AND CT PELVIS WITH CONTRAST, 09/21/2019 HISTORY: D-dimer; POSITIVE D-DIMER COMPARISON: Chest radiograph, 09/21/2019. TECHNIQUE: IV contrast-enhanced axial CTA imaging of the chest was performed using 75 mL of Isovue-370 intravenous contrast. MIP and MPR images are provided. The same contrast bolus was then utilized for IV contrast-enhanced axial CT imaging of the abdomen and pelvis with sagittal and coronal reconstructions. Dose reduction techniques were achieved by using automated exposure control and/or adjustment of mA and/or kV according to patient size and/or use of iterative reconstruction technique. FINDINGS: CTA CHEST: No pulmonary embolism is seen through the segmental level. Cardiac size is normal. There is no pericardial effusion. The ascending aorta is mildly degraded by pulsation artifact. Allowing for this, the aorta and arch vessels are unremarkable with no dissection or aneurysm. Calcified granulomatous mediastinal lymph nodes are noted. The thyroid gland is unremarkable. There is passive atelectasis in the posterior lower lobes with linear lingular and posterior right upper lobe atelectasis. No edema, focal infiltrate, pleural effusion or pneumothorax is seen. CT ABDOMEN: There are moderate aortic and iliac calcifications without dissection or aneurysm. The celiac axis, superior mesenteric artery, bilateral renal arteries, and inferior mesenteric artery are patent and unremarkable. There is mild hepatic steatosis. The gallbladder, pancreas, spleen, adrenal glands, kidneys, and stomach are unremarkable. There is a 2.5 cm diverticulum in the proximal 3rd portion of the duodenum on image 58 of series 11. The small bowel is otherwise unremarkable. CT PELVIS: The patient is status post appendectomy. The pelvic small bowel loops, uterus, ovaries and urinary bladder are unremarkable. There is mild distal descending and sigmoid colon diverticulosis with a normal volume of colonic stool and gas. Small fat-containing bilateral inguinal hernias are noted. No inflammatory fat stranding, free fluid, loculated fluid or free air is seen in the abdomen or pelvis. The imaged axial skeleton appears intact. [facility] 1. No pulmonary sabine rial embolism, aortic dissection, or other acute thoracic findings. 2. No acute findings in the abdomen or pelvis. 3. Hepatic steatosis. 4. Duodenal diverticulum. 5. Status post appendectomy. 6. Left colon diverticulosis. 7. Small fat-containing bilateral inguinal hernias. WPT/vrs Workstation ID: [id number] [facility] Comprehensive Metabolic Pane barber 09-21-2019 Albumin [Mass/Vol] 3.3 g/dL 3.2 - 5.2 g/dL [facility] ALP [Catalytic activity/Vol] 103 U/L 40 - 150 U/L [facility] ALT [Catalytic activity/Vol] 29 U/L 14 - 65 U/L [facility] Anion gap [Moles/Vol] 11 mmol/L 10 - 2 0 mmol/L [facility] AST [Catalytic activity/Vol] 20 U/L 0 - 45 U/L [facility] Bilirubin [Mass/Vol] 0.4 mg/dL 0 - 1.3 mg/dL [facility] Calcium [Mass/Vol] 8.0 mg/dL Low 8.4 - 10. 2 mg/dL [facility] Chloride [Moles/Vol] 104 mmol/L 98 - 10 8 mmol/L [facility] Creatinine [Mass/Vol] 1.24 mg/dL High 0.6 - 1.2 mg/dL [facility] GFR/1.73 sq M predicted among non-blacks MDRD (S/P/Bld) [Vol rate/Area] The eGFR should be used for monitoring renal function only and not for medication dosing. [facility] GFR/1.73 sq M.predicted CKD-EPI (S/P/Bld) [Vol rate/Area] 44 Low >=60 mL/min/1.73 m2 [facility] Glucose [Mass/Vol] 161 mg/dL High 65 - 99 mg/dL [facility] HCO3 [Moles/Vol] 29 mmol/L 21 - 32 mmol/L [facility] Potassium [Moles/Vol] 3.5 mmol/L 3.5 - 5.1 mmol/L [facility] Protein [Mass/Vol] 8.3 g/dL High 6 - 8 g/dL [facility] alth Sodium [Moles/Vol] 140 mmol/L 135 - 145 mmol/L [facility] Urea nitrogen [Mass/Vol] 25 mg/dL 8 - 25 mg/dL [facility] Urea nitrogen/Creatinine [Mass ratio] 20.2 mg/mg High [facility] D-DIMER, QUANTITATIVEon 12-2 Fibrin D-dimer FEU (PPP) [Mass/Vol] 0.63 High 0.27 - 0.49 mcg/mL FEU [facility] Interpretation and review of laboratory results Abnormal [facility] A D-dimer concentrat ion of <0.5 micrograms per milliliter FEU is considered a low probability for pulmonary embolus (PE) and deep venous thrombosis (DVT). Results of this test should always be interpreted in conjunction with the patient's medical history,clinical presentation, and other findings. Clinical diagnosis should not be based on the results of the D-dimer alone. [facility] ECG 12-LEADon 12-26-2019 Atrial Rate 67 BPM [facility] P Dyer 53 degrees [facility] P-R Interval 156 ms [facility] Q-T Interval 394 ms [facility] QRS Duration 80 ms [facility] QTC Calculation (Bezet) 416 ms [facility] R Dyer 14 degrees [facility] T Dyer 53 degrees [facility] Ventricular Rate 67 BPM [facility] Normal sinus rhythm Normal ECG ECG Cart Interpretation see physician note for interpretation. Confirmed by Montserrat Williamson ([id number]) on 09/21/2019 8:18:00 AM [facility] Gold Topon 09-21-2019 Extra Tube Hold for add-ons. [facility] Comment on above: Auto resulted. Lactic Acid, Plasmaon 2018 Interpretation and review of laboratory results Normal [facility] Lactate [Moles/Vol] 1.3 mmol/L 0.6 - 2 mmol/L [facility] Lipaseon 09-21-2019 Lipase [Catalytic activity/Vol] 21 U/L Low 73 - 393 U/L [facility] Otheron 09-21-2019 Interpretation and review of laboratory results Abnormal [facility] PT/INRon 09-21-2019 INR Coag (PPP) [Relative time] 1.1 {INR} [facility] Interpretation and review of laboratory results Normal [facility] PT Coag (PPP) [Time] 13.[address] [facility] During the induction phase of oral anticoagulation, the INR may not reflect the anticoagulation status of the patient. Therapeutic ranges for INR's are: Most clinical situations: INR 2.0-3.0 Mechanical Prosthetic Valve: INR 2.5-3.5 Critical: INR >5.0 [facility] TROPONINon 09-21-2019 Troponin I.cardiac [Mass/Vol] Normal [facility] Troponin I.cardiac [Mass/Vol] ng/mL <=45 ng/L [facility] URINALYSISon 09-21-2019 Bacteria Auto Ql (U) None Seen None Se en /hpf [facility] Bilirubin Ql (U) Negative Negative [facility] Clarity Refractometry automated (U) Clear Clear [facility] Color (U) Yellow Colorless, Yellow [facility] Epithelial cells.squamous Auto (Urine sed) [#/Area] 1 [facility] Glucose Auto test strip (U) [Mass/Vol] Negative Negative mg/dL [facility] Hemoglobin Auto test strip Ql (U) Negative Negative [facility] Interpretation and review of laboratory results Abnormal [facility] Ketones (U) [Mass/Vol] Negative Negat diego mg/dL [facility] Leukocyte esterase Auto test strip Ql (U) [facility] (Urine sed) [#/Area] Rare None Seen, Rare /lpf [facility] Nitrite Auto test strip Ql (U) Negative Negative [facility] pH (U) 5.0 [pH] [facility] Protein (U) [Mass/Vol] Negative Negat diego mg/dL [facility] Specific gravity (U) [Rel density] 1.031 High [facility] Urobilinogen (U) [Mass/Vol] 2.0 mg/dL Abnormal <2.0 [facility] WBC Auto (Urine sed) [#/Area] 1 [facility] Microscopic examinat ion is performed on all urinalysis samples and only positive findings are reported. The test for blood on the chemical analytic portion of urinalysis may also be positive due to hemoglobinuria and myoglobinuria and if red blood cells are present they are quantified by microscopic examination. [facility] XR CHEST PA/APon 09-21-2019 XR CHEST PA/AP EXAMINATION: XR CHEST PA/AP, 09/21/2019 HISTORY: back/flank pain COMPARISON: Chest, 08/29/2019. FINDINGS: The heart is mildly enlarged. The mediastinal contour and pulmonary vascularity are within normal limits. The lungs are well expanded and clear. IMPRESSION: Mild cardiomegaly without acute cardiopulmonary disease. Workstation ID: [id number] Dictated by: SAM SIMPSON on Raquel Sep 21, 2019 1:45:43 AM EST Transcribed by: SAM SIMPSON on [facility] Sep 21, 2019 1:45:43 AM EST Finalized by: SAM SIMPSON on Raquel Sep 21, 2019 1:45:43 AM EST Normal [facility] Comment on above: Order Comment: Injur y/Trauma or Illness?:Illness/Other How long have you had these symptoms (acute/chronic)?:Acute Reason for exam?:pain History of cancer?:u Surgeries, chemotherapy, or radiation?:u Type of Exam?:Initial Additional signs and symptoms?:. XR Chest 1 Viewon 09-21-2019 EXAMINATION: XR CHES T PA/AP, 09/21/2019 HISTORY: back/flank pain COMPARISON: Chest, 08/29/2019. FINDINGS: The heart is mildly enlarged. The mediastinal contour and pulmonary vascularity are within normal limits. The lungs are well expanded and clear. [facility] Interface, Rad In [facility] Speechq - 09/21/2019 1:48 AM EST EXAMINATION: XR CHEST PA/AP, 09/21/2019 HISTORY: back/flank pain COMPARISON: Chest, 08/29/2019. FINDINGS: The heart is mildly enlarged. The mediastinal contour and pulmonary vascularity are within normal limits. The lungs are well expanded and clear. IMPRESSION: Mild cardiomegaly without acute cardiopulmonary disease. Workstation ID: [id number] [facility] Mild cardiomegaly wi thout acute cardiopulmonary disease. Workstation ID: [id number] [facility] Basic Metabolic Panelon Anion gap [Moles/Vol] 12 mmol/L 10 - 2 0 mmol/L [facility] Calcium [Mass/Vol] 8.8 mg/dL 8.4 - 10. 2 mg/dL [facility] Chloride [Moles/Vol] 107 mmol/L 98 - 10 8 mmol/L [facility] Creatinine [Mass/Vol] 0.93 mg/dL 0.6 - 1.2 mg/dL [facility] GFR/1.73 sq M predicted among non-blacks MDRD (S/P/Bld) [Vol rate/Area] The eGFR should be used for monitoring renal function only and not for medication dosing. [facility] GFR/1.73 sq M.predicted CKD-EPI (S/P/Bld) [Vol rate/Area] 62 >=60 mL/min/1.73 m2 [facility] Glucose [Mass/Vol] 118 mg/dL High 65 - 99 mg/dL [facility] HCO3 [Moles/Vol] 27 mmol/L 21 - 32 mmol/L [facility] Interpretation and review of laboratory results Abnormal [facility] Potassium [Moles/Vol] 4.5 mmol/L 3.5 - 5.1 mmol/L [facility] Sodium [Moles/Vol] 141 mmol/L 135 - 145 mmol/L [facility] Urea nitrogen [Mass/Vol] 15 mg/dL 8 - 25 mg/dL [facility] Urea nitrogen/Creatinine [Mass ratio] 16.1 mg/mg [facility] CBC WITH AUTO DIFFERENTIALon 08-29-2019 Basophils (Bld) [#/Vol] 0.06 10*3/uL [facility] Basophils/100 WBC (Bld) 0.6 % [facility] Eosinophils (Bld) [#/Vol] 0.17 10*3/uL [facility] Eosinophils/100 WBC (Bld) 1.8 % [facility] Erythrocyte distribution width (RBC) [Entitic vol] 17.1 % High 11.6 - 14.8 % [facility] Hematocrit (Bld) [Volume fraction] 37.6 % 36 - 46 % [facility] Hemoglobin (Bld) [Mass/Vol] 12.2 g/dL 12 - 16 g/dL [facility] Immature granulocytes (Bld) [#/Vol] 0.04 10*3/uL [facility] Immature granulocytes/100 WBC (Bld) 0.40 % [facility] Comment on above: The IG parameter is the percentage of metamyelocytes, myelocytes, and promyelocytes. Interpretation and review of laboratory results Abnormal [facility] Lymphocytes (Bld) [#/Vol] 1.34 10*3/uL [facility] Lymphocytes/100 WBC (Bld) 13.8 % [facility] MCH (RBC) [Entitic mass] 28.2 pg 26 - 34 pg [facility] MCHC (RBC) [Mass/Vol] 32.4 g/dL 31 - 37 g/dL [facility] MCV (RBC) [Entitic vol] 86.8 fL 80 - 100 fL [facility] Monocytes (Bld) [#/Vol] 0.92 10*3/uL High [facility] Monocytes/100 WBC (Bld) 9.5 % [facility] Neutrophils (Bld) [#/Vol] 7.17 10*3/uL High [facility] Neutrophils/100 WBC (Bld) 73.9 % [facility] Nucleated RBC (Bld) [#/Vol] 0.00 10*3/uL [facility] Nucleated RBC/100 WBC (Bld) [Ratio] 0.0 % [facility] Platelet mean volume (Bld) [Entitic vol] 9.8 fL 9 - 15.5 fL [facility] Platelets (Bld) [#/Vol] 293 10*3/uL [facility] RBC (Bld) [#/Vol] 4.33 10*6/uL [facility] eah WBC (Bld) [#/Vol] 9.70 10*3/uL [facility]alth ECG 12-LEADon 08-29-2019 Atrial Rate 66 BPM [facility] P Dyer 81 degrees [facility] P-R Interval 156 ms [facility] Q-T Interval 416 ms [facility] QRS Duration 78 ms [facility] QTC Calculation (Bezet) 436 ms [facility] R Dyer -2 degrees [facility] T Dyer 53 degrees [facility] Ventricular Rate 66 BPM [facility] Undetermined rhythm Otherwise normal ECG ECG Cart Interpretation see physician note for interpretation. Confirmed by Idris Aguirre ([id number]) on 08/29/2019 11:04:24 AM [facility] Andrew Topon 08-29-2019 Extra Tube Hold for add-ons. [facility] Comment on above: Auto resulted. PT/INRon 08-29-2019 INR Coag (PPP) [Relative time] 1.0 {INR} [facility] Interpretation and review of laboratory results Normal [facility] PT Coag (PPP) [Time] 12.[address] [facility] During the induction phase of oral anticoagulation, the INR may not reflect the anticoagulation status of the patient. Therapeutic ranges for INR's are: Most clinical situations: INR 2.0-3.0 Mechanical Prosthetic Valve: INR 2.5-3.5 Critical: INR >5.0 [facility] TROPONINon 08-29-2019 Troponin I.cardiac [Mass/Vol] ng/mL <=45 ng/L [facility] Troponin I.cardiac [Mass/Vol] Normal [facility] XR CHEST AP/PA AND LATon XR CHEST AP/PA AND LAT EXAMINATION: XR CHEST AP/PA AND LAT HISTORY: ORDERING SYSTEM PROVIDED HISTORY: chest pain, TECHNOLOGIST PROVIDED HISTORY: Illness/Other Reason for exam: chest pain Cancer History: u Surgery, RadiationHistory: u Encounter Type: Initial Additional signs and symptoms: sob ORDERING SYSTEM PROVIDED DIAGNOSIS CODES: COMPARISON: None. FINDINGS: Two-view chest x-ray. No pneumothorax, pleural effusion or focal dense airspace consolidation. Left upper lobe lingula subsegmental atelectasis. Heart is prominent in size. Bony thorax is unremarkable. IMPRESSION: Cardiomegaly without CHF findings. ST/cdr Workstation ID: [id number] Dictated by: REBEKAH PALACIO on WedAug 29, 2019 7:50:43 AM EST Transcribed by: JONATHAN JO on WedAug 29, 2019 7:51:47 AM EST Finalized by: REBEKAH PALACIO on WedAug 29, 2019 6:27:04 PM EST Normal [facility] Comment on above: Order Comment: Injur y/Trauma or Illness?:Illness/Other How long have you had these symptoms (acute/chronic)?:Acute Reason for exam?:chest pain History of cancer?:u Surgeries, chemotherapy, or radiation?:u Type of Exam?:Initial Additional signs and symptoms?:sob XR SHOULDER LEFT 2+ VIEWS (S TANDARD)on 08-29-2019 XR SHOULDER LEFT 2+ VIEWS (STANDARD) EXAMINATION: XR SHOULDER LEFT 2+ VIEWS (STANDARD) HISTORY: ORDERING SYSTEM PROVIDED HISTORY: shoulder pain, TECHNOLOGIST PROVIDED HISTORY: Illness/Other Reason for exam: lt shoulder pain Cancer History: u Surgery, RadiationHistory: u Encounter Type: Initial Additional signs and symptoms: no known injury ORDERING SYSTEM PROVIDED DIAGNOSIS CODES: COMPARISON: None. FINDINGS: Three views of the left shoulder. No acute fracture. Glenohumeral and acromioclavicular joints are anatomically aligned. Mild acromioclavicular joint osteoarthritis. Soft tissues are within normal limits. IMPRESSION: No acute fracture or traumatic malalignment. Mild left AC joint osteoarthritis. [facility] Workstation ID: [id number] Dictated by: REBEKAH PALACIO on WedAug 29, 2019 7:51:33 AM EST Transcribed by: JONATHAN JO on WedAug 29, 2019 7:52:33 AM EST Finalized by: REBEKAH PALACIO on WedAug 29, 2019 6:27:01 PM EST Normal [facility] Comment on above: Order Comment: Injur y/Trauma or Illness?:Illness/Other How long have you had these symptoms (acute/chronic)?:Chronic Reason for exam?:lt shoulder pain History of cancer?:u Surgeries, chemotherapy, or radiation?:u Type of Exam?:Initial Additional signs and symptoms?:no known injury Auto Diffon 04-20-2019 Basophils (Bld) [#/Vol] 0.1 E3/mcL Normal 0.0-0.2 [facility] Comment on above: Order Comment: Order Added by Discern Expert. Performed By: #### 2 [id number] #### [facility] [employer] [address] [place] [address] Basophils/100 WBC (Bld) 0.9 % Normal 0.0-2.0 [facility] Comment on above: Order Comment: Order Added by Discern Expert. Performed By: #### 2 [id number] #### [facility] [employer] [address] [place] [address] Eos Absolute 0.2 E3/mcL Normal 0.0-0.7 [facility] Comment on above: Order Comment: Order Added by Discern Expert. Performed By: #### 2 [id number] #### [facility] [employer] [address] [place] [address] Eosinophils/100 WBC (Bld) 2.9 % Normal 0.0-11.0 [facility] Comment on above: Order Comment: Order Added by Discern Expert. Performed By: #### 2 925025 #### [employer] [employer] [address] [place] [address] Lymphocytes (Bld) [#/Vol] 1.2 E3/mcL Normal 1.2-3.4 [facility] Comment on above: Order Comment: Order Added by [place] Expert. Performed By: #### 2 407128 #### [employer] [employer] [address] [place] [address] Lymphocytes/100 WBC (Bld) 15.9 % Low 20.0-55.0 [facility] Comment on above: Order Comment: Order Added by [place] Expert. Performed By: #### 2 777890 #### [employer] [employer] [address] [place] [address] Ector Absolute 0.6 E3/mcL Normal 0.0-0.7 [facility] Comment on above: Order Comment: Order Added by Discern Expert. Performed By: #### 2 817010 #### [facility] [employer] [address] [place] [address] Monocytes/100 WBC (Bld) 8.4 % Normal 0.0-10.0 [facility] Comment on above: Order Comment: Order Added by Discern Expert. Performed By: #### 2 026205 #### [facility] [employer] [address] [place] [address] Neutro Absolute 5.4 E3/mcL Normal 1.4-6.5 [facility] Comment on above: Order Comment: Order Added by Discern Expert. Performed By: #### 2 788867 #### [facility] [employer] [address] [place] [address] Neutro Auto 71.9 % Normal 37.0-75.0 [facility] Comment on above: Order Comment: Order Added by Discern Expert. Performed By: #### 2 759321 #### [facility] [address] [address] [place] [address] CBC w/ Auto Diffon Erythrocyte distribution width (RBC) [Ratio] 17.4 % High 11.5-14.5 [facility] Comment on above: Performed By: #### 2 645422 #### [facility] [address] [address] [place] [address] Hematocrit (Bld) [Volume fraction] 38.9 % Normal 36.0-48.0 [facility] Comment on above: Performed By: #### 2 547742 #### [facility] [address] [address] [place] [address] Hemoglobin (Bld) [Mass/Vol] 12.6 g/dL Normal 12.0-16.0 [facility] Comment on above: Performed By: #### 2 010374 #### [employer] [employer] [facility] [place] [address] MCH (RBC) [Entitic mass] 28.6 pg Normal 27.0-31.0 [facility] Comment on above: Performed By: #### 2 622414 #### [employer] [facility] [place] [address] MCHC (RBC) [Mass/Vol] 32.5 g/dL Low 33.0-37.0 [facility] Comment on above: Performed By: #### 2 149157 #### E[facility] [address] [address] [place] [address] MCV (RBC) [Entitic vol] 87.9 fL Normal 78.0-100.0 [facility] Comment on above: Performed By: #### 2 929237 #### [facility] [employer] [address] [place] [address] Platelet mean volume (Bld) [Entitic vol] 7.8 fL Normal 7.4-11.0 [facility] Comment on above: Performed By: #### 2 100683 #### [facility] [employer] [address] [place] [address] Platelets (Bld) [#/Vol] 337 E3/mcL Normal 130-400 [facility] Comment on above: Performed By: #### 2 387839 #### [facility] [employer] [address] [place] [address] RBC (Bld) [#/Vol] 4.42 E6/mcL Normal 3.90-5.40 [facility] Comment on above: Performed By: #### 2 923773 #### [facility] [employer] [facility] [place] [address] WBC (Bld) [#/Vol] 7.6 E3/mcL Normal 3.6-11.0 [facility] Comment on above: Performed By: #### 2 562426 #### [facility] [employer] [address] [place] [address] CRPon 04-20-2019 CRP [Mass/Vol] 2.33 mg/dL High 0.00-1.00 [facility] Comment on above: Performed By: #### 2 631102 #### [employer] [employer] [address] [place], [place] [address] Sed Rate Automatedon 019 Sed Rate Automated 75 mm/hr Normal [facility] Comment on above: Result Comment: AGE- SPECIFIC REFERENCE RANGES FOR SEDIMENTATION RATE AUTOMATED REFERENCE RANGE - MM/HR AGE MEN WOMEN 0-2 0-2 - PUBERTY 3-13 3-13 PUBERTY - 50 YRS 0-15 0-20 > 50 YRS 0-20 0-30 Performed By: #### 1 [id number] #### E[facility] Hematology Manual Subsection [address] [place] [address] CKon 03-06-2019 Total CK 38 Int._Unit/L Normal <=215 [facility] Comment on above: Performed By: #### 2 513846 #### [employer] [address] [place] [address] 280[address] CMPon 03-06-2019 Albumin [Mass/Vol] 3.4 g/dL Normal 3.4-5.0 [facility] Comment on above: Performed By: #### 2 041842 #### [employer] [address] [place], [place] [address] Albumin/Globulin [Mass ratio] 0.9 {ratio} Low 1.1-1.9 [facility] Comment on above: Performed By: #### 2 457688 #### [employer] [address] [place] [address] Alk Phos 82 Int._Unit/L Normal 33-136 [facility] Comment on above: Performed By: #### 2 296607 #### [employer] [address] [place] [address]7076 ALT [Catalytic activity/Vol] 12 Int._Unit/L Normal 7-45 [facility] Comment on above: Performed By: #### 2 075092 #### [employer] [address] [place] [address] Anion gap [Moles/Vol] 12 mmol/L Normal 10-20 [facility] Comment on above: Performed By: #### 2 470202 #### [facility] [employer] [address] [place] [address] 34062 AST [Catalytic activity/Vol] 13 Int._Unit/L Normal 9-39 [facility] Comment on above: Performed By: #### 2 017058 #### [facility] [employer] [address] [place] [address]56[address] Bili Total 0.68 mg/dL Normal 0.00-1.20 [facility] Comment on above: Performed By: #### 2 566792 #### [facility] [employer] [address] [place] [address] Calcium [Mass/Vol] 8.5 mg/dL Low 8.6-10.3 [facility] Comment on above: Performed By: #### 2 348641 #### [facility] [employer] [address] [place] [address] Chloride [Moles/Vol] 103 mmol/L Normal 98-107 [facility] Comment on above: Performed By: #### 2 130200 #### [employer] [address] [place] [address] CO2 [Moles/Vol] 29.0 mmol/L Normal 21.0-32.0 [facility] Comment on above: Performed By: #### 2 068864 #### [facility] [employer] [address] [place] [address] Creatinine [Mass/Vol] 0.8 mg/dL Normal 0.5-1.1 [facility] Comment on above: Performed By: #### 2 884255 #### [employer] [address] [place] [address] Globulin (S) [Mass/Vol] 4.0 g/dL Normal 2.0-4.0 [facility] Comment on above: Performed By: #### 2 425062 #### [employer] [address] [place] [address] Glucose [Mass/Vol] 122 mg/dL High 70-99 [facility] Comment on above: Performed By: #### 2 009212 #### [employer] [address] [place] [address] Potassium [Moles/Vol] 3.9 mmol/L Normal 3.5-5.3 [facility] Comment on above: Performed By: #### 2 837092 #### [employer] [address] [place] [address] Protein [Mass/Vol] 7.3 g/dL Normal 6.4-8.2 [facility] Comment on above: Performed By: #### 2 816384 #### [employer] [address] [place] [address] 31680 Sodium [Moles/Vol] 140 mmol/L Normal 136-145 [facility] Comment on above: Performed By: #### 2 396681 #### [employer] [address] [place] [address] Urea nitrogen [Mass/Vol] 12 mg/dL Normal 6-23 [facility] Comment on above: Performed By: #### 2 682616 #### [employer] [address] [place] [address] Urea nitrogen/Creatinine [Mass ratio] 15.0 ratio Normal 5.4-30.0 [facility] Comment on above: Performed By: #### 2 394717 #### [employer] [address] [place] [address] [id number] 03-06-2019 HbA1c (Bld) [Mass fraction] 6.7 % High 4.0-6.3 [facility] Comment on above: Performed By: #### 3 [id number] #### [facility] Chemistry Manual Subsection [address] [place] [address] Lipid Profileon 03-06-2019 Cholesterol [Mass/Vol] 200 mg/dL High 0-199 [facility] Comment on above: Result Comment: TOTA L CHOLEESTEROL: <200 NORMAL 200 - 239 BORDERLINE HIGH >240 HIGH Performed By: #### 3 [id number] #### [employer] [employer] [address] [place] [address] Cholesterol in HDL [Mass/Vol] 46 mg/dL Normal 40-60 [facility] Comment on above: Performed By: #### 3 4190782 #### [employer] [facility] [place] [address] Cholesterol in LDL [Mass/Vol] 132 mg/dL High 0-130 [facility] Comment on above: Result Comment: <100 OPTIMAL 100-129 NEAR / ABOVE OPTIMAL 130-159 BORDERLINE HIGH 160-189 HIGH >190 VERY HIGH CALC LDL NOT VALID WHEN TRIGLYCERIDE IS >400 MG/DL Performed By: #### 3 [id number] #### [employer] [address] [place] [address] Cholesterol in VLDL [Mass/Vol] 22 mg/dL Normal 0-40 [facility] Comment on above: Performed By: #### 3 [id number] #### [employer] [address] [place] [address] Triglyceride [Mass/Vol] 108 mg/dL Normal 0-149 [facility] Comment on above: Result Comment: AGE DESIRABLE BORDERLINE HIGH 91 D - 9 Y 0 - 74 75 - 99 > 100 10 - 19 Y 0 - 89 90 - 129 > 130 20 -24 Y 0 - 114 115 - 149 > 150 > 25 0 - 149 150 - 199 200 - 499 Performed By: #### 3 [id number] #### [employer] [employer] [facility] [place] [address] TSHon 03-06-2019 TSH Qn 2.66 mcIU/mL Normal 0.30-5.60 [facility] Comment on above: Performed By: #### 2 590632 #### [employer] [address] [place] [address] 13162 eGFRon 03-06-2019 GFR/1.73 sq M predicted among non-blacks MDRD (S/P/Bld) [Vol rate/Area] mL/min/{1.73_m2} Normal [facility] Comment on above: Order Comment: Order added by Discern Expert. Performed By: #### 1 [id number] #### [facility] [employer] [address] [place] [address] Calcium Levelon 02-04-2018 Calcium 8.5 mg/dL Normal 8.4-10.2 [facility] Comment on above: Performed By: #### C ALCM, PHOS, PTHI ####Unless otherwise noted, all testing performed by [address] [id number]: [id number] Director: Rodrigo Connors M.D. Parathyroid Hormoneon 2017 Interpretation and review of laboratory results Abnormal Invalid Interpretation Code [facility] Parathyroid Hormone 84.0 pg/mL High 18.4-80.1 [facility] Comment on above: Result Comment: Samp les from patients routinely receiving high dose biotin therapy mayshow falsely depressed results. Additional information may be requiredfor diagnosis. Performed By: #### C ALCM, PHOS, PTHI ####Unless otherwise noted, all testing performed by [address] [phone]: [id number] Director: Rodrigo Connors M.D. Phosphoruson 02-04-2018 Phosphate 2.8 mg/dL Normal 2.8-4.1 [facility] Comment on above: Performed By: #### C ALCM, PHOS, PTHI ####Unless otherwise noted, all testing performed by [address] [id number]: [id number] Director: Rodrigo Connors M.D. [facility] [place] [facility] n 02-04-2018 [facility]. [place] Test SEE COMMENTS Normal [facility] Comment on above: Result Comment: ECHOLA TEST CODE BAPTest Result Flag Unit RefValue Bone Alkaline Phosphatase, S 14 mcg/L REFERENCE VALUE <=14 (Premenopausal)<=22 (Postmenopausal)Test Performed by:[place] [address] Performed By: #### S NDREF ####Unless otherwise noted, all testing performed by [address] [phone]: [id number] Director: Rodrigo Connors M.D. Uric Acidon 02-02-2018 Interpretation and review of laboratory results Abnormal Invalid Interpretation Code [facility] Urate 7.1 mg/dL High 2.4-7.0 [facility] Comment on above: Performed By: #### U VENUS ####Unless otherwise noted, all testing performed by [address] [phone]: [id number] Director: Rodrigo Connors M.D. Basic Metabolic Panelon - Calcium 8.3 mg/dL Low 8.4-10.2 [facility] Comment on above: Performed By: #### C HEM8, CRPQT ####Unless otherwise noted, all testing performed by [address] [phone]: [id number] Director: Rodrigo Waylon, M.D. Chloride 105 mmol/L Normal 98-108 [facility] Comment on above: Performed By: #### C HEM8, CRPQT ####Unless otherwise noted, all testing performed by [address] [phone]: [id number] Director: Rodrigo Connors M.D. CO2 30 mmol/L Normal 21-32 [facility] Comment on above: Performed By: #### C HEM8, CRPQT ####Unless otherwise noted, all testing performed by [address] [phone]: [id number] Director: Rodrigo Connors M.D. Creatinine 0.85 mg/dL Normal 0.60-1.20 [facility] Comment on above: Performed By: #### C HEM8, CRPQT ####Unless otherwise noted, all testing performed by [address] [phone]: [id number] Director: Rodrigo Connors M.D. eGFR (black) mL/min/{1.73_m2} Normal [facility] Comment on above: Result Comment: Afri can Citizen Of [place] GFR Calc Performed By: #### C HEM8, CRPQT ####Unless otherwise noted, all testing performed by [address] [phone]: [id number] Director: Rodrigo Connors M.D. eGFR (non-black) mL/min/{1.73_m2} Normal [facility] Comment on above: Result Comment: Non- GFR CalceGFR is an estimated Glomerular Filtration Rate based on the valueof the patient's serum creatinine. In outpatients, eGFR should be usedas a helpful tool in screening for CKD. In inpatients or patients withacute renal failure, eGFR represents the GFR at the moment of the drawand should be used with caution. Performed By: #### C HEM8, CRPQT ####Unless otherwise noted, all testing performed by [address] [phone]: [id number] Director: Rodrigo Connors M.D. Glucose mass conc 105 mg/dL High 70-99 [facility] Comment on above: Result Comment: This test result might be falsely depressed or falsely elevated onsamples drawn from patients taking Sulfasalazine and Sulfapyridine.Venipuncture should occur prior to taking either of these drugs. Performed By: #### C HEM8, CRPQT ####Unless otherwise noted, all testing performed by [place] [id number]: [id number] Director: Rodrigo Connors M.D. Potassium molar conc 3.8 mmol/L Normal 3.5-5.1 [facility] Comment on above: Performed By: #### C HEM8, CRPQT ####Unless otherwise noted, all testing performed by [place] [phone]: [id number] Director: Rodrigo Connors M.D. Sodium 142 mmol/L Normal 135-145 [facility] Comment on above: Performed By: #### C HEM8, CRPQT ####Unless otherwise noted, all testing performed by [address] [phone]: [id number] Director: Rodrigo Connors M.D. Urea nitrogen 19 mg/dL Normal 8-25 [facility] Comment on above: Performed By: #### C HEM8, CRPQT ####Unless otherwise noted, all testing performed by [place] [id number]: [id number] Director: Rodrigo Connors M.D. CBC with Diffon 01-22-2018 Basophils Auto #/vol (Bld) 0.1 K/mcL Normal 0-0.2 [facility] Comment on above: Performed By: #### C BCDIF, SEDR ####Unless otherwise noted, all testing performed by [address]CLIA: [id number] Director: Rodrigo Connors M.D. Basophils/100 WBC Auto (Bld) 0.5 % Normal [facility] Comment on above: Performed By: #### C BCDIF, SEDR ####Unless otherwise noted, all testing performed by [address]CLIA: [id number] Director: Rodrigo Connors M.D. Eosinophils 0.3 K/mcL Normal 0-0.5 [facility] Comment on above: Performed By: #### C BCDIF, SEDR ####Unless otherwise noted, all testing performed by [address]CLIA: [id number] Director: Rodrigo Connors M.D. Eosinophils/100 leukocytes 2.5 % Normal [facility] Comment on above: Performed By: #### C BCDIF, SEDR ####Unless otherwise noted, all testing performed by [address], [place] [phone]: [id number] Director: Rodrigo Connosr M.D. Erythrocyte distribution width Auto Ratio (RBC) 17.4 % High 10.0-14.4 [facility] Comment on above: Performed By: #### C BCDIF, SEDR ####Unless otherwise noted, all testing performed by [address] [phone]: [id number] Director: Rodrigo Connors M.D. Erythrocytes (RBC) 4.02 M/mcL Normal 3.7-5.0 [facility] Comment on above: Performed By: #### C BCDIF, SEDR ####Unless otherwise noted, all testing performed by [address] [phone]: [id number] Director: Rodrigo Connors M.D. Hematocrit (HCT) 34.8 % Normal 34.4-44.8 [facility] Comment on above: Performed By: #### C BCDIF, SEDR ####Unless otherwise noted, all testing performed by [address] [phone]: [id number] Director: Rodrigo Connors M.D. Hemoglobin mass conc (Bld) 11.5 g/dL Low 11.6-15.4 [facility] Comment on above: Performed By: #### C BCDIF, SEDR ####Unless otherwise noted, all testing performed by [address] [phone]: [id number] Director: Rodrigo Waylon, M.D. Lymphocytes 1.7 K/mcL Normal 1.0-3.7 [facility] Comment on above: Performed By: #### C BCDIF, SEDR ####Unless otherwise noted, all testing performed by [address] [phone]: [id number] Director: Rodrigo Connors M.D. Lymphocytes/100 leukocytes 16.3 % Normal [facility] Comment on above: Performed By: #### C BCDIF, SEDR ####Unless otherwise noted, all testing performed by [address] [phone]: [id number] Director: Rodrigo Connors M.D. MCH 28.6 pg Normal 27.9-33.9 [facility] Comment on above: Performed By: #### C BCDIF, SEDR ####Unless otherwise noted, all testing performed by [address] [phone]: [id number] Director: Rodrigo Connors M.D. MCHC mass conc (RBC) 33.1 g/dL Normal 33.1-35.1 [facility] Comment on above: Performed By: #### C BCDIF, SEDR ####Unless otherwise noted, all testing performed by [address] [phone]: [id number] Director: Rodrigo Connors M.D. MCV 86.4 fL Normal 82.6-98.9 [facility] Comment on above: Performed By: #### C BCDIF, SEDR ####Unless otherwise noted, all testing performed by [address], [place] [phone]: [id number] Director: Rodrigo Connors M.D. Monocytes 1.3 K/mcL High 0.1-0.6 [facility] Comment on above: Performed By: #### C BCDIF, SEDR ####Unless otherwise noted, all testing performed by [address] [phone]: [id number] Director: Rodrigo Connors M.D. Monocytes/100 leukocytes 12.3 % Normal [facility] Comment on above: Performed By: #### C BCDIF, SEDR ####Unless otherwise noted, all testing performed by [address]CLIA: [id number] Director: Rodrigo Connors M.D. Neutrophils 7.0 K/mcL High 1.2-6.9 [facility] Comment on above: Performed By: #### C BCDIF, SEDR ####Unless otherwise noted, all testing performed by [address]CLIA: [id number] Director: Rodrigo Connors M.D. Platelet mean volume (PMV) 7.5 fL Normal 7.0-10.6 [facility] Comment on above: Performed By: #### C BCDIF, SEDR ####Unless otherwise noted, all testing performed by [place] [phone]: [id number] Director: Rodrigo Connors M.D. Platelets 309 K/mcL Normal 162-402 [facility] Comment on above: Performed By: #### C BCDIF, SEDR ####Unless otherwise noted, all testing performed by [address] [phone]: [id number] Director: Rodrigo Connors M.D. Segmented Neut % 68.4 % Normal [facility] [facility] Comment on above: Performed By: #### C BCDIF, SEDR ####Unless otherwise noted, all testing performed by [address] [phone]: [id number] Director: Rodrigo Connors M.D. WBC (Leukocytes) 10.2 K/mcL Normal 3.4-10.6 [facility] Comment on above: Performed By: #### C BCDIF, SEDR ####Unless otherwise noted, all testing performed by [address] [phone]: [id number] Director: Rodrigo Connors M.D. CRP, C-Reactive Proteinon CRP, C-Reactive Protein 91.9 mg/L High 0.0-10.0 [facility] Comment on above: Performed By: #### C HEM8, CRPQT ####Unless otherwise noted, all testing performed by [address] [phone]: [id number] Director: Rodrigo Connors M.D. CT GUIDANCE-FINE NEEDLE ASPI Tanya 01-22-2018 CT GUIDANCE-FINE NEEDLE ASPIRAT Final ReportAccession No: [id number] Performed: Jan 22 2018 12:08PMExamination: CT GUIDANCE-FINE NEEDLE ASPIRATProcedure: CT guided aspiration of a right hip joint effusionIndication: Right hip pain with effusion seen on the recent MRI.Comparison: Right hip MRI dated 01/21/2018Interventionalis t: VikingstadDose Length Product: 716 mGy-cmContrast: NoneSedation: NoneOther Medications: Lidocaine 1% 10 mL SQEstimated Blood Loss: 5 mLComplications: NoneTechnique and Findings: The procedure, risks, benefits, and alternativetherapies were discussed in detail, and written informed consent wasobtained. A time out was performed to verify correct patient andprocedure. The patient was monitored by the radiology nurse at all times.The patient was placed supine on the CT table. Limited CT images of theright hip redemonstrated a small joint effusion anterior to the femoralhead-neck junction. An appropriate CT window for a right anteriorapproach into the right hip joint space was identified.The overlying skin was prepped and draped in usual sterile fashion. Localanesthesia was achieved with 1% lidocaine. Under CT guidance, an 18-gaugeChiba needle was advanced into to the right hip joint space as evidencedby return of fluid. Approximately 7 mL of cloudy yellow-colored fluid wasaspirated through the needle. Fluid sample was sent for culture, cellcount, and crystal analysis.The needle was removed and hemostasis was achieved with manualcompression. There were no immediate complications. The patient wasreturned to the floor in stable condition.IMPRESSION:1. Redemonstrated small right hip joint effusion, which was targeted foraspiration under CT guidance.2. Successful CT guided aspiration of the right hip joint effusion.Approximately 7 mL of cloudy yellow-colored fluid was aspirated andsubmitted for laboratory analysis.Interpreting Physician: NEEMA BUI M.D.Trans: : cc: Normal [facility] Cell Count, Body Fluidon Erin, B.F. Cloudy Abnormal [facility] Comment on above: Performed By: #### C MARIA E ESPINAL ####Unless otherwise noted, all testing performed by [facility], [place] [phone]: [id number] Director: Rodrigo Connors M.D. Color, Body Fl. Yellow Normal [facility] Comment on above: Performed By: #### C CBFMARIA E ####Unless otherwise noted, all testing performed by [address] [phone]: [id number] Director: Rodrigo Connors M.D. Erythrocytes (RBC) 1251 /mcL Normal [facility] Comment on above: Result Comment: Syno vial fld. RBC ref. range is 0/mcL. Performed By: #### C CBFMARIA E ####Unless otherwise noted, all testing performed by [place] [id number]: [id number] Director: Rodrigo Connors M.D. Lymphocytes/100 leukocytes 2.0 % Normal [facility] Comment on above: Result Comment: Syno vial fld. Lymph% ref. range is <75%. Performed By: #### C CBFMARIA E ####Unless otherwise noted, all testing performed by [place] [id number]: [id number] Director: Rodrigo Connors M.D. Ector/Macrophage 15.0 % Normal [facility] Comment on above: Result Comment: Syno vial fld. monocyte/macrophage% ref. range is <70%. Performed By: #### C CBF, MARIA E ####Unless otherwise noted, all testing performed by [place] [id number]: [id number] Director: Rodrigo Connors M.D. Seg, Body Fl. 83.0 % Normal [facility] Comment on above: Result Comment: Syno vial fld. Seg% ref. range is <25%. Performed By: #### C CBF, CRYSYN ####Unless otherwise noted, all testing performed by [address] [phone]: [id number] Director: Rodrigo Connors M.D. Spec. Type, B.F. Synovial Fluid Normal [facility] Comment on above: Performed By: #### C CBF, CRYSYN ####Unless otherwise noted, all testing performed by [address] [phone]: [id number] Director: Rodrigo Connors M.D. WBC (Leukocytes) 00432 /mcL Normal [facility] Comment on above: Result Comment: Syno vial fld. WBC ref. range is 0-200/mcL. Performed By: #### C CBF, CRYSYN ####Unless otherwise noted, all testing performed by [address] [phone]: [id number] Director: Rodrigo Connors M.D. Crystals, Syn Fldon 01-23-20 18 Crystal, Intra Calcium Pyrophosphat e Crystals Normal [facility] Comment on above: Result Comment: Intr acellular Crystal reference range is None Seen. Performed By: #### C CBF, CRYSYN ####Unless otherwise noted, all testing performed by [address] [phone]: [id number] Director: Rodrigo Connors M.D. Crystals, Extra Calcium Pyrophosphat e Crystals Normal [facility] Comment on above: Result Comment: Extr acellular Crystal reference range is None Seen. Performed By: #### C CBF, CRYSYN ####Unless otherwise noted, all testing performed by [address] [phone]: [id number] Director: Rodrigo Connors M.D. Culture, Anaerobicon 018 Culture, Anaerobic Test Name: Culture, Anaerobic Site: rt hip Culture Status: Final Culture Report: No anaerobes isolated. Micro Source: Synovial Fluid Normal [facility] Comment on above: Performed By: #### A NCUL ####Unless otherwise noted, all testing performed by [address] [phone]: [id number] Director: Rodrigo Connors M.D. Culture,Bacterialon 01-23-20 18 Culture,Bacterial Test Name: Culture,Bacterial Site: RT HIP Culture Status: Final Culture Report: No Growth - Day 5 Gram Stain: Many WBC's No Organisms Seen Micro Source: Synovial Fluid Normal [facility] Comment on above: Performed By: #### C ULT ####Unless otherwise noted, all testing performed by [address] [phone]: [id number] Director: Rodrigo Connors M.D. Sed Rateon 01-22-2018 Sed Rate 98 MM/hr. High 0-20 [facility] Comment on above: Performed By: #### C BCDIF, SEDR ####Unless otherwise noted, all testing performed by [address] [phone]: [id number] Director: Rodrigo Connors M.D. CBC with Diffon 01-21-2018 Basophils Auto #/vol (Bld) 0.0 K/mcL Normal 0-0.2 [facility] Comment on above: Performed By: #### C BCDIF, CHEMG ####Unless otherwise noted, all testing performed by [place] [phone]: [id number] Director: Rodrigo Connors M.D. Basophils/100 WBC Auto (Bld) 0.0 % Normal [facility] Comment on above: Performed By: #### C BCDIF, CHEMG ####Unless otherwise noted, all testing performed by [address]CLIA: [id number] Director: Rodrigo Connors M.D. Eosinophils 0.0 K/mcL Normal 0-0.5 [facility] Comment on above: Performed By: #### C BCDIF, CHEMG ####Unless otherwise noted, all testing performed by [address]CLIA: [id number] Director: Rodrigo Connors M.D. Eosinophils/100 leukocytes 0.0 % Normal [facility] Comment on above: Performed By: #### C BCDIF, CHEMG ####Unless otherwise noted, all testing performed by [place] [id number]: [id number] Director: Rodrigo Connors M.D. Erythrocyte distribution width Auto Ratio (RBC) 18.0 % High 10.0-14.4 [facility] Comment on above: Performed By: #### C BCDIF, CHEMG ####Unless otherwise noted, all testing performed by [place] [phone]: [id number] Director: Rodrigo Connors M.D. Erythrocytes (RBC) 3.84 M/mcL Normal 3.7-5.0 [facility] Comment on above: Performed By: #### C BCDIF, CHEMG ####Unless otherwise noted, all testing performed by [address] [phone]: [id number] Director: Rodrigo Connors M.D. Hematocrit (HCT) 33.0 % Low 34.4-44.8 [facility] Comment on above: Performed By: #### C BCDIF, CHEMG ####Unless otherwise noted, all testing performed by [place] [id number]: [id number] Director: Rodrigo Connors M.D. Hemoglobin mass conc (Bld) 10.8 g/dL Low 11.6-15.4 [facility] Comment on above: Performed By: #### C BCDIF, CHEMG ####Unless otherwise noted, all testing performed by [address] [phone]: [id number] Director: Rodrigo Connors M.D. Lymphocytes 0.7 K/mcL Low 1.0-3.7 [facility] Comment on above: Performed By: #### C BCDIF, CHEMG ####Unless otherwise noted, all testing performed by [address] [phone]: [id number] Director: Rodrigo Connors M.D. Lymphocytes/100 leukocytes 5.9 % Normal [facility] Comment on above: Performed By: #### C BCDIF, CHEMG ####Unless otherwise noted, all testing performed by [address] [phone]: [id number] Director: Rodrigo Connors M.D. MCH 28.2 pg Normal 27.9-33.9 [facility] Comment on above: Performed By: #### C BCDIF, CHEMG ####Unless otherwise noted, all testing performed by [address] [phone]: [id number] Director: Rodrigo Connors M.D. MCHC mass conc (RBC) 32.9 g/dL Low 33.1-35.1 [facility] Comment on above: Performed By: #### C BCDIF, CHEMG ####Unless otherwise noted, all testing performed by [address] [phone]: [id number] Director: Rodrigo Connors M.D. MCV 85.9 fL Normal 82.6-98.9 [facility] Comment on above: Performed By: #### C BCDIF, CHEMG ####Unless otherwise noted, all testing performed by [address] [phone]: [id number] Director: Rodrigo Connors M.D. Monocytes 1.2 K/mcL High 0.1-0.6 [facility] Comment on above: Performed By: #### C BCDIF, CHEMG ####Unless otherwise noted, all testing performed by [address] [phone]: [id number] Director: Rodrigo Connors M.D. Monocytes/100 leukocytes 9.2 % Normal [facility] Comment on above: Performed By: #### C BCDIF, CHEMG ####Unless otherwise noted, all testing performed by [phone]: [id number] Director: Rodrigo Connors M.D. Neutrophils 10.7 K/mcL High 1.2-6.9 [facility] Comment on above: Performed By: #### C BCDIF, CHEMG ####Unless otherwise noted, all testing performed by [place] [id number]: [id number] Director: Rodrigo Connors M.D. Platelet mean volume (PMV) 7.5 fL Normal 7.0-10.6 [facility] Comment on above: Performed By: #### C BCDIF, CHEMG ####Unless otherwise noted, all testing performed by [phone]: [id number] Director: Rodrigo Connors M.D. Platelets 257 K/mcL Normal 162-402 [facility] Comment on above: Performed By: #### C BCDIF, CHEMG ####Unless otherwise noted, all testing performed by [phone]: [id number] Director: Rodrigo Connors M.D. Segmented Neut % 84.9 % Normal [facility] Comment on above: Performed By: #### C BCDIF, CHEMG ####Unless otherwise noted, all testing performed by [address] [phone]: [id number] Director: Rodrigo Connors M.D. WBC (Leukocytes) 12.6 K/mcL High 3.4-10.6 [facility] Comment on above: Performed By: #### C BCDIF, CHEMG ####Unless otherwise noted, all testing performed by [address] [phone]: [id number] Director: Rodrigo Connors M.D. CHEMG (Basic Metabolic and M g)on 01-21-2018 Calcium 8.2 mg/dL Low 8.4-10.2 [facility] Comment on above: Performed By: #### C BCDIF, CHEMG ####Unless otherwise noted, all testing performed by [address] [phone]: [id number] Director: Rodrigo Connors M.D. Chloride 106 mmol/L Normal 98-108 [facility] Comment on above: Performed By: #### C BCDIF, CHEMG ####Unless otherwise noted, all testing performed by [address] [phone]: [id number] Director: Rodrigo Connors M.D. CO2 29 mmol/L Normal 21-32 [facility] Comment on above: Performed By: #### C BCDIF, CHEMG ####Unless otherwise noted, all testing performed by [address] [phone]: [id number] Director: Rodrigo Connors M.D. Creatinine 0.79 mg/dL Normal 0.60-1.20 [facility] Comment on above: Performed By: #### C NIKKI, CHEMG ####Unless otherwise noted, all testing performed by [address] [phone]: [id number] Director: Rodrigo Connors M.D. eGFR (black) mL/min/{1.73_m2} Normal [facility] Comment on above: Result Comment: Afri can Citizen Of [place] GFR Calc Performed By: #### C NIKKI, CHEMG ####Unless otherwise noted, all testing performed by [address] [phone]: [id number] Director: Rodrigo Connors M.D. eGFR (non-black) mL/min/{1.73_m2} Normal [facility] Comment on above: Result Comment: Non- GFR CalceGFR is an estimated Glomerular Filtration Rate based on the valueof the patient's serum creatinine. In outpatients, eGFR should be usedas a helpful tool in screening for CKD. In inpatients or patients withacute renal failure, eGFR represents the GFR at the moment of the drawand should be used with caution. Performed By: #### C BCMERLE, CHEMG ####Unless otherwise noted, all testing performed by [address], [place] [phone]: [id number] Director: Rodrigo Connors M.D. Glucose mass conc 132 mg/dL High 70-99 [facility] Comment on above: Result Comment: This test result might be falsely depressed or falsely elevated onsamples drawn from patients taking Sulfasalazine and Sulfapyridine.Venipuncture should occur prior to taking either of these drugs. Performed By: #### C BCDIF, CHEMG ####Unless otherwise noted, all testing performed by [address] [phone]: [id number] Director: Rodrigo Connors M.D. Magnesium 2.4 mg/dL Normal 1.6-2.4 [facility] Comment on above: Performed By: #### C BCDIF, CHEMG ####Unless otherwise noted, all testing performed by [place] [phone]: [id number] Director: Rodrigo Connors M.D. Potassium molar conc 3.8 mmol/L Normal 3.5-5.1 [facility] Comment on above: Performed By: #### C BCDIF, CHEMG ####Unless otherwise noted, all testing performed by [place] [phone]: [id number] Director: Rodrigo Connors M.D. Sodium 143 mmol/L Normal 135-145 [facility] Comment on above: Performed By: #### C BCDIF, CHEMG ####Unless otherwise noted, all testing performed by [place] [phone]: [id number] Director: Rodrigo Connors M.D. Urea nitrogen 14 mg/dL Normal 8-25 [facility] Comment on above: Performed By: #### C BCDIF, CHEMG ####Unless otherwise noted, all testing performed by [place] [phone]: [id number] Director: Rodrigo Connors M.D. MRI LOWER EXT JOINT W/O CONT on 01-21-2018 MRI LOWER EXT JOINT W/O CONT Final ReportAccession No: [id number] Performed: Jan 21 2018 3:15PMExamination: RIGHT MRI LOWER EXT JOINT W/O CONTMRI OF THE RIGHT HIP AND PELVISHISTORY: Right hip pain.TECHNIQUE: Coronal (T1 and STIR), axial (T1 and STIR) large xwipx-kf-vzeuxgmcmt of the pelvis and coronal T1, STIR, and sagittal T2 cwinjwegrd-sp-vuwaluldxe of the affected hip without IV contrast.FINDINGS: Moderate to large right hip joint effusion is seen. No osseouserosions. No fracture, AVN, or malignant marrowinfiltration. Chronic intermediate grade fraying of the right hamstringtendonorigin including chronic low-grade fraying of the left true tendon originisseen.A full-thickness tear of the right gluteus minimus tendon attachment totheanterior facet of the greater trochanter is seen on image 11, series 8.Thereis also a full-thickness tear of the left gluteus minimus tendonattachment tothe anterior facet greater trochanter seen on image 12 axial STIR imagesof thepelvis. Moderate trochanteric bursitis surrounding both gluteus minimustendons.There is at least mild osteoarthritis in both hip joints with degenerativelabral tearing anterosuperior labrum in the right hip.Mild discogenic disease in the lumbar spine is detailed on the separateMRIlumbar spine.The pubic symphysis is intact.The visualized sacrum and SI joints are intact.IMPRESSION:1. Moderate to large right hip joint effusion is seen. No osseouserosions.2. A full-thickness tear of the right gluteus minimus tendon attachmentto theanterior facet of the greater trochanter as seen on image 11, series 8.3. There is also a full-thickness tear of the left gluteus minimus tendonattachment to the anterior facet greater trochanter seen on image 12axial STIRimages of the pelvis. Moderate trochanteric bursitis surrounding bothgluteusminimus tendons.4. No fracture, AVN, or malignant marrow infiltration.5. There is at least mild osteoarthritis in both hip joints. Degenerativetearing of the anterosuperior labrum in the right hip.Interpreting Physician: JOSEP GALVAN M.D.Trans: [email or web address] : cc: Normal [facility] MRI LUMBAR SPINE W/O CONTon 01-21-2018 MRI LUMBAR SPINE W/O CONT Final ReportAccession No: [id number] Performed: Jan 21 2018 2:52PMExamination: MRI LUMBAR SPINE W/O CONTMRI OF LUMBAR SPINE: (WITHOUT CONTRAST)CLINICAL INFORMATION: Tech notes low back pain with right hip pain forfourdays. No known injury. History of tubal and .COMPARISON STUDY: None.TECHNIQUE: Sagittal and axial T1 and T2-weighted sequences and sagittalgradient images were obtained through the lumbar spine.FINDINGS: There is lumbarization of the S1 vertebra labeled S1 for thepurposesof this exam.Alignment: Gross alignment of the lumbar spine is normal in the sagittalplane.Bone marrow signal: Signal from vertebral bodies and posterior elements iswithin normal limits.Conus: The conus medullaris terminates normally at the T12-L1 level.Paraspinal soft tissues: Normal.Lower thoracic spine: No cord impingement.Multilevel disc desiccation. There is mild disc space narrowing at L5-S1.L1-L2: No significant posterior disc herniation. No spinal canal orlateralrecess stenosis.L2-L3: Minimal broad-based posterior disc bulging. No spinal canal orlateralrecess stenosis.L3-L4: Mild facet joint sclerosis and hypertrophy bilaterally. Minimalfluidwithin the left intervertebral facet.L4-L5: No significant posterior disc bulging. No spinal canal or lateralrecessstenosis bilaterally. Mild facet joint sclerosis and hypertrophybilaterally.Mi nimal fluid within bilateral facet joints.L5-S1: There is disc desiccation and mild disc space narrowing. There is abroad-based posterior disc herniation measuring up to 7 x 8 mm, more jay theright of midline. This in combination with facet joint sclerosis andhypertrophy and ligamentum flavum hypertrophy causes mild stenosis of therightneural foramina and spinal canal. No significant left neural foraminalstenosis.IMPRESS ION:1. Disc desiccation and disc space narrowing at L5-S1 which incombination withfacet joint sclerosis and hypertrophy and ligamentum flavum hypertrophycausesmild stenosis of the right neural foramina and mild stenosis of the spinalcanal.2. No other significant abnormalities are seen.Interpreting Physician: MODESTO COOK M.D.Trans: lcoope : cc: Normal [facility] Consultationon 01-20-2018 Consultation [facility], [place] [address]CCRB CHELY [facility] [id number] 1949DATE 01/20/2018CONSULTATIONCOR RECTED REPORTCONSULTANT MICHELLE GARZA, MDREASON FOR CONSULTATIONRight hip pain, back pain, right leg pain.HISTORYChely patterson is a 67-year-old patient who apparently suffers withrheumatoid arthritis, had an insidious onset of nontraumatic right hip pain 24hours ago, started having pain just while sitting watching TV. She all of thesudden had back pain, pain in the right hip on the greater trochanter into thethigh, radiated to the knee. No pain radiated down into the foot or ankle.The patient has no history of fevers, chills, or recent illness. No recentinfection. No evidence of urinary tract infection. No history of chest cold.No pneumonia. No open sores and she cannot think of anything. It was aninsidious onset of pain. [facility] and everything was normal in thehead, chest, abdomen, and pelvis. Due to the severity the pain and anelevated white blood cell count, she was transferred to [facility].At this point in time, the patient's past medical history of rheumatoidarthritis, hypertension. She does not smoke or drink. Family history ofhypertension.REVIEW OF SYSTEMSAs above.MEDICATION REGIMENIncludes atenolol, methotrexate, folic acid, Lasix, multivitamin, aspirin,Tylenol, oxybutynin, and Prilosec.PHYSICAL EXAMGeneral: She is awake, alert, and oriented x3. She is afebrile. She is witha sister at the bedside on telemetry with 2 L nasal cannula.Neck: Nontender.Abdomen: Benign.Extremities: Left lower extremity is atraumatic. Neuro intact. 2+ pulses.Full range of motion left ankle and hip. Morbidly obese. Upper extremitiesatraumatic. The patient is neurologically intact to the right lower extremitywith 2+ pulses. Full range of motion of the ankle. Right knee has ananterior midline incision from knee replacement with no erythema,lymphangitis, or cellulitis. Extensor mechanism is intact with 5/5 strength.The patient has a straight leg raise positive at 45 degrees radiating to theknee. I am able to bend the hip to 90 degrees. She has internal rotation of20 degrees, external rotation 35 degrees. Passively she does have some hippain referred to the greater trochanter, but I am able to bend the hip fromfull extension to 90 degrees of flexion with mild pain. She has tendernessover the greater trochanter bursa. She has a positive straight leg raise at45 degrees.Back: Mild tenderness in the paraspinals as well as the right SI joint.IMPRESSION1. Right hip pain.2. Back pain with right leg radiculopathy.PLANAt this point in time, with her history of rheumatoid arthritis, we are goingto get an MRI of the right hip and the lumbar spine. Further recommendationsto follow, but I absolutely do not see any reason to suspect a septic hip.MICHELLE GARZA, JEFF 01/20/2018 19:09 [id number] 01/20/2018 19:22 MCB/MODLElectronically Signed By Michelle Garza M.D. on 26 Jan 2018 11:18:48 GMT Normal [facility] Progress Note [facility], [place] [address]DURW [facility] [id number] [id number] 1949DATEPROGRESS NOTEChely is a patient who transferred in with right hip pain. Chely is apatient who there was concern of potential septic right hip due to right hippain. However, the patient has been afebrile throughout her stay in [facility]. She has been afebrile here. The patient has absolutelyno potential source. She has had negative blood cultures. Her urine wasnegative. Urine exam was negative. The patient has had no open ulceration.She has no evidence of abscess. No evidence of skin infection. Chest x-ray,abdomen CT showed no abnormalities in her chest or abdomen. No evidence ofpneumonia. No evidence of an abdominal abscess. She has no source whatsoeverfor potential infection. However, what the patient does have is a history ofrheumatoid arthritis. The patient has been on prednisone in the past forvarious joint aches and pains and flare ups. She is currently onmethotrexate, as well as aspirin and various anti-inflammatories and does takePrilosec for some occasional stomach reflux symptoms, and has been on anti-inflammatories in the past. At this time, she says she is 90% improved fromwhere she was. She has a little bit sore. I reviewed the MRI scans that shehad. The MRI scan of her lumbar spine does show some mild spinal stenosis onthe right side at L5-S1 and L1-2. However, nothing to really explain thesymptoms that she is having. The MRI of the right hip I reviewed. There isintra-articular effusion, as well as synovitis around the hip. There isabnormalities that are significant at the gluteus medius and minimusconsistent with an injury and tearing of the gluteus minimus and medius withgreater trochanter bursitis. No evidence of avascular necrosis. No evidenceof a neoplasm. No evidence of osteomyelitis.PHYSICAL EXAMGeneral: She is awake, alert and oriented x3. She is sitting in a chair.Her daughter is at the bedside.Right lower extremity: She is able to have active flexion to 100 degrees,internal and external rotation to 35 degrees with minimal pain.IMPRESSION1. Right hip pain.2. Rheumatoid arthritis.3. Right hip effusion.4. Right hip gluteus medius and minimus tear with greater trochanterbursitis.PLANAt this point time I do not believe that this is a septic hip whatsoever. Shehas absolutely no source for such a thing. She does, however, have rheumatoidarthritis. There are significant abnormalities at the greater trochanterconsistent with her gluteus medius and minimus tear. There is an intra-articular fusion. I am going to have Dr. Bui of InterventionalRadiology aspirate this for completeness sake. I have spoken to thehospitalist, in fact, I think this patient is doing so well, I believe thatshe can be transitioned home. I see no reason for antibiotics. I wouldrecommend Medrol Dosepak on discharge and follow up in my [place] office onMay 2017. Should the aspirate show something that I would be surprisedwith such as an organism or potential signs of infection, we may have toconsider alternative treatment measures such as a hip irrigation anddebridement. However, I believe that this right hip is all related to herrheumatoid disease and chronic changes and nothing that would exhibit thesigns of a septic hip. We will continue to see her outpatient clinically Rae will wait for the aspiration results.MICHELLE GARZA, JEFF 01/22/2018 11:01 [id number] 01/22/2018 11:17 MCB/MODLElectronically Signed By Michelle Garza M.D. on 23 Jan 2018 12:29:46 GMT Normal [facility] History And Physical-Dictate don 01-20-2018 History And Physical-Dictated [facility], [place] [id number] [facility] [id number] 01/20/2018HISTORY AND PHYSICALCHIEF COMPLAINTRight hip pain radiating to right lower extremity.HISTORY OF PRESENT ILLNESSThimarino is a 67-year-old female with past medical history of hypertension;rheumatoid arthritis, on methotrexate, came because of hip pain and startyesterday and radiating to her lateral right thigh. No kidney stone. Deniesany urinary symptoms. Went to [facility] doctor. They did CT. I do nothave the report. They sent the thin disc and they contacted Dr. Dukes. Theythink maybe septic arthritis. Clinically, she does not look septic at all andno fever, no chills, no shortness of breath, no chest pain.PAST MEDICAL HISTORYRheumatoid arthritis, hypertension.SOCIAL HISTORYNo smoking. No alcohol. No drugs.FAMILY HISTORYHypertension.REVIE W OF SYSTEMSAs I mentioned. Otherwise, all systems reviewed negative.PHYSICAL EXAMINATIONGeneral: Patient is lying in bed, mild distress.Vital Signs: She is afebrile. Pulse 89, respiratory rate 16.HEENT: Extraocular muscles intact.Neck: Supple.Heart: Regular rate.Chest: Clear to auscultation.Abdomen: Soft, nontender.Extremities: There is no anterior or posterior greater trochanter pain butthe pain mainly in her groin area and radiating to her lateral thigh, withalso down to above the knee and the lateral thigh. No redness or swelling ortenderness point in the pelvis pain. sign around 30-40 degree inthe right side and normal in the left side. She had bilateral knee surgerylong time ago.SKIN: As I mentioned in physical exam.DIAGNOSTIC DATABlood work from [facility]: Sodium 136, potassium 4, chloride 101, BUN11, creatinine 0.7, glucose 166. White blood cell count 14.8, hemoglobin 12,hematocrit 36, platelets 295, neutrophils 81. Lactic acid 11.2 but theirnormal range 4.5 to 18; CPK 43; CRP 4.8, normal 0-1; and I do not have theofficial reading for CT of her hip.ASSESSMENT/PLAN1. Right hip pain radiating to her lateral thigh, most likely sciatica. Idoubt she has septic arthritis. I will cover her prophylactically withZosyn and Vanco until be evaluated by Dr. Garza to review the CT, andthen we can discontinue antibiotics.2. Hypertension. Continue medication.3. History of rheumatoid arthritis. She is on methotrexate.4. Gastrointestinal prophylaxis.JEFF DEVINE 01/20/2018 16:01 [id number] 01/20/2018 16:35 AFS/MODLElectronically Signed By Romelia Sun M.D. on 23 Jan 2018 19:11:01 GMT Normal [facility] No Panel Information [facility] Vital Signs Date Time Vital Sign Value Performing Clinician Facility 07-20-2025 13:46-0400 Body height 157.[address] Skylar Friend MD Work Phone: [facility] 07-20-2025 13:46-0400 Body mass index (BMI) [Ratio] 49.4 kg/m2 Dr. Skylar Friend MD Work Phone: [facility] 07-20-2025 13:46-0400 Body weight 122.[address] Skylar Friend MD Work Phone: [facility] 07-20-2025 13:46-0400 Diastolic blood pressure 84 mm[Hg] Dr. Skylar Friend MD Work Phone: [facility] 07-20-2025 13:46-0400 Heart rate 74 /min Dr. Skylar Friend MD Work Phone: [facility] 07-20-2025 13:46-0400 Inhaled oxygen flow rate 2 L/min Dr. Skylar Friend MD Work Phone: [facility] 07-20-2025 13:46-0400 Respiratory rate 18 /min Dr. Skylar Friend MD Work Phone: [facility] 07-20-2025 13:46-0400 SaO2% (BldA) [Mass fraction] 90 % Dr. Skylar Friend MD Work Phone: [facility] 07-20-2025 13:46-0400 Systolic blood pressure 138 mm[Hg] Dr. Skylar Friend MD Work Phone: [facility] 2025 09:56-0400 Body mass index (BMI) [Ratio] 49.7 kg/m2 Dr. Skylar Friend MD Work Phone: [facility] 2025 09:56-0400 Body temperature 98.2 [degF] Dr. Skylar Friend MD Work Phone: [facility] 2025 09:56-0400 Body weight 123.[address] Skylar Friend MD Work Phone: [facility] 2025 09:56-0400 Diastolic blood pressure 70 mm[Hg] Dr. Skylar Friend MD Work Phone: 9(489)098-713037 [place] [address] 2025 09:56-0400 Heart rate 67 /min Dr. Skylar Friend MD Work Phone: 1(762)397-553837 [place] [address] 2025 09:56-0400 Respiratory rate 18 /min Dr. Skylar Friend MD Work Phone: 7(128)075-048837 [place] [address] 2025 09:56-0400 SaO2% (BldA) [Mass fraction] 93 % Dr. Skylar Friend MD Work Phone: 1(781)005-409137 [place] [address] 2025 09:56-0400 Systolic blood pressure 145 mm[Hg] Dr. Skylar Friend MD Work Phone: 8(960)394-244004 [address] 06-08-2025 08:08-0400 Body height 157.[address] Skylar Friend MD Work Phone: 5(031)595-375675 [place] [address] 06-08-2025 08:08-0400 Body mass index (BMI) [Ratio] 48.6 kg/m2 Dr. Skylar Friend MD Work Phone: 4(573)119-338037 [place] [address] 06-08-2025 08:08-0400 Body temperature 97.6 [degF] Dr. Skylar Friend MD Work Phone: 5(452)654-463537 [place] [address] 06-08-2025 08:08-0400 Body weight 120.[address] Skylar Friend MD Work Phone: 5(642)746-835437 [place] [address] 06-08-2025 08:08-0400 Diastolic blood pressure 64 mm[Hg] Dr. Skylar Friend MD Work Phone: 7(740)153-361937 [place] [address] 06-08-2025 08:08-0400 Heart rate 68 /min Dr. Skylar Friend MD Work Phone: 2(655)830-762137 [place] [address] 06-08-2025 08:08-0400 Inhaled oxygen flow rate 3 L/min Dr. Skylar Friend MD Work Phone: 3(957)195-641037 [place] [address] 06-08-2025 08:08-0400 Respiratory rate 18 /min Dr. Skylar Friend MD Work Phone: [facility] 06-08-2025 08:08-0400 SaO2% (BldA) [Mass fraction] 91 % Dr. Skylar Friend MD Work Phone: [facility] 06-08-2025 08:08-0400 Systolic blood pressure 143 mm[Hg] Dr. Skylar Friend MD Work Phone: [facility] 02-20-2025 09:33-0400 Body mass index (BMI) [Ratio] 44 kg/m2 Dr. Skylar Friend MD Work Phone: [facility] 02-20-2025 09:33-0400 Body temperature 97.3 [degF] Dr. Skylar Friend MD Work Phone: 4(422)734-003804 [address] 02-20-2025 09:33-0400 Body weight 109.[address] Skylar Friend MD Work Phone: [facility] 02-20-2025 09:33-0400 Diastolic blood pressure 66 mm[Hg] Dr. Skylar Friend MD Work Phone: [facility] 02-20-2025 09:33-0400 Heart rate 72 /min Dr. Skylar Friend MD Work Phone: 6(919)395-513737 [place] [address] 02-20-2025 09:33-0400 Inhaled oxygen flow rate 2 L/min Dr. Skylar Friend MD Work Phone: [facility] 02-20-2025 09:33-0400 Respiratory rate 20 /min Dr. Skylar Friend MD Work Phone: [facility] 02-20-2025 09:33-0400 SaO2% (BldA) [Mass fraction] 93 % Dr. Skylar Friend MD Work Phone: [facility] 02-20-2025 09:33-0400 Systolic blood pressure 144 mm[Hg] Dr. Skylar Friend MD Work Phone: [facility] 01-02-2025 12:49-0400 Body mass index (BMI) [Ratio] 48.4 kg/m2 Dr. Skylar Friend MD Work Phone: [facility] 01-02-2025 12:49-0400 Body temperature 97.2 [degF] Dr. Skylar Friend MD Work Phone: [facility] 01-02-2025 12:49-0400 Body weight 120.[address] Skylar Friend MD Work Phone: [facility] 01-02-2025 12:49-0400 Diastolic blood pressure 58 mm[Hg] Dr. Skylar Friend MD Work Phone: [facility] 01-02-2025 12:49-0400 Heart rate 70 /min Dr. Skylar Friend MD Work Phone: [facility] 01-02-2025 12:49-0400 Inhaled oxygen flow rate 2 L/min Dr. Skylar Friend MD Work Phone: [facility] 01-02-2025 12:49-0400 Respiratory rate 20 /min Dr. Skylar Friend MD Work Phone: [facility] 01-02-2025 12:49-0400 SaO2% (BldA) [Mass fraction] 90 % Dr. Skylar Friend MD Work Phone: [facility] 01-02-2025 12:49-0400 Systolic blood pressure 147 mm[Hg] Dr. Skylar Friend MD Work Phone: [facility] 11-03-2024 08:05-0500 Body height 157.[address] Skylar Friend MD Work Phone: [facility] 11-03-2024 08:05-0500 Body mass index (BMI) [Ratio] 50.5 kg/m2 Dr. Sklyar Friend MD Work Phone: [facility] 11-03-2024 08:05-0500 Body temperature 97.7 [degF] Dr. Skylar Friend MD Work Phone: [facility] 11-03-2024 08:05-0500 Body weight 125.[address] Skylar Friend MD Work Phone: [facility] 11-03-2024 08:05-0500 Diastolic blood pressure 73 mm[Hg] Dr. Skylar Friend MD Work Phone: [facility] 11-03-2024 08:05-0500 Heart rate 94 /min Dr. Skylar Friend MD Work Phone: [facility] 11-03-2024 08:05-0500 Inhaled oxygen flow rate 2 L/min Dr. Skylar Friend MD Work Phone: [facility] 11-03-2024 08:05-0500 Respiratory rate 20 /min Dr. Skylar Friend MD Work Phone: [facility] 11-03-2024 08:05-0500 SaO2% (BldA) [Mass fraction] 94 % Dr. Skylar Friend MD Work Phone: [facility] 11-03-2024 08:05-0500 Systolic blood pressure 150 mm[Hg] Dr. Skylar Friend MD Work Phone: [facility] 09-08-2023 07:52-0500 Body height 157.[address] Skylar Friend Work Phone: [facility] 09-08-2023 07:52-0500 Body mass index (BMI) [Ratio] 49 kg/m2 Dr. Skylar Friend Work Phone: [facility] 09-08-2023 07:52-0500 Body temperature 97.3 [degF] Dr. Skylar Friend Work Phone: [facility] 09-08-2023 07:52-0500 Body weight 121.[address] Skylar Friend Work Phone: [facility] 09-08-2023 07:52-0500 Diastolic blood pressure 89 mm[Hg] Dr. Skylar Friend Work Phone: [facility] 09-08-2023 07:52-0500 Heart rate 117 /min Dr. Skylar Friend Work Phone: [facility] 09-08-2023 07:52-0500 Inhaled oxygen flow rate 2.5 L/min Dr. Skylar Friend Work Phone: [facility] 09-08-2023 07:52-0500 Respiratory rate 20 /min Dr. Skylar Friend Work Phone: [facility] 09-08-2023 07:52-0500 SaO2% (BldA) [Mass fraction] 92 % Dr. Skylar Friend Work Phone: [facility] 09-08-2023 07:52-0500 Systolic blood pressure 163 mm[Hg] Dr. Skylar Friend Work Phone: [facility] 10-29-2022 11:07-0500 Body height 157.[address] Skylar Friend Work Phone: [facility] 10-29-2022 10:58-0500 Body mass index (BMI) [Ratio] 50.3 kg/m2 Dr. Skylar Friend Work Phone: [facility] 10-29-2022 10:58-0500 Body temperature 97.3 [degF] Dr. Skylar Friend Work Phone: [facility] 10-29-2022 10:58-0500 Body weight 124.[address] Skylar Friend Work Phone: [facility] 10-29-2022 10:58-0500 Diastolic blood pressure 63 mm[Hg] Dr. Skylar Friend Work Phone: [facility] 10-29-2022 10:58-0500 Heart rate 80 /min Dr. Skylar Friend Work Phone: [facility] 10-29-2022 10:58-0500 Inhaled oxygen flow rate 2 L/min Dr. Skylar Friend Work Phone: [facility] 10-29-2022 10:58-0500 Respiratory rate 17 /min Dr. Skylar Friend Work Phone: [facility] 10-29-2022 10:58-0500 SaO2% (BldA) [Mass fraction] 95 % Dr. Skylar Friend Work Phone: [facility] 10-29-2022 10:58-0500 Systolic blood pressure 146 mm[Hg] Dr. Skylar Friend Work Phone: [facility] 09-21-2019 04:00-0500 BP Diastolic 64 mm[Hg] Michelle Castillo [facility] 09-21-2019 04:00-0500 BP Systolic 137 mm[Hg] [facility] Castillo [facility] 09-21-2019 04:00-0500 Pulse (Heart Rate) 71 /min Michelle Castillo [facility] 09-21-2019 04:00-0500 Pulse Oximetry 97 % Michelle Castillo [facility] 09-21-2019 02:21-0500 Respiratory Rate 16 /min Michelle Castillo [facility] 09-21-2019 00:41-0500 BMI (Body Mass Index) 45.54 kg/m2 Michelle Castillo [facility] 09-21-2019 00:41-0500 Body Temperature 97.81 [degF] [facility] Castillo [facility] 09-21-2019 00:41-0500 Body weight 112.95 kg Michelle Castillo [facility] 09-21-2019 00:41-0500 Height 157.5 cm Michelle Castillo [facility] 09-11-2019 09:29-0500 BMI (Body Mass Index) 45.54 kg/m2 Rusty Hamptonag [facility] 09-11-2019 09:29-0500 Body weight 112.95 kg Rusty Hamptonag [facility] 09-11-2019 09:29-0500 BP Diastolic 76 mm[Hg] Rusty Mitchell [facility] 09-11-2019 09:29-0500 BP Systolic 145 mm[Hg] Rusty Mitchell [facility] 09-11-2019 09:29-0500 Pulse (Heart Rate) 75 /min Rusty Mitchell [facility] 08-29-2019 08:47-0500 BP Diastolic 50 mm[Hg] Adali Wellington [facility] 08-29-2019 08:47-0500 BP Systolic 125 mm[Hg] Adali Wellington [facility] 08-29-2019 07:00-0500 Pulse (Heart Rate) 62 /min Adali Wellington [facility] 08-29-2019 07:00-0500 Pulse Oximetry 96 % Adali Wellington [facility] 08-29-2019 06:39-0500 BMI (Body Mass Index) 45.73 kg/m2 Adali Wellington [facility] 08-29-2019 06:39-0500 Body Temperature 98.71 [degF] Adali Wellington [facility] 08-29-2019 06:39-0500 Body weight 113.4 kg Adali Wellington [facility] 08-29-2019 06:39-0500 Height 157.5 cm Adali Wellington [facility] 08-29-2019 06:39-0500 Respiratory Rate 24 /min Adali Wellington [facility] 03-28-2019 15:57-0400 BMI (Body Mass Index) 47.55 kg/m2 Rusty Mitchell [facility] 03-28-2019 15:57-0400 Body weight 117.94 kg Rusty Mitchell [facility] 03-28-2019 15:57-0400 BP Diastolic 66 mm[Hg] Rusty Mitchell [facility] 03-28-2019 15:57-0400 BP Systolic 136 mm[Hg] Rusty Mitchell [facility] 03-28-2019 15:57-0400 Pulse (Heart Rate) 74 /min Rusty Mitchell [facility] 09-28-2018 15:45-0500 BMI (Body Mass Index) 47.63 kg/m2 Rusty Mitcehll [facility] 09-28-2018 15:45-0500 BP Diastolic 78 mm[Hg] Rusty Mitchell [facility] 09-28-2018 15:45-0500 BP Systolic 148 mm[Hg] Rusty Mitchell [facility] 09-28-2018 15:45-0500 Pulse (Heart Rate) 81 /min Rusty Mitchell [facility] 09-28-2018 15:45-0500 Weight 118.12 kg Rusty Mitchell [facility] 05-18-2018 10:45-0400 BMI (Body Mass Index) 49.02 kg/m2 Kaylene Jaime [facility] 05-18-2018 10:45-0400 BP Diastolic 92 mm[Hg] Kaylene Jaime [facility] 05-18-2018 10:45-0400 BP Systolic 154 mm[Hg] Kaylene Jaime [facility] 05-18-2018 10:45-0400 Height 157.5 cm Kaylene Jaime [facility] 05-18-2018 10:45-0400 Pulse (Heart Rate) 75 /min Kaylene Jaime [facility] 05-18-2018 10:45-0400 Weight 121.56 kg Kaylene Jaime [facility] 05-06-2018 10:52-0400 BMI (Body Mass Index) 48.94 kg/m2 Rusty Mitchell [facility] 05-06-2018 10:52-0400 BP Diastolic 74 mm[Hg] Rusty Mitchell [facility] 05-06-2018 10:52-0400 BP Systolic 162 mm[Hg] [facility] 10:52-0400 Pulse (Heart Rate) 64 /min Rusty Mitchell [facility] 05-06-2018 10:52-0400 Weight 121.38 kg Rusty Mitchell [facility] 02-04-2018 11:42-0400 BMI (Body Mass Index) 48.62 kg/m2 [facility] 02-04-2018 11:42-0400 BP Diastolic 77 mm[Hg] Rusty Mitchell [facility] 02-04-2018 11:42-0400 BP Systolic 158 mm[Hg] [facility] 02-04-2018 11:42-0400 Pulse (Heart Rate) 71 /min [facility] 02-04-2018 11:42-0400 Weight 120.57 [facility] 06-15-2017 15:24-0400 BMI (Body Mass Index) 49.09 kg/m2 Rusty Mitchell [facility] Work Phone: 06-15-2017 15:24-0400 BP Diastolic 65 mm[Hg] Rusty Mitchell [facility] Work Phone: 06-15-2017 15:24-0400 BP Systolic 168 mm[Hg] Rusty Mitchell [facility] Work Phone: 06-15-2017 15:24-0400 Height 157.5 cm Rusty Mitchell [facility] Work Phone: 06-15-2017 15:24-0400 Pulse (Heart Rate) 76 /min Rusty Mitchell [facility] Work Phone: 06-15-2017 15:24-0400 Weight 121.75 kg Rusty Mitchell [facility] Work Phone: Encounters Encounter Date Encounter Type Care Provider Facility Start: 07-30-2025 End: 07-30-2025 ambulatory YULISSA ANTUNEZ Facility:[facility] Start: 07-20-2025 End: 07-20-2025 ambulatory Ronal Rollins [place] [place]: 2025 End: [address] Fabiana Gaviria MD -[facility] Work Phone: Start: 2025 End: 2025 ambulatory Fabiana Gaviria [place] Start: 07-04-2025 Non-patient / Non-visit Kaitlynn Soni [facility] Work Phone: Start: 07-04-2025 ambulatory Kaitlynn Madrigal [place] Start: 06-26-2025 End: 06-26-[address] Skylar Friend MD Work Phone: -[facility] Start: 06-26-2025 End: 06-26-[address] Josefina Worley MD -[facility] Work Phone: Start: 06-26-2025 End: 06-26-2025 ambulatory YULISSA ANTUNEZ [facility] Start: 06-26-2025 End: 06-26-2025 ambulatory Josefina Worley Facility:[facility] Start: 06-08-2025 End: 06-08-2025 Patient encounter procedure DEVEN Izaguirre -[facility] Work Phone: Start: 06-08-2025 End: 06-08-[address] Skylar Friend MD Work Phone: -[facility] Start: 04-30-2025 End: 04-30-2025 ambulatory [facility] Start: 04-25-2025 End: 04-25-2025 ambulatory [facility] Start: 04-11-2025 End: 04-11-[address] Skylar Friend MD Work Phone: -[facility] Start: 04-11-2025 End: 04-11-2025 Patient encounter procedure [employer] Florence Izaguirre -[facility] Work Phone: Start: 04-11-2025 End: 04-11-2025 ambulatory [facility] Facility:[facility] Start: 04-02-2025 End: 04-02-2025 ambulatory [facility] Start: 02-28-2025 End: 02-28-2025 [facility] Start: 02-20-2025 End: 02-20-2025 Patient encounter procedure DEVEN Izaguirre -[facility] Work Phone: Start: 02-20-2025 End: 02-20-[address] Skylar Friend MD Work Phone: [facility] Work Phone: Start: 01-23-2025 End: 01-23-2025 Patient encounter procedure DEVEN Izaguirre -[facility] Work Phone: Start: 01-23-2025 End: 01-23-2025 ambulatory [facility] Facility:[facility] Start: 01-02-2025 End: 01-02-2025 Patient encounter procedure DEVEN Izaguirre -[facility] Work Phone: Start: 01-02-2025 End: 01-02-2025 ambulatory [facility] Facility:[facility] Start: 12-19-2024 ambulatory Jaron Gilmore Facility:[facility] Start: 12-19-2024 Non-patient / Non-visit Dr. Candy PAULINO -[facility] Start: 12-19-2024 Non-patient / Non-visit Dr. Andres jerry DO -[facility] Start: 12-19-2024 End: 12-19-[address] Skylar Friend MD Work Phone: [facility] Work Phone: Start: 12-19-2024 End: 12-19-2024 Patient encounter procedure DEVEN Izaguirre -Pulmonary Services/Neurology Work Phone: Start: 12-19-2024 End: 12-19-2024 [facility] Start: 12-13-2024 End: 12-13-[address] [facility] Start: 11-03-2024 End: 11-03-2024 Patient encounter procedure DEVEN Izaguirre [facility] Work Phone: Start: 11-03-2024 End: 11-03-2024 ambulatory [facility] [place] Start: 09-26-2024 End: 09-26-2024 ambulatory YULISSA PAULINO [facility] Start: 07-24-2024 End: 07-24-2024 Patient encounter procedure Stefany Otto OD Work Phone: Optometry Comment on above: Type 2 diabetes chastity itus without retinopathy (HCC) (Primary Dx); Encounter for long-term (current) use of high-risk medication; Nuclear sclerotic cataract of both eyes; Floaters, bilateral; Hyperopia, bilateral; Regular astigmatism, bilateral; Presbyopia Start: 10-18-2023 End: 10-18-[address] Skylar Friend Work Phone: [facility] Work Phone: Start: 10-18-2023 End: 10-18-[address] Skylar Friend Work Phone: [facility]-Laboratory, [place] Work Phone: Start: 09-08-2023 End: 09-08-[address] Skylar Friend Work Phone: [facility]-Pulmonary Medicine [facility] Work Phone: Start: 07-26-2023 End: 07-26-2023 Patient encounter procedure Stefany Ocasio Celena OD Work Phone: Optometry Comment on above: Encounter for long-t erm (current) use of high-risk medication (Primary Dx); Nuclear sclerotic cataract of both eyes; Floaters, bilateral; Hyperopia, bilateral; Regular astigmatism, bilateral; Presbyopia Start: 11-19-2022 Non-patient / Non-visit Dr. Miranda Friend Work Phone: [facility] Start: 11-19-2022 End: 11-19-[address] Skylar Friend Work Phone: [facility] Work Phone: Start: 11-19-2022 End: 11-19-[address] Skylar Friend Work Phone: [facility]-Cardiov[facility] Start: 11-10-2022 End: 11-10-[address] Skylar Friend Work Phone: [facility] Work Phone: Start: 11-10-2022 End: 11-10-[address] Skylar Friend Work Phone: [facility]-Sleep Lab Start: 11-05-2022 Non-patient / Non-visit Dr. Miranda Friend Work Phone: [facility] Start: 11-05-2022 End: 11-05-[address] Skylar Friend Work Phone: [facility] Work Phone: Start: 11-05-2022 End: 11-05-[address] Skylar Friend Work Phone: [facility]-Pulmonary Services/Neurology Start: 10-29-2022 End: 10-29-[address] Skylar Friend Work Phone: [facility]-Pulmonary Medicine [facility] Start: 09-23-2022 End: 09-23-2022 ambulatory [facility] Work Phone: Start: 09-23-2022 End: 09-23-2022 Patient encounter procedure [facility] [place] Start: 08-06-2022 Telephone encounter Luis georges OD Work Phone: Optometry Comment on above: Patient Question Start: 06-30-2022 End: 06-30-2022 Patient encounter procedure uLis Otto OD Work Phone: Optometry Comment on above: Encounter for long-t erm (current) use of high-risk medication (Primary Dx); Nuclear sclerotic cataract of both eyes; Dermatochalasis of both upper eyelids; Floaters, bilateral; Peripheral retinal degeneration of both eyes; Hyperopia, bilateral; Regular astigmatism, bilateral; Presbyopia Start: 11-02-2020 End: 11-02-2020 Orders Only Adali Verna Louise Work Phone: [facility] Start: 05-24-2020 Patient encounter procedure RUSTY [facility] Start: 09-21-2019 End: 09-21-2019 Emergency department patient visit SKYLAR FRIEND [facility] Start: 09-21-2019 End: 09-21-2019 Emergency department patient visit Michelle Castillo Work Phone: [facility] Emergency Department Comment on above: Flank pain (Primary Dx) Start: 09-19-2019 Patient encounter procedure RUSTY [facility] Start: 09-11-2019 End: 09-11-2019 Patient encounter procedure RUSTY [facility] Start: 09-11-2019 End: 09-11-2019 Office outpatient visit 15 minutes Rusty Mohr Memoag Work Phone: [facility] Comment on above: Psoriatic arthritis (HCC) (Primary Dx); Psoriasis arthropathica (HCC) Start: 08-29-2019 End: 08-29-2019 Emergency department patient visit SKYLAR FRIEND [facility] Start: 08-29-2019 End: 08-29-2019 Emergency department patient visit Adali Wellington Work Phone: [facility] Emergency Department Comment on above: Pain in joint of lef t shoulder (Primary Dx); Chest wall pain Start: 03-28-2019 End: 03-28-2019 Office outpatient visit 15 minutes Rusty Mitchell Work Phone: [facility] Comment on above: Psoriatic arthritis (HCC) Start: 09-28-2018 End: 09-28-2018 Office outpatient visit 15 minutes Rusty Mitchell Work Phone: [facility] Comment on above: Psoriatic arthritis (HCC) (Primary Dx) Start: 05-18-2018 End: 05-18-2018 Office outpatient new 30 minutes Rusty Mohr Memoag Work Phone: [facility] Start: 05-06-2018 End: 05-06-2018 Patient encounter Rusty Mohr Memoag Work Phone: [facility] Start: 05-06-2018 End: 05-06-2018 Office outpatient visit 15 minutes Rusty Mitchell Work Phone: [facility] Start: 02-28-2018 End: 02-28-2018 Postop follow-up visit Michelle Garza Work Phone: [facility] Start: 02-04-2018 Ambulatory Rusty Mitchell Facili ty:[place] Start: 02-04-2018 End: 02-04-2018 Ambulatory Rusty Mohr Memoag Work Phone: [facility] Start: 02-04-2018 End: 02-04-2018 Office/outpatient visit, est, level 3 Rusty Mitchell Work Phone: [facility] Start: 02-02-2018 Ambulatory Michelle Tejeda Dane Faci lity:[place] Start: 02-02-2018 End: 02-02-2018 Ambulatory Michelle Garza Work Phone: [facility] Start: 01-31-2018 End: 01-31-2018 Office/outpatient visit, est, level 2 Michelle Garza Work Phone: [facility] Start: 01-22-2018 End: 01-22-2018 [facility] Start: 01-20-2018 End: 01-20-2018 Ambulatory Skylar Friend [facility] Start: 01-20-2018 End: 01-22-2018 Ambulatory Molina Walker Facility:[place] Start: 06-15-2017 Office/outpatient vi sit, est, level 3 Rusty Joelr Stadnflikdate Work Phone: [facility] Procedures Date Procedure Procedure Detail Performing Clinician Start: 06-26-2025 Vitamin D, 25-hydrox y measurement Dr. Skylar Friend MD Work Phone: Comment on above: Vitamin D StatusDefi ciency: <20 ng/mL (50nmol/L)Insufficiency: 20-30 ng/mL (50-75 nmol/L)Sufficiency: 30-100 ng/mL (75-250 nmol/L)Toxicity: >100 ng/mL (>250 nmol/L) Start: 07-24-2024 End: 07-24-2024 Computerized ophthalmic imaging retina Stefany Otto OD Work Phone: Start: 07-26-2023 End: 07-26-2023 Computerized ophthalmic imaging retina Luis Otto OD Work Phone: Start: 06-30-2022 Computerized ophthal jesse imaging retina Luis Otto OD Work Phone: Start: 05-28-2021 Lipid 1996 panel - S jeannette or Plasma Stefany Otto OD Work Phone: Start: 09-21-2019 Ct angiography chest w/contrast/noncontrast Michelle Castillo Work Phone: Start: 09-21-2019 Urinalysis Michelle Lewis Work Phone: Start: 09-21-2019 Radiologic exam ches t single view Michelle Castillo Work Phone: Start: 09-21-2019 LIGHT GREEN TOP Michelle Castillo Work Phone: Start: 09-21-2019 RAINBOW DRAW Michelle Lewis Work Phone: Start: 09-21-2019 Complete blood count with white cell differential, automated Michelle Castillo Work Phone: Start: 09-21-2019 Complete blood count with white cell differential, manual Michelle Castillo Work Phone: Start: 09-21-2019 Comprehensive metabo lic 2000 panel - Serum or Plasma Michelle Castillo Work Phone: Start: 09-21-2019 D-dimer assay, quantitative Michelle Castillo Work Phone: Start: 09-21-2019 INR in Platelet poor plasma by Coagulation assay Michelle Castillo Work Phone: Start: 09-21-2019 Lactate [Moles/volum e] in Serum or Plasma Michelle Castillo Work Phone: Start: 09-21-2019 Lipase [Enzymatic activity/volume] in Serum or Plasma Michelle Castillo Work Phone: Start: 09-21-2019 Troponin measurement Ma tttonia Castillo Work Phone: Start: 09-21-2019 12 lead ECG Michelle Lewis Work Phone: Start: 08-29-2019 Radex shoulder compl ete minimum 2 views Adali Bradshaw Marker Work Phone: Start: 08-29-2019 Standard chest X-ray Me yamilet Bradshaw Marker Work Phone: Start: 08-29-2019 Basic metabolic 2000 panel - Serum or Plasma Adali Bradshaw Marker Work Phone: Start: 08-29-2019 Complete blood count with white cell differential, automated Adali Bradshaw Marker Work Phone: Start: 08-29-2019 Complete blood count with white cell differential, manual Adali Bradshaw Marker Work Phone: Start: 08-29-2019 INR in Platelet poor plasma by Coagulation assay Adali Bradshaw Marker Work Phone: Start: 08-29-2019 LIGHT GREEN TOP Adali Bradshaw Marker Work Phone: Start: 08-29-2019 RAINBOW DRAW Adali keller Marker Work Phone: Start: 08-29-2019 Troponin measurement Me yamilet Bradshaw Marker Work Phone: Start: 08-29-2019 12 lead ECG Adali keller Marker Work Phone: Start: 07-14-2016 Colonoscopy Luis danielson II, OD Work Phone: Start: 07-14-2016 Lipid 1996 panel - S jeannette or Plasma Stefany Otto OD Work Phone: Start: 07-14-2016 Mammography Luis danielson II, OD Work Phone: Plan of Treatment Date Care Activity Detail Author Start: 05-28-2026 Lipid panel Lipid Screening [facility] Start: 02-02-2026 Diabetes Screening Diabetes Screenin g [facility] Start: 10-08-2025 Lactate dehydrogenas e measurement [facility] Start: 10-08-2025 Serum immunofixation [facility] Start: 10-08-2025 [facility] Start: 07-30-2025 End: 07-30-2025 Patient encounter procedure 07/30/2025 2:00 PM EST Office Visit [facility] [address] [place] [address] Stefany Otto, OD [address] [place] [address] Eye exam Plaquenil [facility] Comment on above: Eye exam Plaquenil [facility] [facility] Start: 07-28-2025 DIABETES SCREEN DIABETES SCREEN [facility] Start: 07-20-2025 Cardiac event recording [facility] Start: 07-20-2025 Evaluation of diagno stic study results [facility] Start: 07-20-2025 End: 07-20-2025 Patient encounter procedure Atrial flutter [facility] Work Phone: Start: 06-23-2025 DIABETES SCREEN DIABETES SCREEN [facility] Start: 2024 RSV Vaccine (1 - 1-d ose 75+ series) RSV Vaccine (1 - 1-dose 75+ series) [facility] Start: 06-19-2024 OCT MACULA CIRRUS OU (BOTH EYES) OCT MACULA CIRRUS OU (BOTH EYES) [facility] Imaging Routine Encounter for long-term (current) use of high-risk medication Expected: 06/19/2024 [facility] Work Phone: Comment on above: Expected: 06/19/2024 Start: 06-19-2024 VISUAL FIELD 10-2 OU (BOTH EYES) VISUAL FIELD 10-2 OU (BOTH EYES) [facility] Routine Encounter for long-term (current) use of high-risk medication Expected: 06/19/2024 [facility] Work Phone: Comment on above: Expected: 06/19/2024 Start: 05-28-2024 Covid-19 Vaccine () Covid-19 Vaccine () [facility] Start: 05-28-2024 Influenza vaccination Influenza Vacc ine (#1) [facility] Start: 09-27-2023 Advance Directive Discussion Advance Directive Discussion [facility] Start: 05-28-2023 Covid-19 Vaccine () Covid-19 Vaccine () [facility] Start: 02-03-2023 Exercise tolerance test [facility] Start: 09-27-2022 Advance Directive Discussion Advance Directive Discussion [facility] Start: 09-27-2022 Depression Assessment Depression Ass essment [facility] Start: 05-28-2022 Influenza vaccination INFLUENZA (#1) [facility] Start: 10-02-2021 COVID-19 VACCINE (4 - Booster for Moderna series) COVID-19 VACCINE (4 - Booster for Moderna series) [facility] Start: 09-27-2021 ADVANCE DIRECTIVE DISCUSSION ADVANCE DIRECTIVE DISCUSSION [facility] Start: 09-27-2021 DEPRESSION ASSESSMENT DEPRESSION ASS ESSMENT [facility] Start: 07-14-2021 Lipid 1996 panel - S jeannette or Plasma Lipid Screening [facility] Start: 07-14-2021 LIPID SCREEN LIPID SCREEN [facility] Start: 05-28-2020 Influenza vaccinatio n given Sequential Influenza Vaccine (#1) [facility] Start: 03-11-2020 End: 03-11-2020 Office Visit 03/11/2020 Office Visit Orthopedic Surgery Rutsy Mitchell MD [address] [place] [address] [phone] [facility] Start: 09-28-2019 End: 09-28-2019 Office Visit 09/28/2019 Office Visit Orthopedic Surgery Rusty Mitchell MD [address] [place] [address] [phone] [facility] Start: 05-28-2019 Influenza vaccinatio n given SEQUENTIAL INFLUENZA VACCINE (#1) [facility] Start: 03-28-2019 End: 03-28-2019 Ambulatory 03/28/2019 Office Visit Orthopedic Surgery Rusty Mitchell MD [address] [place] [address] [phone] [facility] Start: 11-04-2018 End: 11-04-2018 Ambulatory 11/04/2018 Office Visit Orthopedic Surgery Rusty Mitchell MD [address] [place] [address] [phone] [facility] Start: 05-28-2018 Influenza vaccination [facility] Start: 05-12-2018 Pneumococcal vaccination PNEUM OCOCCAL VACCINE AGE 65+ (2 of 2 - PPSV23) [facility] Start: 05-06-2018 End: 05-06-2018 Ambulatory 05/06/2018 Office Visit Orthopedic Surgery Rusty Mitchell MD [address] [place] [address] [phone] [facility] Start: 02-28-2018 End: 02-28-2018 Ambulatory 02/28/2018 Office Visit Sports Medicine Michelle Garza MD [address] [place] [address] [phone] [facility] Start: 02-04-2018 End: 02-04-2018 Ambulatory 02/04/2018 Office Visit Orthopedic Surgery Rusty Mitchell MD [address] [place] [address] [phone] [facility] Start: 01-31-2018 End: 01-31-2018 Ambulatory 01/31/2018 Office Visit Sports Medicine Michelle [place] [address] [phone] [facility] Start: 12-14-2017 Ambulatory 12/14/2017 Off ice Visit Orthopedic Surgery Rusty Mitchell MD [address] [place] [address] [phone] [facility] Start: 07-14-2017 Colonoscopy COLONOSCOPY [facility] Start: 07-14-2017 COLORECTAL CANCER SCREENING COLORECTAL CANCER SCREENING [facility] Start: 07-14-2017 Mammography [facility] Start: 07-14-2017 Screening for malign ant neoplasm of breast Mammogram Screening [facility] Start: 07-14-2017 Screening for malign ant neoplasm of cervix Cervical Cancer Screening [facility] Start: 07-14-2017 Screening for malign ant neoplasm of colon [facility] Start: 05-28-2017 Influenza vaccination SEQUENTI AL INFLUENZA VACCINE (#1) [facility] Work Phone: Start: 2014 Fall risk assessment Steadi Fa ll Risk Assessment [facility] Start: 2014 Pneumococcal vaccination PNEUM OCOCCAL VACCINE AGE 65+ (1 of 2 - PCV13) [facility] Work Phone: Start: 2014 PNEUMOCOCCAL: 65+ (1 - PCV) PNEUMOCOCCAL: 65+ (1 - PCV) [facility] Start: 2009 RSV Vaccine (1 - 1-d ose 60+ series) RSV Vaccine (1 - 1-dose 60+ series) [facility] Start: 2009 Zoster vacc, sc ZOSTER VACCINE [facility] Work Phone: Start: 1999 Administration of he rpes zoster vaccine Zoster Vaccines (1 of 2) [facility] Start: 1999 Screening for malign ant neoplasm of colon [facility] Start: 1999 SHINGRIX VACCINE (1 of 2) SHINGRIX VACCINE (1 of 2) [facility] Start: 1999 ZOSTER VACCINES (1 of 2) ZOSTE R VACCINES (1 of 2) [facility] Start: 1994 COLOGUARD (FIT-DNA) COLOGUARD (FIT-D NA) [facility] Start: [address] COLONOGRAPHY [facility] Start: 1994 FECAL OCCULT BLOOD FECAL OCCULT BLOO D [facility] Start: 1994 Screening for malign ant neoplasm of colon [facility] Start: 1994 SIGMOIDOSCOPY SIGMOIDOSCOPY [place] Start: 1968 SHINGRIX VACCINE (1 of 2) SHINGRIX VACCINE (1 of 2) [facility] Start: 1968 Urine microalbumin profile [facility] Start: 1967 Anxiety Screening Anxiety Screening [facility] Start: 1967 Depression Screening Depression Scre ening [facility] Start: 1967 Hepatitis C antibody , confirmatory test Hepatitis C Screening [facility] Start: 1965 COVID-19 Vaccine (1 of 2) COVID-19 Vaccine (1 of 2) [facility] Start: 1961 Adolescent depressio n screening assessment Depression Screening (PHQ9) [facility] Start: 1955 PNEUMOCOCCAL: 65+ (1 - PCV) PNEUMOCOCCAL: 65+ (1 - PCV) [facility] Start: 1952 History and physical examination, annual for health maintenance Wellness Visit [facility] Start: 1949 Depression screening using PHQ-9 (Patient Health Questionnaire 9) score DEPRESSION SCREENING (PHQ9) [facility] Start: 1949 Fall risk assessment Falls Risk Asse neetu [facility] Start: 1949 Hepatitis C antibody , confirmatory test HEPATITIS C SCREENING [facility] Start: 1949 Screening for malign ant neoplasm of colon Colorectal Cancer Screening: Colonoscopy [facility] Start: 1949 Screening mammography Mammogram [facility] Start: 1949 HEPATITIS C SCREENING HEPATITIS C SC REENING [facility] Work Phone: Start: 1949 Screening colonoscopy COLONOSCOPY O [facility] Work Phone: Start: 1949 End: 1949 Screening for osteoporosis DEXA SCAN [facility] Work Phone: Start: 1949 End: 1949 Tetanus vaccination [facility] Work Phone: End: 02-04-2019 Alkaline phosphatase, bone specific Alkaline phosphatase, bone specific Routine Pseudogout of hip, right 1 Occurrences starting 02/04/2018 until 02/04/2019 [facility] End: 05-07-2019 BUN BUN Routine Psoriatic arthritis (HCC) 8 wks for 6 Occurrences starting 05/06/2018 until 05/07/2019 [facility] End: 02-04-2019 Calcium Calcium Routine Pseudogout of hip, right 1 Occurrences starting 02/04/2018 until 02/04/2019 [facility] End: 05-07-2019 CBC and Differential CBC and Differential Routine Psoriatic arthritis (HCC) 8 wks for 6 Occurrences starting 05/06/2018 until 05/07/2019 [facility] CBC W Auto Different ial panel - Blood [facility] End: 09-29-2019 Complete blood count with white cell differential, manual CBC and Differential Routine Psoriatic arthritis (HCC) 8 wks for 6 Occurrences starting 09/28/2018 until 09/29/2019 [facility] Comment on above: 8 wks for 6 Occurren mirella starting 09/28/2018 until 09/29/2019 End: 09-11-2020 Complete blood count with white cell differential, manual CBC and Differential Lab Routine Psoriasis arthropathica (HCC) 8 wks for 6 Occurrences starting 09/11/2019 until 09/11/2020 [facility] Comment on above: 8 wks for 6 Occurren mirella starting 09/11/2019 until 09/11/2020 Comprehensive metabo lic 2000 panel - Serum or Plasma [facility] End: 09-11-2020 Creatinine [Mass/Vol] Creatinine, serum Lab Routine Psoriasis arthropathica (HCC) 8 wks for 6 Occurrences starting 09/11/2019 until 09/11/2020 [facility] Comment on above: 8 wks for 6 Occurren mirella starting 09/11/2019 until 09/11/2020 End: 09-29-2019 Creatinine mass conc Creatinine, serum Routine Psoriatic arthritis (HCC) 8 wks for 6 Occurrences starting 09/28/2018 until 09/29/2019 [facility] Comment on above: 8 wks for 6 Occurren mirella starting 09/28/2018 until 09/29/2019 End: 05-07-2019 Creatinine, serum Creatinine, serum Routine Psoriatic arthritis (HCC) 8 wks for 6 Occurrences starting 05/06/2018 until 05/07/2019 [facility] Ferritin [Mass/volum e] in Serum or Plasma [facility] End: 05-07-2019 Hepatic function 2000 panel - Serum or Plasma Hepatic Function Panel Routine Psoriatic arthritis (HCC) 8 wks for 6 Occurrences starting 05/06/2018 until 05/07/2019 [facility] End: 09-29-2019 Hepatic function 2000 panel - Serum or Plasma Hepatic Function Panel Routine Psoriatic arthritis (HCC) 8 wks for 6 Occurrences starting 09/28/2018 until 09/29/2019 [facility] Comment on above: 8 wks for 6 Occurren mirella starting 09/28/2018 until 09/29/2019 End: 09-11-2020 Hepatic function 2000 panel - Serum or Plasma Hepatic Function Panel Lab Routine Psoriasis arthropathica (HCC) 8 wks for 6 Occurrences starting 09/11/2019 until 09/11/2020 [facility] Comment on above: 8 wks for 6 Occurren mirella starting 09/11/2019 until 09/11/2020 Iron and Iron bindin g capacity panel - Serum or Plasma [facility] End: 02-04-2019 Phosphorus Phosphorus Routine Pseudogout of hip, right 1 Occurrences starting 02/04/2018 until 02/04/2019 [facility] End: 02-04-2019 PTH, Intact PTH, Intact Routine Pseudogout of hip, right 1 Occurrences starting 02/04/2018 until 02/04/2019 [facility] Standard chest X-ray XR Chest AP /PA and LAT Imaging NIKA 08/29/2019 7:42 AM EST [facility] End: 09-11-2020 Urate [Mass/Vol] Uric Acid Lab Routine Psoriatic arthritis (HCC) 1 Occurrences starting 09/11/2019 until 09/11/2020 [facility] Comment on above: 1 Occurrences starti ng 09/11/2019 until 09/11/2020 End: 09-11-2020 Urea nitrogen [Mass/Vol] BUN Lab Routine Psoriasis arthropathica (HCC) 8 wks for 6 Occurrences starting 09/11/2019 until 09/11/2020 [facility] Comment on above: 8 wks for 6 Occurren mirella starting 09/11/2019 until 09/11/2020 End: 09-29-2019 Urea nitrogen mass conc BUN Routine Psoriatic arthritis (HCC) 8 wks for 6 Occurrences starting 09/28/2018 until 09/29/2019 [facility] Comment on above: 8 wks for 6 Occurren mirella starting 09/28/2018 until 09/29/2019 [facility] End: 05-06-2019 XR Ankle Left 3+ Views (Standard) XR Ankle Left 3+ Views (Standard) Routine Pain 1 Occurrences starting 05/06/2018 until 05/06/2019 [facility] End: 05-06-2019 XR Foot Left 3+ Views (Standard) XR Foot Left 3+ Views (Standard) Routine Pain 1 Occurrences starting 05/06/2018 until 05/06/2019 [facility] XR Shoulder Left 2+ Views (Standard) XR Shoulder Left 2+ Views (Standard) Imaging NIKA 08/29/2019 7:43 AM [facility] Immunizations Immunization Date Immunization Notes Care Provider Paola callaway 07-13-2023 influenza virus vaccine, unspecified formulation Stefany Otto OD Work Phone: [facility] 10-19-2019 influenza, injectabl e, quadrivalent, preservative free Dr. Skylar Friend Work Phone: [facility] 10-19-2019 influenza, seasonal, injectable [facility] Payers Date Payer Category Payer Self-pay [id number] 2023 Private Health Insurance [facility] [id number] 2022 Medicare [id number] 2014 Medicare [id number] 2014 Medicare [id number]. [id number] 2014 Medicare [id number] 2014 Medicare MEDICARE MEDICAR E PART A & B [id number] 2014-Present [place] [id number]. [id number] 2014 Unknown [id number] 2.16.840.1.721291.3.249.13 2014 Unknown AARP AARP COMMER CIAL [id number] 2014-Present [id number] 1.2.840.784721.1.13.385.2. [id number] 1949 Unknown [id number] 2.16.840.1.031477.3.579.2. 903 1949 Unknown [id number] 2.16.840.1.584218.3.579.2. 903 1949 Unknown [id number] 2.16.840.1.449416.3.579.2. 903 1949 Unknown [id number] 2.16.840.1.312848.3.579.2. 903 1949 Unknown [id number] 2.16.840.1.534622.3.579.2. 903 1949 Unknown [id number] 2.16.840.1.335446.3.579.2. 651 1949 Unknown [id number] 2.16.840.1.140657.3.579.2. 651 1949 Unknown [id number] 2.16.840.1.621029.3.579.2. 651 1949 Unknown [id number] 2.16.840.1.031301.3.579.2. 651 1949 Unknown [id number] 2..840.1.225187.3.579.2. 65 1949 Unknown [id number] 2..840.1.121695.3.579.2. 64 1949 Unknown [id number] 2..840.1.716603.3.579.2. 651 Medicare [id number] Unknown AARP MCR ADV [id number] Unknown [id number] Unknown [id number] 2.840.1.872702.3.579.2. 462 Unknown [id number] 2.840.1.830776.3.579.2. 462 Unknown [id number] 2.840.1.503281.3.579.2. 462 Unknown [id number] 2.840.1.213027.3.579.2. 462 Unknown [id number] 2..840.1.994974.3.579.2. 462 Unknown [id number] 2..840.1.249593.3.579.2. 462 Unknown [id number] 2.840.1.106248.3.579.2. 462 Unknown [id number] 2.16.840.1.989748.3.579.2. 462 Unknown [id number] 2.16.840.1.464918.3.579.2. 462 Unknown [id number] 2.16.840.1.109717.3.579.2. 462 Unknown [id number] 2.16.840.1.145435.3.579.2. 462 Unknown [id number] 2.16.840.1.226294.3.579.2. 462 Unknown [id number] 2.16.840.1.812999.3.579.2. 462 Social History Date Type Detail Facility Start: 02-28-2018 End: 07-04-2025 Tobacco smoking status NHIS Former smoker [facility] End: 03-30-1983 History of tobacco use Current smoker [facility] Work Phone: Start: 1950 Sex Assigned At Not on file O [facility] Work Phone: Start: 07-24-[address] [facility] Start: 08-29-2019 End: 07-24-2024 Alcohol intake Current drinker of alcohol (finding) [facility] Start: 09-21-2019 End: 11-20-2019 Tobacco use and exposure Never used [facility] History of tobacco use Cigarette Smoker [facility] Start: 11-20-2019 End: 07-26-2023 Cigarettes smoked current (pack per day) - Reported 1 [facility] Start: 06-19-2022 End: 06-29-2022 Exposure to SARS-CoV-2 (event) Not sure [facility] Start: 10-05-2019 End: 09-08-2023 Tobacco smoking status NHIS Unknown if ever smoked [facility] Start: 10-05-2019 Non-smoker [facility] Start: 1950 Sex Assigned At Female [facility] Start: 07-26-2023 Tobacco use panel [facility] National Score (1-10 0), lower number is lower risk 79 [facility] Start: 12-23-2024 Sex Female (finding) [facility] Medical Equipment Procedure Code Equipment Code Equipment Origin al Text Equipment Identifier Dates CEMENT,BONE W/TOBRAMYCIN STRYK FDA Start: 10-18-2019 PLUG,BONE MEDIUM FDA Start: 10-18-2019 POST. AUGMENT FDA Start: 10-18-2019 TIBIAL CONE AUGMENT FDA Start : 10-18-2019 TIBIAL INSERT FDA Start: 10-18-2019 TRIATHLON FEM DI STAL AUGMENT FDA Start: 10-18-[address] AUGMENT FDA Start: 10-18-2019 UNIVERSAL TIBIAL BASEPLATE FDA Start: 10-18-2019 CEMENT,BONE W/TOBRAMYCIN STRYK FDA Start: 10-18-2019 CEMENT,BONE W/TOBRAMYCIN STRYK FDA Start: 10-18-2019 CEMENTED STEM FDA Start: 10-18-2019 CEMENTED STEM FDA Start: 10-18-2019 DISTAL AUGMENT FDA Start: 10-18-2019 FEMORAL COMPONENT FDA Start: 10-18-2019 PATELLA FDA Start: 10-18-2019 PLUG,BONE MEDIUM FDA Start: 10-18-2019 CEMENT,BONE W/TOBRAMYCIN STRYK FDA Start: 10-18-2019 PLUG,BONE MEDIUM FDA Start: 10-18-2019 POST. AUGMENT FDA Start: 10-18-2019 TIBIAL CONE AUGMENT FDA Start : 10-18-2019 TIBIAL INSERT FDA Start: 10-18-2019 TRIATHLON FEM DI STAL AUGMENT FDA Start: 10-18-[address] AUGMENT FDA Start: 10-18-2019 UNIVERSAL TIBIAL BASEPLATE FDA Start: 10-18-2019 CEMENT,BONE W/TOBRAMYCIN STRYK FDA Start: 10-18-2019 CEMENT,BONE W/TOBRAMYCIN STRYK FDA Start: 10-18-2019 CEMENTED STEM FDA Start: 10-18-2019 CEMENTED STEM FDA Start: 10-18-2019 DISTAL AUGMENT FDA Start: 10-18-2019 FEMORAL COMPONENT FDA Start: 10-18-2019 PATELLA FDA Start: 10-18-2019 PLUG,BONE MEDIUM FDA Start: 10-18-2019 CEMENT,BONE W/TOBRAMYCIN STRYK FDA Start: 10-18-2019 PLUG,BONE MEDIUM FDA Start: 10-18-2019 POST. AUGMENT FDA Start: 10-18-2019 TIBIAL CONE AUGMENT FDA Start : 10-18-2019 TIBIAL INSERT FDA Start: 10-18-2019 TRIATHLON FEM DI STAL AUGMENT FDA Start: 10-18-[address] AUGMENT FDA Start: 10-18-2019 UNIVERSAL TIBIAL BASEPLATE FDA Start: 10-18-2019 CEMENT,BONE W/TOBRAMYCIN STRYK FDA Start: 10-18-2019 CEMENT,BONE W/TOBRAMYCIN STRYK FDA Start: 10-18-2019 CEMENTED STEM FDA Start: 10-18-2019 CEMENTED STEM FDA Start: 10-18-2019 DISTAL AUGMENT FDA Start: 10-18-2019 FEMORAL COMPONENT FDA Start: 10-18-2019 PATELLA FDA Start: 10-18-2019 PLUG,BONE MEDIUM FDA Start: 10-18-2019 CEMENT,BONE W/TOBRAMYCIN STRYK FDA Start: 10-18-2019 PLUG,BONE MEDIUM FDA Start: 10-18-2019 POST. AUGMENT FDA Start: 10-18-2019 TIBIAL CONE AUGMENT FDA Start : 10-18-2019 TIBIAL INSERT FDA Start: 10-18-2019 TRIATHLON FEM DI STAL AUGMENT FDA Start: 10-18-[address] AUGMENT FDA Start: 10-18-2019 UNIVERSAL TIBIAL BASEPLATE FDA Start: 10-18-2019 CEMENT,BONE W/TOBRAMYCIN STRYK FDA Start: 10-18-2019 CEMENT,BONE W/TOBRAMYCIN STRYK FDA Start: 10-18-2019 CEMENTED STEM FDA Start: 10-18-2019 CEMENTED STEM FDA Start: 10-18-2019 DISTAL AUGMENT FDA Start: 10-18-2019 FEMORAL COMPONENT FDA Start: 10-18-2019 PATELLA FDA Start: 10-18-2019 PLUG,BONE MEDIUM FDA Start: 10-18-2019 CEMENT,BONE W/TOBRAMYCIN STRYK FDA Start: 10-18-2019 PLUG,BONE MEDIUM FDA Start: 10-18-2019 POST. AUGMENT FDA Start: 10-18-2019 TIBIAL CONE AUGMENT FDA Start : 10-18-2019 TIBIAL INSERT FDA Start: 10-18-2019 TRIATHLON FEM DI STAL AUGMENT FDA Start: 10-18-[address] AUGMENT FDA Start: 10-18-2019 UNIVERSAL TIBIAL BASEPLATE FDA Start: 10-18-2019 CEMENT,BONE W/TOBRAMYCIN STRYK FDA Start: 10-18-2019 CEMENT,BONE W/TOBRAMYCIN STRYK FDA Start: 10-18-2019 CEMENTED STEM FDA Start: 10-18-2019 CEMENTED STEM FDA Start: 10-18-2019 DISTAL AUGMENT FDA Start: 10-18-2019 FEMORAL COMPONENT FDA Start: 10-18-2019 PATELLA FDA Start: 10-18-2019 PLUG,BONE MEDIUM FDA Start: 10-18-2019 CEMENT,BONE W/TOBRAMYCIN STRYK FDA Start: 10-18-2019 PLUG,BONE MEDIUM FDA Start: 10-18-2019 POST. AUGMENT FDA Start: 10-18-2019 TIBIAL CONE AUGMENT FDA Start : 10-18-2019 TIBIAL INSERT FDA Start: 10-18-2019 TRIATHLON FEM DI STAL AUGMENT FDA Start: 10-18-[address] AUGMENT FDA Start: 10-18-2019 UNIVERSAL TIBIAL BASEPLATE FDA Start: 10-18-2019 CEMENT,BONE W/TOBRAMYCIN STRYK FDA Start: 10-18-2019 CEMENT,BONE W/TOBRAMYCIN STRYK FDA Start: 10-18-2019 CEMENTED STEM FDA Start: 10-18-2019 CEMENTED STEM FDA Start: 10-18-2019 DISTAL AUGMENT FDA Start: 10-18-2019 FEMORAL COMPONENT FDA Start: 10-18-2019 PATELLA FDA Start: 10-18-2019 PLUG,BONE MEDIUM FDA Start: 10-18-2019 CEMENT,BONE W/TOBRAMYCIN STRYK FDA Start: 10-18-2019 PLUG,BONE MEDIUM FDA Start: 10-18-2019 POST. AUGMENT FDA Start: 10-18-2019 TIBIAL CONE AUGMENT FDA Start : 10-18-2019 TIBIAL INSERT FDA Start: 10-18-2019 TRIATHLON FEM DI STAL AUGMENT FDA Start: 10-18-[address] AUGMENT FDA Start: 10-18-2019 UNIVERSAL TIBIAL BASEPLATE FDA Start: 10-18-2019 CEMENT,BONE W/TOBRAMYCIN STRYK FDA Start: 10-18-2019 CEMENT,BONE W/TOBRAMYCIN STRYK FDA Start: 10-18-2019 CEMENTED STEM FDA Start: 10-18-2019 CEMENTED STEM FDA Start: 10-18-2019 DISTAL AUGMENT FDA Start: 10-18-2019 FEMORAL COMPONENT FDA Start: 10-18-2019 PATELLA FDA Start: 10-18-2019 PLUG,BONE MEDIUM FDA Start: 10-18-2019 CEMENT,BONE W/TOBRAMYCIN STRYK FDA Start: 10-18-2019 PLUG,BONE MEDIUM FDA Start: 10-18-2019 POST. AUGMENT FDA Start: 10-18-2019 TIBIAL CONE AUGMENT FDA Start : 10-18-2019 TIBIAL INSERT FDA Start: 10-18-2019 TRIATHLON FEM DI STAL AUGMENT FDA Start: 10-18-[address] AUGMENT FDA Start: 10-18-2019 UNIVERSAL TIBIAL BASEPLATE FDA Start: 10-18-2019 CEMENT,BONE W/TOBRAMYCIN STRYK FDA Start: 10-18-2019 CEMENT,BONE W/TOBRAMYCIN STRYK FDA Start: 10-18-2019 CEMENTED STEM FDA Start: 10-18-2019 CEMENTED STEM FDA Start: 10-18-2019 DISTAL AUGMENT FDA Start: 10-18-2019 FEMORAL COMPONENT FDA Start: 10-18-2019 PATELLA FDA Start: 10-18-2019 PLUG,BONE MEDIUM FDA Start: 10-18-2019 CEMENT,BONE W/TOBRAMYCIN STRYK FDA Start: 10-18-2019 PLUG,BONE MEDIUM FDA Start: 10-18-2019 POST. AUGMENT FDA Start: 10-18-2019 TIBIAL CONE AUGMENT FDA Start : 10-18-2019 TIBIAL INSERT FDA Start: 10-18-2019 TRIATHLON FEM DI STAL AUGMENT FDA Start: 10-18-[address] AUGMENT FDA Start: 10-18-2019 UNIVERSAL TIBIAL BASEPLATE FDA Start: 10-18-2019 CEMENT,BONE W/TOBRAMYCIN STRYK FDA Start: 10-18-2019 CEMENT,BONE W/TOBRAMYCIN STRYK FDA Start: 10-18-2019 CEMENTED STEM FDA Start: 10-18-2019 CEMENTED STEM FDA Start: 10-18-2019 DISTAL AUGMENT FDA Start: 10-18-2019 FEMORAL COMPONENT FDA Start: 10-18-2019 PATELLA FDA Start: 10-18-2019 PLUG,BONE MEDIUM FDA Start: 10-18-2019 CEMENT,BONE W/TOBRAMYCIN STRYK FDA Start: 10-18-2019 PLUG,BONE MEDIUM FDA Start: 10-18-2019 POST. AUGMENT FDA Start: 10-18-2019 TIBIAL CONE AUGMENT FDA Start : 10-18-2019 TIBIAL INSERT FDA Start: 10-18-2019 TRIATHLON FEM DI STAL AUGMENT FDA Start: 10-18-[address] AUGMENT FDA Start: 10-18-2019 UNIVERSAL TIBIAL BASEPLATE FDA Start: 10-18-2019 CEMENT,BONE W/TOBRAMYCIN STRYK FDA Start: 10-18-2019 CEMENT,BONE W/TOBRAMYCIN STRYK FDA Start: 10-18-2019 CEMENTED STEM FDA Start: 10-18-2019 CEMENTED STEM FDA Start: 10-18-2019 DISTAL AUGMENT FDA Start: 10-18-2019 FEMORAL COMPONENT FDA Start: 10-18-2019 PATELLA FDA Start: 10-18-2019 PLUG,BONE MEDIUM FDA Start: 10-18-2019 CEMENT,BONE W/TOBRAMYCIN STRYK FDA Start: 10-18-2019 PLUG,BONE MEDIUM FDA Start: 10-18-2019 POST. AUGMENT FDA Start: 10-18-2019 TIBIAL CONE AUGMENT FDA Start : 10-18-2019 TIBIAL INSERT FDA Start: 10-18-2019 TRIATHLON FEM DI STAL AUGMENT FDA Start: 10-18-[address] AUGMENT FDA Start: 10-18-2019 UNIVERSAL TIBIAL BASEPLATE FDA Start: 10-18-2019 CEMENT,BONE W/TOBRAMYCIN STRYK FDA Start: 10-18-2019 CEMENT,BONE W/TOBRAMYCIN STRYK FDA Start: 10-18-2019 CEMENTED STEM FDA Start: 10-18-2019 CEMENTED STEM FDA Start: 10-18-2019 DISTAL AUGMENT FDA Start: 10-18-2019 FEMORAL COMPONENT FDA Start: 10-18-2019 PATELLA FDA Start: 10-18-2019 PLUG,BONE MEDIUM FDA Start: 10-18-2019 Clinical Notes 06-22-2012 to 07-30-2025 Note Date & Type Note Facility 07-30-2025 Note HNO ID: [id number] Author: STEFANY OTTO OD Service: ? Author Type: Fish Checker Type: Progress Notes Filed: 07/30/2025 15:14 Note Text: ASSESSMENT/PLAN: 1. Encounter for long-term (current) use of high-risk medication - ICD9: V58.69, ICD10: Z79.899 (primary diagnosis) Hydroxychloroquine use - Indication: Rheumatoid Arthritis - no signs of toxicity today on exam - OCT (07/30/2025): normal - Visual Field 10-2 (07/30/2025): normal - has been using plaquenil 400 mg daily for the last 5 years. - The recommended dosage is the lower of 5 mg/kg/day based on real body weight or 6.5 mg/kg/day based on ideal body weight as described in the most recent AAO plaquenil screening guidelines - Risk factors for toxicity include daily dose and duration of use, renal disease, tamoxifen use, history of retinal or macular disease - she is 122.47 kg which gives a maximum safe ophthalmic dose of 612.35 mg daily by real body weight Males: IBW = 50 kg + 2.3 kg for each inch over 5 feet. Females: IBW = 45.5 kg + 2.3 kg for each inch over 5 feet. 2. Type 2 diabetes mellitus without retinopathy (HCC) - ICD9: 250.00, ICD10: E11.9 Examination shows no ocular diabetic complications today. Discussed need for optimal diabetes control to minimize chance of ocular complications. Advise patient to immediately report worsening in status or additional symptoms. Continue yearly dilated eye examinations. 3. Nuclear sclerotic cataract of both eyes - ICD9: 366.16, ICD10: H25.13 Moderate cataract in both eyes. Well tolerated at this time. Discussed possible future affect on daily activities to watch for. Monitor as instructed. 4. Floaters, bilateral - ICD9: 379.24, ICD10: H43.393 Vitreal floaters stable both eyes. Retinas flat and intact with no apparent retinal tear or traction. Discussed symptoms of retinal tear/detachment and if seen patient will return to clinic without delay. 5. Hyperopia, bilateral - ICD9: 367.0, ICD10: H52.03 6. Regular astigmatism, bilateral - ICD9: 367.21, ICD10: H52.223 7. Presbyopia - ICD9: 367.4, ICD10: H52.4 Continue to wear her glasses with the optional update. Recommended yearly dilated exams. Stefany Otto, OD I have confirmed and edited as necessary the relevant ophthalmic history, ROS, and the neuro exam findings as obtained by others. [facility] 2025 Progress note [facility] 06-08-2025 Evaluation note Diagnosis Onset Date Resolution Obstructive sleep apnea acute S eptember 2024 1:24pm Pulmonary hypertension acute Se ptember 2024 1:24pm Hypoxia chronic May 1:24pm Moderate COPD (chronic obstructive pulmonary disease) chronic June 08, 2025 1:24pm Obesity chronic May 1:24pm [facility] Work Phone: 1(563) 227-282409-12-2025 Evaluation note* Diagnosis Onset Date Resolution Status Admit Date Obstructive sleep apnea acute S ep2024 1:24pm Pulmonary hypertension acute Se ptember 2024 1:24pm Hypoxia chronic May 1:24pm Moderate COPD (chronic obstructive pulmonary disease) chronic S 2024 1:24pm Obesity chronic May 1:24pm 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 July 102024 9:40am Atrial flutter acute July 202024 1:44pm DRAKE (dyspnea on exertion) acute July 20, 2025 1:44pm Hyperlipidemia acute July 202024 1:44pm Mild aortic stenosis acute 2024 1:44pm Obstructive sleep apnea acute O ctober 2024 1:44pm Rheumatoid arthritis acute 2024 1:44pm Chronic anemia chronic July 202024 1:44pm Hypertension chronic June 1:44pm [facility] Work Phone: 1(177) 147-589205-27-2025 Evaluation note* Diagnosis Onset Date Resolution Status Admit Date Obstructive sleep apnea acute M ay 2024 2:11pm Pulmonary hypertension acute Ma y 2024 2:11pm Hypoxia chronic February 20, 2025 2:11pm Moderate COPD (chronic obstructive pulmonary disease) chronic February 20, 2025 2 :11pm Obesity chronic February 20, 2025 2:11pm Obstructive sleep apnea acute S 2024 1:24pm Pulmonary hypertension acute Se ptember 2024 1:24pm Hypoxia chronic May 1:24pm Moderate COPD (chronic obstructive pulmonary disease) chronic June 08, 2025 1:24pm Obesity chronic May 1:24pm [facility] Work Phone: 1(150) 490-830304-08-2025 Evaluation note* Diagnosis Onset Date Resolution Status Admit Date Daytime hypersomnia acute January 02, 2025 1:34pm Pulmonary hypertension acute Ap ril 2024 1:34pm Hypoxia chronic January 02 1:34pm Moderate COPD (chronic obstructive pulmonary disease) chronic A pril 2024 1:34pm Obesity January 02 1:34pm Obstructive sleep apnea acute M ay 2024 2:11pm Pulmonary hypertension acute Ma y 2024 2:11pm Hypoxia chronic February 20, 2025 2:11pm Moderate COPD (chronic obstructive pulmonary disease) chronic M ay 2024 2:11pm Obesity chronic February 20, 2025 2:11pm [facility] Work Phone: 1(729) 939-480102-07-2025 Evaluation note* Diagnosis Onset Date Resolution Status Admit Date Hypoxia chronic November 03, 2024 1:56pm Moderate COPD (chronic obstructive pulmonary disease) chronic November 03 1:56pm Obesity chronic November 03, 2024 1:56pm [facility] Work Phone: 1(932) 287-991902-07-2025 Evaluation note* Diagnosis Onset Date Resolution Status Admit Date Hypoxia November 03, 2024 1:56pm Moderate COPD (chronic obstructive pulmonary disease) chronic F ebruary 2024 1:56pm Obesity chronic November 03, 2024 1:56pm Daytime hypersomnia acute January 02, 2025 1:34pm Pulmonary hypertension acute Ap ril 2024 1:34pm Hypoxia chronic January 02 1:34pm Moderate COPD (chronic obstructive pulmonary disease) chronic A pril 2024 1:34pm Obesity chronic January 02 1:34pm Obstructive sleep apnea acute M ay 2024 2:11pm Pulmonary hypertension acute Ma y 2024 2:11pm Hypoxia chronic February 20, 2025 2:11pm Moderate COPD (chronic obstructive pulmonary disease) chronic M ay 2024 2:11pm Obesity chronic February 20, 2025 2:11pm [facility] Work Phone: 1(752) 845-343110-28-2024 Instructions* Patient Instructions* Stefany Otto, OD - 07/24/2024 2:57 PM EDT ASSESSMENT/PLAN: 1. Type 2 diabetes mellitus without retinopathy (HCC) - ICD9: 250.00, ICD10: E11.9 (primary diagnosis) Examination shows no ocular diabetic complications today. Discussed need for optimal diabetes control to minimize chance of ocular complications. Advise patient to immediately report worsening in status or additional symptoms. Continue yearly dilated eye examinations. 2. Encounter for long-term (current) use of high-risk medication - ICD9: V58.69, ICD10: Z79.899 Hydroxychloroquine use - Indication: Rheumatoid Arthritis - no signs of toxicity today on exam - OCT (07/24/2024): normal - Visual Field 10-2 (07/24/2024): normal - has been using plaquenil 400 mg daily for the last 4 years and was on it previously as well - The recommended dosage is the lower of 5 mg/kg/day based on real body weight or 6.5 mg/kg/day based on ideal body weight as described in the most recent AAO plaquenil screening guidelines - Risk factors for toxicity include daily dose and duration of use, renal disease, tamoxifen use, history of retinal or macular disease - she is 117.934 kg which gives a maximum safe ophthalmic dose of 589.67 mg daily by real body weight. 3. Nuclear sclerotic cataract of both eyes - ICD9: 366.16, ICD10: H25.13 Mild cataract in both eyes. Well tolerated at this time. Discussed possible future affect on daily activities to watch for. Monitor as instructed. 4. Floaters, bilateral - ICD9: 379.24, ICD10: H43.393 Vitreal floaters stable both eyes. Retinas flat and intact with no apparent retinal tear or traction. Discussed symptoms of retinal tear/detachment and if seen patient will return to clinic without delay. 5. Hyperopia, bilateral - ICD9: 367.0, ICD10: H52.03 6. Regular astigmatism, bilateral - ICD9: 367.21, ICD10: H52.223 7. Presbyopia - ICD9: 367.4, ICD10: H52.4 Continue to wear her glasses with the optional update. Recommended yearly exams. [facility] NoteDate of Procedure 07/24/2024. Bottom Painter Information Director Of Programming: radha. Start time: 1:55 PM. Reliability Right Eye Good. Left Eye Good. Interpretation Right Eye Normal. Left Eye Normal. Interval Change Right Eye Stable. Left Eye Stable.[id number] NoteDate of Procedure 07/24/2024. Bottom Painter Information Director Of Programming: radha. Start time: 1:55 PM. Interpretation Right Eye Normal foveal contour. Left Eye Normal foveal contour. Interval Change Right Eye Stable. Left Eye Stable.[id number] History of Present illness Narrative* Stefany Otto, OD - 07/24/2024 2:23 PM EDT ASSESSMENT/PLAN: 1. Type 2 diabetes mellitus without retinopathy (HCC) - ICD9: 250.00, ICD10: E11.9 (primary diagnosis) Examination shows no ocular diabetic complications today. Discussed need for optimal diabetes control to minimize chance of ocular complications. Advise patient to immediately report worsening in status or additional symptoms. Continue yearly dilated eye examinations. 2. Encounter for long-term (current) use of high-risk medication - ICD9: V58.69, ICD10: Z79.899 Hydroxychloroquine use - Indication: Rheumatoid Arthritis - no signs of toxicity today on exam - OCT (07/24/2024): normal - Visual Field 10-2 (07/24/2024): normal - has been using plaquenil 400 mg daily for the last 4 years and was on it previously as well - The recommended dosage is the lower of 5 mg/kg/day based on real body weight or 6.5 mg/kg/day based on ideal body weight as described in the most recent AAO plaquenil screening guidelines - Risk factors for toxicity include daily dose and duration of use, renal disease, tamoxifen use, history of retinal or macular disease - she is 117.934 kg which gives a maximum safe ophthalmic dose of 589.67 mg daily by real body weight. 3. Nuclear sclerotic cataract of both eyes - ICD9: 366.16, ICD10: H25.13 Mild cataract in both eyes. Well tolerated at this time. Discussed possible future affect on daily activities to watch for. Monitor as instructed. 4. Floaters, bilateral - ICD9: 379.24, ICD10: H43.393 Vitreal floaters stable both eyes. Retinas flat and intact with no apparent retinal tear or traction. Discussed symptoms of retinal tear/detachment and if seen patient will return to clinic without delay. 5. Hyperopia, bilateral - ICD9: 367.0, ICD10: H52.03 6. Regular astigmatism, bilateral - ICD9: 367.21, ICD10: H52.223 7. Presbyopia - ICD9: 367.4, ICD10: H52.4 Continue to wear her glasses with the optional update. Recommended yearly exams. Stefany Otto, OD I have confirmed and edited as necessary the relevant ophthalmic history, ROS, and the neuro exam findings as obtained by others. documented in this encounterC[facility]12[facility]20-[facility]23 Note. MICRO - Microbiology PROCEDURE: Blood Culture (bacterial) [*1] SOURCE: Blood BODY SITE: COLLECTED DATE/TIME: 09/09/2023 20:15 EST RECEIVED DATE/TIME: 09/10/2023 16:58 EST START DATE/TIME: 09/10/2023 16:58 EST FREE TEXT SOURCE: FINAL REPORTS Final Report [] Verified Date/Time/Personnel: 09/15/2023 16:59 EST Blood Culture: No Growth at 5 days. PRELIMINARY REPORTS Preliminary Report [] Verified Date/Time/Personnel: 09/10/2023 17:59 EST Culture has been received in lab and is no growth to date. Routine cultures are held for 5 days. Performing Locations *1: This test was performed at: [address], [facility] , [facility] ([place])09-15-2023 Note. MICRO - Microbiology PROCEDURE: Blood Culture (bacterial) [*1] SOURCE: Blood BODY SITE: COLLECTED DATE/TIME: 09/09/2023 20:05 EST RECEIVED DATE/TIME: 09/10/2023 16:57 EST START DATE/TIME: 09/10/2023 16:58 EST FREE TEXT SOURCE: FINAL REPORTS Final Report [] Verified Date/Time/Personnel: 09/15/2023 16:59 EST Blood Culture: No Growth at 5 days. PRELIMINARY REPORTS Preliminary Report [] Verified Date/Time/Personnel: 09/10/2023 17:59 EST Culture has been received in lab and is no growth to date. Routine cultures are held for 5 days. Performing Locations *1: This test was performed at: [address] [place], [address]- , [facility] ([place])07-26-2023 Instructions* Patient Instructions* Stefany Otto, OD - 07/26/2023 9:31 AM EDT ASSESSMENT/PLAN: 1. Encounter for long-term (current) use of high-risk medication - ICD9: V58.69, ICD10: Z79.899 Hydroxychloroquine use - Indication: Rheumatoid Arthritis - no signs of toxicity today on exam - OCT (07/26/2023): normal - Visual Field 10-2 (07/26/2023): normal - has been using plaquenil 200 mg twice daily - The recommended dosage is the lower of 5 mg/kg/day based on real body weight or 6.5 mg/kg/day based on ideal body weight as described in the most recent AAO plaquenil screening guidelines - Risk factors for toxicity include daily dose and duration of use, renal disease, tamoxifen use, history of retinal or macular disease - she is 119.3 kg which gives a maximum safe ophthalmic dose of 596 mg daily by real body weight Males: IBW = 50 kg + 2.3 kg for each inch over 5 feet. Females: IBW = 45.5 kg + 2.3 kg for each inch over 5 feet. 2. Nuclear sclerotic cataract of both eyes - ICD9: 366.16, ICD10: H25.13 (primary diagnosis) Mild cataract in both eyes. Well tolerated at this time. Discussed possible future affect on daily activities to watch for. Monitor as instructed. 3. Floaters, bilateral - ICD9: 379.24, ICD10: H43.393 Vitreal floaters stable both eyes. Retinas flat and intact with no apparent retinal tear or traction. Discussed symptoms of retinal tear/detachment and if seen patient will return to clinic without delay. 4. Hyperopia, bilateral - ICD9: 367.0, ICD10: H52.03 5. Regular astigmatism, bilateral - ICD9: 367.21, ICD10: H52.223 6. Presbyopia - ICD9: 367.4, ICD10: H52.4 Continue to wear her glasses with the optional update. Recommended yearly dilated exams. documented in this encounterC[facility]10-30-[facility] History of Present illness Narrative* Stefany Otto, OD - 07/26/2023 9:20 AM EDT ASSESSMENT/PLAN: 1. Encounter for long-term (current) use of high-risk medication - ICD9: V58.69, ICD10: Z79.899 Hydroxychloroquine use - Indication: Rheumatoid Arthritis - no signs of toxicity today on exam - OCT (07/26/2023): normal - Visual Field 10-2 (07/26/2023): normal - has been using plaquenil 200 mg twice daily - The recommended dosage is the lower of 5 mg/kg/day based on real body weight or 6.5 mg/kg/day based on ideal body weight as described in the most recent AAO plaquenil screening guidelines - Risk factors for toxicity include daily dose and duration of use, renal disease, tamoxifen use, history of retinal or macular disease - she is 119.3 kg which gives a maximum safe ophthalmic dose of 596 mg daily by real body weight Males: IBW = 50 kg + 2.3 kg for each inch over 5 feet. Females: IBW = 45.5 kg + 2.3 kg for each inch over 5 feet. 2. Nuclear sclerotic cataract of both eyes - ICD9: 366.16, ICD10: H25.13 (primary diagnosis) Mild cataract in both eyes. Well tolerated at this time. Discussed possible future affect on daily activities to watch for. Monitor as instructed. 3. Floaters, bilateral - ICD9: 379.24, ICD10: H43.393 Vitreal floaters stable both eyes. Retinas flat and intact with no apparent retinal tear or traction. Discussed symptoms of retinal tear/detachment and if seen patient will return to clinic without delay. 4. Hyperopia, bilateral - ICD9: 367.0, ICD10: H52.03 5. Regular astigmatism, bilateral - ICD9: 367.21, ICD10: H52.223 6. Presbyopia - ICD9: 367.4, ICD10: H52.4 Continue to wear her glasses with the optional update. Recommended yearly dilated exams. Stefany Otto, OD I have confirmed and edited as necessary the relevant ophthalmic history, ROS, and the neuro exam findings as obtained by others. [facility] [facility]11-10-2022 Miscellaneous Notes* Telephone Encounter - Luis Koch Celena II, OD - 08/06/2022 12:23 PM EST Patients PCP office called to confirm that no diabetic retinopathy found at recent eye exam. Confirmed no diabetic retinopathy. No other discussion. documented in this encounterC[facility] Instructions* Patient Instructions* Luis Koch Celena JUSTIN, OD - 06/30/2022 2:52 PM EDT Assessment and Plan Z79.899 Encounter for long-term (current) use of high-risk medication (primary encounter diagnosis) Comment: No ocular complications found secondary to use of Plaquenil. Continue regularly scheduled observation as instructed. Discussed need for early detection of ocular complications as they can continue to progress for a period of time even after medication is discontinued. H25.13 Nuclear sclerotic cataract of both eyes Comment: Trace cataract in both eyes. Well tolerated at this time. Monitor as instructed. H02.831, H02.834 Dermatochalasis of both upper eyelids Comment: Monitor for progression. H43.393 Floaters, bilateral Comment: Vitreal floaters stable both eyes. Retinas flat and intact with no apparent retinal tear or traction. Monitor yearly. H35.40 Peripheral retinal degeneration of both eyes Comment: Mild. Monitor for progression. H52.03 Hyperopia, bilateral H52.223 Regular astigmatism, bilateral H52.4 Presbyopia Comment: Glasses power stable. Update as desired. I have confirmed and edited as necessary the relevant ophthalmic history, ROS, and the neuro exam findings as obtained by others. I have seen and examined Chely Patterson. I have discussed the case and the management of this patient's care with the Resident/Fellow, if applicable. I also have reviewed and agree with the assessment and plan as stated above and agree withall of its relevant components. Luis Otto II, OD documented in this encounterC[facility]10[facility] History of Present illness Narrative* Luis Otto II, OD - 06/30/2022 2:50 PM EDT Assessment and Plan Z79.899 Encounter for long-term (current) use of high-risk medication (primary encounter diagnosis) Comment: No ocular complications found secondary to use of Plaquenil. Continue regularly scheduled observation as instructed. Discussed need for early detection of ocular complications as they can continue to progress for a period of time even after medication is discontinued. H25.13 Nuclear sclerotic cataract of both eyes Comment: Trace cataract in both eyes. Well tolerated at this time. Monitor as instructed. H02.831, H02.834 Dermatochalasis of both upper eyelids Comment: Monitor for progression. H43.393 Floaters, bilateral Comment: Vitreal floaters stable both eyes. Retinas flat and intact with no apparent retinal tear or traction. Monitor yearly. H35.40 Peripheral retinal degeneration of both eyes Comment: Mild. Monitor for progression. H52.03 Hyperopia, bilateral H52.223 Regular astigmatism, bilateral H52.4 Presbyopia Comment: Glasses power stable. Update as desired. I have confirmed and edited as necessary the relevant ophthalmic history, ROS, and the neuro exam findings as obtained by others. I have seen and examined Chely Patterson. I have discussed the case and the management of this patient's care with the Resident/Fellow, if applicable. I also have reviewed and agree with the assessment and plan as stated above and agree withall of its relevant components. Luis Otto II, OD documented in this encounterC[facility]09[facility]26-2012 History of Past illness Narrative* Problem Noted Date Resolved Date Iron deficiency 06/22/2012 07/14/2016 documented as of this encounter (statuses as of 06/30/2022) [facility] History of Past illness Narrative* Problem Noted Date Resolved Date Iron deficiency 06/22/2012 07/14/2016 documented as of this encounter (statuses as of 08/06/2022) [facility] History of Past illness Narrative* Problem Noted Date Diagnosed Date Resolved Date Iron deficiency 06/22/2012 07/14/2016 documented as of this encounter (statuses as of 07/26/2023) [facility]* Diagnosis Encounter for long-term (current) use of high-risk medication- Primary Encounter for long-term (current) use of other medications Nuclear sclerotic cataract of both eyes Senile nuclear sclerosis Dermatochalasis of both upper eyelids Floaters, bilateral Peripheral retinal degeneration of both eyes Hyperopia, bilateral Regular astigmatism, bilateral Presbyopia documented in this encounter [facility] CenterEvaluwilmington hospital noteNo assessment information availableWFayette County [facility] Work Phone: Evaluation note* Diagnosis Onset Date Resolution Status Hypersomnia acute Hypoxia acute Shortness of breath noneacti ve [facility] Work Phone: Evaluation note* Diagnosis Encounter for long-term (current) use of high-risk medication- Primary Encounter for long-term (current) use of other medications Nuclear sclerotic cataract of both eyes Senile nuclear sclerosis Floaters, bilateral Hyperopia, bilateral Regular astigmatism, bilateral Presbyopia documented in this encounter [facility] note* Diagnosis Onset Date Resolution Status Hypoxia chronic Moderate COPD (chronic obstructive pulmonary disease) chronic Obesity chronic [facility] Work Phone: Evaluation note* Diagnosis Type 2 diabetes mellitus without retinopathy (HCC)- Primary Type II or unspecified type diabetes mellitus without mention of complication, not stated as uncontrolled Encounter for long-term (current) use of high-risk medication Encounter for long-term (current) use of other medications Nuclear sclerotic cataract of both eyes Senile nuclear sclerosis Floaters, bilateral Hyperopia, bilateral Regular astigmatism, bilateral Presbyopia documented in this encounter [facility] CenterProm[facility] note Author Fabiana Gaviria [facility] Note Date/Time 2025 1 0:27am 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 COUNT INCLUDES THE [facility] Medical History (Updated 07/10/25 @ 10:[address] Fabiana Gaviria MD) MGUS (monoclonal gammopathy of unknown significance) Edema Hypothyroidism History of left heart catheterization Atrial flutter Chronic anemia History of cardioversion Requires oxygen therapy Urinary incontinence Mild aortic stenosis Diverticulosis Depression GERD (gastroesophageal reflux disease) Hyperlipidemia Hypertension Chronic osteoarthritis Monoclonal gammopathy present on serum protein electrophoresis Anemia Rheumatoid arthritis Positive anti-CCP test Psoriasis Spinal stenosis Diabetes type 2 Arthralgia Surgical History History of appendectomy H/O cardiac radiofrequency ablation History of bilateral knee replacement Family History Sister Cancer Brother Cancer Father Cancer COPD (chronic obstructive pulmonary disease) Social History household members: none housing: house Smoking Status: Former smoker Tobacco: How many years used: 20 second hand exposure: Yes quit status: quit date established alcohol intake: current alcohol intake frequency: holidays/special occasions only substance use type: does not use ROS Constitutional Constitutional: Reports systems reviewed and no addt'l complaints, except as documented and fatigue; Denies anorexia, fever(s), night sweats or weight loss Eyes Eyes: Reports systems reviewed and no addt'l complaints, except as documented; Denies change in vision ENT HEENT: Reports systems reviewed and no addt'l complaints, except as documented; Denies mouth lesions Cardiovascular Cardiovascular: Reports systems reviewed and no addt'l complaints, except as documented; Denies chest pain with activity or edema Respiratory/Chest Respiratory/Chest: Reports systems reviewed and no addt'l complaints, except as documented, as per HPI and dyspnea on exertion; Denies cough or hemoptysis Gastrointestinal Gastrointestinal: Reports systems reviewed and no addt'l complaints, except as documented; Denies change in bowel habits, dysphagia, hematochezia or melena Genitourinary Genitourinary: Reports systems reviewed and no addt'l complaints, except as documented; Denies hematuria Musculoskeletal Musculoskeletal: Reports systems reviewed and no addt'l complaints, except as documented, arthralgias, joint pain and joint stiffness Integumentary Integumentary: Reports systems reviewed and no addt'l complaints, except as documented; Denies new lesions Neurologic Neurologic: Reports systems reviewed and no addt'l complaints, except as documented; Denies frequent falls or paresthesias Psychiatric Psychiatric: Reports systems reviewed and no addt'l complaints, except as documented Endocrine Endocrinology: Reports systems reviewed and no addt'l complaints, except as documented Hematologic/Lymphatic Hematologic/Lymphatic: Reports systems reviewed and no addt'l complaints, exceptas documented, anemia and easy bruising; Denies easy bleeding or lymphadenopathy Allergic/Immunologic Allergic/Immunologic: Reports systems reviewed and no addt'l complaints, except as documented Intake Vital Signs 06/08/25 08:08 07/10/25 09:45 07/10/25 09:56 Height 5 ft 2 in 5 ft 2 in 5 ft 2 in Weight: 120.656 kg 123.377 kg BMI 48.6 49.7 BP 143/64 H 145/70 H Blood Pressure Location Lt brachial Lt brachial Position Sitting Sitting Respiration 18 18 Pulse 68 67 Pulse Source Monitor Monitor Temp 97.6 F L 98.2 F Temperature Source Temporal Artery Temporal Artery Pulse Oximetry (%) 91 93 Oxygen Delivery Method nasal canula nasal canula Oxygen Flow Rate (L/min) 3 Intake Is patient in pain?: Yes (RA pain ) Allergies naproxen (From Naprosyn) Allergy (Verified 07/10/25 09:50) Hives Hvudabn-BHY-GxG Reductase Inhibitor (Sfevyrn-Tbw-Nxa Reductase Inhibitor) Adverse Reaction (Verified 07/10/25 09:50) Pain in joints Medications ?Medication ?Instructions ?Recorded ?Confirmed ?Type folic acid 1 mg tablet 1 mg PO SUMOTUWETHSA supplem ent 10/05/19 07/10/25 History multivitamin with minerals 1 ea PO DAILY supplement 07/04/25 History rosuvastatin 5 mg tablet 5 mg PO QHS cholesterol 06/1607/09/25 History acetaminophen 500 mg tablet 1,000 mg (2 x 500 mg) PO Q 8 #100 10/20/19 07/04/25 Rx tabs prednisone 20 mg tablet 20 mg PO PRN 10/29/22 History tizanidine 2 mg tablet 2 mg PO PRN 10/29/22 5 History apixaban 5 mg tablet (Eliquis) 5 mg PO BID 12/13/23 History aspirin 81 mg chewable tablet 81 mg PO ONCE 12/13/23 1 History diltiazem HCl 240 mg 240 mg PO QDAY 12/13/2306/27 History capsule,extended release 24 hr furosemide 20 mg tablet 20 mg PO DAILY bp 12/13/23 1 History hydroxychloroquine 200 mg tablet 200 mg PO BID 4 07/10/25 History albuterol sulfate 90 mcg/actuation 2 puff inhalation Q 6H PRN 04/19/24 07/04/25 History aerosol inhaler levothyroxine 50 mcg tablet 50 mcg PO QDAY 11/03/24 History omeprazole 40 mg capsule,delayed 40 mg PO QDAY 5 07/10/25 History release fluticasone 250 mcg-salmeterol 50 1 inh inhalation BID #60 ea 01/09/25 07/04/25 Rx mcg/dose blistr powdr for inhalation (Advair Diskus) umeclidinium 62.5 mcg/actuation 1 inh inhalation Q24H #3 ea 01/10/25 07/10/25 Rx blister powder for inhalation (Incruse Ellipta) nebulizer kits #1 ea 02/20/25 07/04/25 Rx neublizer machine #1 ea 02/20/25 07/04/25 Rx ipratropium 0.5 mg-albuterol 3 mg 3 ml inhalation Q4-6 H PRN 03/02/25 07/04/25 Rx (2.5 mg base)/3 mL nebulization shortness of breath or wheezing soln #180 mL amlodipine 5 mg tablet 5 mg PO QDAY 06/08/25 History cholecalciferol (vitamin D3) 50 50 mcg PO QDAY 5 07/04/25 History mcg (2,000 unit) capsule ferrous sulfate 325 mg (65 mg 325 mg PO QDAY 07/04/25 07/04/25 History iron) tablet,delayed release sulfasalazine 500 mg tablet 500 mg PO QDAY 07/04/25 History BIPAP -Bilevel Positive Airway 07/09/25 07/09/25 Hist ory Pressure ([facility] INFORMATIONAL USE ONLY) methotrexate sodium 2.5 mg tablet 20 mg PO QWEEK 07/0907/10/25 History metoprolol succinate 25 mg 37.5 mg PO BID 07/09/25 History tablet,extended release 24 hr oxybutynin chloride 10 mg 10 mg PO QDAY 07/09/2507/10 History tablet,extended release 24 hr Have you fallen in the past year?: No Central Venous Access Central Venous Access: No Outside labs reviewed see under HPI Exam Physical Exam Narrative ECOG 1-2, on oxygen Const alert, oriented x3 and no apparent distress Nutritional Appearance: morbidly obese HEENT Face and Sinus: normal facial exam Mouth: oral and palatal mucosa normal Eyes General Eye: normal appearance of both eyes Neck no lymphadenopathy and no JVD Lymph Lymphatic: no lymphadenopathy noted Resp Auscultation: diminished lung sounds bilateral and diffuse Cardio regular rate and regular rhythm Jugular Venous Distention: Negative for JVD GI soft to palpation, non-tender and non-distended Back/Spine no thoracic nor lumbar tenderness Extremity no clubbing, cyanosis or edema Neuro oriented x3, CN's II-XII intact bilaterally, moves all extremities and no focal motor deficits Coordination / Balance: jdbtut-uj-lknw test normal Speech: speech normal Gait (Neuro): normal gait Psych mental status grossly normal Coding Level of Care Code Off vis,new,level 5 Exam Problem Focused Diagnoses MGUS (monoclonal gammopathy of unknown significance) D47.2 Assessment and Plan Assessment and Plan (1) MGUS (monoclonal gammopathy of unknown significance): Status: Chronic Plan 75-year-old female multiple chronic medical problems including chronic rheumatoid disease on methotrexate and intermittent shoulder courses of prednisone and noted to have a low level of IgA kappa M protein and free kappa light chains. She has a chronic anemia most consistent with anemia of chronic disease but no other evidence to suggest endorgan damage by a plasma cell dyscrasia. Chronic comorbid conditions: Rheumatoid disease, severe oxygen dependent COPD, dyslipidemia, hypertension, atrial flutter on chronic anticoagulation, morbid obesity, obstructive sleep apnea. Plan: 1. Repeat serum protein electrophoresis studies with a CBC and chemistry panel and iron profile in 3 months to confirm persistence of the M protein. Patient was seen with her niece pression and plan discussed. Fabiana Gaviria MD Order Packer Or Packager, [facility] Divisions of Medical Oncology & Hematology Department of Internal Medicine [place] [id number] This note was generated using a voice recognition system software. Although itwas reviewed by the author prior to finalization, it may still contain incorrectwords, spelling, and punctuation that were not noted when reviewing prior to saving. If a clinically significant typo or inaccurately typed phrase is noted, please notify the author. Clinical Quality Measures Falls Risk Screening/Assistive Devices Have you fallen in the past year?: No 07/10/25 1027 <Electronically signed by Fabiana gagr MD> Date _ Fabiana Gaviria MD Cosigner Signature: Date (if applicable) CC: Dr. Josefina Worley MD; Dr. Yulissa Antunez MD ~ [facility] Work Phone: Reason for referral (narrative)No reason for referral information availableWFayette County Memorial Hospital Work Phone: Assessments Diagnosis Synovitis of hip - Primary Other synovitis and tenosynovitis Diagnosis Pseudogout of hip, right - P rimary Seropositive rheumatoid arth ritis (HCC) Diagnosis Pain of right hip joint - Pr imary Diagnosis Psoriatic arthritis (HCC) - Primary Psoriatic arthropathy Diagnosis Pain - Primary Generalized pain Psoriatic arthritis (HCC) Psoriatic arthropathy Swelling of ankle joint, lef t Diagnosis Calcific Achilles tendinitis of left lower extremity Diagnosis Psoriatic arthritis (HCC)- Primary Psoriatic arthropathy Diagnosis Psoriatic arthritis (HCC) Psoriatic arthropathy Diagnosis Pain in joint of left shoulder Chest wall pain Painful respiration Diagnosis Flank pain Abdominal pain, unspecified site Diagnosis Psoriasis arthropathica (HCC) Psoriatic arthropathy Psoriatic arthritis (HCC) Psoriatic arthropathy Summary Purpose Family History No Family History Records Found Relationship Condition Age at Onset Recorded Date/T freddy sister Malignant neoplasm Unknown brother Malignant neoplasm Unknown father Malignant neoplasm Unknown Chronic obstructive pulmonary disease Unk nown Advance Directives No Advanced Directives Records FoundDocuments on File Type Date Recorded Patient Bank Compliance Officer Expl anation Advance Directives and Living Will Documents on File Type Date Recorded Patient Bank Compliance Officer Expl anation Advance Directives and Livin g Will 08/29/2019 7:01 AM Documents on File Type Date Recorded Patient Bank Compliance Officer Expl anation Advance Directives and Livin g Will 09/21/2019 12:53 AM Advance Directive Response Recorded Date/ Time Living Will Yes October 18 2:58pm Power of Sand Technician Yes October 18, 2019 2:58pm Instructions * Patient Instructions - Kaylene Jaime MD - 05/18/2018 11:38 AM EDT Achilles Tendinopathy 1. We have issued you a night splint. This should be worn to bed everynight on the affected side. The splint should be removed before getting out of bed as it is not meant to be used for ambulation. 2. We have shown you several stretches in the clinic today. These should be performed every day 4 times per day. Each stretch should be held for 20 seconds on each side. (Towel stretch, 2 wall stretches, stair stretch, massage stretch) 3. We have written a prescription for physical therapy. This will be done 1-2 times per week with ahome exercise program. The therapist will focus on eccentric strengthening of the Achilles tendon. Your Care Instructions Here are some examples of typical rehabilitation exercises for your condition. Start each exercise slowly. Ease off the exercise if you start to have pain. Your doctor or physical therapist will tell you when you can start these exercises and which ones will work best for you. How to do the exercises Note: Each exercise should create a pulling feeling but should not cause pain. Towel stretch 1. Sit with your legs extended and knees straight. 2. Place a towel around your foot just under the toes. 3. Hold each end of the towel in each hand, with your hands above your knees. 4. Pull back with the towel so that your foot stretches toward you. 5. Hold the position for at least 15 to 30 seconds. 6. Repeat 2 to 4 times a session, up to 5 sessions a day. Calf stretch Note: This exercise stretches the muscles at the back of the lower leg (the calf) and the Achilles tendon. Do this exercise 3 or 4 times a day, 5 days a week. 1. Stand facing a wall with your hands on the wall at about eye level. Put the leg you want to stretch about a step behind your other leg. 2. Keeping your back heel on the floor, bend your front knee until you feel a stretch in the back leg. 3. Hold the stretch for 15 to 30 seconds. Repeat 2 to 4 times. Plantar fascia and calf stretch Note: Stretching the plantar fascia and calf muscles can increase flexibility and decrease heel pain. You can do this exercise several times each day and before and after activity. 1. Stand on a step as shown above. Be sure to hold on to the banister. 2. Slowly let your heels down over the edge of the step as you relax your calf muscles. You should feel a gentle stretch across the bottom of your foot and up the back of your leg to your knee. 3. Hold the stretch about 15 to 30 seconds, and then tighten your calf muscle a little to bring your heel back up to the level of the step. Repeat 2 to 4 times. in this encounter History of Present Illness * Rusty Mitchell MD - 09/28/2018 5:45 PM EST [facility]. Name: Chely Gonzalez Leonardo Date:09/28/18 [id number] :1950 Allergies: Naprosyn [naproxen] Medications: Current Outpatient Prescriptions: acetaminophen-codeine (TYLENOL #3) 300-30 mg per tablet, Take 1 (one) tablet by mouth every 6 (six)hours as needed for pain Up to 30 days.., Disp: 120 tablet, Rfl: 0 aspirin 81 MG EC tablet, Take 81 mg by mouth daily., Disp: , Rfl: atenolol (TENORMIN) 50 MG tablet, Take 25 mg by mouth daily, Disp: , Rfl: estradiol (ESTRACE) 0.01 % (0.1 mg/gram) vaginal cream, Use small amount at vaginal opening 3 nights per week, Disp: , Rfl: fluticasone (FLONASE) 50 mcg/actuation nasal spray, , Disp: , Rfl: folic acid (FOLVITE) 1 MG tablet, TAKE 1 TABLET BY MOUTH ONCE DAILY EXCEPT WEDNESDAY, Disp: 30 tablet,Rfl: 5 furosemide (LASIX) 20 MG tablet, Take 20 mg by mouth daily., Disp: , Rfl: methotrexate (TREXALL) 2.5 MG tablet, TAKE EIGHT TABLETS BY MOUTH ONCE A WEEK ON WEDNESDAY, Disp: 32 tablet, Rfl: 5 multivitamin (THERAGRAN) per tablet, Take 1 tablet by mouth daily., Disp: , Rfl: omeprazole (PRILOSEC) 40 MG capsule, , Disp: , Rfl: oxybutynin (DITROPAN-XL) 10 MG 24 hr tablet, Take 10 mg by mouth daily., Disp: , Rfl: METHOTREXATE SODIUM (METHOTREXATE, ANTI-RHEUMATIC, ORAL), Take by mouth 8 pills every Wednesday, Disp:, Rfl: methylPREDNISolone (MEDROL DOSEPACK) 4 mg tablet, follow package directions., Disp: 21 tablet, Rfl:0 methylPREDNISolone (MEDROL DOSEPACK) 4 mg tablet, follow package directions ., Disp: 21 tablet, Rfl: 3 oxybutynin (DITROPAN-XL) 5 MG 24 hr tablet, Take 5 mg by mouth., Disp: , Rfl: TRAMADOL HCL/ACETAMINOPHEN (ULTRACET ORAL), Take by mouth When necessary pain, Disp: , Rfl: Chief Complaint: Patient here for arthritic arthritis evaluation Interim History: The patient notes that recently she went through a period of time where she felt that everything was out of whack. She kept having flares in different parts of her body that would come and go. She notes she took a recent trip to [place] and after walking on cement for 6 hours she developed right hip pain that persisted until she took a Medrol Dosepak which calmed down. She has had no majorinfections since her last visit. She feels she is tolerating her arthritis medicines well. Currently she feels this situation has settled down and she is not bothered by too much morning stiffness. Interim ROS: Eyes:_Denies new ocular events__ Derm:_Denies new dermatologic disease____ ENT:_Denies new ear nose and throat events____ Cardio:_Denies new cardiac conditions___ Pulm:_Denies new pulmonary problems____ G.I:_Denies new intestinal issues Renal:_Denies new renal disorders____ Hem/Onc:__Denies new hematologic or oncologic diagnoses__ Interim Social History: No change Exams: The wrists have good range of motion. No tenderness or swelling. The MCPs, PIPs DIPs symmetry no synovitis. They are nontender. Patient can make a good fist bilaterally. Interim Lab Review: Most recent labs we have are from April 2018. These are reviewed with patient. The patient's whitecell count is bit elevated with a neutrophilia. Hemoglobin is 13.0 and platelets are 385,000. Renalfunction tests are acceptable. Hepatic function tests are acceptable. Impression: Psoriatic arthritis, with recent clinical activity. Plan: 1. Given that the patient now is currently experiencing improvement of her situation, I advised continuing the same medicines as is for now. If she does develop a flareup she will contact this office. 2. More than 50% of the 15-minute office time today was spent counseling. 3. Return in 6 months or sooner as needed. Please note: Portions of this chart may have been created with [employer] voice recognition software. Occasional wrong-word or sound-like substitutions may have occurred due to inherent limitations of the voice recognition software. Please read the chart carefully and recognize, using context, where the substitutions have occurred. Rusty Mitchell MD in this encounter* Rusty Mitchell MD - 03/28/2019 4:25 PM EDT [facility]. Name: Chely Gonzalez Patterson Date:03/28/19 [id number] :1950 Allergies: Naprosyn [naproxen] Medications: Current Outpatient Medications: acetaminophen-codeine (TYLENOL #3) 300-30 mg per tablet, Take 1 (one) tablet by mouth every 6 (six)hours as needed for pain Up to 30 days. ., Disp: 120 tablet, Rfl: 0 aspirin 81 MG EC tablet, Take 81 mg by mouth daily., Disp: , Rfl: atenolol (TENORMIN) 50 MG tablet, Take 25 mg by mouth daily, Disp: , Rfl: estradiol (ESTRACE) 0.01 % (0.1 mg/gram) vaginal cream, Use small amount at vaginal opening 3 nights per week, Disp: , Rfl: fluticasone (FLONASE) 50 mcg/actuation nasal spray, , Disp: , Rfl: folic acid (FOLVITE) 1 MG tablet, TAKE 1 TABLET BY MOUTH ONCE DAILY EXCEPT WEDNESDAY, Disp: 30 tablet,Rfl: 5 furosemide (LASIX) 20 MG tablet, Take 20 mg by mouth daily., Disp: , Rfl: methotrexate (TREXALL) 2.5 MG tablet, TAKE 8 TABLETS BY MOUTH ONCE A WEEK ON WEDNESDAY ., Disp: 32 tablet, Rfl: 5 multivitamin (THERAGRAN) per tablet, Take 1 tablet by mouth daily., Disp: , Rfl: omeprazole (PRILOSEC) 40 MG capsule, , Disp: , Rfl: oxybutynin (DITROPAN-XL) 10 MG 24 hr tablet, Take 10 mg by mouth daily., Disp: , Rfl: oxybutynin (DITROPAN-XL) 5 MG 24 hr tablet, Take 5 mg by mouth., Disp: , Rfl: TRAMADOL HCL/ACETAMINOPHEN (ULTRACET ORAL), Take by mouth When necessary pain, Disp: , Rfl: methylPREDNISolone (MEDROL DOSEPACK) 4 mg tablet, follow package directions., Disp: 21 tablet, Rfl:0 methylPREDNISolone (MEDROL DOSEPACK) 4 mg tablet, follow package directions ., Disp: 21 tablet, Rfl: 3 Chief Complaint: Patient here for psoriatic arthritis evaluation Interim History: The patient reports that she has been able to engage in a number of outdoor physical activity. She goes to the local public swimming pool and is able to swim for several hours at a time. She denies having difficulties with morning stiffness. She denies flareups. Her left knee is bothersome. She notes she is going to have to see her orthopedic surgeon eventually and discuss replacement with him. The current artificial knee has been in place for 15-16 years. She denies any major infections since her last visit. She feels she is tolerating her methotrexate well. The patient notes she is now out of her Tylenol-3 and would like a refill. She does not take it every day but only as needed. In December of this year the patient developed severe right lateral flank pain. She saw her family physician for this who opined that it was a muscular problem. Patient notes that the condition is much better now but she still occasionally gets a twinge of pain in the right lateral trunk area. Interim ROS: Eyes:_Denies new ocular events___ Derm:_Denies new dermatologic disease____ ENT:_Denies new ear nose throat events____ Cardio:_Denies new cardiac conditions___ Pulm:_Denies new pulmonary problems____ G.I:_Denies new intestinal issues Renal:_Denies new renal disorders____ Hem/Onc:_No new hematologic or oncologic diagnosis___ Interim Social History: No change Exams: Inspection of the hands and wrists reveals no synovitis of the wrists, MCPs, PIPs or DIPs. Interim Lab Review: Component Latest Ref Rng & Units 01/21/2018 01/22/2018 WBC 3.4 - 10.6 K/mcL 12.6 (H) 10.2 RBC 3.7 - 5.0 M/mcL 3.84 4.02 Hemoglobin 11.6 - 15.4 g/dL 10.8 (L) 11.5 (L) Hematocrit 34.4 - 44.8 % 33.0 (L) 34.8 MCV 82.6 - 98.9 FL 85.9 86.4 MCH 27.9 - 33.9 pg 28.2 28.6 MCHC 33.1 - 35.1 g/dL 32.9 (L) 33.1 RDW 10.0 - 14.4 % 18.0 (H) 17.4 (H) Platelets 162 - 402 K/mcL 257 309 MPV 7.0 - 10.6 FL 7.5 7.5 Absolute Neutrophils 1.2 - 6.9 K/mcL 10.7 (H) 7.0 (H) Absolute Lymphocytes 1.0 - 3.7 K/mcL 0.7 (L) 1.7 Absolute Monocytes 0.1 - 0.6 K/mcL 1.2 (H) 1.3 (H) Absolute Eosinophils 0 - 0.5 K/mcL 0.0 0.3 Absolute Basophils 0 - 0.2 K/mcL 0.0 0.1 Lymphocytes % 5.9 16.3 Monocytes % 9.2 12.3 Eosinophils % 0.0 2.5 Basophils % 0.0 0.5 Component Latest Ref Rng & Units 01/21/2018 01/22/2018 BUN 8 - 25 mg/dL 14 19 Component Latest Ref Rng & Units 01/21/2018 01/22/2018 Creatinine 0.60 - 1.20 mg/dL 0.79 0.85 eGFR ml/min/1.73sq.m >=60 >=60 eGFR ml/min/1.73sq.m >=60 >=60 Outside labs dated September 29, 2018 reveal a normal hepatic function panel. Lab tests were reviewed with the patient. Impression: Psoriatic arthritis, appears clinically inactive at this time. Plan: 1. Reviewed situation with the patient. From the medical arthritis perspective, she is doing well enough to continue her treatment as is. Patient is tolerating it and is able to engage in quite a bitof physical activity. 2. Return in 6 months or sooner as needed. 3. More than 50% of the 15-minute office time today was spent in counseling. Please note: Portions of this chart may have been created with [employer] voice recognition software. Occasional wrong-word or sound-like substitutions may have occurred due to inherent limitations of the voice recognition software. Please read the chart carefully and recognize, using context, where the substitutions have occurred. Rusty Mitchell MD documented in this encounter* Rusty Mitchell MD - 09/11/2019 10:33 AM EST [facility]. Name: Chely Gonzalez Leonardo Date:09/11/19 [id number] :1950 Allergies: Naprosyn [naproxen] Medications: Current Outpatient Medications: acetaminophen-codeine (TYLENOL #3) 300-30 mg per tablet, Take 1 (one) tablet by mouth every 6 (six)hours as needed for pain Up to 30 days. ., Disp: 120 tablet, Rfl: 0 aspirin 81 MG EC tablet, Take 81 mg by mouth daily., Disp: , Rfl: atenolol (TENORMIN) 50 MG tablet, Take 25 mg by mouth daily, Disp: , Rfl: fluticasone (FLONASE) 50 mcg/actuation nasal spray, , Disp: , Rfl: folic acid (FOLVITE) 1 MG tablet, Take 1 (one) tablet (1,000 mcg total) by mouth daily EXCEPT WEDNESDAY ., Disp: 30 tablet, Rfl: 5 furosemide (LASIX) 20 MG tablet, Take 20 mg by mouth daily., Disp: , Rfl: methotrexate (TREXALL) 2.5 MG tablet, TAKE 8 TABLETS BY MOUTH ONCE A WEEK ON WEDNESDAY ., Disp: 32 tablet, Rfl: 5 multivitamin (THERAGRAN) per tablet, Take 1 tablet by mouth daily., Disp: , Rfl: omeprazole (PRILOSEC) 40 MG capsule, , Disp: , Rfl: oxybutynin (DITROPAN-XL) 10 MG 24 hr tablet, Take 10 mg by mouth daily., Disp: , Rfl: rosuvastatin (CRESTOR) 5 MG tablet, Take 5 mg by mouth daily ., Disp: , Rfl: estradiol (ESTRACE) 0.01 % (0.1 mg/gram) vaginal cream, Use small amount at vaginal opening 3 nights per week, Disp: , Rfl: methylPREDNISolone (MEDROL DOSEPACK) 4 mg tablet, follow package directions. (Patient not taking: Reported on 09/11/2019 .), Disp: 21 tablet, Rfl: 0 methylPREDNISolone (MEDROL DOSEPACK) 4 mg tablet, follow package directions . (Patient not taking: Reported on 09/11/2019 .), Disp: 21 tablet, Rfl: 3 oxybutynin (DITROPAN-XL) 5 MG 24 hr tablet, Take 5 mg by mouth., Disp: , Rfl: TRAMADOL HCL/ACETAMINOPHEN (ULTRACET ORAL), Take by mouth When necessary pain, Disp: , Rfl: Chief Complaint: Patient here for psoriatic arthritis evaluation Interim History: The patient reports that in early August she did have acute onset of severe left shoulder area pain which started in the shoulder which spread posteriorly and anteriorly across her thorax. She did develop chest pain. She did go to the [facility] ED and was evaluated there and given morphine within 3 days the pain was gone. She has had several other attacks of similar nature in the past 1 of which involved the right shoulder. She also notes that she is going to have her left knee redone by an orthopedic surgeon in [place]. Has not had any major infections. She states she is still tolerating her arthritis medicines without difficulty. She has had no flares of her psoriatic arthritis. She is having morning stiffness approximately 30 minutes in duration. Interim ROS: Eyes:_Denies new ocular events___ Derm:_Denies new dermatologic disease____ ENT:_Denies new ear nose and throat events____ Cardio: Denies new cardiac conditions____ Pulm:_Denies new pulmonary problems____ G.I:_Denies new intestinal issues Renal:_No new renal disorders_noted___ Hem/Onc:__No new hematologic or oncologic diagnoses made__ Interim Social History: No change Exams: The wrists have fair flexion extension bilaterally. The MCPs and PIPs and DIPs demonstrate no synovitis but the PIPs DIPs do demonstrate bony enlargement secondary to osteoarthritis Interim Lab Review: Component Ref Range & Units 13d ago Sodium 135 - 145 mmol/L 141 Potassium 3.5 - 5.1 mmol/L 4.5 Chloride 98 - 108 mmol/L 107 Bicarbonate 21 - 32 mmol/L 27 Anion Gap 10 - 20 mmol/L 12 Glucose 65 - 99 mg/dL 118High BUN 8 - 25 mg/dL 15 Creatinine 0.60 - 1.20 mg/dL 0.93 eGFR >=60 mL/min/1.73 m2 62 BUN/Creatinine Ratio 10.0 - 20.0 16.1 Calcium 8.4 - 10.2 mg/dL 8.8 Component Ref Range & Units 13d ago WBC 4.50 - 11.00 K/mcL 9.70 RBC 4.00 - 5.20 M/mcL 4.33 Hemoglobin 12.0 - 16.0 g/dL 12.2 Hematocrit 36.0 - 46.0 % 37.6 MCV 80.0 - 100.0 fL 86.8 MCH 26.0 - 34.0 pg 28.2 MCHC 31.0 - 37.0 g/dL 32.4 Platelets 150 - 400 K/mcL 293 RDW - CV 11.6 - 14.8 % 17.1High MPV 9.0 - 15.5 fL 9.8 Neutrophils % 73.9 Lymphocytes % 13.8 Monocytes % 9.5 Eosinophils % 1.8 Basophils % 0.6 IG Percent % 0.40 Neutrophils Abs 1.70 - 7.00 K/mcL 7.17High Lymphocytes Abs 0.90 - 4.00 K/mcL 1.34 Monocytes Abs 0.30 - 0.90 K/mcL 0.92High Eosinophils Abs 0.00 - 0.50 K/mcL 0.17 Basophils Abs 0.00 - 0.30 K/mcL 0.06 IG Absolute 0.00 - 0.30 K/mcL 0.04 Nucleated RBC % 0.0 Nucleated RBC Abs 0.00 - 0.00 K/mcL 0.00 Reviewed lab test results with the patient. Impression: 1. Psoriatic arthritis which appears to be clinically doing well. 2. Recent episode of acute left shoulder pain. 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 Plan: 1. Reviewed situation with the patient. 2. We will continue her arthritis medicines as is for now. 3. Reviewed options for her to employ if she develops another episode of acute onset shoulder pain. 4. More than 50% of the 15-minute office time today was spent counseling. 5. Return in 6 months or sooner as needed. Please note: Portions of this chart may have been created with [employer] voice recognition software. Occasional wrong-word or sound-like substitutions may have occurred due to inherent limitations of the voice recognition software. Please read the chart carefully and recognize, using context, where the substitutions have occurred. Rusty Mitchell MD documented in this encounter Discharge Instructions * Attachments The following attachments cannot be sent through Care Everywhere. * Chest Pain: Musculoskeletal ([place]) * Shoulder Pain ([place]) documented in this encounter* Attachments The following attachments cannot be sent through Care Everywhere. * Flank Pain ([place]) documented in this encounter Hospital Course Note Therapy Diagnosis Assessed S welling of left knee joint (719.06) (M25.462) Acute pain of left knee (719.46) (M25.562) Stiffness of left knee (719.56) (M25.662) Insurance Insurance reviewed Visit number: 12 Authorization not required after evaluation POC: 09/07 Medicare/AARP Supervising PT: Aurelia Randle PT, DPT, Cert DN . Subjective Patient reports: Pt notes she has been trying to do everything in the morning and at night. Pt she has been able to go to the gym a few times since last session. Pt notes when she had her last F/U with MD he was pleased with everything but just wanted her to continue to work on the bending of her knee. Pt doesn't have another F/U for 6 more weeks. Pt notes she went down the basement stairs by herself for the first time last week. Patient rates current pain 11/06. Home program performing as directed: Yes. Precautions: Fall Risk: low RA; OA; Htn; B/L TKR. Objective Ortho LEFS:41/80-->50-->64/80 R Knee AROM: Flex: 123 Ext: 0 L Knee AROM: Flex: 88-->113-->116 (more content not included)... Chief Complaint and Reason for Visit Chief Complaint Shortness of breath R09.02 - Hypoxemia R09.02 - Hypoxemia HYPERSOMNIA Reason for Visit Hypersomnia Hypoxia Shortness of breath Chief Complaint Shortness of breath R09.02 - Hypoxemia R09.02 - Hypoxemia HYPERSOMNIA SOB Reason for Visit Hypersomnia Hypoxia Shortness of breath Chief Complaint 6 M FU STANDING ORDER Reason for Visit Hypoxia Moderate COPD (chronic obstructive pulmonary disease) Obesity Chief Complaint Admit Date 4 M FU November 03, 2024 1 :56pm COPD, SOB December 19, 2024 12: 45pm Reason for Visit Admit Date Hypoxia November 03, 2024 1 :56pm Moderate COPD (chronic obstructive pulmo nary disease) November 03, 2024 1:56pm Obesity November 03, 2024 1 :56pm Chief Complaint Admit Date 4 M FU November 03, 2024 1 :56pm COPD, SOB December 19, 2024 12: 45pm 6-8 WK F/U January 02, 2025 1:34 pm hypersomnia, hypoxemia, pulmonary hypert ension January 23, 2025 7:49pm 6 wk fu February 20, 2025 2:11p m Reason for Visit Admit Date Hypoxia November 03, 2024 1 :56pm Moderate COPD (chronic obstructive pulmo nary disease) November 03, 2024 1:56pm Obesity November 03, 2024 1 :56pm Daytime hypersomnia January 02, 2025 1:34 pm Pulmonary hypertension January 02, 2025 1 :34pm Hypoxia January 02, 2025 1:34 pm Moderate COPD (chronic obstructive pulmo nary disease) January 02, 2025 1:34pm Obesity January 02, 2025 1:34 pm Obstructive sleep apnea February 20, 2025 2 :11pm Pulmonary hypertension February 20, 2025 2: 11pm Hypoxia February 20, 2025 2:11p m Moderate COPD (chronic obstructive pulmo nary disease) February 20, 2025 2:11pm Obesity February 20, 2025 2:11p m Chief Complaint Admit Date COPD, SOB December 19, 2024 12: 45pm COPD, SOB December 19, 2024 12: 57pm 6-8 WK F/U January 02, 2025 1:34 pm hypersomnia, hypoxemia, pulmonary hypert ension January 23, 2025 7:49pm 6 wk fu February 20, 2025 2:11p m DEYANIRA, COPD, hypoxia April 11, 2025 7:44 pm Reason for Visit Admit Date Daytime hypersomnia January 02, 2025 1:34 pm Pulmonary hypertension January 02, 2025 1 :34pm Hypoxia January 02, 2025 1:34 pm Moderate COPD (chronic obstructive pulmo nary disease) January 02, 2025 1:34pm Obesity January 02, 2025 1:34 pm Obstructive sleep apnea February 20, 2025 2 :11pm Pulmonary hypertension February 20, 2025 2: 11pm Hypoxia February 20, 2025 2:11p m Moderate COPD (chronic obstructive pulmo nary disease) February 20, 2025 2:11pm Obesity February 20, 2025 2:11p m Chief Complaint Admit Date 6 wk fu February 20, 2025 2:11p m DEYANIRA, COPD, hypoxia April 11, 2025 7:44 pm 3 M FU June 08, 2025 1:24pm Reason for Visit Admit Date Obstructive sleep apnea February 20, 2025 2 :11pm Pulmonary hypertension February 20, 2025 2: 11pm Hypoxia February 20, 2025 2:11p m Moderate COPD (chronic obstructive pulmo nary disease) February 20, 2025 2:11pm Obesity February 20, 2025 2:11p m Obstructive sleep apnea June 08, 2025 1:24pm Pulmonary hypertension June 08 025 1:24pm Hypoxia June 08, 2025 1:24pm Moderate COPD (chronic obstructive pulmo nary disease) June 08, 2025 1:24pm Obesity June 08, 2025 1:24pm Chief Complaint Admit Date DEYANIRA, COPD, hypoxia April 11, 2025 7:44 pm 3 M FU June 08, 2025 1:24pm EORDERS June 26, 2025 4:09pm Reason for Visit Admit Date Obstructive sleep apnea June 08, 2025 1:24pm Pulmonary hypertension June 08 025 1:24pm Hypoxia June 08, 2025 1:24pm Moderate COPD (chronic obstructive pulmo nary disease) June 08, 2025 1:24pm Obesity June 08, 2025 1:24pm Chief Complaint Admit Date DEYANIRA, COPD, hypoxia April 11, 2025 7:44 pm 3 M FU June 08, 2025 1:24pm EORDERS June 26, 2025 4:09pm Amb Documentation July 04, 2025 2: 07pm M-SPIKE 2025 9 :40am Cardiac Murmur ([place]) July 20 025 1:44pm Reason for Visit Admit Date Obstructive sleep apnea June 08, 2025 1:24pm Pulmonary hypertension June 08 025 1:24pm Hypoxia June 08, 2025 1:24pm Moderate COPD (chronic obstructive pulmo nary disease) June 08, 2025 1:24pm Obesity June 08, 2025 1:24pm 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) 2025 9:40am Atrial flutter July 20, 2025 1 :44pm DRAKE (dyspnea on exertion) July 20, 2025 1:44pm Hyperlipidemia July 20, 2025 1 :44pm Mild aortic stenosis July 20, 2025 1:44pm Obstructive sleep apnea July 20 1:44pm Rheumatoid arthritis July 20, 2025 1:44pm Chronic anemia July 20, 2025 1 :44pm Hypertension July 20, 2025 1 :44pm Medications Administered Section Inactive Administered Medications - up to 3 most recent administrations Medication Order MAR Action Action Date Dose Rate Site tropicamide 1 % 1 Drop (MYDRIACYL) 1 Drop, BOTH EYES, ONCE, 1 dose, On 07/26/23 at 0930, FOR THE EYE Given 07/26/2023 9:30 AM EDT 1 Drop Additional Source Comments Transfer Center Note - Kallie Porter RN - 01/20/2018 11:[address] [facility] Note - Kallie Porter RN - 01/20/2018 11:[address] [facility] Note - Kallie Porter RN - 01/20/2018 10:27 AM EDT Miscellaneous Notes (unrecog nized section and content) Narrative: [facility]- bed assignment [id number] Narrative: Called [facility] to check on bed assignment, will get back with [facility] Narrative: Called [facility] bed management, Information given and will return call with a bed assignment Narrative: Called Isabella at the hospitalist line with information. Dr Molina Walker will accept. Requesting a med/surg bed. Narrative: Report from Dr Au and Mignon RN, Patient complains of right groin/hip pain to where she was unable to move. States she was fine on 01/19/18 and was woken up with the pain. Pain on arrival was 10/10. Currently pain is 4/10. Patient is alert and oriented, is able to get to the bedside commode. No known injury to the area. Post pain medications, patient did decrease SaO2 to 82% and placed on 2lpm/nc. Normal sinus rhythm on the monitor. Vitals: 143/84, 80, 18, 98.1, 94% room air Labs: WBC 14.5, Glucose 160, D-Dimer 246 CT chest, abdomen, pelvis was all negative Refer to [place] for possible need to Orthopedic consult. in this encounter Associated Order(s): EKG 12-lead EKG 12-lead Date/Time: 09/21/2019 1:12 AM Performed by: Michelle Castillo DO Authorized by: Michelle Castillo DO Interpreted by ED physician: Normal sinus rhythm rate [address] segment changes normal UT and QRS axis. BPM: 67 documented in this encounter INFORMATION SOURCE (unrecogn ized section and content) DATE CREATED AUTHOR 03/16/2018 [facility] DATE CREATED AUTHOR AUTHOR'S ORGANIZ ATION 04/21/2019 [facility] DATE CREATED AUTHOR AUTHOR'S ORGANIZ ATION 09/23/2019 [facility] DATE CREATED AUTHOR AUTHOR'S ORGANIZ ATION 12/04/2019 [facility] DATE CREATED AUTHOR AUTHOR'S ORGANIZ ATION 05/24/2020 [facility] DATE CREATED AUTHOR AUTHOR'S ORGANIZ ATION 06/01/2021 [facility] DATE CREATED AUTHOR AUTHOR'S ORGANIZ ATION 03/14/2022 [facility] DATE CREATED AUTHOR AUTHOR'S ORGANIZ ATION 09/16/2023 [facility] DATE CREATED AUTHOR AUTHOR'S ORGANIZ ATION 07/04/2025 [facility] DATE CREATED AUTHOR AUTHOR'S ORGANIZ ATION 07/22/2025 [facility] DATE CREATED AUTHOR AUTHOR'S ORGANIZ ATION 07/31/2025 [facility] Reason for Visit (unrecogniz ed section and content) Reason Comments Chest Pain Shoulder Pain Reason Comments Flank Pain Reason Comments Plaquenil Check Cataract Evaluation Peripheral retinal degeneration Both eye s Reason Comments Patient Question Reason Comments Plaquenil Check Reason Comments Plaquenil Check Diabetes Specialty Diagnoses / Procedures Referred By Annia ocasio Referred To Contact OPHTHALMOLOGY Diagnoses Other fdc (current) drug therapy Procedures OFFICE/OUTPATIENT NEW HIGH MDM 60 MINUTES OFFICE/OUTPATIENT ESTABLISHED HIGH MDM 40 MIN Established patientexam Skylar Friend MD [address] [place] [address] Stefany Otto, OD [address] [place] [address] Referral ID Status Reason Start Date Expiration Date V isits Requested Visits Authorized [id number] Authorized 09/27/2023 09/26/2024 Brittani Estrada CNP - 08/29/2019 7:08 AM Yamile Mccracken RN - 08/29/2019 6:55 AM Mary Salgado RN - 09/21/2019 2:18 AM Mary Salgado RN - 09/21/2019 2:02 AM EST ED Notes (unrecognized secti on and content) [facility] ED SHOSHANA Note: NAME: Chely Patterson 69 y.o. CSN: [id number] PCP: Skylar Friend MD History: Chief Complaint: Chest Pain and Shoulder Pain HPI: The history was obtained from the patient. Chely is a 69 y.o. female who presents with a chief complaint of Chest Pain and Shoulder Pain. States she went to bed feeling well Wednesday night but woke up Wednesday morning with left shoulder pain. Denies fall or injury. She does have a history of rheumatoid arthritis and states it feels similar to when she has had rheumatoid pain in that shoulder in the past. The pain progressed Wednesday night and is now in the back as well as wrapping around the left side into the left side of her chest. States it feels like muscular pain. The pain has been constant since Wednesday at a 10 out of 10 on the pain scale. She describes it as aching and sharp pain. Pain worsens with movement of the left arm and shoulder. She has tried Tylenol No. 3, rest and ice without relief in symptoms. Denies associated symptoms including fever, chills, cough, congestion, neck stiffness, shortness of breath, palpitations, dizziness, abdominal pain, nausea, vomiting, diarrhea, urinary symptoms. No numbness or tingling into the fingertips. She does take methotrexate for her arthritis. She does not take any other steroids. PMHx: Past Medical History: Diagnosis Date Hypertension Osteoarthritis Psoriatic arthritis (HCC) Rheumatoid arthritis (HCC) PMSx: Past Surgical History: Procedure Laterality Date APPENDECTOMY 1975 FAM. Hx: Family History Problem Relation Age of Onset Cancer Father SOC. Hx: Social History Socioeconomic History Marital status: Spouse name: Not on file Number of children: Not on file Years of education: Not on file Highest education level: Not on file Occupational History Not on file Social Needs Financial resource strain: Not on file Food insecurity Worry: Not on file Inability: Not on file Transportation needs Medical: Not on file Non-medical: Not on file Tobacco Use Smoking status: Former Smoker Last attempt to quit: 03/30/1983 Years since quittin.4 Smokeless tobacco: Never Used Substance and Sexual Activity Alcohol use: Yes Alcohol/week: 1.0 standard drinks Types: 1 Glasses of wine per week Comment: social Drug use: No Sexual activity: Not on file Lifestyle Physical activity Days per week: Not on file Minutes per session: Not on file Stress: Not on file Relationships Social connections Talks on phone: Not on file Gets together: Not on file Attends jehovah's witness service: Not on file Active member of club or organization: Not on file Attends meetings of clubs or organizations: Not on file Relationship status: Not on file Other Topics Concern Not on file Social History Narrative Not on file MEDs: Previous Medications Medication Sig acetaminophen-codeine (TYLENOL #3) 300-30 mg per tablet Take 1 (one) tablet by mouth every 6 (six) hours as needed for pain Up to 30 days. . aspirin 81 MG EC tablet Take 81 mg by mouth daily. atenolol (TENORMIN) 50 MG tablet Take 25 mg by mouth daily estradiol (ESTRACE) 0.01 % (0.1 mg/gram) vaginal cream Use small amount at vaginal opening 3 nights per week fluticasone (FLONASE) 50 mcg/actuation nasal spray folic acid (FOLVITE) 1 MG tablet Take 1 (one) tablet (1,000 mcg total) by mouth daily EXCEPT WEDNESDAY . furosemide (LASIX) 20 MG tablet Take 20 mg by mouth daily. methotrexate (TREXALL) 2.5 MG tablet TAKE 8 TABLETS BY MOUTH ONCE A WEEK ON WEDNESDAY . methylPREDNISolone (MEDROL DOSEPACK) 4 mg tablet follow package directions. methylPREDNISolone (MEDROL DOSEPACK) 4 mg tablet follow package directions . multivitamin (THERAGRAN) per tablet Take 1 tablet by mouth daily. omeprazole (PRILOSEC) 40 MG capsule oxybutynin (DITROPAN-XL) 10 MG 24 hr tablet Take 10 mg by mouth daily. oxybutynin (DITROPAN-XL) 5 MG 24 hr tablet Take 5 mg by mouth. TRAMADOL HCL/ACETAMINOPHEN (ULTRACET ORAL) Take by mouth When necessary pain ALL: Allergies Allergen Reactions Naprosyn [Naproxen] ROS: Positives and pertinent negatives as per HPI. All other systems were reviewed and are negative. Physical Exam: Patient Vitals for the past 24 hrs: BP Temp Temp src Pulse Resp SpO2 Height Weight 08/29/19 0700 62 96 % 08/29/19 0639 (!) 155/78 98.7 F (37.1 C) Oral 66 (!) 24 95 % 5' 2 113.4 kg (250 lb) Physical Exam Vitals signs and nursing note reviewed. Constitutional: General: She is in acute distress (appear uncomfortable). Appearance: Normal appearance. She is well-developed. She is not ill-appearing, toxic-appearing or diaphoretic. HENT: Head: Normocephalic and atraumatic. Nose: Nose normal. Eyes: General: No scleral icterus. Conjunctiva/sclera: Conjunctivae normal. Neck: Musculoskeletal: Full passive range of motion without pain and neck supple. Cardiovascular: Rate and Rhythm: Normal rate and regular rhythm. Pulses: Radial pulses are 2+ on the right side and 2+ on the left side. Dorsalis pedis pulses are 2+ on the right side and 2+ on the left side. Heart sounds: Normal heart sounds. No murmur. Pulmonary: Effort: Pulmonary effort is normal. No respiratory distress. Breath sounds: Normal breath sounds and air entry. Chest: Chest wall: Tenderness present. No deformity, swelling or crepitus. Abdominal: General: Abdomen is flat. Bowel sounds are normal. There is no distension. Palpations: Abdomen is soft. Tenderness: There is no abdominal tenderness. Musculoskeletal: Left shoulder: She exhibits decreased range of motion and tenderness. She exhibits no bony tenderness, no swelling, no effusion, no crepitus, no deformity, no laceration, no pain, no spasm, normal pulse and normal strength. Arms: Right lower leg: She exhibits no swelling. No edema. Left lower leg: She exhibits no swelling. No edema. Comments: Pain in left shoulder/left chest reproduced with movement and palpation of left shoulder. Patient unable to perform ROM exercises due to the pain. No numbness/tingling distally. Radial pulses +2 bilaterally. No obvious deformity to shoulder. Skin: General: Skin is warm and dry. Capillary Refill: Capillary refill takes less than 2 seconds. Findings: No rash. Neurological: General: No focal deficit present. Mental Status: She is alert and oriented to person, place, and time. Cranial Nerves: Cranial nerves are intact. Sensory: Sensation is intact. Motor: Motor function is intact. Coordination: Coordination is intact. Gait: Gait is intact. Psychiatric: Behavior: Behavior normal. Behavior is cooperative. Laboratory & Radiological Imaging (if done): Labs Reviewed BASIC METABOLIC PANEL - Abnormal; Notable for the following components: Result Value Glucose 118 (*) All other components within normal limits Narrative: The eGFR should be used for monitoring renal function only and not for medication dosing. CBC WITH AUTO DIFFERENTIAL - Abnormal; Notable for the following components: RDW - CV 17.1 (*) Neutrophils Abs 7.17 (*) Monocytes Abs 0.92 (*) All other components within normal limits PT/INR - Normal Narrative: During the induction phase of oral anticoagulation, the INR may not reflect the anticoagulation status of the patient. Therapeutic ranges for INR's are: Most clinical situations: INR 2.0-3.0 Mechanical Prosthetic Valve: INR 2.5-3.5 Critical: INR >5.0 CBC AND DIFFERENTIAL Narrative: The following orders were created for panel order CBC and Differential. Procedure Abnormality Status --------- ------ CBC Auto Differential[[id number]] Abnormal Final result Please view results for these tests on the individual orders. TROPONIN TROPONIN XR Shoulder Left 2+ Views (Standard) Preliminary Result No acute fracture or traumatic malalignment. Mild left AC joint osteoarthritis. ST/[facility] Workstation ID: [id number] [id number] Chest AP/PA and LAT Preliminary Result Cardiomegaly without CHF findings. ST/[facility] Workstation ID: [id number] MDM: Patient arrives to the emergency department for left-sided chest pain, left shoulder pain and back pain that started on Wednesday. Pain is reproducible with movement and palpation to the area. Similar episode in past was due to her rheumatoid arthritis. She does have a standing prescription for Medrol Dosepak but has not filled the prescription as of yet. EKG shows normal sinus rhythm at 66 bpm without signs of ectopy or ST elevation per Dr. Wellington. CBC, Chem-7, coagulation studies and troponin unremarkable. Chest x-ray shows cardiomegaly without CHF findings. No other acute findings. Left shoulder x-ray shows no acute fracture or traumatic malalignment. Mild left AC joint osteoarthritis noted. Pain started on Wednesday morning. Pain convincing for more musculoskeletal complaint. Heart score 3. Patient without other associated symptoms. Given morphine and Zofran. States pain has much improved. Given dose solumedrol while in ER. Instructed to fill her Rx for medrol dosepak and start taking tomorrow. We also discussed close follow-up with primary care provider as well as her taker off hemp fiber. Discussed signs and symptoms of worsening condition when to return to the ER. Discharged in stable condition. Clinical Impression: 1. Pain in joint of left shoulder 2. Chest wall pain Disposition: Patient is being discharge home. Brittani Olivas CNP ED Advanced Practice Provider [facility] Emergency Department (Please note that portions of this note have been completed with a voice recognition software. Efforts were made to correct any errors, but occasionally words are mis-transcribed.) Brittani Olivas CNP 08/29/19 0818 Brittani Olivas Cnp cartside documented in this encounter PT AMBULATORY TO BR TO VOID, PROVIDED URINE SAMPLE, RETURNED TO CART, SENT SAMPLE TO LAB, PT'S SPO2 DOWN TO 84%ON ROOM AIR, RETURNED TO O2 2LPM VIA NC, CARDIAC AND V/S MONITORING REAPPLIED PT SPO2 DROPPING TO 85%, PT WOKEN PLACED ON O2 2LPM VIA NC, UP TO 94% NOW Pt made aware for need for urine sample. She will notify when she has to go ED PROVIDER NOTE [facility] EMERGENCY DEPARTMENT NAME: Chely Patterson AGE: 69 y.o. : 1950 VISIT DATE: 09/21/2019 CSN: [id number] PCP: Skylar Friend MD Chief Complaint Patient presents with Flank Pain Left flank and back pain that began 4 days ago History provided by: Patient spanish medical interpreter used: No Flank Pain Pain location: Left CVA tenderness. Chronicity: New Duration: 4 days Quality: Aching Onset quality: Sudden Radiates to: L shoulder Pain severity: Moderate Pain is: Worse during the day Timing: Constant Progression: Worsening Past Medical History: Diagnosis Date Hypertension Osteoarthritis Psoriatic arthritis (HCC) Rheumatoid arthritis (HCC) Past Surgical History: Procedure Laterality Date APPENDECTOMY 1975 Family History Problem Relation Age of Onset Cancer Father Social History Socioeconomic History Marital status: Spouse name: Not on file Number of children: Not on file Years of education: Not on file Highest education level: Not on file Occupational History Not on file Social Needs Financial resource strain: Not on file Food insecurity Worry: Not on file Inability: Not on file Transportation needs Medical: Not on file Non-medical: Not on file Tobacco Use Smoking status: Former Smoker Last attempt to quit: 03/30/1983 Years since quittin.5 Smokeless tobacco: Never Used Substance and Sexual Activity Alcohol use: Yes Alcohol/week: 1.0 standard drinks Types: 1 Glasses of wine per week Comment: social Drug use: No Sexual activity: Not on file Lifestyle Physical activity Days per week: Not on file Minutes per session: Not on file Stress: Not on file Relationships Social connections Talks on phone: Not on file Gets together: Not on file Attends jehovah's witness service: Not on file Active member of club or organization: Not on file Attends meetings of clubs or organizations: Not on file Relationship status: Not on file Other Topics Concern Not on file Social History Narrative Not on file Previous Medications Medication Sig acetaminophen-codeine (TYLENOL #3) 300-30 mg per tablet Take 1 (one) tablet by mouth every 6 (six) hours as needed for pain Up to 30 days. . aspirin 81 MG EC tablet Take 81 mg by mouth daily. atenolol (TENORMIN) 50 MG tablet Take 25 mg by mouth daily estradiol (ESTRACE) 0.01 % (0.1 mg/gram) vaginal cream Use small amount at vaginal opening 3 nights per week fluticasone (FLONASE) 50 mcg/actuation nasal spray folic acid (FOLVITE) 1 MG tablet Take 1 (one) tablet (1,000 mcg total) by mouth daily EXCEPT WEDNESDAY . furosemide (LASIX) 20 MG tablet Take 20 mg by mouth daily. methotrexate (TREXALL) 2.5 MG tablet TAKE 8 TABLETS BY MOUTH ONCE A WEEK ON WEDNESDAY . methylPREDNISolone (MEDROL DOSEPACK) 4 mg tablet follow package directions. (Patient not taking: Reported on 09/11/2019 .) methylPREDNISolone (MEDROL DOSEPACK) 4 mg tablet follow package directions . (Patient not taking: Reported on 09/11/2019 .) multivitamin (THERAGRAN) per tablet Take 1 tablet by mouth daily. omeprazole (PRILOSEC) 40 MG capsule oxybutynin (DITROPAN-XL) 10 MG 24 hr tablet Take 10 mg by mouth daily. oxybutynin (DITROPAN-XL) 5 MG 24 hr tablet Take 5 mg by mouth. rosuvastatin (CRESTOR) 5 MG tablet Take 5 mg by mouth daily . TRAMADOL HCL/ACETAMINOPHEN (ULTRACET ORAL) Take by mouth When necessary pain Allergies Allergen Reactions Naprosyn [Naproxen] Review of Systems Genitourinary: Positive for flank pain. All other systems reviewed and are negative. No data found. Physical Exam Vitals signs and nursing note reviewed. Exam conducted with a trust mail clerk present. Constitutional: Appearance: She is normal weight. Comments: Morbidly obese HENT: Head: Normocephalic and atraumatic. Right Ear: External ear normal. Left Ear: External ear normal. Nose: Nose normal. Mouth/Throat: Mouth: Mucous membranes are moist. Eyes: Extraocular Movements: Extraocular movements intact. Pupils: Pupils are equal, round, and reactive to light. Neck: Musculoskeletal: Normal range of motion and neck supple. Cardiovascular: Comments: Regular rate S1-S2 no clicks rubs or bruits Pulmonary: Effort: Pulmonary effort is normal. Breath sounds: Normal breath sounds. Abdominal: General: Abdomen is flat. Genitourinary: Comments: Left CVA tenderness Musculoskeletal: Comments: No obvious injury or deformity Skin: General: Skin is warm and dry. Capillary Refill: Capillary refill takes less than 2 seconds. Neurological: General: No focal deficit present. Mental Status: She is alert and oriented to person, place, and time. Psychiatric: Mood and Affect: Mood normal. Behavior: Behavior normal. Laboratory & Radiographic Imaging (if done): No results found for this visit on 09/21/19. XR Chest 1 View (Results Pending) Procedures MDM . Clinical Impression: No diagnosis found. ED Disposition None Follow-up Information Follow-up information has not been specified. Contact information for after-discharge care Follow-up information has not been specified. Michelle Castillo, 09/21/19 0045 Michelle Castillo, 09/21/19 0354 documented in this encounter Source Comments (unrecognize d section and content) In the event this informatio n is protected by the Federal Confidentiality of Alcohol and Drug Abuse Patient Records regulations: The Federal rules restrict any use of the information to criminally investigate or prosecute any alcohol or drug abuse patient.[facility] Center[facility] the event this information is protected by the Federal Confidentiality of Alcohol and Drug Abuse Patient Records regulations: The Federal rules restrict any use of the information to criminally investigate or prosecute any alcohol or drug abuse patient.[facility] Center[facility] the event this information is protected by the Federal Confidentiality of Alcohol and Drug Abuse Patient Records regulations: The Federal rules restrict any use of the information to criminally investigate or prosecute any alcohol or drug abuse patient.[facility] Center[facility] the event this information is protected by the Federal Confidentiality of Alcohol and Drug Abuse Patient Records regulations: The Federal rules restrict any use of the information to criminally investigate or prosecute any alcohol or drug abuse patient.[facility] Care Teams (unrecognized sec tion and content) Munitions Handler Relationship Specialty Start Date End Date Skylar Friend MD PCP - General Internal Medicine 06/22/12 Munitions Handler Relationship Specialty Start Date End Date Skylar Friend MD PCP - General Internal Medicine 06/22/12 Team Status: Active Member Role Status Dates Dr. Skylar Friend MD Family Provider Active Dr. Skylar Friend MD Primary Care Provider Active Team Status: Inactive Member Role Status Dates Dr. Skylar Friend MD Primary Care Provider, Referrin g Provider Active Dr. Irwin Dubois MD Attending Provider Active Team Status: Active Member Role Status Dates Dr. Skylar Friend MD Primary Care Provider Active Dr. Irwin Dubois MD Referring Provider, Other Provid er Active Dr. Andres Dai DO Attending Provider Active Team Status: Inactive Member Role Status Dates Dr. Skylar Friend MD Primary Care Provider Active Dr. Yulissa Antunez MD Attending Provider, Referring Provider Active Team Status: Inactive Member Role Status Dates Dr. Skylar Friend MD Primary Care Provider Active Dr. Irwin Dubois MD Attending Provider, Referring Pr ovider Active Team Status: Active Member Role Status Dates Dr. Skylar Friend MD Primary Care Provider Active Dr. Iwrin Dubois MD Attending Provider, Referring Pr ovider Active Team Status: Active Member Role Status Dates Dr. Syklar Friend MD Primary Care Provider Active Dr. Sharon Howell MD Attending Provider Active Munitions Handler Relationship Specialty Start Date End Date Skylar Friend MD PCP - General Internal Medicine 06/22/12 Team Status: Inactive Member Role Status Dates Dr. Skylar Friend MD Primary Care Provider, Referrin g Provider Active Shannan Duncan NP, [employer]-C Attending Provider Active Munitions Handler Relationship Specialty Start Date End Date Skylar Friend MD PCP - General Internal Medicine 06/22/12 Team Status: Active Member Role Status Dates Dr. Skylar Friend MD Primary Care Provider Active Team Status: Inactive Member Role Status Dates Dr. Skylar Friend MD Primary Care Provider Active Start: November 03, 2024 End: November 03, 2024 Dr. Skylar Friend MD Referring Provider Active Start: November 03, 2024 End: November 03, 2024 TABBY Jennings Attending Provider Active Start: November 03, 2024 End: November 03, 2024 Team Status: Inactive Member Role Status Dates Dr. Skylar Friend MD Primary Care Provider Active Start: December 19, 2024 End: December 19, 2024 TABBY Jennings Attending Provider Active Start: December 19, 2024 End: December 19, 2024 TABBY Jennings Referring Provider Active Start: December 19, 2024 End: December 19, 2024 Team Status: Active Member Role Status Dates Dr. Skylar Friend MD Primary Care Provider Active Start: December 19, 2024 Dr. Jaron Gilmore MD Attending Provider Active S tart: December 19, 2024 Team Status: Inactive Member Role Status Dates Dr. Skylar Friend MD Primary Care Provider Active Start: January 02, 2025 End: January 02, 2025 Dr. Skylar Friend MD Referring Provider Active Start: January 02, 2025 End: January 02, 2025 TABBY Jennings Attending Provider Active Start: January 02, 2025 End: January 02, 2025 Team Status: Inactive Member Role Status Dates Dr. Skylar Friend MD Primary Care Provider Active Start: January 23, 2025 End: January 23, 2025 TABBY Jennings Attending Provider Active Start: January 23, 2025 End: January 23, 2025 TBABY Jennings Referring Provider Active Start: January 23, 2025 End: January 23, 2025 Team Status: Inactive Member Role Status Dates Dr. Skylar Friend MD Primary Care Provider Active Start: February 20, 2025 End: February 20, 2025 Dr. Skylar Friend MD Referring Provider Active Start: February 20, 2025 End: February 20, 2025 TABBY Jennings Attending Provider Active Start: February 20, 2025 End: February 20, 2025 Team Status: Active Member Role/Relationship Status Dates Dr. Skylar Friend MD Primary Care Provider Active Team Status: Inactive Member Role/Relationship Status Dates Dr. Skylar Friend MD Primary Care Provider Active Start: December 19, 2024 End: December 19, 2024 TABBY Jennings Attending Provider Active Start: December 19, 2024 End: December 19, 2024 TABBY Jennings Referring Provider Active Start: December 19, 2024 End: December 19, 2024 Team Status: Active Member Role/Relationship Status Dates Dr. Skylar Friend MD Primary Care Provider Active Start: December 19, 2024 Dr. Andres Dai DO Attending Provider Active S tart: December 19, 2024 TABBY Jennings Referring Provider Active Start: December 19, 2024 Team Status: Active Member Role/Relationship Status Dates Dr. Skylar Friend MD Primary Care Provider Active Start: December 19, 2024 Dr. Jaron Gilmore MD Attending Provider Active S tart: December 19, 2024 Team Status: Inactive Member Role/Relationship Status Dates Dr. Skylar Friend MD Primary Care Provider Active Start: January 02, 2025 End: January 02, 2025 Dr. Skylar Friend MD Referring Provider Active Start: January 02, 2025 End: January 02, 2025 TABBY Jennings Attending Provider Active Start: January 02, 2025 End: January 02, 2025 Team Status: Inactive Member Role/Relationship Status Dates Dr. Skylar Friend MD Primary Care Provider Active Start: January 23, 2025 End: January 23, 2025 Florence M Rufener , [employer]-C Attending Provider Active Start: January 23, 2025 End: January 23, 2025 Florence Izaguirre NP-C Referring Provider Active Start: January 23, 2025 End: January 23, 2025 Team Status: Inactive Member Role/Relationship Status Dates Dr. Skylar Friend MD Primary Care Provider Active Start: February 20, 2025 End: February 20, 2025 Dr. Skylar Friend MD Referring Provider Active Start: February 20, 2025 End: February 20, 2025 Florence Izaguirre NP-C Attending Provider Active Start: February 20, 2025 End: February 20, 2025 Team Status: Inactive Member Role/Relationship Status Dates Dr. Skylar Friend MD Primary Care Provider Active Start: April 11, 2025 End: April 11, 2025 Florence Izaguirre NP-C Attending Provider Active Start: April 11, 2025 End: April 11, 2025 Florence Izaguirre NP-C Referring Provider Active Start: April 11, 2025 End: April 11, 2025 Team Status: Inactive Member Role/Relationship Status Dates Dr. Skylar Friend MD Primary Care Provider Active Start: February 20, 2025 End: February 20, 2025 Dr. Skylar Friend MD Referring Provider Active Start: February 20, 2025 End: February 20, 2025 TABBY Jennings Attending Provider Active Start: February 20, 2025 End: February 20, 2025 Team Status: Inactive Member Role/Relationship Status Dates Dr. Skylar Friend MD Primary Care Provider Active Start: April 11, 2025 End: April 11, 2025 LES JenningsC Attending Provider Active Start: April 11, 2025 End: April 11, 2025 TABBY Jennings Referring Provider Active Start: April 11, 2025 End: April 11, 2025 Team Status: Inactive Member Role/Relationship Status Dates Dr. Skylar Friend MD Primary Care Provider Active Start: June 08, 2025 End: June 08, 2025 Dr. Skylar Friend MD Referring Provider Active Start: June 08, 2025 End: June 08, 2025 Florence M Rufener , [employer]F-C Attending Provider Active Start: June 08, 2025 End: June 08, 2025 Team Status: Active Member Role/Relationship Status Dates Josefina Worley MD Primary care physician Active Team Status: Inactive Member Role/Relationship Status Dates Dr. Skylar Friend MD Primary care physician Active Start: April 11, 2025 End: April 11, 2025 Florence Izaguirre NP-C Attending physician Active Start: April 11, 2025 End: April 11, 2025 LES JenningsC Referring Provider Active Start: April 11, 2025 End: April 11, 2025 Team Status: Inactive Member Role/Relationship Status Dates Dr. Skylar Friend MD Primary care physician Active Start: June 08, 2025 End: June 08, 2025 Dr. Skylar Friend MD Referring Provider Active Start: June 08, 2025 End: June 08, 2025 LES JenningsC Attending physician Active Start: June 08, 2025 End: June 08, 2025 Team Status: Inactive Member Role/Relationship Status Dates Josefina Worley MD Primary care physician Active S tart: June 26, 2025 End: June 26, 2025 Josefina Worley MD Attending physician Active Star t: June 26, 2025 End: June 26, 2025 Josefina Worley MD Referring Provider Active Start : June 26, 2025 End: June 26, 2025 Team Status: Active Member Role/Relationship Status Nicolette Worley MD Primary care physician Active S tart: July 04, 2025 Kaitlynn Madrigal Attending physician Active Start: July 04, 2025 Team Status: Inactive Member Role/Relationship Status Dates Josefina Worley MD Primary care physician Active S tart: 2025 End: 2025 Dr. Yulissa Antunez MD Referring Provider Active Start: 2025 End: 2025 Dr. Fabiana Gaviria MD Attending physician Active Start: 2025 End: 2025 Team Status: Inactive Member Role/Relationship Status Dates Dr. Skylar Friend MD Referring Provider Active Start: July 20, 2025 End: July 20, 2025 Dr. Ronal Rollins MD Attending physician Active Start: July 20, 2025 End: July 20, 2025 Josefina Worley MD Primary care physician Active S tart: July 20, 2025 End: July 20, 2025 Goals (unrecognized section and content) Goals may be documented in a n alternate sectionGoals may be documented in an alternate sectionGoals may be documented in an alternate sectionGoals may be documented in an alternate sectionGoals may be documented in an alternate sectionGoals may be documented in an alternate sectionGoals may be documented in an alternate sectionGoals may be documented in an alternate sectionGoals may be documented in an alternate sectionGoals may be documented in an alternate sectionGoals may be documented in an alternate section FOR RECORDS PERTAINING TO PATIENTS WHO ARE OR HAVE BEEN ENROLLED IN A CHEMICAL DEPENDENCY/SUBSTANCEABUSE PROGRAM, SOME INFORMATION MAY BE OMITTED. This clinical summary was aggregated from multiple sources. Caution should be exercised in using it in the provision of clinical care. This summary normalizes information from multiple sources, and as a consequence, information in this document may materially change the coding, format and clinical context of patient data. In addition, data may be omitted in some cases. CLINICAL DECISIONS SHOULD BE BASED ON THE PRIMARY CLINICAL RECORDS. [facility]. provides no warranty or guarantee of the accuracy or completeness of information in this document.
[2025-09-07 17:51] LABS: Anion Gap 16 (5-15); BUN 16 mg/dL (4-19); BUN/Creat Ratio 17.7 RATIO (10-20); Calcium,Total 8.8 mg/dL (7.6-11.0); Carbon Dioxide 26.1 mmol/L (21.0-32.0); Chloride 101 mmol/L (98-108); Glucose 94 mg/dL (70-99); Potassium 3.8 mmol/L (3.3-5.1); Pro- Brain NATRIURETIC PEPTIDE 1718 pg/mL (<=1800)
== END | disposition home or self-care (01) ==
LOC: RAD 15:29
PROVIDERS: PCP Family Medicine; Referring Provider Nurse Practitioner Family; Visit Provider Nurse Practitioner Family
DX: R06.09 Other forms of dyspnea (principal); R60.0 Localized edema
CPT/HCPCS: 36415; 71046; 80048; 83880

== ENCOUNTER → 2025-09-18 | Outpatient (CLI) | payer MEDICARE, SELFPAY ==
[2025-09-18 17:58] LABS: Hematocrit 34.7 % (37-47); Hemoglobin 11.0 g/dL (12.0-15.0); Immature Granulocytes Count 0.160 X10^3/uL (0.0-0.0); Mean Corp Hgb Conc 31.7 g/dL (32-36); Mean Corpuscular Volume 98.0 fL (81-99); Mean Platelet Vol. 9.8 fl (6.2-12.0); NRBC Flagged by Analyzer 0.2 % (0-5); Platelet Count 298 K/mm3 (150-450); RBC Distribution Width CV 18.2 % (11.6-14.6); RBC Distribution Width SD 64.0 fl (35.1-43.9); Red Blood Count 3.54 M/mm3 (4.2-5.4); White Blood Count 11.2 K/mm3 (4.4-11.0)
[2025-09-18 18:07] LABS: AST(SGOT) 31 U/L (<=31); Alanine Aminotransfer ALT/SGPT 46 U/L (<=34); Albumin, Serum 4.2 g/dL (3.4-4.8); Alkaline Phosphatase 107 U/L (35-104); Anion Gap 13 (7-18); BUN 16 mg/dL (4-19); BUN/Creat Ratio 15.8 RATIO (10-20); Calcium,Total 9.1 mg/dL (7.6-11.0); Carbon Dioxide 27.9 mmol/L (20.0-29.0); Chloride 101 mmol/L (96-106); Globulin 3.1 g/dL (2.2-4.2); Glucose 150 mg/dL (70-99); Potassium 3.7 mmol/L (3.5-5.1)
== END | disposition home or self-care (01) ==
LOC: MTLAB 14:13
PROVIDERS: PCP Family Medicine; Referring Provider Internal Medicine Rheumatology; Visit Provider Internal Medicine Rheumatology
DX: M05.79 Rheumatoid arthritis with rheumatoid factor of multiple sites without organ or systems involvement (principal); Z79.899 Other long term (current) drug therapy
CPT/HCPCS: 36415; 80053; 85025